=== PATIENT | female | born 1955 | race Caucasian/White ===

== ENCOUNTER → 2016-04-21 | Outpatient (CLI) | payer OTHER ==
[~2016-04-21] MED LIST: ATOR-26 PO; BUPR100T8 PO; CHOL1CAP57 PO; CHOL1TAB63 PO; EFF75 PO; FERR1TAB23 PO; LEVO175T PO; NRN300 PO; TOPI200T14 PO; VRPSR240 PO
[2016-04-21 16:17] LABS: THYROID STIMULATING HORMONE 0.564 uIu/ml (0.300-4.500)
[2016-04-26 17:32] LABS: THYROGLOBULIN <0.1 NG/ML (2.8-40.9)
== END | disposition home or self-care (01) ==
LOC: C.LAB1850 14:06
PROVIDERS: ATTEND Internal Medicine Endocrinology, Diabetes & Metabolism
DX: C73 Malignant neoplasm of thyroid gland (principal); E89.0 Postprocedural hypothyroidism

== ENCOUNTER → 2016-11-10 | Outpatient (CLI) | payer OTHER ==
--- NOTE | 2016-11-10 17:40 | DIAGNOSTIC IMAGING REPORT ---
TWO VIEW CHEST CLINICAL HISTORY: Atypical chest pain. Dyspnea on exertion. FINDINGS: PA and lateral chest radiographs are obtained. No prior studies are available for comparison at the time of dictation. The PA view is degraded by patient rotation . The heart is top normal for projection. The mediastinal contour is within normal limits. Nonspecific interstitial thickening is noted. No airspace consolidation or pleural effusion is identified. There is no pneumothorax. The skeletal structures are osteopenic. Degenerative change and mild scoliosis are noted in the thoracic spine. Cholecystectomy clips are seen in the right upper quadrant. Surgical clips project over the thoracic inlet. IMPRESSION: No active disease in the chest. Electronically signed by: Sherif Shelby M.D. 11/10/2016 5:39 PM Dictated Date/Time: 11/10/2016 5:38 PM
== END | disposition home or self-care (01) ==
LOC: C.RAD 17:22
PROVIDERS: ATTEND Family Medicine
DX: R07.9 Chest pain, unspecified (principal); R06.09 Other forms of dyspnea

== ENCOUNTER 2016-11-12 11:50 | Emergency (ER) | payer OTHER ==
[~2016-11-12] VITALS: Ht 152.4 cm; Wt 105.1 kg
[2016-11-12 11:53] VITALS: TEMP 36.7; Ht 152.4 cm; Wt 105.1 kg
[2016-11-12 12:23] VITALS: O2SAT 96
[2016-11-12 12:38] LABS: BASO % 0.6 %; BASO ABS # 0.04 K/uL (0-0.2); COMPLETE YES; EOS % 5.4 %; HEMATOCRIT 40.1 % (37-47); IG% 0.8 %; LYMPH % 16.2 %; MEAN CELL VOLUME 90.9 fL (80-100); MEAN CORPUSCULAR HEMOGLOBIN 30.6 pg (25-34); MEAN CORPUSCULAR HGB CONC 33.7 g/dl (32-36); MEAN PLATELET VOLUME 9.7 fL (7.4-10.4); MONO % 10.2 %; NEUT % 66.8 %; PLATELET COUNT 274 K/uL (130-400); RED BLOOD COUNT 4.41 M/uL (4.2-5.4); WHITE BLOOD COUNT 6.16 K/uL (4.8-10.8)
[2016-11-12] MEDS ORDERED: NRN300 PO (12:55)
[2016-11-12] MEDS ORDERED: VRPSR240 PO (12:55)
[2016-11-12] MEDS ORDERED: TOPI200T14 PO (12:55)
[2016-11-12] MEDS ORDERED: LEVO175T PO (12:55)
[2016-11-12] MEDS ORDERED: ATOR-26 PO (12:55)
[2016-11-12] MEDS ORDERED: EFF75 PO (12:55)
[2016-11-12] MEDS ORDERED: BUPR100T8 PO (12:55)
[2016-11-12] MEDS ORDERED: CHOL1TAB63 PO (12:55)
[2016-11-12] MEDS ORDERED: CHOL1CAP57 PO (12:55)
[2016-11-12] MEDS ORDERED: FERR1TAB23 PO (12:55)
[2016-11-12 12:57] LABS: ALT/SGPT 26 U/L (12-78); AST/SGOT 12 U/L (15-37); BLOOD UREA NITROGEN 11 mg/dl (7-18); BUN/CREATININE RATIO 11.4 (10-20); CALCIUM 8.6 mg/dl (8.5-10.1); CARBON DIOXIDE 24 mmol/L (21-32); CHLORIDE 111 mmol/L (98-107); GLUCOSE 96 mg/dl (70-99); POTASSIUM 3.6 mmol/L (3.5-5.1); SODIUM 141 mmol/L (136-145)
[2016-11-12 13:02] LABS: ALB/GLOB RATIO 0.9 (0.9-2); ALKALINE PHOSPHATASE 194 U/L (45-117); CKMB/CK RATIO 1.6 (0-3.0)
--- NOTE | 2016-11-12 13:12 | DIAGNOSTIC IMAGING REPORT ---
CHEST ONE VIEW PORTABLE CLINICAL HISTORY: Respiratory distress. Dyspnea. COMPARISON STUDY: Chest radiograph November 10, 2016. FINDINGS: Lung volumes are diminished. There is no pneumothorax or pleural effusion. There is no evidence of pulmonary edema. Lower cervical surgical clips are noted. There is no consolidation to suggest pneumonia. There is apparent mild enlargement of the cardiac silhouette which is accentuated on this exam. IMPRESSION: No acute cardiopulmonary findings. Electronically signed by: Miles Bunch M.D. 11/12/2016 1:11 PM Dictated Date/Time: 11/12/2016 1:10 PM
[2016-11-12] MEDS ORDERED: OPTIRAY 320 IV PRN (13:15)
--- NOTE | 2016-11-12 14:44 | DIAGNOSTIC IMAGING REPORT ---
ADDENDUM Addendum: The enlarged right axillary lymph node is indeterminate. A follow-up right mammogram and ultrasound are recommended. Electronically signed by: Miles Bunch M.D. 11/12/2016 2:49 PM Dictated Date/Time: 11/12/2016 2:[address] ANGIOGRAPHY OF THE CHEST, PULMONARY EMBOLUS PROTOCOL CLINICAL HISTORY: Shortness of breath. Elevated d-dimer. COMPARISON STUDY: Chest radiograph November 10, 2016 and November 12, 2016. TECHNIQUE: Following IV administration of 94 mL of Optiray-320, helical axial images of the chest were obtained utilizing the pulmonary embolus protocol. Maximal intensity projections and sagittal and coronal reformats were viewed on an independent 3D workstation. IV contrast was administered without complication. A dose lowering technique was utilized adhering to the principles of ALARA. CT DOSE: 583.30 mGy.cm FINDINGS: No pulmonary emboli are identified. The heart is mildly enlarged. There is no evidence of thoracic aortic dissection. The thyroid gland is surgically absent. There is no pericardial effusion. There are a few mildly enlarged right axillary lymph nodes. Index lymph node measures 1.2 cm in short axis diameter. There are no enlarged mediastinal or hilar lymph nodes. Linear right apical opacity likely reflects scarring. There are several calcified pulmonary nodules. There are innumerable tiny noncalcified nodules measuring up to 4 mm. Index right lower lobe 4 mm nodule shown image 66 of 241. There are mild ground glass opacities with mosaic attenuation within the lungs. This is most prominent within the left lower lobe. Heterogeneity of portions of the medial clavicles, sternum and cervical thoracic spine may be related to prior radiation therapy. IMPRESSION: 1. No pulmonary emboli identified. 2. No acute intrathoracic findings. 3. Mildly enlarged right axillary lymph node. This is nonspecific. A follow-up chest CT in 6 months is recommended. 4. Numerous tiny noncalcified nodules within the lungs. These are also nonspecific and should be assessed on follow-up chest CT in 6 months. 5. Groundglass opacities with mosaic attenuation within lungs which could reflect air trapping or atelectasis. No consolidation to suggest pneumonia. Electronically signed by: Miles Bunch M.D. 11/12/2016 2:42 PM Dictated Date/Time: 11/12/2016 2:25 PM
--- NOTE | 2016-11-12 14:49 | DIAGNOSTIC IMAGING REPORT ---
BILATERAL LOWER EXTREMITY VENOUS DOPPLER CLINICAL HISTORY: +dimer, eval for DVT COMPARISON STUDY: No previous studies for comparison. TECHNIQUE: Sonography of the deep venous system of the bilateral lower extremity was performed. Compression and augmentation were evaluated. FINDINGS: The bilateral common femoral, superficial femoral and popliteal veins were compressible. Augmentation was normal. Flow was shown within the deep calf vessels. IMPRESSION: No evidence of deep venous thrombus within the bilateral lower extremities. Electronically signed by: Miles Bunch M.D. 11/12/2016 2:48 PM Dictated Date/Time: 11/12/2016 2:46 PM
[2016-11-12] MEDS ORDERED: ALBUTEROL HFA 8 GM INHALER INH ONE (15:30)
[2016-11-12 15:35] VITALS: BP 164/102; PULSE 77; O2SAT 98
--- NOTE | 2016-11-12 19:56 | EMERGENCY ROOM VISIT NOTE ---
History Report prepared by Deepika: Tim Krishna Under the Supervision of: Dr. Joshua Sanon M.D. First contact with patient: 12:13 Chief Complaint: SHORTNESS OF BREATH Stated Complaint: SHORTNESS OF BREATH,REFERRED History of Present Illness The patient is a 60 year old female who presents to the Emergency Room with complaints of constant shortness of breath that started several years ago. She rates her pain as a 4/10 in severity. The patient reports that she has also been experiencing left sided chest pain that occurs whenever she breathes. She also reports a contusion to her posterior right lower extremity, which she admits is still sore. The patient states that she went to visit Dr. Gallo two days ago when she had an EKG and X ray done. She states that she was discharged home due to only a left bundle branch block being found. The patient states the nurse called this morning and reported that the patient's blood work was abnormal and referred her to the ED for a CT scan and US to check for a blood clot. The patient states that she has a history of paralyzed vocal cords, who she follows with the [facility] for, and sleep apnea. She admits to an allergy to radioactive iodine, which she discovered when she had radiation done for her history of thyroid cancer with metastasization outside her thyroid. The patient states that in March, the doctor told her that she was in remission. She reports that she has a possible history of a heart attack in 2005 due to a disagreement of diagnoses between two doctors. The patient states that she has a history of constipation and intermittently takes iron pills. The patient denies traveling, smoking, LOC, headache, fevers, chills, diaphoresis, visual changes, neck pain, nausea, vomiting, abdominal pain, back pain, melena, hematochezia, urinary symptoms, numbness, weakness, lymphadenopathy, rash, or other complaints. Source of History: patient Onset: several years ago Position: other (global) Symptom Intensity: 4/10 Timing: constant Modifying Factors (Worsening): breathing Associated Symptoms: + chest pain Review of Systems See HPI for pertinent positives and negatives. A total of ten systems were reviewed and were otherwise negative. Past Medical & Surgical Medical Problems: (1) Thyroid cancer Family History Patient reports no known family medical history. Social History Smoking Status: Never Smoker Marital Status: Occupation Status: retired Current/Historical Medications Scheduled Atorvastatin (Lipitor), 40 MG PO DAILY Bupropion (Wellbutrin Sr), 200 MG PO BID Cholecalciferol (Vitamin D3), 2,000 UNITS PO DAILY Cholecalciferol (Vitamin D3), 50,000 UNITS PO WK Gabapentin (Gabapentin), 300 MG PO TID Levothyroxine Sodium (Synthroid), 175 MCG PO DAILY Topiramate (Topamax), 200 MG PO BID Venlafaxine Hcl (Effexor), 75 MG PO DAILY Verapamil HCl (Verapamil HCl ER), 240 MG PO BID Scheduled PRN Ferrous Sulfate (Iron), 325 MG PO DAILY PRN for Constipation Allergies Coded Allergies: Iodinated Diagnostic Agents (Unverified Allergy, Unknown, ., 11/12/16) Penicillins (Unverified Allergy, Unknown, ., 11/12/16) Sulfa Antibiotics (Unverified Allergy, Unknown, ., 11/12/16) Physical Exam Vital Signs Date Time Temp Pulse Resp B/P (MAP) Pulse Ox O2 Delivery O2 Flow Rate FiO2 11/12/16 15:35 77 20 164/102 98 11/12/16 14:49 82 16 159/88 96 Room Air 11/12/16 13:12 88 20 152/92 94 Room Air 11/12/16 13:02 68 11/12/16 12:23 94 Room Air 11/12/16 12:23 96 Room Air 11/12/16 11:53 36.7 92 24 171/99 96 Room Air Physical Exam GENERAL: Awake, alert, well-appearing, in no distress HENT: Normocephalic, atraumatic. Oropharynx unremarkable. EYES: Normal conjunctiva. Sclera non-icteric. NECK: Supple. No nuchal rigidity. FROM. No JVD. Post surgical changes and scarring to right neck and shoulder area. RESPIRATORY: Clear to auscultation. CARDIAC: Regular rate, normal rhythm. Extremities warm and well perfused. Pulses equal. ABDOMEN: Soft, non-distended. No tenderness to palpation. No rebound or guarding. No masses. RECTAL: Deferred. MUSCULOSKELETAL: Chest examination reveals no tenderness. The back is symmetrical on inspection without obvious abnormality. There is no CVA tenderness to palpation. No joint edema. LOWER EXTREMITIES: Calves are equal size bilaterally and non-tender. No edema. No discoloration. NEURO: Normal sensorium. No sensory or motor deficits noted. SKIN: No rash or jaundice noted. Medical Decision & Procedures ER Provider Diagnostic Interpretation: Radiology results as stated below per my review and radiologist interpretation: CHEST ONE VIEW PORTABLE CLINICAL HISTORY: Respiratory distress. Dyspnea. COMPARISON STUDY: Chest radiograph November 10, 2016. FINDINGS: Lung volumes are diminished. There is no pneumothorax or pleural effusion. There is no evidence of pulmonary edema. Lower cervical surgical clips are noted. There is no consolidation to suggest pneumonia. There is apparent mild enlargement of the cardiac silhouette which is accentuated on this exam. IMPRESSION: No acute cardiopulmonary findings. Electronically signed by: Miles Bunch M.D. 11/12/2016 1:11 PM Dictated Date/Time: 11/12/2016 1:10 PM BILATERAL LOWER EXTREMITY VENOUS DOPPLER CLINICAL HISTORY: +dimer, eval for DVT COMPARISON STUDY: No previous studies for comparison. TECHNIQUE: Sonography of the deep venous system of the bilateral lower extremity was performed. Compression and augmentation were evaluated. FINDINGS: The bilateral common femoral, superficial femoral and popliteal veins were compressible. Augmentation was normal. Flow was shown within the deep calf vessels. IMPRESSION: No evidence of deep venous thrombus within the bilateral lower extremities. Electronically signed by: Miles Bunch M.D. 11/12/2016 2:48 PM Dictated Date/Time: 11/12/2016 2:[address] ANGIOGRAPHY OF THE CHEST, PULMONARY EMBOLUS PROTOCOL CLINICAL HISTORY: Shortness of breath. Elevated d-dimer. COMPARISON STUDY: Chest radiograph November 10, 2016 and November 12, 2016. TECHNIQUE: Following IV administration of 94 mL of Optiray-320, helical axial images of the chest were obtained utilizing the pulmonary embolus protocol. Maximal intensity projections and sagittal and coronal reformats were viewed on an independent 3D workstation. IV contrast was administered without complication. A dose lowering technique was utilized adhering to the principles of ALARA. CT DOSE: 583.30 mGy.cm FINDINGS: No pulmonary emboli are identified. The heart is mildly enlarged. There is no evidence of thoracic aortic dissection. The thyroid gland is surgically absent. There is no pericardial effusion. There are a few mildly enlarged right axillary lymph nodes. Index lymph node measures 1.2 cm in short axis diameter. There are no enlarged mediastinal or hilar lymph nodes. Linear right apical opacity likely reflects scarring. There are several calcified pulmonary nodules. There are innumerable tiny noncalcified nodules measuring up to 4 mm. Index right lower lobe 4 mm nodule shown image 66 of 241. There are mild ground glass opacities with mosaic attenuation within the lungs. This is most prominent within the left lower lobe. Heterogeneity of portions of the medial clavicles, sternum and cervical thoracic spine may be related to prior radiation therapy. IMPRESSION: 1. No pulmonary emboli identified. 2. No acute intrathoracic findings. 3. Mildly enlarged right axillary lymph node. This is nonspecific. A follow-up chest CT in 6 months is recommended. 4. Numerous tiny noncalcified nodules within the lungs. These are also nonspecific and should be assessed on follow-up chest CT in 6 months. 5. Groundglass opacities with mosaic attenuation within lungs which could reflect air trapping or atelectasis. No consolidation to suggest pneumonia. Electronically signed by: Miles Bunch M.D. 11/12/2016 2:42 PM Dictated Date/Time: 11/12/2016 2:25 PM Laboratory Results 11/12/16 12:14 Red Blood Count 4.41, Mean Corpuscular Volume 90.9, Mean Corpuscular Hemoglobin 30.6, Mean Corpuscular Hemoglobin Concent 33.7, Mean Platelet Volume 9.7, Neutrophils (%) (Auto) 66.8, Lymphocytes (%) (Auto) 16.2, Monocytes (%) (Auto) 10.2, Eosinophils (%) (Auto) 5.4, Basophils (%) (Auto) 0.6, Neutrophils # (Auto ) 4.11, Lymphocytes # (Auto) 1.00, Monocytes # (Auto) 0.63, Eosinophils # (Auto ) 0.33, Basophils # (Auto) 0.04 11/12/16 12:14 Test 11/12/16 12:14 White Blood Count 6.16 K/uL (4.8-10.8) Red Blood Count 4.41 M/uL (4.2-5.4) Hemoglobin 13.5 g/dL (12.0-16.0) Hematocrit 40.1 % (37-47) Mean Corpuscular Volume 90.9 fL (80-100) Mean Corpuscular Hemoglobin 30.6 pg (25-34) Mean Corpuscular Hemoglobin Concent 33.7 g/dl (32-36) Platelet Count 274 K/uL (130-400) Mean Platelet Volume 9.7 fL (7.4-10.4) Neutrophils (%) (Auto) 66.8 % Lymphocytes (%) (Auto) 16.2 % Monocytes (%) (Auto) 10.2 % Eosinophils (%) (Auto) 5.4 % Basophils (%) (Auto) 0.6 % Neutrophils # (Auto) 4.11 K/uL (1.4-6.5) Lymphocytes # (Auto) 1.00 K/uL (1.2-3.4) Monocytes # (Auto) 0.63 K/uL (0.11-0.59) Eosinophils # (Auto) 0.33 K/uL (0-0.5) Basophils # (Auto) 0.04 K/uL (0-0.2) RDW Standard Deviation 48.4 fL (36.4-46.3) RDW Coefficient of Variation 14.5 % (11.5-14.5) Immature Granulocyte % (Auto) 0.8 % Immature Granulocyte # (Auto) 0.05 K/uL (0.00-0.02) Anion Gap 6.0 mmol/L (3-11) Est Creatinine Clear Calc Drug Dose 63.9 ml/min Estimated GFR () 69.9 Estimated GFR (Non- 60.3 BUN/Creatinine Ratio 11.4 (10-20) Calcium Level 8.6 mg/dl (8.5-10.1) Total Bilirubin 0.5 mg/dl (0.2-1) Aspartate Amino Transf (AST/SGOT) 12 U/L (15-37) Alanine Aminotransferase (ALT/SGPT) 26 U/L (12-78) Alkaline Phosphatase 194 U/L (45-117) Total Creatine Kinase 79 U/L (26-192) Creatine Kinase MB 1.3 ng/ml (0.5-3.6) Creatine Kinase MB Ratio 1.6 (0-3.0) Troponin I < 0.015 ng/ml (0-0.045) Pro-B-Type Natriuretic Peptide 182 pg/ml (0-900) Total Protein 8.2 gm/dl (6.4-8.2) Albumin 3.9 gm/dl (3.4-5.0) Globulin 4.3 gm/dl (2.5-4.0) Albumin/Globulin Ratio 0.9 (0.9-2) Laboratory results reviewed by me Medications Administered Medications (Trade) Dose Ordered Sig/Cherelle Route Start Time Stop Time Status Last Admin Dose Admin Albuterol (Ventolin Hfa Inhaler) 2 puffs NOW ONCE INH 11/12/16 15:30 11/12/16 15:31 DC 11/12/16 15:30 2 PUFFS ECG Indication: SOB/dyspnea Rate (beats per minute): 80 Rhythm: sinus rhythm Findings: LBBB, PVC, no acute ischemic change ED Course 1254: The patient was evaluated in room A09B. A complete history and physical exam was performed. 1516: I reevaluated the patient. Discussed results and discharge instructions: She verbalized understanding and agreement. The patient is ready for discharge. 1530: Ordered Albuterol 2 puffs INH. Medical Decision Triage Nursing notes reviewed. The patient's presentation and history were concerning for shortness of breath, cancer, and a positive d-dimer. Etiologies such as pneumonia, COPD, reactive airway disease, CHF, cardiac ischemia, pulmonary embolism, pneumothorax, musculoskeletal, infections, gastrointestinal, as well as others were entertained. The patient was evaluated. Clinical she is doing well. She had stable vital signs. She had blood work obtained. Chest imaging was done. Results as above. Her CBC, chemistry panel, BNP, and cardiac markers were negative. The patient underwent CT imaging of her chest and bilateral lower extremity ultrasounds. Ultrasounds were negative for DVT. The patient's chest CT revealed no evidence of PE. She does have a groundglass appearance which may be some interstitial lung disease, or air trapping. The patient does note a long history of exposure to secondhand smoke. She does not have a liner man. She has not been using any bronchodilators or inhalers. The patient was given an albuterol inhaler. I did refer her to pulmonology as well as back to her primary physician. The patient feels very comfortable with conservative management as an outpatient was very pleased with the testing and results here today. I gave my usual and customary discussion regarding this issue. B y the evaluation outlined above other emergent etiologies such as those listed in the differential, as well as others, were deemed relatively unlikely. The patient was educated about the findings as listed above. All questions were answered and the patient was pleased with the treatment. Return instructions were outlined and the patient was discharged in stable condition. The patient was referred to Pulmonology and her PCP for follow-up for a recheck of the current condition. Medication Reconcilliation Current Medication List: was personally reviewed by me Blood Pressure Screening Patient's blood pressure: Elevated blood pressure Blood pressure disposition: Referred to PCP Impression Primary Impression: SOB (shortness of breath) Additional Impression: Interstitial lung disease Scribe Attestation The scribe's documentation has been prepared under my direction and personally reviewed by me in its entirety. I confirm that the note above accurately reflects all work, treatment, procedures, and medical decision making performed by me. Departure Information Dispostion Home / Self-Care Referrals Juan Gallo M.D. (PCP) Daryl Burden MD Forms HOME CARE DOCUMENTATION FORM, IMPORTANT VISIT INFORMATION Patient Instructions My [facility] Additional Instructions Albuterol Inhaler: Take 2 puffs four times daily for five days, then as needed. Acetaminophen(Tylenol) may be used for fever or pain. Use 1000mg every six hours as needed. Avoid using more than 4000mg in a 24 hour period. (AND/OR) Ibuprofen(Motrin, Advil) may be used for fever or pain. Use 600mg every six hours as needed. Take with food. Avoid using more than 2400mg in a 24 hour period. Do not use 2400mg per day for more than three consecutive days without physician direction. Prolonged inappropriate use can lead to stomach upset or ulcers. Rest and drink plenty of fluids. Avoid smoke/smoking, fumes, dust, or any triggers in the past that may have affected your breathing. Continue current medications. Return to the ER for chest pain, difficulty breathing, fevers, vomiting, worsening of your condition, or as needed. Follow up with your primary physician this week for a recheck of your current condition. Call Dr. Burden's office for a pulmonology follow-up. The numbers listed below. Call the office on Monday. Problem Qualifiers
== END 2016-11-12 15:37 | disposition home or self-care (01) ==
LOC: C.EDB 11:51 → C.EDA 15:37
DX: R06.02 Shortness of breath (principal); J84.9 Interstitial pulmonary disease, unspecified; Z85.850 Personal history of malignant neoplasm of thyroid; Z79.899 Other long term (current) drug therapy

== ENCOUNTER 2020-03-02 11:12 | Observation (INO) ==
--- NOTE | 2020-03-02 12:37 | Emergency Department Note ---
Impression & Plan Acute GI bleeding, Anticoagulated, Rectal cancer, Anemia, Leukopenia ED Provider Note NAME: NEDA DONIS AGE: 64 SEX: F : 1955 ARRIVES VIA: Walk-In INFORMANT: Patient ED PROVIDER(S): Hugo Echevarria DO CHIEF COMPLAINT: GI bleed HPI: Patient is a 64-year-old female who presents the ER for GI bleed. She was seen in the Coumadin clinic and referred to hematology oncology. She was referred up here from Dr. Bishop's office. She notes bright red blood per rectum about a quarter of a cup 4 times a day. She is also passing clots or tissue. She notes she has stage IV rectal cancer and is undergoing chemo and radiation. She denies any headache, change in vision, chest pain shortness of breath nausea or vomiting. No new belly pain. She notes that she does have a rectal stent in place. Only on Lovenox for DVTs. ROS: See above HPI for pertinent positives & negatives. A total of 10 systems reviewed and were otherwise negative. PAST MEDICAL HISTORY:See Below PAST SURGICAL HISTORY:See Below FAMILY HISTORY:See Below SOCIAL HISTORY:See Below HOME MEDICATIONS:See Below ALLERGIES:See Below VITALS:See Below PHYSICAL EXAMINATION: GENERAL: Sitting up in bed, alert, ill-appearing, disheveled, nontoxic EYE EXAM: normal conjunctiva. OROPHARYNX: no exudate, no erythema, lips, buccal mucosa, and tongue normal and mucous membranes are moist NECK: supple, no nuchal rigidity, no adenopathy, non-tender LUNGS: Clear to auscultation. Normal chest wall mechanics HEART: no murmurs, S1 normal and S2 normal ABDOMEN: abdomen soft, non-tender, normo-active bowel sounds, no masses, no rebound or guarding. BACK: Back is symmetrical on inspection and there is no deformity, no midline tenderness, no CVA tenderness. SKIN: no rashes and no bruising UPPER EXTREMITIES: upper extremities are grossly normal. LOWER EXTREMITIES: No pitting edema. NEURO EXAM: Normal sensorium, cranial nerves II-XII grossly intact, normal speech, no gross weakness of arms, no gross weakness of legs. Medical decision making: Patient is a 4-year-old female with past medical history of rectal cancer with a stent in place bright red blood per rectum on blood thinners. IV was established blood work was obtained. Labs showed mild leukopenia 2.5. Mild anemia 10.6 consistent with previous. INR was unremarkable. BMP with mild hypokalemia. Chloride slightly elevated at 111. LFTs bilirubin and troponin was negative. Patient was typed and screened. CT abdomen pelvis shows stent in place with a fair amount of inflammation. Discussed with Dr. Abad who is her typewriter mechanic although did not place the stent. He agrees with admission and further observation. Currently on Lovenox for the DVTs which she has as well. Triage Nursing notes reviewed. Prior medical records reviewed Vital Signs: reviewed and remarkable for HTN Differential diagnosis: Differential diagnosis includes etiologies such as diverticulitis, diverticulosis, AVM, coagulopathy, colitis, inflammatory bowel disease, malignancy, Ana-Amado tear, esophagitis, peptic ulcer disease, variceal bleed, gastritis, epistaxis, fissure, hemorrhoids, as well as others were entertained. ER treatment provided: See below Diagnostics interpreted by me: ECG: Sinus rhythm rate of 68 Normal axis No PVCs Nonspecific ST wave changes in the septal leads Cardiac Monitoring: An order was placed for continuous cardiac monitoring. The monitor shows a rate of 70 with sinus rhythm. Laboratory studies: As stated above and show below. Imaging studies: CT abdomen pelvis shows inflammation around the rectal stent Consultation(s): Cussed with Dr. Abad Discussed the hospitalist for further evaluation ED COURSE: Procedures: none Critical Care: None Past Med/Surg History Medical History (Updated 03/02/20 @ 17:19 by Hugo Echevarria DO) Anxiety Blood in stool D/T rectal mass per patient stent placed Complete left bundle branch block (LBBB) Chronic per cardio note Depression GERD (gastroesophageal reflux disease) History of medullary carcinoma of thyroid Hx of papillary thyroid carcinoma Hyperlipidemia no meds Hypertension Hypothyroidism Post ablative Irritable bowel syndrome with constipation Menopause Migraine Myocardial Infarction 2003 Paralyzed vocal cords Post-surgical hypothyroidism Rectal cancer Recently dx'ed- reason for port placement. Pt for upper/lowerEUS with liver bx and flex sigmoidoscopy with Dr. Coon on 01/23/20 Scars right side of neck d/t radiation Sleep apnea bipap Thyroid cancer Follicular thyroid cancer 1982--s/p partial thyroidectomy, chemo, radiation Medullary thyroid cancer 1996-- s/p complete thyroidectomy, radical neck dissection, radiation/radioactive iodine Vitamin D deficiency Surgical History Difficult airway for intubation small airway -- has laryngeal implant - states use size 6.0 ETT with caution History of appendectomy History of bilateral tubal ligation History of cholecystectomy History of colonoscopy had last 12/24/[address] Abad--found a mass---reason for scheduled flexible sigmoidoscopy with stent History of endoscopic sinus surgery History of esophagogastroduodenoscopy (EGD) History of hysterectomy with unilateral oophorectomy removed right d/t endometriosis History of radical dissection of right side of neck History of right inguinal hernia repair History of surgery part of vocal cord removed -- has laryngeal implant History of thyroidectomy, total History of tonsillectomy and adenoidectomy per patient surgery was done twice History of tooth extraction with permnant bridge Family History Mother Family history of diabetes mellitus Uncle Family history of diabetes mellitus Grandmother Breast cancer Hypertension Diabetes Grandfather Heart disease Other No family history of adverse response to anesthesia Social History Smoking Status: Never smoker Second Hand Exposure: Yes (father smoked); Hx Alcohol Use: No Hx Substance Use: No Preferred Language: Spanish Communication Ability: Effective Anchorer Required: No Beliefs That Will Affect Care: None marital status: Current Living Situation: Alone current occupational status: retired How many Children do You have: 0 Feels Safe at Home: Yes Assistive Devices: BiPap, Cane and Glasses Allergies Allergies Allergy/AdvReac Type Severity Reaction Status Date / Time Iodinated Contrast Media Allergy Intermediate Hives Verified 03/02/20 11:49 Penicillins Allergy Intermediate Hives Verified 03/02/20 11:49 Sulfa (Sulfonamide Allergy Intermediate Hives Verified 03/02/20 11:49 Antibiotics) Home Meds Home Medications Medication Instructions Recorded Confirmed folic acid 1 mg PO QAM 05/24/18 03/02/20 lisinopril 10 mg PO BID 05/24/18 03/02/20 verapamil 240 mg PO BID 05/24/18 03/02/20 levothyroxine 112 mcg capsule 224 mcg PO QAM 01/17/19 03/02/20 topiramate 200 mg tablet 200 mg PO HS 01/17/19 03/02/20 albuterol sulfate 1 inh INHALATION QID PRN 12/16/19 03/02/20 cholecalciferol (vitamin D3) 50 50 mcg PO QAM 01/21/20 03/02/20 mcg (2,000 unit) capsule magnesium hydroxide [Milk of 15 ml PO DAILY PRN 01/23/20 03/02/20 Magnesia] cholecalciferol (vitamin D3) 50,000 unit PO WK 03/02/20 03/02/20 [D3-50 Cholecalciferol] Previous Rx's Medication Instructions Recorded enoxaparin 80 mg/0.8 mL 80 mg SUBCUT Q12H #10 syr 03/02/20 subcutaneous syringe warfarin 4 mg tablet 4 mg PO DAILY #30 tab 03/02/20 Results & Data (ED) Vital Signs Vital Signs - 24 hr 03/02/20 11:19 03/02/20 11:58 03/02/20 12:36 Temperature 36.7 C Temperature Source Oral Pulse Rate 95 H 64 Pulse Rate from SpO2 Sensor 64 Respiratory Rate 20 15 Respiratory Effort / Characteristics Non-Labored Spontaneous Respiratory Depth Normal Respiratory Pattern Regular Blood Pressure 159/89 H 165/63 H Blood Pressure Mean 112 113 Blood Pressure Position Sitting Pulse Oximetry 98 99 Oxygen Delivery Method Room Air Room Air Room Air Sepsis Recent Fever Within 48 Hours No Sepsis New/Unexplained Change in Mental Status N/A Sepsis Action Taken by Nursing No Action Required 03/02/20 13:00 03/02/20 13:44 03/02/20 14:00 Temperature Temperature Source Pulse Rate 65 70 66 Pulse Rate from SpO2 Sensor 69 66 Respiratory Rate 15 17 15 Respiratory Effort / Characteristics Respiratory Depth Respiratory Pattern Blood Pressure 151/74 H 181/90 H 162/84 H Blood Pressure Mean 105 126 117 Blood Pressure Position Pulse Oximetry 99 100 99 Oxygen Delivery Method Room Air Room Air Room Air Sepsis Recent Fever Within 48 Hours Sepsis New/Unexplained Change in Mental Status Sepsis Action Taken by Nursing 03/02/20 15:01 Temperature Temperature Source Pulse Rate 69 Pulse Rate from SpO2 Sensor 71 Respiratory Rate 17 Respiratory Effort / Characteristics Respiratory Depth Respiratory Pattern Blood Pressure 180/103 H Blood Pressure Mean 145 Blood Pressure Position Pulse Oximetry 97 Oxygen Delivery Method Room Air Sepsis Recent Fever Within 48 Hours Sepsis New/Unexplained Change in Mental Status Sepsis Action Taken by Nursing Laboratory Data Result diagrams: 03/02/20 12:55 03/02/20 12:55 Lab Results 03/02/20 03/02/20 03/02/20 Range/Units 12:55 12:55 12:55 WBC 2.57 L (4.8-10.8) K/uL RBC 3.51 L (4.2-5.4) M/uL Hgb 10.6 L (12.0-16.0) g/dL Hct 31.7 L (37-47) % MCV 90.3 (80-100) fL MCH 30.2 (25-34) pg MCHC 33.4 (32-36) g/dL RDW Std Deviation 46.4 H (36.4-46.3) fL RDW Coeff of Michelle 14.0 (11.5-14.5) % Plt Count 168 (130-400) K/uL MPV 9.1 (7.4-10.4) fL Immature Gran % (Auto) 0.0 % Neut % (Auto) 54.1 % Lymph % (Auto) 32.7 % Gilliam % (Auto) 5.4 % Eos % (Auto) 7.4 % Baso % (Auto) 0.4 % Neut # (Auto) 1.39 L (1.4-6.5) K/uL Lymph # (Auto) 0.84 L (1.2-3.4) K/uL Gilliam # (Auto) 0.14 (0.11-0.59) K/uL Eos # (Auto) 0.19 (0-0.5) K/uL Baso # (Auto) 0.01 (0-0.2) K/uL Immature Gran # (Auto) 0.00 (0.00-0.02) K/uL PT 11.2 (9.0-12.0) Seconds INR 1.1 (0.9-1.1) APTT 28.4 (21.0-31.0) Seconds PTT Ratio 1.0 Sodium (136-145) mmol/L Potassium (3.5-5.1) mmol/L Chloride (98-107) mmol/L Carbon Dioxide (21-32) mmol/L Anion Gap (3-11) BUN (7-18) mg/dl Creatinine (0.6-1.2) mg/dl Est Cr Clr Drug Dosing ml/min Est GFR ( Amer) Est GFR (Non-Af Amer) BUN/Creatinine Ratio (10-20) Glucose (70-99) mg/dl Calcium (8.5-10.1) mg/dl Total Bilirubin (0.2-1) mg/dl AST (15-37) U/L ALT (12-78) U/L Alkaline Phosphatase (45-117) U/L Troponin I (0-0.045) ng/ml Total Protein (6.4-8.2) gm/dl Albumin (3.4-5.0) gm/dl Globulin (2.5-4.0) gm/dl Albumin/Globulin Ratio (0.9-2) COVID-19 Eval Order Blood Type A Positive Antibody Screen NEGATIVE 03/02/20 03/02/20 Range/Units 12:55 17:10 WBC (4.8-10.8) K/uL RBC (4.2-5.4) M/uL Hgb (12.0-16.0) g/dL Hct (37-47) % MCV (80-100) fL MCH (25-34) pg MCHC (32-36) g/dL RDW Std Deviation (36.4-46.3) fL RDW Coeff of Michelle (11.5-14.5) % Plt Count (130-400) K/uL MPV (7.4-10.4) fL Immature Gran % (Auto) % Neut % (Auto) % Lymph % (Auto) % Gilliam % (Auto) % Eos % (Auto) % Baso % (Auto) % Neut # (Auto) (1.4-6.5) K/uL Lymph # (Auto) (1.2-3.4) K/uL Gilliam # (Auto) (0.11-0.59) K/uL Eos # (Auto) (0-0.5) K/uL Baso # (Auto) (0-0.2) K/uL Immature Gran # (Auto) (0.00-0.02) K/uL PT (9.0-12.0) Seconds INR (0.9-1.1) APTT (21.0-31.0) Seconds PTT Ratio Sodium 140 (136-145) mmol/L Potassium 3.4 L (3.5-5.1) mmol/L Chloride 111 H (98-107) mmol/L Carbon Dioxide 27 (21-32) mmol/L Anion Gap 2.0 L (3-11) BUN 19 H (7-18) mg/dl Creatinine 0.65 (0.6-1.2) mg/dl Est Cr Clr Drug Dosing 83.0 ml/min Est GFR ( Amer) 107.2 Est GFR (Non-Af Amer) 92.5 BUN/Creatinine Ratio 29.6 H (10-20) Glucose 87 (70-99) mg/dl Calcium 7.4 L (8.5-10.1) mg/dl Total Bilirubin 0.4 (0.2-1) mg/dl AST 16 (15-37) U/L ALT 41 (12-78) U/L Alkaline Phosphatase 110 (45-117) U/L Troponin I < 0.015 (0-0.045) ng/ml Total Protein 6.0 L (6.4-8.2) gm/dl Albumin 3.1 L (3.4-5.0) gm/dl Globulin 2.9 (2.5-4.0) gm/dl Albumin/Globulin Ratio 1.1 (0.9-2) COVID-19 Eval Order Covid19 [facility] Blood Type Antibody Screen Administered Medications Discontinued Medications Ioversol (Ioversol 100ml) 94 ml IV ONCE ONE Stop: 03/02/20 14:34 Last Admin: 03/02/20 14:33 Dose: 94 ml Documented by: [id number] Methylprednisolone (Methylprednisolone 125 Mg/2 Ml Vial) 125 mg IV NOW STA Stop: 03/02/20 12:46 Last Admin: 03/02/20 13:40 Dose: 125 mg Documented by: [id number] Discharge Plan Visit Data Chief Complaint: Rectal Bleed Stated Complaint: dr amanda sent, rectal bleeding ED Provider: Hugo Echevarria Discharge Problem: Acute GI bleeding, Anticoagulated, Rectal cancer, Anemia, Leukopenia Forms Stand Alone Forms: My [facility] Prescriptions Prescriptions: No Action enoxaparin 80 mg/0.8 mL syringe 80 mg subcut Q12H Qty: 10 RF: 2 warfarin 4 mg tablet 4 mg PO DAILY Qty: 30 RF: 2 levothyroxine 112 mcg capsule 224 mcg PO QAM RF: 0 topiramate [Topamax] 200 mg tablet 200 mg PO HS RF: 0 cholecalciferol (vitamin D3) 50 mcg (2,000 unit) capsule 50 mcg PO QAM RF: 0 lisinopril 10 mg Tablet 10 mg PO BID RF: 0 verapamil 240 mg Tablet Extended Release 240 mg PO BID RF: 0 folic acid 1 mg Tablet 1 mg PO QAM RF: 0 magnesium hydroxide [Milk of Magnesia] 400 mg/5 mL Suspension 15 ml PO DAILY PRN (Reason: Constipation) RF: 0 albuterol sulfate 90 mcg/actuation Hfa Aerosol Inhaler 1 inh INHALATION QID PRN (Reason: sob) RF: 0 cholecalciferol (vitamin D3) [D3-50 Cholecalciferol] 1,250 mcg (50,000 unit) capsule 50,000 unit PO WK RF: 0 Discharge Problem: Anemia Qualifiers: Anemia type: unspecified type Qualified Code(s): D64.9 - Anemia, unspecified Leukopenia Qualifiers: Leukopenia type: unspecified Qualified Code(s): D72.819 - Decreased white blood cell count, unspecified
[2020-03-02] MEDS ORDERED: methylPREDNISolone 125 MG/2 ML VIAL IV STA (12:45)
[2020-03-02 13:22] LABS: Basophils # (auto) 0.01 K/uL (0-0.2); Basophils % (auto) 0.4 %; Eosinophils # (auto) 0.19 K/uL (0-0.5); Eosinophils % (auto) 7.4 %; Hematocrit (blood only) 31.7 % (37-47); Hemoglobin 10.6 g/dL (12.0-16.0); Lymphocytes # (auto) 0.84 K/uL (1.2-3.4); Lymphocytes % (auto) 32.7 %; Mean Corpuscular Hemoglobin 30.2 pg (25-34); Mean Corpuscular Hgb Conc 33.4 g/dL (32-36); Mean Corpuscular Volume 90.3 fL (80-100); Mean Platelet Volume 9.1 fL (7.4-10.4); Monocytes # (auto) 0.14 K/uL (0.11-0.59); Monocytes % (auto) 5.4 %; Neutrophils # (auto) 1.39 K/uL (1.4-6.5); Neutrophils % (auto) 54.1 %; Platelet Count 168 K/uL (130-400); RDW Standard Deviation 46.4 fL (36.4-46.3); Red Blood Count 3.51 M/uL (4.2-5.4); White Blood Count 2.57 K/uL (4.8-10.8)
--- NOTE | 2020-03-02 13:34 | Electrocardiogram Report ---
Test Reason : Blood Pressure : / mmHG Vent. Rate : 068 BPM Atrial Rate : 068 BPM P-R Int : 160 ms QRS Dur : 102 ms QT Int : 436 ms P-R-T Axes : 029 014 029 degrees QTc Int : 463 ms Normal sinus rhythm Poor R wave progression, consider anterior RI vs. lead placement vs. LVH Abnormal ECG When compared with ECG of 26-DEC-2019 10:52, Vent. rate has decreased BY 36 BPM Left bundle branch block is no longer Present Confirmed by Kris Jesus ([id number]) on 03/02/2020 1:34:18 PM Referred By: Mario Flores Confirmed By:Kris Jesus
[2020-03-02 13:38] LABS: INR 1.1 (0.9-1.1); Partial Thromboplastin Time 28.4 Seconds (21.0-31.0); Prothrombin Time 11.2 Seconds (9.0-12.0)
[2020-03-02 13:42] LABS: Alanine Aminotransferase 41 U/L (12-78); Albumin Globulin Ratio 1.1 (0.9-2); Albumin Level 3.1 gm/dl (3.4-5.0); Alkaline Phosphatase 110 U/L (45-117); Aspartate Aminotransferase 16 U/L (15-37); BUN Creatinine Ratio 29.6 (10-20); Bilirubin,Total 0.4 mg/dl (0.2-1); Blood Urea Nitrogen 19 mg/dl (7-18); Calcium 7.4 mg/dl (8.5-10.1); Carbon Dioxide 27 mmol/L (21-32); Chloride 111 mmol/L (98-107); Est GFR (African American) 107.2; Est GFR (Non-African American) 92.5; Globulin 2.9 gm/dl (2.5-4.0); Glucose 87 mg/dl (70-99); Potassium 3.4 mmol/L (3.5-5.1); Sodium 140 mmol/L (136-145); Troponin I < 0.015 ng/ml (0-0.045)
[2020-03-02] MEDS ORDERED: IOVERSOL 100ml IV ONE (14:33)
--- NOTE | 2020-03-02 14:55 | CT Scan Report ---
CT SCAN OF THE ABDOMEN AND PELVIS WITH IV CONTRAST CLINICAL HISTORY: GI bleeding. Colon cancer. COMPARISON STUDY: Abdominal CT dated 12/26/2019. TECHNIQUE: Following the IV administration of 94 cc of Optiray 320, CT scan of the abdomen and pelvi s is performed from the lung bases to the proximal femora. Images are reviewed in the axial, sagittal , and coronal planes. IV contrast was administered without complication. A dose lowering technique wa s utilized adhering to the principles of ALARA. CT DOSE: 898.33 mGy.cm FINDINGS: Lung bases: The heart is normal in size and without pericardial effusion. There are scattered calcifi ed granulomas. No airspace consolidation or pleural effusion is identified. Liver: The contrast-enhanced liver is normal in size, contour, and attenuation. There is no intrahepa tic biliary ductal dilatation. The hepatic veins and portal veins are patent. There are 2 hypervascul ar lesions seen in the dome of the liver on images #23 and #30 which measure up to 1 cm. Additional s ubcentimeter hepatic hypodensities may resent cysts but are too small for definitive characterization . Gallbladder: Surgically absent noting clips in the gallbladder fossa. Spleen: The spleen is normal in size attenuation. There are numerous hypervascular splenic lesions wh ich measure up to 3.7 cm. Pancreas: Unremarkable. Adrenal glands: Unremarkable. Kidneys: The contrast enhanced kidneys demonstrate mild cortical atrophy and are without hydronephros is. The kidneys enhance symmetrically. There is a small nonobstructing left renal calculus. Abdominal vasculature: The abdominal aorta is normal in course and caliber noting mild atheroscleroti c calcification. Bowel: A rectal stent is in place. There is marked rectal wall thickening with perirectal inflammatio n. Focal narrowing is identified in the sigmoid colon just above the stent on axial image #277. No omar wel obstruction is identified. The appendix is not identified and reported surgically absent. There are numerous enlarged perirectal nodules/lymph nodes a applications sales representative lesion on image #308 measures u p to 3 cm. This is similar appearance to previous. There is moderate to severe constipation. Peritoneum: There is no intraperitoneal free air or abdominal ascites. Lymphadenopathy: There is no upper abdominal, retroperitoneal, pelvic sidewall, or inguinal adenopath y. Pelvic viscera: The bladder is normal as visualized. The uterus is surgically absent. No adnexal lesi on is seen. Skeletal structures: The skeletal structures are osteopenic. A sclerotic focus is again seen at the l eft ischial tuberosity. No additional bone lesions are suggested. IMPRESSION: 1. A rectal stent is unchanged in position. There is marked rectal wall thickening with perirectal in flammation. This is likely related to the patient's known carcinoma, possibly conjunction with treatm ent related change. Clinical correlation will be required. 2. Enlarged perirectal nodules/lymph nodes are similar to previous. 3. Focal narrowing is identified in the sigmoid colon just above the stent. This is of indeterminant significance and may be physiologic. This could also related to stricture or neoplasm. 4. The colon is normal in caliber noting moderate to severe constipation. There is no small bowel obs truction. 5. There are numerous pathologically indeterminant hypervascular splenic lesions. These are unchanged . 6. There are 2 hypervascular liver lesions at the hepatic dome which measure up to 1 cm. These are pa thologically indeterminant and may represent small flash filling hemangiomas. 7. Left-sided nephrolithiasis. 8. A sclerotic focus at the left ischial tuberosity is unchanged and pathologically indeterminant. 9. Additional findings as above. ACT 112: Negative or not required by law. Electronically signed by: Sherif Shelby M.D. 03/02/2020 2:53 PM
--- NOTE | 2020-03-02 15:56 | History & Physical Report ---
Date of Service March 02, 2020 Assessment & Plan (1) Hematochezia: Chrissy Vance is a 64-year-old female with a past medical history of stage IV rectal cancer with rectal stent undergoing chemotherapy, past thyroid cancer status post thyroidectomy with subsequent partial vocal cord paralysis, interstitial lung disease, hypertension, hyperlipidemia, SUZANNE, and dyslipidemia who presents with 4 episodes of hematochezia of partially formed blood in tissue the night prior to admission. Hematochezia Patient describes 4 episodes of passing blood and some tissue, first episode evening prior to presentation and last episode approximately 5:30 AM day of presentation. Patient describes about 1/4 cup of formed blood with tissue - Pt w/ rectal stent, may have bleeding at cancer site vs local stent erosion Patient recently started on Lovenox 1mpk twice daily for left IJ, subclavian, and axillary thrombus in the setting of cancer with intention to transition to warfarin Hemoglobin 10.6, stable. H&H every 4 hours. Type and screen on file. Consent on file. Lovenox held GI consulted. Patient has not eaten today and will keep her n.p.o. Oncology consulted for risk/benefits and options for management of high clot burden in the setting of cancer with bleeding Stage IV rectal cancer, liver mets Patient with rectal stent placement on 01/22, known to Dr. Francis Gregorio and Dr. Bishop Patient anticipating chemo/radiation treatment Left internal jugular Mediport placed 01/28, currently with difficulty drawing likely related to clot burden, see below GI consulted, oncology consulted Left upper extremity DVT Left IJ, subclavian, axillary Vascular consulted given clot burden, territorial port, and bleeding limiting anticoagulation Lovenox held as above No BP checks, lab draws in left extremity. Hypertension Hold lisinopril 10 mg in case of procedure Continue verapamil to 40 mg p.o. twice daily - Hypothyroidism following thyroidectomy due to medullary thyroid cancer and follicular thyroid cancer Continue Synthroid 224 mcg SUZANNE CPAP/BiPAP nightly Patient problem list lists interstitial lung disease, per patient she has no known history of interstitial lung disease or COPD. She reports she does have a paralyzed vocal cord following thyroidectomy Hypokalemia Magnesium pending, optimized to greater than 2 Potassium 3.4, riders pending while n.p.o. Optimize greater than 4 in setting of bleed BMP daily DVT prophylaxis: SCDs, pharmacal prophylaxis contraindicated in the setting of acute bleed Diet: N.p.o., NSS plus KCl 120 cc/h Disposition: Medical/surgical with telemetry CODE STATUS: Full code, discussed with patient (2) Post-surgical hypothyroidism: (3) History of medullary carcinoma of thyroid: (4) Hx of papillary thyroid carcinoma: (5) Vitamin D deficiency: (6) History of vascular access device: (7) Thyroid cancer: (8) Heme positive stool: (9) LBBB (left bundle branch block): (10) HTN (hypertension): (11) Hyperlipidemia: (12) Obstructive sleep apnea: (13) Hypothyroidism, postablative: (14) Rectal cancer: (15) Atypical chest pain: (16) Dyslipidemia: History of Present Illness Chief Complaint: Rectal Bleeding Primary Care Provider: Karen Enciso Chrissy Vance is a 64yo F who presents with 4x episodes of hematochezia. Chrissy reports she has stage 4 rectal cancer. She was previously on Warfarin, but was started on lovenox this past week due to 3x clots in her L shoulder/arm. (Chart review notes LUE and neck swelling with US revealing thrombus in L IJ, L subclavian, and L axillary veins. She was started on Lovenox 1mpk BID). She is not on has not been on warfarin previously. She is scheduled to start warfarin once her current episode of rectal bleeding improves. Last night she noticed increase bleeding in the toilet, and had 4 subsequent episodes of bright red blood with some tissue in it this morning 5:30-6am. Was formed blood and tissue with minimal loose blood. She was nervous, and went to the cancer center for her regular appointment with Dr. Flores who sent her to the ER for evaluation. She had some lightheadedness in the last day. She gets some chest pain since her port placement at the end of Jan, otherwise denies chest pain. Denies palpitations/fluttering. She has a paralyzed vocal cord after thyroid surgery with some chronic shortness of breath, denies recent change in the last few days but endorses anxiety. She reports that while her chart shows ILD, denies any current or past history of lung disease except for SUZANNE. Denies fevers, chills, or sweats. She has had some bleeding similar to this in the past when she had a rectal stent placed by Dr. Parra, but notes she had a little bleeding and much less than with her current episode. She does not get black or tarry stools. She has IBS-C. Last BM was a few days ago. Dr. Goodman has her take milk of magnesia which she last 2 days ago. Has not eaten today. Medications; Updated (of note warfarin has not been started yet, and has stopped ASA) MedHx: Reviewed SHx: Reviewed Fhx: reviewed Allergies: Sulfa and PCN --> hives. Hives to contrast dye. Social: Denies tobacco, EtoH, recreational drug use. She lives alone with a black lab and border collie, no sick contacts. COde Status: Full Code. Niece Ludivina Washington would be surrogate if needed, Allergies Allergy/AdvReac Type Severity Reaction Status Date / Time Iodinated Contrast Media Allergy Intermediate Hives Verified 03/02/20 11:49 Penicillins Allergy Intermediate Hives Verified 03/02/20 11:49 Sulfa (Sulfonamide Allergy Intermediate Hives Verified 03/02/20 11:49 Antibiotics) Home Medications Medication Instructions Recorded Confirmed Type folic acid 1 mg PO QAM 05/24/18 03/02/20 History lisinopril 10 mg PO BID 05/24/18 03/02/20 History verapamil 240 mg PO BID 05/24/18 03/02/20 History levothyroxine 112 mcg capsule 224 mcg PO QAM 01/17/19 03/02/20 History topiramate 200 mg tablet 200 mg PO HS 01/17/19 03/02/20 History albuterol sulfate 1 inh INHALATION QID PRN 12/16/19 03/02/20 History cholecalciferol (vitamin D3) 50 50 mcg PO QAM 01/21/20 03/02/20 History mcg (2,000 unit) capsule magnesium hydroxide [Milk of 15 ml PO DAILY PRN 01/23/20 03/02/20 History Magnesia] cholecalciferol (vitamin D3) 50,000 unit PO WK 03/02/20 03/02/20 History [D3-50 Cholecalciferol] enoxaparin 80 mg/0.8 mL 80 mg SUBCUT Q12H #10 syr 03/02/20 03/02/20 Rx subcutaneous syringe warfarin 4 mg tablet 4 mg PO DAILY #30 tab 03/02/20 03/02/20 Rx Past Med/Surg History Medical History (Updated 03/03/20 @ 00:16 by Sera Pittman MD) Anxiety Blood in stool D/T rectal mass per patient stent placed Complete left bundle branch block (LBBB) Chronic per cardio note Depression GERD (gastroesophageal reflux disease) History of medullary carcinoma of thyroid Hx of papillary thyroid carcinoma Hyperlipidemia no meds Hypertension Hypothyroidism Post ablative Irritable bowel syndrome with constipation Menopause Migraine Myocardial Infarction 2003 Paralyzed vocal cords Post-surgical hypothyroidism Rectal cancer Recently dx'ed- reason for port placement. Pt for upper/lowerEUS with liver bx and flex sigmoidoscopy with Dr. Coon on 01/23/20 Scars right side of neck d/t radiation Sleep apnea bipap Thyroid cancer Follicular thyroid cancer 1982--s/p partial thyroidectomy, chemo, radiation Medullary thyroid cancer 1996-- s/p complete thyroidectomy, radical neck dissection, radiation/radioactive iodine Vitamin D deficiency Surgical History Difficult airway for intubation small airway -- has laryngeal implant - states use size 6.0 ETT with caution History of appendectomy History of bilateral tubal ligation History of cholecystectomy History of colonoscopy had last 12/24/[address] Abad--found a mass---reason for scheduled flexible sigmoidoscopy with stent History of endoscopic sinus surgery History of esophagogastroduodenoscopy (EGD) History of hysterectomy with unilateral oophorectomy removed right d/t endometriosis History of radical dissection of right side of neck History of right inguinal hernia repair History of surgery part of vocal cord removed -- has laryngeal implant History of thyroidectomy, total History of tonsillectomy and adenoidectomy per patient surgery was done twice History of tooth extraction with permnant bridge Family History Mother Family history of diabetes mellitus Uncle Family history of diabetes mellitus Grandmother Breast cancer Hypertension Diabetes Grandfather Heart disease Other No family history of adverse response to anesthesia Social History Smoking Status: Never smoker Second Hand Exposure: Yes (as a child); Do You Dip or Chew Tobacco: No; Tobacco Cessation Education Requested by Patient: No Hx Alcohol Use: No Hx Substance Use: No Preferred Language: Greek Communication Ability: Effective Manager Payroll Required: No Beliefs That Will Affect Care: None marital status: Current Living Situation: Alone current occupational status: retired How many Children do You have: 0 Other Information That Helps Us Care for You: No Feels Safe at Home: Yes Safety Concerns: Feels Safe At This Time Assistive Devices: BiPap, Glasses, Oxygen - at Night and Walker Assistive Devices Comment: permanent bridge Review of Systems Review of Systems: Constitutional: Denies fever, chills, weight change Skin: Endorses post radiation skin changes/scarring on the R neck/upper torso. Eyes: Denies acute change ENT: Denies ear pain, sore throat, sinus pain Cardiovascular: Denies chest pressure, palpitations, extremity swelling Respiratory: Denies shortness of breath, cough, sputum production, difficulty breathing Gastrointestinal: Denies abdominal pain, nausea, vomiting Genitourinary: Denies pain with urination, urinary urgency, urinary frequency Musculoskeletal: Denies acute weakness, muscle aches/pain, joint aches/pain Integumentary:Denies acute rash, lesions, bruising Neurological: Denies numbness, tingling, focal weakness Physical Exam Physical Exam: General: A&Ox3. NAD. Cooperative. Post-radiation scarring of post surgical healed incisions at the R neck. L port palpable, overlying surgical incision well healing without erythema/pain/purulence. HEENT: Atraumatic, normocephalic.Pupils equal and reactive to light and accommodation.. Visual acuity grossly intact hearing grossly intact. Pulm: CTAB A&P. -rales, -rhonchi. Trace upper stridor, baseline per patient with vocal cord paralysis. Symmetrical chest rise. No increase work of breathing. No respiratory distress. Cardiac: RRR, -mrg. Radial pulses intact and symmetrical. Abdominal: Nontender, nondistended, soft. BS present. 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 Sensation to soft touch intact in fingers and toes bilaterally. Results & Data Results & Data ([facility]) Vital Signs (Past 12 Hours) Vital Signs Temp Pulse Resp BP Pulse Ox 03/02/20 15:01 69 17 180/103 H 97 03/02/20 14:00 66 15 162/84 H 99 03/02/20 13:44 70 17 181/90 H 100 03/02/20 13:00 65 15 151/74 H 99 03/02/20 12:36 64 15 165/63 H 99 03/02/20 11:19 36.7 C 95 H 20 159/89 H 98 Laboratory Results 03/02/20 03/02/20 03/02/20 Range/Units 18:00 17:10 17:10 WBC (4.8-10.8) K/uL RBC (4.2-5.4) M/uL Hgb (12.0-16.0) g/dL Hct (37-47) % MCV (80-100) fL MCH (25-34) pg MCHC (32-36) g/dL RDW Std Deviation (36.4-46.3) fL RDW Coeff of Michelle (11.5-14.5) % Plt Count (130-400) K/uL MPV (7.4-10.4) fL Immature Gran % (Auto) % Neut % (Auto) % Lymph % (Auto) % Ballard % (Auto) % Eos % (Auto) % Baso % (Auto) % Neut # (Auto) (1.4-6.5) K/uL Lymph # (Auto) (1.2-3.4) K/uL Ballard # (Auto) (0.11-0.59) K/uL Eos # (Auto) (0-0.5) K/uL Baso # (Auto) (0-0.2) K/uL Immature Gran # (Auto) (0.00-0.02) K/uL PT (9.0-12.0) Seconds INR (0.9-1.1) APTT (21.0-31.0) Seconds PTT Ratio Sodium (136-145) mmol/L Potassium (3.5-5.1) mmol/L Chloride (98-107) mmol/L Carbon Dioxide (21-32) mmol/L Anion Gap (3-11) BUN (7-18) mg/dl Creatinine (0.6-1.2) mg/dl Est Cr Clr Drug Dosing ml/min Est GFR ( Amer) Est GFR (Non-Af Amer) BUN/Creatinine Ratio (10-20) Glucose (70-99) mg/dl Calcium (8.5-10.1) mg/dl Magnesium (1.8-2.4) mg/dl Total Bilirubin (0.2-1) mg/dl AST (15-37) U/L ALT (12-78) U/L Alkaline Phosphatase (45-117) U/L Troponin I (0-0.045) ng/ml Total Protein (6.4-8.2) gm/dl Albumin (3.4-5.0) gm/dl Globulin (2.5-4.0) gm/dl Albumin/Globulin Ratio (0.9-2) POC Stool Occult Blood Positive A (Negative) COVID[facility]19 [facility] SARS-CoV-2, RNA, NAAT NEGATIVE (NEGATIVE) Blood Type Antibody Screen 03/02/20 03/02/20 03/02/20 Range/Units 12:55 12:55 12:55 WBC (4.8-10.8) K/uL RBC (4.2-5.4) M/uL Hgb (12.0-16.0) g/dL Hct (37-47) % MCV (80-100) fL MCH (25-34) pg MCHC (32-36) g/dL RDW Std Deviation (36.4-46.3) fL RDW Coeff of Michelle (11.5-14.5) % Plt Count (130-400) K/uL MPV (7.4-10.4) fL Immature Gran % (Auto) % Neut % (Auto) % Lymph % (Auto) % Ballard % (Auto) % Eos % (Auto) % Baso % (Auto) % Neut # (Auto) (1.4-6.5) K/uL Lymph # (Auto) (1.2-3.4) K/uL Ballard # (Auto) (0.11-0.59) K/uL Eos # (Auto) (0-0.5) K/uL Baso # (Auto) (0-0.2) K/uL Immature Gran # (Auto) (0.00-0.02) K/uL PT 11.2 (9.0-12.0) Seconds INR 1.1 (0.9-1.1) APTT 28.4 (21.0-31.0) Seconds PTT Ratio 1.0 Sodium 140 (136-145) mmol/L Potassium 3.4 L (3.5-5.1) mmol/L Chloride 111 H (98-107) mmol/L Carbon Dioxide 27 (21-32) mmol/L Anion Gap 2.0 L (3-11) BUN 19 H (7-18) mg/dl Creatinine 0.65 (0.6-1.2) mg/dl Est Cr Clr Drug Dosing 83.0 ml/min Est GFR ( Amer) 107.2 Est GFR (Non-Af Amer) 92.5 BUN/Creatinine Ratio 29.6 H (10-20) Glucose 87 (70-99) mg/dl Calcium 7.4 L (8.5-10.1) mg/dl Magnesium 2.5 H (1.8-2.4) mg/dl Total Bilirubin 0.4 (0.2-1) mg/dl AST 16 (15-37) U/L ALT 41 (12-78) U/L Alkaline Phosphatase 110 (45-117) U/L Troponin I < 0.015 (0-0.045) ng/ml Total Protein 6.0 L (6.4-8.2) gm/dl Albumin 3.1 L (3.4-5.0) gm/dl Globulin 2.9 (2.5-4.0) gm/dl Albumin/Globulin Ratio 1.1 (0.9-2) POC Stool Occult Blood (Negative) COVID-19 Eval Order SARS-CoV-2, RNA, NAAT (NEGATIVE) Blood Type Antibody Screen 03/02/20 03/02/20 Range/Units 12:55 12:55 WBC 2.57 L (4.8-10.8) K/uL RBC 3.51 L (4.2-5.4) M/uL Hgb 10.6 L (12.0-16.0) g/dL Hct 31.7 L (37-47) % MCV 90.3 (80-100) fL MCH 30.2 (25-34) pg MCHC 33.4 (32-36) g/dL RDW Std Deviation 46.4 H (36.4-46.3) fL RDW Coeff of Michelle 14.0 (11.5-14.5) % Plt Count 168 (130-400) K/uL MPV 9.1 (7.4-10.4) fL Immature Gran % (Auto) 0.0 % Neut % (Auto) 54.1 % Lymph % (Auto) 32.7 % Ballard % (Auto) 5.4 % Eos % (Auto) 7.4 % Baso % (Auto) 0.4 % Neut # (Auto) 1.39 L (1.4-6.5) K/uL Lymph # (Auto) 0.84 L (1.2-3.4) K/uL Ballard # (Auto) 0.14 (0.11-0.59) K/uL Eos # (Auto) 0.19 (0-0.5) K/uL Baso # (Auto) 0.01 (0-0.2) K/uL Immature Gran # (Auto) 0.00 (0.00-0.02) K/uL PT (9.0-12.0) Seconds INR (0.9-1.1) APTT (21.0-31.0) Seconds PTT Ratio Sodium (136-145) mmol/L Potassium (3.5-5.1) mmol/L Chloride (98-107) mmol/L Carbon Dioxide (21-32) mmol/L Anion Gap (3-11) BUN (7-18) mg/dl Creatinine (0.6-1.2) mg/dl Est Cr Clr Drug Dosing ml/min Est GFR ( Amer) Est GFR (Non-Af Amer) BUN/Creatinine Ratio (10-20) Glucose (70-99) mg/dl Calcium (8.5-10.1) mg/dl Magnesium (1.8-2.4) mg/dl Total Bilirubin (0.2-1) mg/dl AST (15-37) U/L ALT (12-78) U/L Alkaline Phosphatase (45-117) U/L Troponin I (0-0.045) ng/ml Total Protein (6.4-8.2) gm/dl Albumin (3.4-5.0) gm/dl Globulin (2.5-4.0) gm/dl Albumin/Globulin Ratio (0.9-2) POC Stool Occult Blood (Negative) COVID-19 Eval Order SARS-CoV-2, RNA, NAAT (NEGATIVE) Blood Type A Positive Antibody Screen NEGATIVE Diagnostic Findings CT SCAN OF THE ABDOMEN AND PELVIS WITH IV CONTRAST CLINICAL HISTORY: GI bleeding. Colon cancer. COMPARISON STUDY: Abdominal CT dated 12/26/2019. TECHNIQUE: Following the IV administration of 94 cc of Optiray 320, CT scan of the abdomen and pelvis is performed from the lung bases to the proximal femora. Images are reviewed in the axial, sagittal, and coronal planes. IV contrast was administered without complication. A dose lowering technique was utilized adhering to the principles of ALARA. CT DOSE: 898.33 mGy.cm FINDINGS: Lung bases: The heart is normal in size and without pericardial effusion. There are scattered calcified granulomas. No airspace consolidation or pleural effusion is identified. Liver: The contrast-enhanced liver is normal in size, contour, and attenuation. There is no intrahepatic biliary ductal dilatation. The hepatic veins and portal veins are patent. There are 2 hypervascular lesions seen in the dome of the liver on images #23 and #30 which measure up to 1 cm. Additional subcentimeter hepatic hypodensities may resent cysts but are too small for definitive characterization. Gallbladder: Surgically absent noting clips in the gallbladder fossa. Spleen: The spleen is normal in size attenuation. There are numerous hypervascular splenic lesions which measure up to 3.7 cm. Pancreas: Unremarkable. Adrenal glands: Unremarkable. Kidneys: The contrast enhanced kidneys demonstrate mild cortical atrophy and are without hydronephrosis. The kidneys enhance symmetrically. There is a small nonobstructing left renal calculus. Abdominal vasculature: The abdominal aorta is normal in course and caliber noting mild atherosclerotic calcification. Bowel: A rectal stent is in place. There is marked rectal wall thickening with perirectal inflammation. Focal narrowing is identified in the sigmoid colon just above the stent on axial image #277. No bowel obstruction is identified. The appendix is not identified and reported surgically absent. There are numerous enlarged perirectal nodules/lymph nodes a contact center representative lesion on image #308 measures up to 3 cm. This is similar appearance to previous. There is moderate to severe constipation. Peritoneum: There is no intraperitoneal free air or abdominal ascites. Lymphadenopathy: There is no upper abdominal, retroperitoneal, pelvic sidewall, or inguinal adenopathy. Pelvic viscera: The bladder is normal as visualized. The uterus is surgically absent. No adnexal lesion is seen. Skeletal structures: The skeletal structures are osteopenic. A sclerotic focus is again seen at the left ischial tuberosity. No additional bone lesions are suggested. IMPRESSION: 1. A rectal stent is unchanged in position. There is marked rectal wall thickening with perirectal inflammation. This is likely related to the patient's known carcinoma, possibly conjunction with treatment related change. Clinical correlation will be required. 2. Enlarged perirectal nodules/lymph nodes are similar to previous. 3. Focal narrowing is identified in the sigmoid colon just above the stent. This is of indeterminant significance and may be physiologic. This could also related to stricture or neoplasm. 4. The colon is normal in caliber noting moderate to severe constipation. There is no small bowel obstruction. 5. There are numerous pathologically indeterminant hypervascular splenic lesions. These are unchanged. 6. There are 2 hypervascular liver lesions at the hepatic dome which measure up to 1 cm. These are pathologically indeterminant and may represent small flash filling hemangiomas. 7. Left-sided nephrolithiasis. 8. A sclerotic focus at the left ischial tuberosity is unchanged and pathologically indeterminant. 9. Additional findings as above. ECG Additional Comments: ECG performed on 03/02/2020 at 1230 with normal sinus rhythm, rate 68, poor R wave progression, left bundle branch block is no longer present Code Status & VTE Plan Code Status Full code VTE Prophylaxis Plan VTE Prophylaxis will be ordered: Yes Supervising Physician Co-Signing Physician Notes PA Supervision Note: I personally saw and examined the patient. I verified all krishnan points and agree with Dr. Major with the following exceptions and/or additions: This patient is a very rika 64-year-old female with metastatic colorectal cancer to the liver and lymph nodes. She also recently developed a left IJ and subclavian DVT after having a Port-A-Cath placed on 01/29/2020. She was started on therapeutic dosing with Lovenox approximately 1 week ago and developed rectal bleeding that worsened overnight. She is not having any lightheadedness, denies chest pains or shortness of breath. She has no abdominal pain but does feel full and feels a sensation to have a bowel movement but is unable to get any stool out. History and ROS reviewed as above Vitals reviewed Gen: AAOx3, NAD, overweight HEENT: Anicteric sclerae, EOMI CV: RRR no mgr nl S1S2 Pulm: CTAB no wcr Abd: +BS soft NT ND no masses or hernias, rectal exam deferred Ext: No edema, 2+ DP pulses Skin: No rashes, warm/dry Neuro: Full strength throughout Laboratory values reviewed ECG reviewed CT abdomen/pelvis reviewed 64-year-old female with metastatic colorectal cancer and DVT on Lovenox, here with rectal bleeding. Fortunately her hemoglobin is stable so far from 1 week ago. We will hold Lovenox for now and consult her pool coordinator/oncologist as well as vascular surgery for further input on treatment considering her DVT and rectal bleeding. Follow serial CBC and transfuse if hemoglobin drops less than 7 or if between 7 and 8 in the setting of acute recurrent rectal bleeding Consult GI to see if needs sigmoidoscopy Has severe constipation on CT abdomen/pelvis-we will keep n.p.o. for now, milk of magnesia as needed, appreciate any further recommendations as per GI As far as her DVT goes, perhaps an SVC filter could be placed? Versus removal of her Port-A-Cath due to DVT? Resident Activity Tracking Resident Involvement: Resident Care Provided Care Provided: Adult Hospital Medicine
[2020-03-02] MEDS ORDERED: MAGNESIUM HYDROXIDE SUSP 30 ML UDC PO PRN (19:22)
[2020-03-02] MEDS: NSS + 20MEQ KCL 20 MEQ/1,000 ML BAG IV SCH (19:56)
[2020-03-02] MEDS: POTASSIUM CHLORIDE / WTR 10 MEQ/100 ML PLCT IV SCH ×3 (19:58→22:04)
[2020-03-02] MEDS: VERAPAMIL HCL 240 MG TABCR PO SCH (21:09)
[2020-03-02] MEDS: TOPIRAMATE 100 MG TAB PO SCH (21:10)
--- NOTE | 2020-03-03 00:34 | Billing Data ---
Date of Service March 02, 2020 Coding Level of Care Code 73713 OBS Care - Level 3
[2020-03-03 00:42] LABS: Hematocrit (blood only) 32.2 % (37-47); Hemoglobin 10.8 g/dL (12.0-16.0); Mean Corpuscular Hemoglobin 30.2 pg (25-34); Mean Corpuscular Volume 89.9 fL (80-100); Mean Platelet Volume 9.5 fL (7.4-10.4); Platelet Count 187 K/uL (130-400); RDW Coefficient of Variation 13.7 % (11.5-14.5); Red Blood Count 3.58 M/uL (4.2-5.4); White Blood Count 1.99 K/uL (4.8-10.8)
[2020-03-03 00:56] LABS: Mean Corpuscular Hgb Conc 33.5 g/dL (32-36)
[2020-03-03] MEDS: NSS + 20MEQ KCL 20 MEQ/1,000 ML BAG IV SCH ×3 (04:13→20:55)
[2020-03-03] MEDS: LEVOTHYROXINE SODIUM 112 MCG TABLET PO SCH (06:12)
[2020-03-03 08:09] LABS: Eosinophils # (auto) 0.04 K/uL (0-0.5); Eosinophils % (auto) 1.5 %; Hematocrit (blood only) 31.1 % (37-47); Hemoglobin 10.3 g/dL (12.0-16.0); Lymphocytes # (auto) 0.81 K/uL (1.2-3.4); Lymphocytes % (auto) 30.7 %; Mean Corpuscular Hemoglobin 29.9 pg (25-34); Mean Corpuscular Hgb Conc 33.1 g/dL (32-36); Mean Corpuscular Volume 90.1 fL (80-100); Mean Platelet Volume 9.6 fL (7.4-10.4); Monocytes # (auto) 0.19 K/uL (0.11-0.59); Monocytes % (auto) 7.2 %; Neutrophils % (auto) 60.6 %; Platelet Count 186 K/uL (130-400); RDW Coefficient of Variation 13.7 % (11.5-14.5); RDW Standard Deviation 45.3 fL (36.4-46.3); Red Blood Count 3.45 M/uL (4.2-5.4); White Blood Count 2.64 K/uL (4.8-10.8)
[2020-03-03 08:37] LABS: Calcium 7.9 mg/dl (8.5-10.1); Creatinine Clr Calc Pharmacy 83.4 ml/min; Est GFR (African American) 107.8
[2020-03-03] MEDS: VERAPAMIL HCL 240 MG TABCR PO SCH ×2 (08:54→20:30)
[2020-03-03] MEDS: FOLIC ACID 1 MG TAB PO SCH (08:54)
--- NOTE | 2020-03-03 09:08 | Consultation Report ---
DATE OF CONSULTATION: 03/03/2020 REASON FOR CONSULTATION: Hematochezia in a pleasant 64-year-old female patient with stage IV colorectal cancer, currently undergoing FOLFOX/Avastin combination chemotherapy. HISTORY OF PRESENT ILLNESS: The patient is a pleasant unfortunate 64-year-old female patient, currently under my care, recently diagnosed with metastatic colorectal cancer including liver metastatic disease, presently on FOLFOX plus Avastin. She recently received her second course of 12 to be administered. The patient was recently started on anticoagulation for left upper extremity deep venous thrombosis, specifically placed on Lovenox. She was scheduled to convert to warfarin once her current episode of rectal bleeding improved. Last night, apparently, there was a former episodes of bright red rectal bleeding which led to her calling our office and warranting an ER visit. She reported some lightheadedness the day prior along with associated chest pain. The patient does weinstein with anxiety. Upon diagnosis, a rectal stent was placed, which may or may not have shifted causing erosion and subsequent bleeding. Hemoglobin on admission was 10.6 and has been monitored throughout the evening since admission. GI is on consult and I anticipate a flexible sigmoidoscopy or colonoscopy today. PAST MEDICAL HISTORY: Again, upper extremity deep venous thrombosis, currently on anticoagulation, metastatic colorectal cancer, gastroesophageal reflux disease, history of medullary carcinoma of thyroid, history of papillary thyroid carcinoma, hypertension, hypothyroidism, migraine headaches, myocardial infarction in 2003, paralyzed vocal cords, obstructive sleep apnea. PAST SURGICAL HISTORY: Includes tooth extraction, tonsillectomy and adenoidectomy, history of thyroidectomy, history of partial vocal cord resection, right inguinal hernia repair, radical dissection right side of her neck, history of unilateral oophorectomy, history of EGD, endoscopic sinus surgery, colonoscopy, cholecystectomy, bilateral tubal ligation, appendectomy. CURRENT MEDICATIONS: Include folic acid 1 mg p.o. daily, lisinopril 10 mg p.o. b.i.d., verapamil 240 mg p.o. b.i.d., levothyroxine 224 mcg p.o. every day, 200 mg p.o. daily, albuterol sulfate 1 inhaled q.i.d. p.r.n., cholecalciferol 50 mcg p.o. daily, magnesium hydroxide 15 mL p.o. daily p.r.n., cholecalciferol 50,000 units p.o. weekly, enoxaparin 80 mg subQ q. 12 hours, warfarin has not started her initial dose was scheduled 4 mg daily. ALLERGIES: IV CONTRAST, PENICILLIN AND SULFA DRUGS. FAMILY HISTORY: Mother suffered from diabetes mellitus. She also has an uncle with history of diabetes. Grandmother had breast cancer, hypertension, diabetes. Grandfather suffered from heart disease. SOCIAL HISTORY: The patient is retired. She lives independently. Currently . She is a nonsmoker, nondrinker, non-illicit drug user. REVIEW OF SYSTEMS: GENERAL: Negative for fevers, chills or sweats. She is not anorexic or losing weight. SKIN: No rashes or lesions. No history of dermatoses. HEENT: Negative for headaches, lightheadedness or dizziness. No acute visual or hearing deficits. No sinus symptoms, sore throat or dysphagia. LYMPH: No history of lymphoproliferative disease. CARDIAC: No current angina or palpitations. PULMONARY: She is not acutely short of breath, dyspneic or orthopneic. No cough or hemoptysis. GASTROINTESTINAL: Positive for bright red rectal bleeding. She denies any abdominal pain at this time. No nausea or vomiting. GENITOURINARY: No hematuria, dysuria, urinary incontinence. PSYCHIATRIC: Negative for anxiety, depression or psychoses. ENDOCRINE: Positive for hypothyroidism from previous thyroidectomy. NEUROLOGIC: Negative for seizure, stroke, or migraine headache. MUSCULOSKELETAL: No focal muscle weakness or arthralgias. HEMATOLOGIC: Positive for leukopenia and anemia attributable to chemotherapeutic effect. PHYSICAL EXAMINATION: GENERAL: A very pleasant 64-year-old female, awake, alert and appropriate, in no acute distress. VITAL SIGNS: Temperature 36.7, pulse 61, respiratory rate 18, blood pressure 122/74. SKIN: Warm, dry, noncyanotic without petechia, rash or ecchymosis. HEENT: Head is atraumatic, normocephalic. Eyes: PERRLA, EOMI. Nares patent without rhinorrhea or discharge. Throat is clear. Tongue is midline. Mucous membranes are moist. NECK: Supple without JVD or thyromegaly. LYMPHATICS: No cervical or supraclavicular palpable nodes. HEART: Regular rate and rhythm. No clicks, rubs, murmurs or gallops. LUNGS: Clear to auscultation bilaterally. ABDOMEN: Soft, nontender, nondistended, without palpable hepatosplenomegaly. EXTREMITIES: No clubbing, cyanosis or edema. NEUROLOGICALLY: She is awake, alert and oriented x3. Cranial nerves are grossly intact. LABORATORY DATA: WBC count 1990, hemoglobin 10.8, platelet count 187,000. Sodium 140, potassium 3.4, chloride 111, carbon dioxide 27, BUN 19, creatinine 0.65, magnesium 2.5, albumin 3.1. RADIOGRAPHIC DATA: CT scan of the abdomen and pelvis, rectal stent unchanged in position marked rectal wall thickening with perirectal inflammation, enlarged perirectal nodules, lymph nodes similar to previous. Focal narrowing identified the sigmoid colon just above the stent thought to be possibly physiologic. There are numerous pathologically indeterminate hypervascular splenic lesions noted. Two hypervascular liver lesions of hepatic dome. IMPRESSION: 1. Hematochezia. 2. Metastatic colorectal cancer. 3. Left upper extremity deep venous thrombosis. 4. Hypertension. 5. Obstructive sleep apnea. 6. Hypoalbuminemia. PLAN: The patient is a very pleasant unfortunate 64-year-old female patient recently diagnosed with metastatic colorectal cancer, had received her second course of FOLFOX and Avastin within the past week. She also developed a left upper extremity DVT and was placed on anticoagulation, low molecular weight heparin to be precise. Unfortunately, this resulted in 4 separate bleeding episodes which brought her to the Emergency Room. Her hemoglobin is stable and does not require transfusional support, certainly a bleeding source needs to be investigated. Perhaps diverticular or hemorrhoidal bleeding and despite the rectal stent not moving into position certainly erosion could result in bleeding. The patient is currently n.p.o. and will have GI visit perhaps for again flexible sigmoidoscopy or perhaps a colonoscopy moving forward. Obviously, we have to put a hold on her anticoagulation with her history of rectal bleeding. Would certainly consider converting her to Coumadin thus a readily reversible anticoagulant if she has difficulties in the future. Once she is medically/surgically stable, we will plan to resume chemotherapy. I have nothing further to add and agree with current management. We will continue to follow her periodically during hospitalization. Thank you very much for allowing me to participate in her care.
--- NOTE | 2020-03-03 11:06 | Consultation ---
Date of Consultation March 03, 2020 Assessment & Plan (1) DVT of axillary vein, acute left: Pt with LUE DVT and recent infusaport insertion. Recommend anticoagulation if deemed safe per medicine/GI. No indications for thrombolysis at this time, as pt is not candidate for tPA. If infusaport not functional, would recommend pt have port removed by Dr Christianson. If functional, would leave port as is for access. Please call if needed. Agree with exam and treatment plan of the Vascular PA. Thank you very much for letting us participate in the care of this patient. History of Present Illness Reason for Consultation: L arm/neck DVT Attending Physician: Atul Chino MD History of Present Illness 64 yo f with multiple medical problems, including thyroid ca, HTN, SUZANNE, rectal ca with liver mets, dyslipidemia, hypothyroidism, LBBB, admitted with GI bleeding while on Lovenox for L IJ/axillary/subclavian vein thrombus, seen in consultation today for the DVT. Pt had a L chest infusaport inserted by Dr Christianson on 01/28. Pt admits mild edema and discomfort to L neck/chest wall for 1 week. Admits mild edema of L arm as well. States the outpt chemotherapy has used her port at least 2-3 times since she developed the DVT, but that the staff were unable to access it in the ED on admission last night. Denies RODRIGUEZ, fever, chest pain, SOB, abd pain, N/V, rest pain, claudication, other complaints. Allergies Allergy/AdvReac Type Severity Reaction Status Date / Time Iodinated Contrast Media Allergy Intermediate Hives Verified 03/02/20 11:49 Penicillins Allergy Intermediate Hives Verified 03/02/20 11:49 Sulfa (Sulfonamide Allergy Intermediate Hives Verified 03/02/20 11:49 Antibiotics) Home Medications Medication Instructions Recorded Confirmed Type folic acid 1 mg PO QAM 05/24/18 03/02/20 History lisinopril 10 mg PO BID 05/24/18 03/02/20 History verapamil 240 mg PO BID 05/24/18 03/02/20 History levothyroxine 112 mcg capsule 224 mcg PO QAM 01/17/19 03/02/20 History topiramate 200 mg tablet 200 mg PO HS 01/17/19 03/02/20 History albuterol sulfate 1 inh INHALATION QID PRN 12/16/19 03/02/20 History cholecalciferol (vitamin D3) 50 50 mcg PO QAM 01/21/20 03/02/20 History mcg (2,000 unit) capsule magnesium hydroxide [Milk of 15 ml PO DAILY PRN 01/23/20 03/02/20 History Magnesia] cholecalciferol (vitamin D3) 50,000 unit PO WK 03/02/20 03/02/20 History [D3-50 Cholecalciferol] enoxaparin 80 mg/0.8 mL 80 mg SUBCUT Q12H #10 syr 03/02/20 03/02/20 Rx subcutaneous syringe warfarin 4 mg tablet 4 mg PO DAILY #30 tab 03/02/20 03/02/20 Rx Patient History Medical History (Updated 03/03/20 @ 11:16 by Aliyah Ayon PA-C) Anxiety Blood in stool D/T rectal mass per patient stent placed Complete left bundle branch block (LBBB) Chronic per cardio note Depression DVT of axillary vein, acute left GERD (gastroesophageal reflux disease) History of medullary carcinoma of thyroid Hx of papillary thyroid carcinoma Hyperlipidemia no meds Hypertension Hypothyroidism Post ablative Irritable bowel syndrome with constipation Menopause Migraine Myocardial Infarction 2003 Paralyzed vocal cords Post-surgical hypothyroidism Rectal cancer Recently dx'ed- reason for port placement. Pt for upper/lowerEUS with liver bx and flex sigmoidoscopy with Dr. Coon on 01/23/20 Scars right side of neck d/t radiation Sleep apnea bipap Thyroid cancer Follicular thyroid cancer 1982--s/p partial thyroidectomy, chemo, radiation Medullary thyroid cancer 1996-- s/p complete thyroidectomy, radical neck dissection, radiation/radioactive iodine Vitamin D deficiency Surgical History Difficult airway for intubation small airway -- has laryngeal implant - states use size 6.0 ETT with caution History of appendectomy History of bilateral tubal ligation History of cholecystectomy History of colonoscopy had last 12/24/[address] Abad--found a mass---reason for scheduled flexible sigmoidoscopy with stent History of endoscopic sinus surgery History of esophagogastroduodenoscopy (EGD) History of hysterectomy with unilateral oophorectomy removed right d/t endometriosis History of radical dissection of right side of neck History of right inguinal hernia repair History of surgery part of vocal cord removed -- has laryngeal implant History of thyroidectomy, total History of tonsillectomy and adenoidectomy per patient surgery was done twice History of tooth extraction with permnant bridge Family History Mother Family history of diabetes mellitus Uncle Family history of diabetes mellitus Grandmother Breast cancer Hypertension Diabetes Grandfather Heart disease Other No family history of adverse response to anesthesia Social History Smoking Status: Never smoker Second Hand Exposure: Yes (as a child); Do You Dip or Chew Tobacco: No; Tobacco Cessation Education Requested by Patient: No Hx Alcohol Use: No Hx Substance Use: No Preferred Language: Bulgarian Communication Ability: Effective Certified Energy Manager Required: No Beliefs That Will Affect Care: None marital status: Current Living Situation: Alone current occupational status: retired How many Children do You have: 0 Other Information That Helps Us Care for You: No Feels Safe at Home: Yes Safety Concerns: Feels Safe At This Time Assistive Devices: CPAP and Walker Assistive Devices Comment: permanent bridge Review of Systems Review of Systems: All systems reviewed & are unremarkable except as noted in HPI & below Physical Exam Constitutional: WD/WN, vitals as above + obese, cooperative and comfortable; not in distress Eyes: PERRL, conjunctivae normal, anicteric sclerae ENMT: Ears: no hearing impairment Neck: R neck/chest with significant scar tissue noted. L neck/chest with port palpable, mildly tender over prox neck/supraclavicular space Respiratory: normal respiratory effort, lungs clear to auscultation Cardiovascular: RRR, no murmur, no edema Vessels: posterior tibial pulses present, dorsalis pedis pulses present and radial pulses present; + abnormal peripheral pulses Extremities: normal capillary refill and + edema (+1 edema LUE) Gastrointestinal (Abdomen): normal bowel sounds, soft, nontender, no hepatosplenomegaly Musculoskeletal: no cyanosis or clubbing, extremities motor strength 5/5 Head/Neck/Chest: + limited ROM of neck (d/t scarring) Skin: no rashes, warm and dry Neurologic: moves all extremities; no focal motor deficits and not confused Psychiatric: A+Ox3, euthymic affect Results & Data ([facility]) Vital Signs (Past 12 Hours) Vital Signs Temp Pulse Pulse Resp BP Pulse Ox 03/03/20 07:46 36.6 C 63 18 162/75 H 98 03/03/20 07:00 61 03/03/20 03:31 36.7 C 69 18 122/74 96 03/03/20 02:24 64 16 96 03/02/20 23:31 70 18 96
[2020-03-03] MEDS ORDERED: ALTEPLASE, RECOMBINANT 1 MG/ML 2ML VIAL INSTIL ONE (11:30)
--- NOTE | 2020-03-03 11:34 | Hospitalist Progress Note ---
Date of Service March 03, 2020 Assessment & Plan (1) Hematochezia: Chrissy Vance is a 64-year-old female with a past medical history of stage IV rectal cancer with rectal stent undergoing chemotherapy, past thyroid cancer status post thyroidectomy with subsequent partial vocal cord paralysis, interstitial lung disease, hypertension, hyperlipidemia, SUZANNE, and dyslipidemia who presents with 4 episodes of hematochezia of partially formed blood in tissue the night prior to admission. Hematochezia Patient describes 4 episodes of passing blood and some tissue, first episode evening prior to presentation and last episode approximately 5:30 AM day of presentation. Patient describes about 1/4 cup of formed blood with tissue - Pt w/ rectal stent, may have bleeding at cancer site vs local stent erosion Patient recently started on Lovenox 1mpk twice daily for left IJ, subclavian, and axillary thrombus in the setting of cancer with intention to transition to warfarin Hemoglobin 10.6, stable. H&H every 4 hours. Type and screen on file. Consent on file. Lovenox held GI consulted. Oncology consulted for risk/benefits and options for management of high clot burden in the setting of cancer with bleeding - 03/03 - No intervention from GI at present; plan for conservative care and monitor hgb. Diet advanced to clears. Stage IV rectal cancer, liver mets Patient with rectal stent placement on 01/22, known to Dr. Coon and Dr. Bishop Patient anticipating chemo/radiation treatment Left internal jugular Mediport placed 01/28, currently with difficulty drawing likely related to clot burden Discussed with vascular surgery PA. Will attempt tPA of port to clear it. If it cannot be cleared, vascular surgery recommends removal by Dr. Christianson (surgeon who put it in) to aid in clot dissolving. Left upper extremity DVT Left IJ, subclavian, axillary Lovenox held as above No BP checks, lab draws in left extremity. Vascular consulted - No role for procedure other than port removal if it is non-functional. Hold AC for now; restart when cleared by GI. Hypertension BP is 160/75. Hold lisinopril 10 mg in case of procedure Continue verapamil to 40 mg p.o. twice daily - Hypothyroidism following thyroidectomy due to medullary thyroid cancer and follicular thyroid cancer Continue Synthroid 224 mcg SUZANNE CPAP/BiPAP nightly Patient problem list lists interstitial lung disease, per patient she has no known history of interstitial lung disease or COPD. She reports she does have a paralyzed vocal cord following thyroidectomy Hypokalemia Magnesium pending, optimized to greater than 2 Potassium 3.4, riders pending while n.p.o. Optimize greater than 4 in setting of bleed BMP daily DVT prophylaxis: SCDs, pharmacal prophylaxis contraindicated in the setting of acute bleed Diet: N.p.o., NSS plus KCl 120 cc/h Disposition: Medical/surgical with telemetry CODE STATUS: Full code, discussed with patient (2) Post-surgical hypothyroidism: (3) History of medullary carcinoma of thyroid: (4) Hx of papillary thyroid carcinoma: (5) Vitamin D deficiency: (6) History of vascular access device: (7) Thyroid cancer: (8) Heme positive stool: (9) LBBB (left bundle branch block): (10) HTN (hypertension): (11) Hyperlipidemia: (12) Obstructive sleep apnea: (13) Hypothyroidism, postablative: (14) Rectal cancer: (15) Atypical chest pain: (16) Dyslipidemia: Admission and Anticipated Discharge Date Admission Date: March 02, 2020 Subjective No major issues today. She had a BM with some brown stool and some "tissue" per the RN; however, minimal blood. Reports no fevers/chills, chest pain, shortness of breath, abdominal pain, nausea, or vomiting. Physical Exam Constitutional: WD/WN, vitals as above Eyes: EOM intact bilaterally; no conjunctival abnormality ENMT: external ear and nose normal, oropharynx normal Neck: trachea midline, no thyromegaly normal visual inspection Respiratory: normal respiratory effort, lungs clear to auscultation no respiratory distress Cardiovascular: RRR, no murmur, no edema Chest (Breasts): Chest: + vascular access device or port (Left chest. No erythema or warmth, but it is tender.) Gastrointestinal (Abdomen): Inspection/Auscultation: abdomen normal to inspection; abdomen not distended Musculoskeletal: no cyanosis or clubbing, extremities motor strength 5/5 Skin: no rashes, warm and dry Neurologic: moves all extremities and awake Psychiatric: Orientation: alert, oriented to person and cooperative Results & Data Results & Data ([facility]) Vital Signs (Past 12 Hours) Vital Signs Temp Pulse Pulse Resp BP Pulse Ox 03/03/20 07:46 36.6 C 63 18 162/75 H 98 03/03/20 07:00 61 03/03/20 03:31 36.7 C 69 18 122/74 96 03/03/20 02:24 64 16 96 03/02/20 23:31 70 18 96 PG Care Time/CCT Total # of Minutes Spent Total Time Spent with Patient: Total time spent is greater than 50% in coordination of care (as documented) at patient's floor/unit and/or counseling patient: Coding Level of Care Code 48535 Subseq Hosp Care Lvl 3 Diagnoses Hematochezia K92.1 Post-surgical hypothyroidism E89.0 History of medullary carcinoma of thyroid Z85.850 Hx of papillary thyroid carcinoma Z85.850 Vitamin D deficiency E55.9 History of vascular access device Z98.890 Thyroid cancer C73 Heme positive stool R19.5 LBBB (left bundle branch block) I44.7 HTN (hypertension) I10 Hyperlipidemia E78.5 Obstructive sleep apnea G47.33 Hypothyroidism, postablative E89.0 Rectal cancer C20 Atypical chest pain R07.89 Dyslipidemia E78.5
--- NOTE | 2020-03-03 16:15 | Gastrointestinal Consultation ---
Date of Consultation March 03, 2020 Assessment & Plan (1) Acute GI bleeding: (2) Anticoagulated: (3) Rectal cancer: (4) Hematochezia: Currently she is not having any overt GI bleeding Her H/H is stable If she has any further overt GI bleeding I can perform a flexible sigmoidoscopy, however, it is most likely related to her known rectal cancer and stent placement. Bleeding from malignant tissue does not respond well to normal endoscopic management for bleeding. Continue supportive care History of Present Illness Reason for Consultation: Hematochezia Attending Physician: Atul Chino MD History of Present Illness Chrissy Vance is a pleasant 64 yo CF who underwent a colonoscopy on 12/24/19 secondary to heme positive stools, and was noted to have a rectal adenocarcinoma that was obstructing. She subsequently had a colonic stent placed by Dr. Coon later that week. Due to stent migration, she required a flexible sigmoidoscopy on 01/23/20 and had a new 8 cm colonic stent placed. She was noted to have metastatic disease to the liver. She has been under the care of Dr. Flores since that time and has been receiving FOLFOX with avastin therapy. She presented to the ER last night after experiencing approximately 4 bloody BM's, with associated lightheadedness. She has been on Lovenox therapy secondary to a LUE DVT. She was subsequently admitted. Since her arrival she did have a small amount of BRBPR overnight with a BM, however, this AM, she had a normal brown BM. At the time I saw her, she denied any lightheadedness or dizziness. She states that she is not experiencing any abdominal pain, fevers, chills, nausea, vomiting or diarrhea. She denies any further complaints. Allergies Allergy/AdvReac Type Severity Reaction Status Date / Time Iodinated Contrast Media Allergy Intermediate Hives Verified 03/02/20 11:49 Penicillins Allergy Intermediate Hives Verified 03/02/20 11:49 Sulfa (Sulfonamide Allergy Intermediate Hives Verified 03/02/20 11:49 Antibiotics) Home Medications Medication Instructions Recorded Confirmed Type folic acid 1 mg PO QAM 05/24/18 03/02/20 History lisinopril 10 mg PO BID 05/24/18 03/02/20 History verapamil 240 mg PO BID 05/24/18 03/02/20 History levothyroxine 112 mcg capsule 224 mcg PO QAM 01/17/19 03/02/20 History topiramate 200 mg tablet 200 mg PO HS 01/17/19 03/02/20 History albuterol sulfate 1 inh INHALATION QID PRN 12/16/19 03/02/20 History cholecalciferol (vitamin D3) 50 50 mcg PO QAM 01/21/20 03/02/20 History mcg (2,000 unit) capsule magnesium hydroxide [Milk of 15 ml PO DAILY PRN 01/23/20 03/02/20 History Magnesia] cholecalciferol (vitamin D3) 50,000 unit PO WK 03/02/20 03/02/20 History [D3-50 Cholecalciferol] enoxaparin 80 mg/0.8 mL 80 mg SUBCUT Q12H #10 syr 03/02/20 03/02/20 Rx subcutaneous syringe warfarin 4 mg tablet 4 mg PO DAILY #30 tab 03/02/20 03/02/20 Rx Patient History Medical History (Updated 03/03/20 @ 11:16 by Aliyah Ayon PA-C) Anxiety Blood in stool D/T rectal mass per patient stent placed Complete left bundle branch block (LBBB) Chronic per cardio note Depression DVT of axillary vein, acute left GERD (gastroesophageal reflux disease) History of medullary carcinoma of thyroid Hx of papillary thyroid carcinoma Hyperlipidemia no meds Hypertension Hypothyroidism Post ablative Irritable bowel syndrome with constipation Menopause Migraine Myocardial Infarction 2003 Paralyzed vocal cords Post-surgical hypothyroidism Rectal cancer Recently dx'ed- reason for port placement. Pt for upper/lowerEUS with liver bx and flex sigmoidoscopy with Dr. Coon on 01/23/20 Scars right side of neck d/t radiation Sleep apnea bipap Thyroid cancer Follicular thyroid cancer 1982--s/p partial thyroidectomy, chemo, radiation Medullary thyroid cancer 1996-- s/p complete thyroidectomy, radical neck dissection, radiation/radioactive iodine Vitamin D deficiency Surgical History Difficult airway for intubation small airway -- has laryngeal implant - states use size 6.0 ETT with caution History of appendectomy History of bilateral tubal ligation History of cholecystectomy History of colonoscopy had last 12/24/[address] Abad--found a mass---reason for scheduled flexible sigmoidoscopy with stent History of endoscopic sinus surgery History of esophagogastroduodenoscopy (EGD) History of hysterectomy with unilateral oophorectomy removed right d/t endometriosis History of radical dissection of right side of neck History of right inguinal hernia repair History of surgery part of vocal cord removed -- has laryngeal implant History of thyroidectomy, total History of tonsillectomy and adenoidectomy per patient surgery was done twice History of tooth extraction with permnant bridge Family History Mother Family history of diabetes mellitus Uncle Family history of diabetes mellitus Grandmother Breast cancer Hypertension Diabetes Grandfather Heart disease Other No family history of adverse response to anesthesia Social History Smoking Status: Never smoker Second Hand Exposure: Yes (as a child); Do You Dip or Chew Tobacco: No; Tobacco Cessation Education Requested by Patient: No Hx Alcohol Use: No Hx Substance Use: No Preferred Language: Malagasy Communication Ability: Effective 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 Beliefs That Will Affect Care: None marital status: Current Living Situation: Alone current occupational status: retired How many Children do You have: 0 Other Information That Helps Us Care for You: No Feels Safe at Home: Yes Safety Concerns: Feels Safe At This Time Assistive Devices: CPAP and Walker Assistive Devices Comment: permanent bridge Review of Systems Review of Systems: All systems reviewed & are unremarkable except as noted in Subjective Physical Exam Constitutional: WD/WN, vitals as above Eyes: sclerae not anicteric ENMT: external ear and nose normal, oropharynx normal Neck: trachea midline, no thyromegaly Respiratory: normal respiratory effort, lungs clear to auscultation Cardiovascular: RRR, no murmur, no edema Gastrointestinal (Abdomen): normal bowel sounds, soft, nontender, no hepatosplenomegaly Skin: no rashes, warm and dry Psychiatric: A+Ox3, euthymic affect Results & Data ([facility]) Vital Signs (Past 12 Hours) Vital Signs Temp Pulse Pulse Resp BP Pulse Ox 03/03/20 15:29 36.8 C 68 19 154/75 H 97 03/03/20 15:08 73 03/03/20 07:46 36.6 C 63 18 162/75 H 98 03/03/20 07:00 61 PG Care Time/CCT Total # of Minutes Spent Total Time Spent with Patient: Total time spent is greater than 50% in coordination of care (as documented) at patient's floor/unit and/or counseling patient: Coding Level of Care Code 61399 Initial Inpt Care Lvl 3 Diagnoses Acute GI bleeding K92.2 Anticoagulated Z79.01 Rectal cancer C20 Hematochezia K92.1
[2020-03-03 19:00] LABS: Hematocrit (blood only) 31.8 % (37-47); Hemoglobin 10.6 g/dL (12.0-16.0)
[2020-03-03] MEDS: TOPIRAMATE 100 MG TAB PO SCH (20:30)
[2020-03-04] MEDS ORDERED: HEPARIN 100 UNIT/ML 5ML FLUSH FLUSH PRN (01:32)
[2020-03-04] MEDS: LEVOTHYROXINE SODIUM 112 MCG TABLET PO SCH (05:15)
[2020-03-04] MEDS: NSS + 20MEQ KCL 20 MEQ/1,000 ML BAG IV SCH ×2 (05:15→16:49)
[2020-03-04 09:06] LABS: Hematocrit (blood only) 34.7 % (37-47); Hemoglobin 11.6 g/dL (12.0-16.0); Mean Corpuscular Hemoglobin 30.3 pg (25-34); Mean Corpuscular Hgb Conc 33.4 g/dL (32-36); Mean Corpuscular Volume 90.6 fL (80-100); Mean Platelet Volume 9.6 fL (7.4-10.4); Platelet Count 201 K/uL (130-400); RDW Coefficient of Variation 13.9 % (11.5-14.5); RDW Standard Deviation 45.7 fL (36.4-46.3); Red Blood Count 3.83 M/uL (4.2-5.4); White Blood Count 6.87 K/uL (4.8-10.8)
[2020-03-04] MEDS: VERAPAMIL HCL 240 MG TABCR PO SCH (09:18)
[2020-03-04] MEDS: FOLIC ACID 1 MG TAB PO SCH (09:18)
--- NOTE | 2020-03-04 09:32 | Gastroenterology Progress Note ---
Date of Service March 04, 2020 Assessment & Plan (1) Acute GI bleeding: Has not continued. H/H 11.6/34.7. -Continue with conservative care and monitor H/H -If significant re-bleeding, consider flex-sig (2) Rectal cancer: Admission and Anticipated Discharge Date Admission Date: March 02, 2020 Supervising Physician Co-Signing Physician Notes Agree with KARIN Lock Abd: Soft, NT, ND, +BS Doing well today. No overt GI bleeding H/H improved She will be discharged to home and is to followup with her PCP and Oncologist as scheduled. No need to followup with GI at this time Subjective Patient is a 64 yo female with a rectal adenocarcinoma s/p stent due to obstruction. Due to hematochezia, she presented back to the ED. She has not had recurrent hematochezia since presenting here. H/H today is up to 11.6/34.7. No further new issues. Review of Systems Constitutional: no fever and no chills Respiratory: no cough and no dyspnea Cardiovascular: no chest pain Gastrointestinal: no constipation, no diarrhea/loose stools and no blood in stools Physical Exam Constitutional: WD/WN, vitals as above Respiratory: normal respiratory effort Cardiovascular: Extremities: no edema Gastrointestinal (Abdomen): Inspection/Auscultation: abdomen normal to inspection Musculoskeletal: Head/Neck/Chest: normocephalic Psychiatric: A+Ox3, euthymic affect Results & Data Results & Data ([facility]) Vital Signs (Past 12 Hours) Vital Signs Temp Pulse Pulse Resp BP Pulse Ox 03/04/20 07:00 36.7 C 66 18 162/78 H 97 03/04/20 04:00 36.8 C 68 18 157/76 H 96 03/04/20 03:30 68 20 98 03/04/20 02:20 68 03/03/20 23:18 36.8 C 70 18 151/80 H 96 03/03/20 23:15 74 17 98 PG Care Time/CCT Total # of Minutes Spent Total Time Spent with Patient: Total time spent is greater than 50% in coord ination of care (as documented) at patient's floor/unit and/or counseling patient: Coding Level of Care Code 29753 Subseq Hosp Care Lvl 2 Diagnoses Acute GI bleeding K92.2 Rectal cancer C20
[2020-03-04 09:36] LABS: BUN Creatinine Ratio 15.8 (10-20); Creatinine Clr Calc Pharmacy 65.5 ml/min; Est GFR (African American) 86.4; Est GFR (Non-African American) 74.6; Magnesium 2.1 mg/dl (1.8-2.4); Potassium 3.4 mmol/L (3.5-5.1)
[2020-03-04 09:42] LABS: Phosphorus 2.2 mg/dl (2.5-4.9)
== END 2020-03-04 17:40 | disposition home or self-care (01) ==
LOC: ED 11:12 → 2W 11:12 → SUATTDRO 16:48 → 2W 18:42

== ENCOUNTER 2021-07-30 09:06 | Inpatient (IN) ==
--- NOTE | 2021-07-22 16:15 | PAT Medication Instructions ---
Medication Instructions Date of Service July 22, 2021 Home Medications Medication Instructions Recorded enoxaparin 40 mg/0.4 mL 40 mg SUBCUT Q24H #30 syr 07/07/21 subcutaneous syringe verapamil 240 mg tablet,extended release 240 mg PO BID topiramate 200 mg tablet (Topamax) 200 mg PO HS albuterol sulfate 90 mcg/actuation aerosol inhaler 1 inh INHALATION QID PRN VITAMIN B6 OTC 1 tab PO QAM gabapentin 300 mg capsule 600 mg PO TID lisinopril 10 mg tablet 20 mg PO BID cholecalciferol (vitamin D3) 50 mcg (2,000 unit) capsule 2,000 unit PO QAM acetaminophen 500 mg tablet (Tylenol Extra Strength) 1,000 mg PO BID PRN enoxaparin 40 mg/0.4 mL subcutaneous syringe 40 mg SUBCUT Q24H levothyroxine 112 mcg tablet 224 mcg PO QAM potassium chloride 20 mEq tablet,extended release 20 meq PO QAM ASK your prescriber and surgeon enoxaparin 40 mg/0.4 mL subcutaneous syringe 40 mg SUBCUT Q24H DO NOT take the morning of surgery VITAMIN B6 OTC 1 tab PO QAM lisinopril 10 mg tablet 20 mg PO BID cholecalciferol (vitamin D3) 50 mcg (2,000 unit) capsule 2,000 unit PO QAM potassium chloride 20 mEq tablet,extended release 20 meq PO QAM Take morning of surgery With a small sip of water, OTHERWISE NOTHING TO EAT OR DRINK AFTER MIDNIGHT: verapamil 240 mg tablet,extended release 240 mg PO BID albuterol sulfate 90 mcg/actuation aerosol inhaler 1 inh INHALATION QID PRN(use if needed; please bring with you to hospital day of surgery if possible) gabapentin 300 mg capsule 600 mg PO TID acetaminophen 500 mg tablet (Tylenol Extra Strength) 1,000 mg PO BID PRN(okay to take up to 4 hours prior to surgery if needed) levothyroxine 112 mcg tablet 224 mcg PO QAM Take evening before surgery verapamil 240 mg tablet,extended release 240 mg PO BID topiramate 200 mg tablet (Topamax) 200 mg PO HS albuterol sulfate 90 mcg/actuation aerosol inhaler 1 inh INHALATION QID PRN(if needed) gabapentin 300 mg capsule 600 mg PO TID lisinopril 10 mg tablet 20 mg PO BID acetaminophen 500 mg tablet (Tylenol Extra Strength) 1,000 mg PO BID PRN(if needed) Other Notes If you have any questions please call us at [phone] or [phone] or [phone] or [phone]
--- NOTE | 2021-07-26 11:57 | Anesthesiology Consultation ---
Date of Service July 26, 2021 Assessment & Plan (1) Encounter for pre-operative examination: - neutropenia WBC 1.8 from 17, neutrophil count 1.0. Case discussed with Dr. Wilcox who advised nothing additional prior to surgery needed, agreed with CBC with diff am DOS. - check CBC with diff am DOS. - ENT office visit 07/21/2021 [place]: "...metastatic colorectal carcinoma developed hoarseness 6 weeks ago which became progressively worse. Also developed difficulty breathing and was given BiPAP. Continues to have episodes where she would have difficulty breathing...previous thyroidectomy in the late . This resulted in right vocal cord paralysis which required medialization of the right true vocal cord...offered to admit her to the hospital and perform tracheostomy tomorrow. She consulted with her oncology physicians bindery assistant...patient would prefer to go home and take care of...task and schedule for tracheostomy next week...to go immediately to the emergency room if there is any trouble breathing..." - oncology/hematology office visit 06/15/2021 [facility]: "...metastatic colorectal cancer (liver metastases)...small mass in right submandibular region...history of head neck cancer- s/p surgical intervention in both 1982 and 1996...using daily ppx Lovenox...SOB is present both at rest and with exertion...history of radiation for thymic enlargement...left upper extremity DVT of the internal jugular, subclavian and axillary vein...receives Lovenox 80 mg Sub Q daily...neutropenia...hypokalemia...CT AP...CT soft tissue neck..." - cardiology office visit 01/04/2021 [place]: "...Hypertension, Dyslipidemia, Follicular Thyroid Cancer s/p Partial Thyroidectomy 1982, Medullary Thyroid Cancer s/p Complete Thyroidectomy, Radical Neck Dissection, and XRT in 1996, Post-Ablative Hypothyroidism, Vocal Cord Paralysis, PTSD, Depression, SUZANNE on BiPAP, Chronic LBBB, Chronic SOB, LUE DVT, and Colon Cancer -- who presents today for routine Cardiologic Follow-up...stable from a cardiopulmonary standpoint. Her breathing is at baseline. Patient is able to do her usual day-to-day activities with chronic stable dyspnea on exertion which has not changed...has not had any worsening of her exertional dyspnea nor has it changed in pattern, character, or severity...has not experienced any angina pectoris or anginal equivalent symptoms, overt evidence of heart failure, nor has she had any symptoms suggestive of dysrhythmia...wears her BiPAP in a compliant fashion..." PRN or 1 year follow-up advised. - COVID screening: Per assessment on 07/26/2021: Travel screen negative, no known COVID-19 positive contacts or current COVID-19 related symptoms in past 2 weeks. Patient vaccinated. Surgeon arranging preop COVID testing, scheduled 07/28/2021. Awaiting results. Chart Review Chart Review: Acceptable Risk for Surgery and Patient seen in Pre Admission Testing Teaching & Discussion Pre-Anesthesia Teaching/Discussion Notes: Instructed NPO after midnight before surgery, except medications with 15 cc of water. Medication instructions provide d according to the PAT guidelines. History Surgery Operation Date: 07/30/21 11:25 Proposed Procedures p Tracheostomy - Jessica Dobbs MD No wt obtained at visit as patient declined. Height/Weight Height: 5 ft 1.5 in Weight: 72.121 kg Allergies Allergy/AdvReac Type Severity Reaction Status Date / Time Iodinated Contrast Media Allergy Intermediate Hives Verified 07/22/21 10:35 Penicillins Allergy Intermediate Hives Verified 07/22/21 10:35 Sulfa (Sulfonamide Allergy Intermediate Hives Verified 07/22/21 10:35 Antibiotics) Medications Home Medications Medication Instructions Recorded Confirmed Last Taken verapamil 240 mg tablet,extended 240 mg PO BID 05/24/18 07/22/21 05/12/20 04:30 release topiramate 200 mg tablet (Topamax) 200 mg PO HS 01/17/19 07/22/21 05/11/20 21:30 albuterol sulfate 90 mcg/actuation 1 inh INHALATION QID PRN 12/16/19 07/22/21 03/22/20 aerosol inhaler VITAMIN B6 OTC 1 tab PO QAM 11/17/20 07/22/21 Unknown gabapentin 300 mg capsule 600 mg PO TID cap 01/04/21 07/22/21 Unknown lisinopril 10 mg tablet 20 mg PO BID tab 01/04/21 07/22/21 Unknown cholecalciferol (vitamin D3) 50 2,000 unit PO QAM cap 02/04/21 07/22/21 Unknown mcg (2,000 unit) capsule acetaminophen 500 mg tablet 1,000 mg PO BID PRN tab 02/26/21 07/22/21 Unknown (Tylenol Extra Strength) enoxaparin 40 mg/0.4 mL 40 mg SUBCUT Q24H #30 syr 07/07/21 07/22/21 Unknown subcutaneous syringe levothyroxine 112 mcg tablet 224 mcg PO QAM 07/22/21 07/22/21 Unknown potassium chloride 20 mEq 20 meq PO QAM 07/22/21 07/22/21 Unknown tablet,extended release Past Medical History Medical History (Updated 07/26/21 @ 14:41 by Katina Gutierrez PA-C) Anxiety Complete left bundle branch block (LBBB) Chronic per cardio note Deep vein thrombosis (DVT) left upper extremity of the internal jugular, subclavian and axillary vein diagnosed 02/2020-Lovenox 80 mg SubQ daily Depression Facial paresthesia chronic without change GERD (gastroesophageal reflux disease) controlled, stable per pt History of medullary carcinoma of thyroid Hx of papillary thyroid carcinoma Hyperlipidemia no meds Hypertension Hypothyroidism Post ablative Irritable bowel syndrome with constipation Myocardial Infarction 2003 Rectal cancer with liver metastasis, follows with CCP, receiving chemo Scars right side of neck d/t radiation Sleep apnea bipap-compliant Stroke "few old punctate lacunar infarcts seen within the left cerebellar hemisphere" MRI brain 2020 Thyroid cancer Follicular thyroid cancer 1982--s/p partial thyroidectomy, chemo, radiation Medullary thyroid cancer 1996-- s/p complete thyroidectomy, radical neck dissection, radiation/radioactive iodine Transient hypotension Vocal cord paralysis, bilateral complete severe---very difficulty for pt to talk Patient denies h/o seizures, heart failure, DM, or blood transfusions. Exercise / Class Metabolic Activity III < 4 Walking/Shop/Light housework (SOB with activity, chronic per pt, denies change or worsening, ambulates with cane or in wheelchair for longer distances) Past Family History Family History Mother Family history of diabetes mellitus Uncle Family history of diabetes mellitus Grandmother Breast cancer Hypertension Diabetes Grandfather Heart disease Other No family history of adverse response to anesthesia Past Surgical History Surgical History Difficult airway for intubation small airway -- has laryngeal implant - states use size 6.0 ETT with caution History of appendectomy History of bilateral tubal ligation History of cholecystectomy History of colonoscopy had last 12/24/[address] Abad--found rectal c.a. History of endoscopic sinus surgery History of esophagogastroduodenoscopy (EGD) History of hysterectomy with unilateral oophorectomy removed right d/t endometriosis History of radical dissection of right side of neck History of right inguinal hernia repair History of surgery part of vocal cord removed -- has laryngeal implant History of thyroidectomy, total History of tonsillectomy and adenoidectomy per patient surgery was done twice History of tooth extraction with permnant bridge History of vascular access device mediport in place--pt states is currently using for chemo Past Anesthesia History Difficult Airway and No Family Hx of Anesthesia Complications History of PONV No Hx of PONV and No Hx of Motion Sickness Social History Smoking Status: Never smoker Do You Dip or Chew Tobacco: No Hx Alcohol Use: No Hx Substance Use: No substance use type: does not use Review of Systems Occasional cough, chronic without change or worsening. History of palpitations if K is too low. Denies recent. Patient denies chest pain, fever, or chills. Physical Exam Vital Signs Vitals BP 148/84 P 104 (regular rate, patient states is anxious regarding upcoming trach) TEMP 98.9 SP02 98% on RA RESP 17 Physical Pt elected to minimize speaking, states symptoms are the same without any change or worsening since seeing Dr. Dobbs in clinic; responded by shaking head yes or no, occasionally verbalized this as well without issue, voice hoarse Healed scarring of neck Full cervical extension range of motion without pain TMD 3.5 finger breaths Mallampati Score 3 Lungs: normal respiratory effort. Good air movement. Clear throughout to auscultation, no adventitious breath sounds Cardiac: regular rate and rhythm, no murmurs noted Carotid arteries: negative bruit bilat Lab Results Anesthesia Preop Results Results Anesthesia Widget: WBC 1.84 K/uL (4.8-10.8) L 07/26/21 Hgb 9.7 g/dL (12.0-16.0) L 07/26/21 Hct 29.5 % (37-47) L 07/26/21 Plt 193 K/uL (130-400) 07/26/21 Na 136 mmol/L (136-145) 07/26/21 K 4.0 mmol/L (3.5-5.1) 07/26/21 Cl 102 mmol/L (98-107) 07/26/21 CO2 29 mmol/L (21-32) 07/26/21 BUN 9 mg/dl (6-23) 07/26/21 Creat 0.53 mg/dl (0.6-1.2) L 07/26/21 Glucose Level 96 mg/dl (70-99(Fasting)) 07/26/21 Testing Electrocardiogram Date: 08/04/20 Sinus rhythm with 1st degree AV block, rate 84 bpm LBBB Other Testing Soft tissue neck CT 06/22/2021 FINDINGS: Streak artifact from dental amalgam hardware. Mild layering secretions within the nasopharyngeal airway. The nasopharynx, oral pharynx and hypopharynx are patent. There is mild medial deviation with soft tissue fullness of the right glottis. No discrete soft tissue mass identified. Asymmetric sclerosis involving the right aspect of the thyroid cartilage is also stable. The vallecula and piriform sinuses appear unremarkable. Left IJ [id number] catheter and distal tip terminates within the brachiocephalic vein distribution. Calcified nodules with stranding of the mediastinum redemonstrated. Atherosclerosis of the aorta and great vessels. Mild less than 50% stenosis of the proximal cervical segment right ICA. Level 1 lymph nodes measure up to 9 mm on the right. No prevertebral edema. Patchy areas of sclerosis are again noted within the medial clavicles and manubrium suggestive of bone infarcts. Multilevel degenerative changes of the cervical spine. Surgical clips of the neck are noted with findings suggestive of prior thyroidectomy. IMPRESSION: 1. Mild medial deviation of the right vocal fold is unchanged from 10/28/2020. No discrete soft tissue lesion identified. 2. Indeterminate 9 mm level 1 lymph node. 3. Additional findings as above. Chest CTA 06/22/2021 FINDINGS: Please refer to same day abdomen and pelvis CT for further evaluation abdominal structures. There again noted multiple splenic hypervascular lesions. There is a punctate stone within the left kidney. The adrenal glands appear unremarkable. Mild elevation of the left hemidiaphragm, unchanged. The spleen remains enlarged. The thyroid gland appears surgically absent. Left breast skin thickening and trabecular thickening remains unchanged. A left jugular Port-A-Cath terminates in the expected location of the left brachiocephalic vein. The left brachiocephalic vein remains decompressed. Normal caliber esophagus. No pleural or pericardial effusions. The heart is borderline enlarged. Mild calcified plaque within the normal caliber thoracic aorta with no evidence for dissection. No filling defects within the pulmonary arteries to suggest a pulmonary embolus. Calcified anterior mediastinal lymph nodes remain unchanged. Otherwise, no mediastinal or hilar lymphadenopathy. Stable right paravertebral soft tissue nodules at T11 and T12. The largest at T11 measures 2.2 x 0.9 cm. These are likely benign. Moderate to severe calcified plaque within the coronary arteries. No suspicious lytic or blastic osseous lesions. Patchy areas of sclerosis within the medial clavicles and manubrium remain unchanged. This may represent bone infarcts. No pneumothorax. Mild biapical pleural-parenchymal scarring and mild paramediastinal fibrotic changes again noted. The central airways are patent. Linear density left lung base favor treviño bsegmental atelectasis. No new or suspicious pulmonary nodules. Stable 3 mm nodule within the right lower lobe on image 76. Small subpleural groundglass nodular densities on image 215 remain stable. IMPRESSION: 1. No evidence for pulmonary embolus. 2. Stable subcentimeter pulmonary nodules as described above. No new pulmonary nodules identified. 3. No change in the asymmetric left breast skin thickening and trabecular thickening. Follow-up nonemergent mammogram/ultrasound is recommended for further evaluation. 4. No change in the hypervascular indeterminate splenic lesions. These are better appreciated on the same day abdomen and pelvis CT. 5. Stable indeterminate right paravertebral soft tissue nodules at T11 and T10 as described above. These bear watching on future examinations. 6. Additional findings as described above. Abdomen/pelvis CT 06/22/2021 IMPRESSION: 1. Interval worsening of disease. There is perirectal stranding and lymphadenopathy which is similar in extent to prior exam. However, retroperitoneal and pelvic nodes have slightly enlarged from prior exam. 2. Multiple splenic lesions with nodular peripheral enhancement compatible with meningiomas. These are slightly increased from the exam of 2009. Chest CT 04/05/2021 FINDINGS: Left IJ [id number] catheter distal tip projects within the brachiocephalic vein. Numerous opacified collateral veins of the left upper chest are noted with narrowing of the left brachiocephalic vein. Moderate cardiomegaly. Moderate coronary artery calcifications. Atherosclerosis of the aorta without aneurysm. Unremarkable pulmonary artery. Unchanged calcified granuloma of the anteromedial right upper lobe. Pleural parenchymal scarring of the right lung apex is unchanged. 3 mm solid nodule in the right middle lobe on image 146 series 6. 3 mm nodule in the right middle lobe on image 149. These are unchanged from prior. There are no suspicious pulmonary nodules identified. A few ill-defined small subpleural groundglass nodular densities of the left upper lobe on image 62 series 6 measuring up to 3 to 4 mm are also stable. The central airways are patent. Numerous hypervascular splenic lesions are redemonstrated along with splenomegaly. A few scattered hypervascular foci within the liver also appear stable. Cholecystectomy. Tiny hiatal hernia. There is asymmetric skin thickening of the left breast with masslike thickening within the left retroareolar tissues. Sclerotic foci of the medial clavicular heads and sternum appear unchanged. IMPRESSION: 1. Cardiomegaly without acute intrathoracic abnormality. 2. No adenopathy or evidence of pulmonary metastatic disease. 3. Asymmetric left breast skin thickening with masslike soft tissue prominence within the retroareolar tissues. Correlation with mammogram recommended. 4. Numerous hypervascular indeterminate splenic lesions redemonstrated along with splenomegaly, stable from prior. 5. Additional findings as above. Brain MRI 09/02/2020 IMPRESSION: 1. No evidence for intracranial metastatic disease. 2. A few scattered foci of T2 hyperintensity seen within the white matter of the supratentorial brain. These are nonspecific but suggestive of mild microvascular ischemic change. 3. A few old punctate lacunar infarcts seen within the left cerebellar hemisphere.
--- NOTE | 2021-07-29 13:29 | History & Physical Report ---
Date of Service July 29, 2021 Assessment & Plan (1) Vocal cord paralysis, bilateral complete: Plan: Tracheostomy under local anesthesia with sedation (2) Post-surgical hypothyroidism: (3) Obstructive sleep apnea: History of Present Illness Chief Complaint: Dyspnea with exertion Primary Care Provider: Karen Cao PA-C This 65-year-old lady previously had thyroidectomy. This was complicated by right vocal cord paralysis. This required medialization of the right vocal cord. For the past 6 months the patient had noted increasing difficulty breathing with any exertion. Was found to have bilateral vocal cord paralysis in the paramedian position. She was to have semiemergent tracheostomy. However the patient had to go home and take care of her dog and other matters. Was told to go straight to the emergency room if any shortness of breath. She is here for tracheostomy. Allergies Allergy/AdvReac Type Severity Reaction Status Date / Time Iodinated Contrast Media Allergy Intermediate Hives Verified 07/22/21 10:35 Penicillins Allergy Intermediate Hives Verified 07/22/21 10:35 Sulfa (Sulfonamide Allergy Intermediate Hives Verified 07/22/21 10:35 Antibiotics) Home Medications Medication Instructions Recorded Confirmed Type verapamil 240 mg tablet,extended 240 mg PO BID 05/24/18 07/27/21 History release topiramate 200 mg tablet (Topamax) 200 mg PO HS 01/17/19 07/27/21 History albuterol sulfate 90 mcg/actuation 1 inh INHALATION QID PRN 12/16/19 07/27/21 History aerosol inhaler VITAMIN B6 OTC 1 tab PO QAM 11/17/20 07/27/21 History gabapentin 300 mg capsule 600 mg PO TID cap 01/04/21 07/27/21 History lisinopril 10 mg tablet 20 mg PO BID tab 01/04/21 07/27/21 History cholecalciferol (vitamin D3) 50 2,000 unit PO QAM cap 02/04/21 07/27/21 History mcg (2,000 unit) capsule acetaminophen 500 mg tablet 1,000 mg PO BID PRN tab 02/26/21 07/27/21 History (Tylenol Extra Strength) enoxaparin 40 mg/0.4 mL 40 mg SUBCUT Q24H #30 syr 07/07/21 07/27/21 Rx subcutaneous syringe levothyroxine 112 mcg tablet 224 mcg PO QAM 07/22/21 07/27/21 History potassium chloride 20 mEq 20 meq PO QAM 07/22/21 07/27/21 History tablet,extended release Past Med/Surg History Medical History Anxiety Complete left bundle branch block (LBBB) Chronic per cardio note Deep vein thrombosis (DVT) left upper extremity of the internal jugular, subclavian and axillary vein diagnosed 02/2020-Lovenox 80 mg SubQ daily Depression Facial paresthesia chronic without change GERD (gastroesophageal reflux disease) controlled, stable per pt History of medullary carcinoma of thyroid Hx of papillary thyroid carcinoma Hyperlipidemia no meds Hypertension Hypothyroidism Post ablative Irritable bowel syndrome with constipation Myocardial Infarction 2003 Rectal cancer with liver metastasis, follows with CCP, receiving chemo Scars right side of neck d/t radiation Sleep apnea bipap-compliant Stroke "few old punctate lacunar infarcts seen within the left cerebellar hemisphere" MRI brain 2020 Thyroid cancer Follicular thyroid cancer 1982--s/p partial thyroidectomy, chemo, radiation Medullary thyroid cancer 1996-- s/p complete thyroidectomy, radical neck dissection, radiation/radioactive iodine Transient hypotension Vocal cord paralysis, bilateral complete severe---very difficulty for pt to talk Surgical History Difficult airway for intubation small airway -- has laryngeal implant - states use size 6.0 ETT with caution History of appendectomy History of bilateral tubal ligation History of cholecystectomy History of colonoscopy had last 12/24/[address] Abad--found rectal c.a. History of endoscopic sinus surgery History of esophagogastroduodenoscopy (EGD) History of hysterectomy with unilateral oophorectomy removed right d/t endometriosis History of radical dissection of right side of neck History of right inguinal hernia repair History of surgery part of vocal cord removed -- has laryngeal implant History of thyroidectomy, total History of tonsillectomy and adenoidectomy per patient surgery was done twice History of tooth extraction with permnant bridge History of vascular access device mediport in place--pt states is currently using for chemo Family History Mother Family history of diabetes mellitus Uncle Family history of diabetes mellitus Grandmother Breast cancer Hypertension Diabetes Grandfather Heart disease Other No family history of adverse response to anesthesia Social History Smoking Status: Never smoker Second Hand Exposure: Yes ("lots of second hand smoke"); Hx Alcohol Use: No Hx Substance Use: No Preferred Language: Sami Communication Ability: Impaired Pipe Tester Required: No Beliefs That Will Affect Care: None marital status: Current Living Situation: Alone current occupational status: retired How many Children do You have: 0 Feels Safe at Home: Yes Assistive Devices: BiPap, Glasses and Walker Physical Exam Constitutional: WD/WN, vitals as above Eyes: PERRL, conjunctivae normal, anicteric sclerae ENMT: external ear and nose normal, oropharynx normal Throat: + posterior oropharynx abnormality (Bilateral vocal cord paralysis with 2 mm glottis) Neck: trachea midline, no thyromegaly Respiratory: + labored breathing Cardiovascular: RRR, no murmur, no edema PG Care Time/CCT Total # of Minutes Spent Total Time Spent with Patient: Total time spent is greater than 50% in coordination of care (as documented) at patient's floor/unit and/or counseling patient: Coding Level of Care Code None Diagnoses Vocal cord paralysis, bilateral complete J38.02 Post-surgical hypothyroidism E89.0 Obstructive sleep apnea G47.33
[~2021-07-30 09:06] MED LIST changes: -ATOR-26 PO; -BUPR100T8 PO; -CHOL1CAP57 PO; -CHOL1TAB63 PO; +CLINDAMYCIN 600 MG/54 ML BAG IV SCH; -EFF75 PO; -FERR1TAB23 PO; -LEVO175T PO; +LR 15ML/HR IV SCH; -NRN300 PO; -TOPI200T14 PO; -VRPSR240 PO
[2021-07-30 10:07] LABS: Hematocrit (blood only) 31.7 % (37-47); Hemoglobin 10.2 g/dL (12.0-16.0); Mean Corpuscular Hemoglobin 32.6 pg (25-34); Mean Corpuscular Volume 101.3 fL (80-100); Mean Platelet Volume 9.4 fL (7.4-10.4); Platelet Count 219 K/uL (130-400); RDW Coefficient of Variation 20.5 % (11.5-14.5); RDW Standard Deviation 75.8 fL (36.4-46.3); Red Blood Count 3.13 M/uL (4.2-5.4); White Blood Count 1.78 K/uL (4.8-10.8)
[2021-07-30 10:11] LABS: Mean Corpuscular Hgb Conc 32.2 g/dL (32-36)
[2021-07-30 10:31] LABS: Anisocytosis Present; Basophils # (auto) 0.03 K/uL (0-0.2); Basophils % (auto) 1.7 %; Eosinophils # (auto) 0.13 K/uL (0-0.5); Eosinophils % (auto) 7.3 %; Lymphocytes # (auto) 0.66 K/uL (1.2-3.4); Lymphocytes % (auto) 37.1 %; Monocytes # (auto) 0.64 K/uL (0.11-0.59); Neutrophils # (auto) 0.32 K/uL (1.4-6.5); Neutrophils % (auto) 17.9 %
[2021-07-30] MEDS ORDERED: NALOXONE HCL 0.4 MG/1 ML VIAL/CARP IV PRN (10:37)
[2021-07-30] MEDS ORDERED: fentaNYL citrate 100 MCG/2 ML VIAL IV PRN (10:37)
[2021-07-30] MEDS ORDERED: FLUMAZENIL 0.1 MG/1 ML 10 ML VIAL IV PRN (10:37)
[2021-07-30] MEDS ORDERED: PROMETHAZINE HCL 12.5 MG in SODIUM CHLORIDE 0.9% 50 ML IV PRN (10:37)
[2021-07-30] MEDS ORDERED: ONDANSETRON INJ 2 MG/ML 2 ML VIAL IV PRN ×2 (10:37→13:45)
[2021-07-30] MEDS ORDERED: LABETALOL HCL IV 5 MG/ML 20ML IV PRN (10:37)
[2021-07-30] MEDS ORDERED: ATROPINE SULFATE 0.1 MG/ML 10ML SYR IV PRN (10:37)
--- NOTE | 2021-07-30 10:45 | History & Physical Bridge Note ---
Date of Service July 30, 2021 History & Physical Bridge Note I have examined the patient, reviewed the History & Physical and in the interval since the performance of the History & Physical I have noted the following changes of clinical significance: no changes noted
[2021-07-30] MEDS ORDERED: DexMEDEtomidine HCL IV 100 MCG/ML VIAL IV ONE (10:47)
[2021-07-30] MEDS ORDERED: LIDOCAINE 2% LOCAL 50 ML VIAL ONE (11:04)
[2021-07-30] MEDS ORDERED: LIDOCAINE 2%/EPINEPHRINE 1:100,000 20ML ONE (11:04)
[2021-07-30] MEDS ORDERED: LIDOCAINE 2% 2 ML VIAL/AMP(20MG/ML) INFIL ONE (11:06)
[2021-07-30] MEDS ORDERED: GLYCOPYRROLATE 0.2 MG/ML VIAL ONE (11:06)
[2021-07-30] MEDS ORDERED: PROPOFOL IV EMULSION 10 MG/ML 20 ML VIAL IV ONE (11:06)
[2021-07-30] MEDS ORDERED: SUCCINYLCHOLINE CHLORIDE 20 MG/ML 10 ML VIAL IV ONE (11:06)
[2021-07-30] MEDS ORDERED: KETAMINE 50 MG/5 ML SYRINGE ONE (11:07)
[2021-07-30] MEDS ORDERED: MIDAZOLAM HCL 1 MG/ML 2ML VIAL ONE (11:07)
[2021-07-30] MEDS ORDERED: fentaNYL citrate 100 MCG/2 ML VIAL ONE (11:07)
--- NOTE | 2021-07-30 12:50 | Operative Report ---
PG Post Operative Report Pre & Post Diagnosis Operation Date: 07/30/21 11:05 Pre-Op Diagnosis: Bilateral complete Vocal Cord Paralysis Post-Op Diagnosis: Bilateral complete Vocal Cord Paralysis I identified the patient and participated in the time-out.: Yes Procedure Operation Date: 07/30/21 11:05 Actual Procedures p Tracheostomy(Not Applicable) - Jessica Dobbs MD Surgeon Jessica Dobbs MD Operations Representative None Estimated Blood Loss 5 Findings Consistent with Post-Op Diagnosis Bilateral vocal cord paralysis Specimens None Anesthesia Type MAC Complications None Description of Procedure She was brought to the operating room, properly identified, prepped with Betadine paint and draped in usual sterile manner after sedation. Local anesthetic was obtained by injecting with 1% Xylocaine with 1-100,000 strength epinephrine. Incision was made over the trachea 1 cm above the sternum in the midline. This was carried down through the skin and subcutaneous layer using a 15 blade. Hemostasis was controlled using the Bovie. Significant amount of scar tissue had to be removed using the cutting current on the Bovie. The trachea was identified. The first tracheal ring was retracted superiorly. Incision was made through the second tracheal ring and extended laterally. This second and third tracheal rings were divided laterally using the Karimi scissors to create a upside down U-shaped tracheal flap. This was sewn up to the skin using 2-0 Prolene suture. The trach river rat was used and the tracheostomy tube was inserted. A #6 cuffless fenestrated Shiley. The trach was sewn in place with 4 corner stay sutures of 2-0 Prolene. Trach tape was applied. She tolerated procedure well and was taken recovery area in satisfactory condition. I attest to the content of the Intraoperative Record and any orders documented therein. Any exceptions are noted below.
[2021-07-30] MEDS ORDERED: ALBUMIN HUMAN 5% 12.5 GM/250 ML VIAL IV ONE (12:59)
[2021-07-30] MEDS ORDERED: ALBUMIN 5% 250 ML IV ONE (13:15)
[2021-07-30] MEDS: ePHEDrine sulfate 50 MG/ML AMP IV PRN ×3 (13:15→13:46)
[2021-07-30] MEDS ORDERED: LACTATED RINGER'S 1,000 ML IV SCH (13:45)
[2021-07-30] MEDS ORDERED: oxyCODONE/ACETAMINOPHEN 5mg/325mg TAB PO PRN (13:45)
[2021-07-30] MEDS ORDERED: HYDROCORTISONE SOD SUCCINATE 100 MG/2 ML VIAL IV STA (14:09)
[2021-07-30] MEDS ORDERED: LACTATED RINGER'S 1,000 ML IV ONE (14:09)
--- NOTE | 2021-07-30 14:16 | Anesthesiology Progress Note ---
Date of Service July 30, 2021 Anesthesia Post Procedure Vital Signs Vital Signs: Temp Pulse Pulse Resp BP Pulse Ox 07/30/21 14:05 36.4 C L 85 21 88/53 L 95 07/30/21 13:55 82 20 89/52 L 96 07/30/21 13:45 80 16 81/53 L 97 07/30/21 13:35 82 18 80/43 L 94 07/30/21 13:25 77 16 80/44 L 99 07/30/21 13:15 75 14 68/39 L 98 07/30/21 13:05 71 12 72/44 L 93 07/30/21 12:55 73 22 81/48 L 98 07/30/21 12:45 75 16 100/48 L 99 07/30/21 12:35 74 12 106/65 97 07/30/21 12:27 36.5 C 71 16 61/38 L 96 07/30/21 09:54 36.7 C 86 143/78 H 98 Pain Intensity Bilateral Leg: Pain Intensity: 2 Transfer of Care Handoff Completed per policy Notes Mental Status: alert / awake / arousable Patient Amnestic to Procedure: Yes Nausea / Vomiting: adequately controlled Pain: adequately controlled Airway Patency, RR, SpO2: stable & adequate BP & HR: stable & adequate Hydration State: stable & adequate Anesthetic Complications: no major complications apparent
[2021-07-30 14:33] LABS: D Dimer 1950 ug/L FEU (0-500)
[2021-07-30 14:36] LABS: Albumin Globulin Ratio 1.7 (0.9-2); Albumin Level 3.3 gm/dl (3.4-5.0); Bilirubin,Total 0.6 mg/dl (0.2-1.0); Creatinine Clr Calc Pharmacy 83.7 ml/min; Est GFR (African American) 109.3 ml/min; Est GFR (Non-African American) 94.3 ml/min; Potassium 3.7 mmol/L (3.5-5.1); Total Protein 5.3 gm/dl (6.0-8.3)
--- NOTE | 2021-07-30 14:36 | History & Physical Report ---
Date of Service July 30, 2021 Assessment & Plan (1) Shock: Plan: Post-operative. BPs were normal prior to her tracheostomy surgery. Differential - adrenal/addisonian vs septic vs obstructive (ie PEs) vs other. PE unlikely even despite the elevated d-dimer as her O2 sats have been normal, no tachycardia, etc. No evidence of hemorrhagic shock - H/H stable post-op. No evidence of cardiogenic shock. Cortisol checked - quite low at 7 despite the stress of surgery. Hydrocortisone 100mg IV x 1 now, with additional doses per ICU attending. Repeat LR bolus 1 L now, then fluids at 125cc/hr. If refractory hypotension then start levophed to maintain MAP >65. Given the severe neutropenia consider early sepsis. Blood cx's, cxr, ua/urine cx, flu/RSV/COVID testing. HOLD all home BP meds. (2) Status post tracheostomy: Plan: by Dr Dobbs today. indication - b/l vocal cord paralysis, obstructed glottis with 2mm opening only. (3) History of DVT (deep vein thrombosis): Plan: 2019. Took lovenox daily up until late 2020 when patient self-discontinued the lovenox. In light of elevated d-dimer, shock, etc will obtain LE dopplers - r/o DVT. Patient has contrast allergy thus defer on CTA chest at this time. Pt recently saw Dr Perdomo in the anticoagulation clinic. She had advised lovenox 40mg once daily starting 24 hours post-op for prophylaxis. (4) Vocal cord paralysis, bilateral complete: Plan: s/p tracheostomy today by Dr Dobbs. left-sided paralysis - etiology? infiltration of recurrent laryngeal nerve by cancer in the chest? other? (5) Post-surgical hypothyroidism: Plan: review of TSH levels over the last year shows wild swings either very high or suppressed. check TSH in am. cont levothyroxine 224mcg in meantime. (6) Hx of papillary thyroid carcinoma: Plan: 1982 s/p partial thyroidectomy (7) History of medullary carcinoma of thyroid: Plan: 1996 s/p complete thyroidectomy followed by radiation/radioactive iodine & radical neck dissection now with post-surgical hypothyroidism (8) Metastatic colorectal cancer: Plan: dx 12/[address] Abad. follows with CARINE Townsend - [facility]. last FOLFIRI chemo was 07/13/21. resulting chemo-induced pancytopenia with neutropenia. (9) CAD (coronary artery disease): Plan: no ischemic symptoms post-op. she is not on chronic aspirin therapy, beta torrey or statin. (10) Antineoplastic chemotherapy induced pancytopenia: Plan: 2nd to FOLFIRI. Daily CBC. Infectious w/u in process. Defer empiric abx to ICU attending. (11) Neutropenia: Plan: 2nd chemotherapy on 07/13. Neutropenic precautions. If patient is found to have an infectious source strongly consider neupogen. Daily CBC with diff. (12) DVT prophylaxis: Plan: lovenox 40mg daily starting tomorrow UNLESS dopplers show acute DVT warranting systemic anticoagulation Plan: patient had asked me to contact her friend to let her know about the plan of care contacted Ms Katia Wong at [phone] -- no answer, left message total critical care time 75 minutes including care coordination with ICU attending, initial shock management, etc History of Present Illness Chief Complaint: post-operative hypotension Primary Care Provider: Karen Cao PA-C 65yo female with stage 4 colorectal cancer currently on FOLFIRI chemo regimen managed at [facility] (last chemo 07/13/21) and remote h/o thyroid cancer s/p thyroidectomy with resulting right-sided vocal cord paralysis who recently had developed hoarseness of voice. This led to a CT neck and then ultimately referral to Dr Dobbs in the ENT office. He performed laryngoscopy during a recent office visit which showed her chronic R-sided vocal cord paralysis but he also saw that the left vocal cord was paralyzed. Additionally she had a 2mm glotis. Preparations were made for tracheostomy which was performed today by Dr Dobbs without apparent complication. Per anesthesia she received 1mg of versed and a small amount of precedex. Upon arrival in the PACU her SBP was 70. She was given a bolus of 5% albumin followed by 500cc of LR. Upon my arrival for evaluation her SBP was 75-80. I asked nursing to finish the current bag of LR to complete a full 1000cc bolus. SBP was high 80s by the end of my admission assessment. Notably the patient denies feeling ill prior to her procedure today except for some runny nose. Post-op she denied chest pain, dyspnea, abdominal pain, headache, fevers, chills. She thinks that she took her verapamil this am but not her lisinopril. She ate/drank normally yesterday and had no emesis or diarrhea. Of note - I spoke with CARINE Zavala, who follows [facility] Rajiv [facility]. She confirmed that the patient had received dexamethasone 10mg IV x 1 on 07/13/21 but is NOT on chronic steroids. She also confirmed that her port does not allow blood draws but flushes fine and can be used for IV fluids, etc. Allergies Allergy/AdvReac Type Severity Reaction Status Date / Time Iodinated Contrast Media Allergy Intermediate Hives Verified 07/30/21 09:49 Penicillins Allergy Intermediate Hives Verified 07/30/21 09:49 Sulfa (Sulfonamide Allergy Intermediate Hives Verified 07/30/21 09:49 Antibiotics) Home Medications Medication Instructions Recorded Confirmed Type verapamil 240 mg tablet,extended 240 mg PO BID 05/24/18 07/30/21 History release topiramate 200 mg tablet (Topamax) 200 mg PO HS 01/17/19 07/30/21 History albuterol sulfate 90 mcg/actuation 1 inh INHALATION QID PRN 12/16/19 07/30/21 History aerosol inhaler VITAMIN B6 OTC 1 tab PO QAM 11/17/20 07/30/21 History gabapentin 300 mg capsule 600 mg PO TID cap 01/04/21 07/30/21 History lisinopril 10 mg tablet 20 mg PO BID tab 01/04/21 07/30/21 History cholecalciferol (vitamin D3) 50 2,000 unit PO QAM cap 02/04/21 07/30/21 History mcg (2,000 unit) capsule acetaminophen 500 mg tablet 1,000 mg PO BID PRN tab 02/26/21 07/27/21 History (Tylenol Extra Strength) enoxaparin 40 mg/0.4 mL 40 mg SUBCUT Q24H #30 syr 07/07/21 07/30/21 Rx subcutaneous syringe levothyroxine 112 mcg tablet 224 mcg PO QAM 07/22/21 07/30/21 History potassium chloride 20 mEq 20 meq PO QAM 07/22/21 07/30/21 History tablet,extended release oxycodone-acetaminophen 5 mg-325 1 tab PO Q4H PRN #20 tab 07/30/21 Rx mg tablet (Percocet) Past Med/Surg History Medical History (Updated 07/30/21 @ 20:54 by Obinna Enriquez) Anxiety Complete left bundle branch block (LBBB) Chronic per cardio note Deep vein thrombosis (DVT) left upper extremity of the internal jugular, subclavian and axillary vein diagnosed 02/2020-Lovenox 80 mg SubQ daily up until fall 2020 at which time patient stopped the lovenox. Depression Facial paresthesia chronic without change GERD (gastroesophageal reflux disease) controlled, stable per pt History of medullary carcinoma of thyroid Hx of papillary thyroid carcinoma Hyperlipidemia no meds Hypertension Hypothyroidism Post ablative Irritable bowel syndrome with constipation Myocardial Infarction 2003 Rectal cancer with liver metastasis, follows with CCP, receiving chemo Scars right side of neck d/t radiation Sleep apnea bipap-compliant Stroke "few old punctate lacunar infarcts seen within the left cerebellar hemisphere" MRI brain 2020 Thyroid cancer Follicular thyroid cancer 1982--s/p partial thyroidectomy, chemo, radiation Medullary thyroid cancer 1996-- s/p complete thyroidectomy, radical neck dissection, radiation/radioactive iodine Transient hypotension Vocal cord paralysis, bilateral complete severe---very difficulty for pt to talk Surgical History (Updated 07/30/21 @ 14:35 by Obinna Enriquez) Difficult airway for intubation small airway -- has laryngeal implant - states use size 6.0 ETT with caution History of appendectomy History of bilateral tubal ligation History of cholecystectomy History of colonoscopy had last 12/24/[address] Abad--found rectal c.a. History of endoscopic sinus surgery History of esophagogastroduodenoscopy (EGD) History of hysterectomy with unilateral oophorectomy removed right d/t endometriosis History of radical dissection of right side of neck History of right inguinal hernia repair History of surgery part of vocal cord removed -- has laryngeal implant History of thyroidectomy, total History of tonsillectomy and adenoidectomy per patient surgery was done twice History of tooth extraction with permnant bridge History of vascular access device mediport in place--pt states is currently using for chemo Family History Mother Family history of diabetes mellitus Uncle Family history of diabetes mellitus Grandmother Breast cancer Hypertension Diabetes Grandfather Heart disease Other No family history of adverse response to anesthesia Social History Smoking Status: Never smoker Second Hand Exposure: Yes; Do You Dip or Chew Tobacco: No; Tobacco Cessation Education Requested by Patient: No Hx Alcohol Use: No Hx Substance Use: No Preferred Language: [place] Communication Ability: Impaired Communication Ability Comment: very difficult for pt to talk Certified Nurses' Aide Required: No Beliefs That Will Affect Care: None marital status: Current Living Situation: Alone current occupational status: retired How many Children do You have: 0 Other Information That Helps Us Care for You: No Feels Safe at Home: Yes Safety Concerns: Feels Safe At This Time Assistive Devices: BiPap, Cane and Glasses Review of Systems Review of Systems: gen - no fevers or chills; had been eating ok prior to this admission eyes - no change in vision HENT - runny nose but no sore throat CV - no chest pain pulm - no cough or dyspnea GI - no abd pain, nausea, emesis, diarrhea - no dysuria skin - no recent rash neuro - denies focal motor weakness; denies headache endo - no diabetes Physical Exam Physical Exam: gen - awake, alert, follows commands; able to converse by occluding her trach eyes - PERRL HENT - MM dry neck - tracheostomy with minimal blood; ?scar tissue vs large lymph node vs other right upper anterior neck; scarring right side of neck heart - RRR, s1 s2, no murmur lungs - CTA b/l, no wheezes or rales; no increased work of breathing abd - soft NT ND BS+ ext - pulses 2+ b/l, left leg mildly increased in size relative to right leg skin - no generalized rash neuro - strength 5/5 x 4 exts; no facial droop vasc - port present left upper chest musculo - no synovitis of any joint Results & Data Results & Data ([facility]) Vital Signs (Past 12 Hours) Vital Signs Temp Pulse Pulse Resp BP Pulse Ox 07/30/21 14:15 92 H 24 106/60 95 07/30/21 14:05 36.4 C L 85 21 88/53 L 95 07/30/21 13:55 82 20 89/52 L 96 07/30/21 13:45 80 16 81/53 L 97 07/30/21 13:35 82 18 80/43 L 94 07/30/21 13:25 77 16 80/44 L 99 04/15/22 13:15 75 14 68/39 L 98 07/30/21 13:05 71 12 72/44 L 93 07/30/21 12:55 73 22 81/48 L 98 07/30/21 12:45 75 16 100/48 L 99 07/30/21 12:35 74 12 106/65 97 07/30/21 12:27 36.5 C 71 16 61/38 L 96 07/30/21 09:54 36.7 C 86 143/78 H 98 Laboratory Results Laboratory Results - last 24 hr 07/30/21 07/30/21 07/30/21 09:49 14:02 14:02 WBC 1.78 L RBC 3.13 L Hgb 10.2 L Hct 31.7 L MCV 101.3 H MCH 32.6 MCHC 32.2 RDW Std Deviation 75.8 H RDW Coeff of Michelle 20.5 H Plt Count 219 MPV 9.4 Immature Gran % (Auto) 0.0 Neut % (Auto) 17.9 Lymph % (Auto) 37.1 Loving % (Auto) 36.0 Eos % (Auto) 7.3 Baso % (Auto) 1.7 Neut # (Auto) 0.32 L* Lymph # (Auto) 0.66 L Loving # (Auto) 0.64 H Eos # (Auto) 0.13 Baso # (Auto) 0.03 Immature Gran # (Auto) 0.00 Anisocytosis Present PT INR APTT PTT Ratio D-Dimer 1950 H* Sodium 136 Potassium 3.7 Chloride 106 Carbon Dioxide 24 Anion Gap 6 BUN 12 Creatinine 0.60 Est Cr Clr Drug Dosing 83.7 Est GFR ( Amer) 109.3 Est GFR (Non-Af Amer) 94.3 BUN/Creatinine Ratio 20.0 Glucose 90 POC Glucose Lactate Calcium 8.0 L Magnesium 2.0 Total Bilirubin 0.6 AST 28 ALT 27 Alkaline Phosphatase 198 H Troponin I High Sens 9.0 Total Protein 5.3 L Albumin 3.3 L Globulin 2.0 L Albumin/Globulin Ratio 1.7 Procalcitonin Random Cortisol Nasal Screen MRSA (PCR) SARS-CoV-2 (PCR) Influenza Type A (PCR) Influenza Type B (PCR) RSV (RT-PCR) 07/30/21 07/30/21 07/30/21 14:02 14:02 14:02 WBC RBC Hgb Hct MCV MCH MCHC RDW Std Deviation RDW Coeff of Michelle Plt Count MPV Immature Gran % (Auto) Neut % (Auto) Lymph % (Auto) Loving % (Auto) Eos % (Auto) Baso % (Auto) Neut # (Auto) Lymph # (Auto) Loving # (Auto) Eos # (Auto) Baso # (Auto) Immature Gran # (Auto) Anisocytosis PT INR APTT PTT Ratio D-Dimer Sodium Potassium Chloride Carbon Dioxide Anion Gap BUN Creatinine Est Cr Clr Drug Dosing Est GFR ( Amer) Est GFR (Non-Af Amer) BUN/Creatinine Ratio Glucose POC Glucose Lactate 1.3 Calcium Magnesium Total Bilirubin AST ALT Alkaline Phosphatase Troponin I High Sens Total Protein Albumin Globulin Albumin/Globulin Ratio Procalcitonin < 0.05 Random Cortisol 7.16 Nasal Screen MRSA (PCR) SARS-CoV-2 (PCR) Influenza Type A (PCR) Influenza Type B (PCR) RSV (RT-PCR) 07/30/21 07/30/21 07/30/21 14:15 16:18 16:48 WBC RBC Hgb Hct MCV MCH MCHC RDW Std Deviation RDW Coeff of Michelel Plt Count MPV Immature Gran % (Auto) Neut % (Auto) Lymph % (Auto) Loving % (Auto) Eos % (Auto) Baso % (Auto) Neut # (Auto) Lymph # (Auto) Loving # (Auto) Eos # (Auto) Baso # (Auto) Immature Gran # (Auto) Anisocytosis PT 11.1 Cancelled INR 1.0 Cancelled APTT 23.4 Cancelled PTT Ratio 0.9 Cancelled D-Dimer Sodium Potassium Chloride Carbon Dioxide Anion Gap BUN Creatinine Est Cr Clr Drug Dosing Est GFR ( Amer) Est GFR (Non-Af Amer) BUN/Creatinine Ratio Glucose POC Glucose Lactate Calcium Magnesium Total Bilirubin AST ALT Alkaline Phosphatase Troponin I High Sens Total Protein Albumin Globulin Albumin/Globulin Ratio Procalcitonin Random Cortisol Nasal Screen MRSA (PCR) Negative SARS-CoV-2 (PCR) Influenza Type A (PCR) Influenza Type B (PCR) RSV (RT-PCR) 07/30/21 07/30/21 07/30/21 16:48 16:56 18:11 WBC RBC Hgb 8.8 L Hct 27.8 L MCV MCH MCHC RDW Std Deviation RDW Coeff of Michelle Plt Count MPV Immature Gran % (Auto) Neut % (Auto) Lymph % (Auto) Loving % (Auto) Eos % (Auto) Baso % (Auto) Neut # (Auto) Lymph # (Auto) Loving # (Auto) Eos # (Auto) Baso # (Auto) Immature Gran # (Auto) Anisocytosis PT INR APTT PTT Ratio D-Dimer Sodium Potassium Chloride Carbon Dioxide Anion Gap BUN Creatinine Est Cr Clr Drug Dosing Est GFR ( Amer) Est GFR (Non-Af Amer) BUN/Creatinine Ratio Glucose POC Glucose 103 H Lactate Calcium Magnesium Total Bilirubin AST ALT Alkaline Phosphatase Troponin I High Sens Total Protein Albumin Globulin Albumin/Globulin Ratio Procalcitonin Random Cortisol Nasal Screen MRSA (PCR) SARS-CoV-2 (PCR) NEGATIVE Influenza Type A (PCR) Negative Influenza Type B (PCR) Negative RSV (RT-PCR) Negative Diagnostic Findings Chest X-Ray 07/30/21 14:20 XR chest 1V portable HISTORY: 65 years-old Female shock, trach placement status post placement of a tracheostomy cannula COMPARISON: CTA chest 06/22/2021, chest radiograph 03/23/2020 TECHNIQUE: Portable AP view of the chest FINDINGS: The cardiac silhouette is enlarged. Tracheostomy cannula overlies the midline. Surgical clips project over the left neck. Left IJ central venous catheter distal tip terminates in the expected location of the brachiocephalic SVC confluence. No pneumothorax. Mild blunting of the left costophrenic angle with mild left basilar opacities. There is mild left hemidiaphragmatic elevation. No overt pulmonary edema. Surgical clips of the right upper quadrant abdomen. The bones appear grossly intact. IMPRESSION: 1. Status post placement of a tracheostomy cannula. 2. Cardiomegaly without pulmonary edema. 3. Small left pleural effusion with left lung base opacities suggestive of atelectasis versus pneumonitis. ACT 112: Negative or not required by law. The above report was generated using voice recognition software. It may contain grammatical, syntax or spelling errors. Electronically signed by: Igor Gamino M.D. 07/30/2021 2:44 PM EKG - my reading - NSR, LBBB, 1st degree AV block, I/AVL ST depression Code Status & VTE Plan Code Status full VTE Prophylaxis Plan VTE Prophylaxis will be ordered: Yes Critical Care Time Critical Care Time: Yes 75 PG Care Time/CCT Total # of Minutes Spent Total Time Spent with Patient: Total time spent is greater than 50% in coordination of care (as documented) at patient's floor/unit and/or counseling patient: Critical Care Time: Yes Coding Level of Care Code None Diagnoses Shock R57.9 Status post tracheostomy Z93.0 History of DVT (deep vein thrombosis) Z86.718 Vocal cord paralysis, bilateral complete J38.02 Post-surgical hypothyroidism E89.0 Hx of papillary thyroid carcinoma Z85.850 History of medullary carcinoma of thyroid Z85.850 Metastatic colorectal cancer C19 CAD (coronary artery disease) I25.10 Antineoplastic chemotherapy induced pancytopenia D61.810; T45.1X5A Neutropenia D70.9 DVT prophylaxis Z29.9 Additional Codes Critical Care Time - Critical Care Time: Yes ([id number]) Comment critical care time 75 min
--- NOTE | 2021-07-30 14:46 | XRay Report ---
XR chest 1V portable HISTORY: 65 years-old Female shock, trach placement status post placement of a tracheostomy cannula COMPARISON: CTA chest 06/22/2021, chest radiograph 03/23/2020 TECHNIQUE: Portable AP view of the chest FINDINGS: The cardiac silhouette is enlarged. Tracheostomy cannula overlies the midline. Surgical clips project over the left neck. Left IJ central venous catheter distal tip terminates in the expected location o f the brachiocephalic SVC confluence. No pneumothorax. Mild blunting of the left costophrenic angle w ith mild left basilar opacities. There is mild left hemidiaphragmatic elevation. No overt pulmonary e gloria. Surgical clips of the right upper quadrant abdomen. The bones appear grossly intact. IMPRESSION: 1. Status post placement of a tracheostomy cannula. 2. Cardiomegaly without pulmonary edema. 3. Small left pleural effusion with left lung base opacities suggestive of atelectasis versus pneumon itis. ACT 112: Negative or not required by law. The above report was generated using voice recognition software. It may contain grammatical, syntax o r spelling errors. Electronically signed by: Igor Gamino M.D. 07/30/2021 2:44 PM
--- NOTE | 2021-07-30 15:04 | Critical Care Consultation ---
Date of Consultation July 30, 2021 Assessment & Plan (1) Shock: (2) Metastatic colorectal cancer: (3) History of DVT (deep vein thrombosis): (4) Status post tracheostomy: 65-year-old female past medical history of stage IV colon cancer on chemotherapy, came to the hospital for trach placement as a same-day surgery patient but was found to be hypotensive in the PACU Transferred to the ICU for further care Chest x-ray 07/30/2021 personally reviewed: Portable film, good respiratory effort, trach in place, bilateral costophrenic angles are clean, elevated left hemidiaphragm, increased cardiac silhouette, no clear infiltrate appreciated --Shock Etiology is unclear Patient did have metastatic colon cancer Adrenal insufficiency could be one of the reason Patient also got chemotherapy recently and her absolute neutrophil count is 320 which does put her at risk for sepsis Give IV fluids Vasopressor support if need be to keep MAP greater than 65 --Bilateral vocal cord paralysis S/p tracheostomy 07/30/2021 Monitor H&H --History of metastatic colon cancer Currently on chemotherapy --Hypothyroidism Continue with Synthroid --History of hypertension Hold blood pressure medication for the time being --History of DVT Long time ago Was supposed to be on Lovenox prophylactic but she has not been taking it --Prophylaxis VTE: Lovenox GI: Protonix Lines peripheral, left-sided Port-A-Cath Diet: N.p.o. Plan: Give at least 2.5 L of LR, follow random cortisol Give 200 mg of hydrocortisone At the blood pressure is will still be on the lower side and will start v asopressors Patient is saturating 97% on room air. I doubt PE being one of the reason because the patient should be significantly hypoxic if PE because hypotensive episode Will order Doppler bilateral lower extremity Given the patient being neutropenic with absolute cell count only 320 I will give the patient vancomycin to be started 8 hours after clindamycin dose and meropenem for anaerobic and pseudomonal coverage Case discussed with Dr Enriquez I have personally spent 66 minutes of critical care time in the direct management of this patient. This is a life/limb threatening event. This includes time spent evaluating patient, direct bedside care, chart review, placing orders, interpretation of diagnostic studies, discussion with consultants, patient, and family members, as well as other required patient management activities. This time is exclusive of all separately billable procedures, and teaching time and separate from and in addition to any other critical care service time. Please note the above document was generated using voice recognition software. It may contain grammatical, syntax or spelling errors. History of Present Illness Attending Physician: Jessica Dobbs MD History of Present Illness 65-year-old female came to the hospital to have tracheostomy placed Past medical history: Stage IV colorectal cancer currently getting chemotherapy last chemo 07/13/2021, history of thyroid cancer 1996 s/p radiation and thyroidectomy, coronary artery disease, hypothyroidism In the PACU patient was found to be significantly hypotensive with SBP in the 70s. She got 5% albumin followed by 1 L of LR. ICU was consulted for the same At the time of examination patient's map was high 60s. Systolic blood pressure in the high 90s She was getting her second bag of LR. She denied any chest pain, no dizziness, no palpitation, no diaphoresis Denies any shortness of breath. No headache, no blurry vision. She denies taking any prolonged steroids. She was given dexamethasone on 07/13/21 10 mg x 1. Social history: Lifetime non-smoker Allergies Allergy/AdvReac Type Severity Reaction Status Date / Time Iodinated Contrast Media Allergy Intermediate Hives Verified 07/30/21 09:49 Penicillins Allergy Intermediate Hives Verified 07/30/21 09:49 Sulfa (Sulfonamide Allergy Intermediate Hives Verified 07/30/21 09:49 Antibiotics) Home Medications Medication Instructions Recorded Confirmed Type verapamil 240 mg tablet,extended 240 mg PO BID 05/24/18 07/30/21 History release topiramate 200 mg tablet (Topamax) 200 mg PO HS 01/17/19 07/30/21 History albuterol sulfate 90 mcg/actuation 1 inh INHALATION QID PRN 12/16/19 07/30/21 History aerosol inhaler VITAMIN B6 OTC 1 tab PO QAM 11/17/20 07/30/21 History gabapentin 300 mg capsule 600 mg PO TID cap 01/04/21 07/30/21 History lisinopril 10 mg tablet 20 mg PO BID tab 01/04/21 07/30/21 History cholecalciferol (vitamin D3) 50 2,000 unit PO QAM cap 02/04/21 07/30/21 History mcg (2,000 unit) capsule acetaminophen 500 mg tablet 1,000 mg PO BID PRN tab 02/26/21 07/27/21 History (Tylenol Extra Strength) enoxaparin 40 mg/0.4 mL 40 mg SUBCUT Q24H #30 syr 07/07/21 07/30/21 Rx subcutaneous syringe levothyroxine 112 mcg tablet 224 mcg PO QAM 07/22/21 07/30/21 History potassium chloride 20 mEq 20 meq PO QAM 07/22/21 07/30/21 History tablet,extended release oxycodone-acetaminophen 5 mg-325 1 tab PO Q4H PRN #20 tab 07/30/21 Rx mg tablet (Percocet) Patient History Medical History Anxiety Complete left bundle branch block (LBBB) Chronic per cardio note Deep vein thrombosis (DVT) left upper extremity of the internal jugular, subclavian and axillary vein diagnosed 02/2020-Lovenox 80 mg SubQ daily Depression Facial paresthesia chronic without change GERD (gastroesophageal reflux disease) controlled, stable per pt History of medullary carcinoma of thyroid Hx of papillary thyroid carcinoma Hyperlipidemia no meds Hypertension Hypothyroidism Post ablative Irritable bowel syndrome with constipation Myocardial Infarction 2003 Rectal cancer with liver metastasis, follows with CCP, receiving chemo Scars right side of neck d/t radiation Sleep apnea bipap-compliant Stroke "few old punctate lacunar infarcts seen within the left cerebellar hemisphere" MRI brain 2020 Thyroid cancer Follicular thyroid cancer 1982--s/p partial thyroidectomy, chemo, radiation Medullary thyroid cancer 1996-- s/p complete thyroidectomy, radical neck dissection, radiation/radioactive iodine Transient hypotension Vocal cord paralysis, bilateral complete severe---very difficulty for pt to talk Surgical History Difficult airway for intubation small airway -- has laryngeal implant - states use size 6.0 ETT with caution History of appendectomy History of bilateral tubal ligation History of cholecystectomy History of colonoscopy had last 12/24/[address] Abad--found rectal c.a. History of endoscopic sinus surgery History of esophagogastroduodenoscopy (EGD) History of hysterectomy with unilateral oophorectomy removed right d/t endometriosis History of radical dissection of right side of neck History of right inguinal hernia repair History of surgery part of vocal cord removed -- has laryngeal implant History of thyroidectomy, total History of tonsillectomy and adenoidectomy per patient surgery was done twice History of tooth extraction with permnant bridge History of vascular access device mediport in place--pt states is currently using for chemo Family History Mother Family history of diabetes mellitus Uncle Family history of diabetes mellitus Grandmother Breast cancer Hypertension Diabetes Grandfather Heart disease Other No family history of adverse response to anesthesia Social History Smoking Status: Never smoker Second Hand Exposure: Yes; Do You Dip or Chew Tobacco: No; Tobacco Cessation Education Requested by Patient: No Hx Alcohol Use: No Hx Substance Use: No Preferred Language: Nepalese Communication Ability: Effective Communication Ability Comment: very difficult for pt to talk Lamp Decorator Required: No Beliefs That Will Affect Care: None marital status: Current Living Situation: Alone current occupational status: retired How many Children do You have: 0 Other Information That Helps Us Care for You: No Feels Safe at Home: Yes Safety Concerns: Feels Safe At This Time Assistive Devices: BiPap and Glasses Review of Systems Review of Systems: All systems reviewed & are unremarkable except as noted in HPI & below Physical Exam Physical Exam: Constitutional: No acute distress HEENT: EOMI, PERRLA, right neck and shoulder scar tissue, positive trach, minimal bleeding on the trach site Respiratory system: Decreased air entry bilaterally, no wheeze, LAMA, positive crackles bilaterally CVS: S1-S2 positive, no murmurs or gallops, left-sided Port-A-Cath Abdomen: Soft, nontender, nondistended, positive bowel sounds x4 Extremities: +2 pulses bilaterally radialis/ dorsalis pedis, no cyanosis, no edema Neuro: Awake alert oriented x3 Psych: Normal mood and affect G/U: No Boyer Skin: no rashes, warm and dry Lymphatic: no cervical or axillary lymphadenopathy Results & Data Results & Data ([facility]) Vital Signs (Past 12 Hours) Vital Signs Temp Pulse Pulse Resp BP Pulse Ox 07/30/21 14:35 86 16 113/63 97 07/30/21 14:25 80 17 85/58 L 94 07/30/21 14:15 92 H 24 106/60 95 07/30/21 14:05 36.4 C L 85 21 88/53 L 95 07/30/21 13:55 82 20 89/52 L 96 07/30/21 13:45 80 16 81/53 L 97 07/30/21 13:35 82 18 80/43 L 94 07/30/21 13:25 77 16 80/44 L 99 07/30/21 13:15 75 14 68/39 L 98 07/30/21 13:05 71 12 72/44 L 93 07/30/21 12:55 73 22 81/48 L 98 07/30/21 12:45 75 16 100/48 L 99 07/30/21 12:35 74 12 106/65 97 07/30/21 12:27 36.5 C 71 16 61/38 L 96 07/30/21 09:54 36.7 C 86 143/78 H 98 Laboratory Results 07/30/21 09:49 07/30/21 14:02 Coding Level of Care Code Critical Care 1st 30-74 mins Diagnoses Shock R57.9 Metastatic colorectal cancer C19 History of DVT (deep vein thrombosis) Z86.718 Status post tracheostomy Z93.0 Time Spent (min) 66
[2021-07-30] MEDS ORDERED: ICU PROTOCOL FOR HYPERGLYCEMIA PRN (15:36)
[2021-07-30] MEDS ORDERED: ALBUTEROL HFA 8 GM INHALER INH PRN (15:36)
[2021-07-30] MEDS ORDERED: VANCOMYCIN CONSULT ACTIVE PRN ×2 (15:37→15:49)
[2021-07-30] MEDS ORDERED: MEROPENEM CONSULT ACTIVE PRN (15:50)
[2021-07-30] MEDS ORDERED: MEROPENEM 500 MG in SYRINGE 0 ML IV SCH (16:00)
--- NOTE | 2021-07-30 16:18 | Pharmacy Report ---
Pharmacy Vanc AUC Short Note - Date of Service July 30, 2021 - Assessment & Plan Assessment 65 year old F receiving vancomycin/meropenem empiric treatment/shock, patient with history of colon cancer on chemotherapy, current neutrophil count of 320. Day # 1 of antibiotic therapy Plan Vancomycin * AUC/LAURITA is the preferred PK/PD target for vancomycin * AUC guided dosing is effective and associated with decreased risk of nephrotoxicity compared to traditional trough targets * Loading dose of 1750 mg (24 mg/kg) * 1000 mg q12H is predicted to achieve target AUC/LAURITA of 400-600 mg/L.hr * Trough to be ordered if continued greater than 48 hours Pharmacy will continue to follow and will adjust dose/frequency as necessary. Thank you.
[2021-07-30] MEDS: NORMOSOL-R 1,000 ML IV SCH (16:20)
[2021-07-30] MEDS ORDERED: VANCOMYCIN HCL 1,750 MG in SODIUM CHLORIDE 0.9% 500 ML IV SCH (17:00)
[2021-07-30 17:23] LABS: Partial Thromboplastin Ratio 0.9; Partial Thromboplastin Time 23.4 Seconds (21.0-31.0); Prothrombin Time 11.1 Seconds (9.0-12.0)
[2021-07-30 17:49] LABS: Influenza A virus by PCR Negative (Neg); Influenza B virus by PCR Negative (Neg); RSV by PCR Negative (Neg); SARS CoV2 RNA(COVID-19) InHosp NEGATIVE (Negative)
[2021-07-30 18:24] LABS: Hematocrit (blood only) 27.8 % (37-47); Hemoglobin 8.8 g/dL (12.0-16.0)
[2021-07-30] MEDS: PANTOprazole 40 MG TAB PO SCH (18:30)
[2021-07-30] MEDS: HYDROCORTISONE SOD 50 MG in SYRINGE 0 ML IV SCH (22:23)
[2021-07-30] MEDS: TOPIRAMATE 100 MG TAB PO SCH (22:26)
[2021-07-30] MEDS: FAMOTIDINE 20 MG TAB PO SCH (22:26)
[2021-07-30 22:41] LABS: Hematocrit (blood only) 26.9 % (37-47); Hemoglobin 8.8 g/dL (12.0-16.0)
[2021-07-30] MEDS: MEROPENEM 500 MG in SYRINGE 0 ML IV SCH (22:54)
[2021-07-31 00:01] LABS: Appearance Urine Clear (Clear); Bilirubin Urine Negative (Negative); Blood Urine Negative (Negative); Color Urine Yellow; Glucose Urine UA Negative (Negative); Ketones Urine Negative (Negative); Leukocyte Esterase Urine Negative (Negative); Nitrite Urine Negative (Negative); Protein Urine Negative (Negative); Specific Gravity Urine 1.008 (1.000-1.030); Urobilinogen Urine Negative (Negative)
[2021-07-31] MEDS ORDERED: VANCOMYCIN HCL 1000MG/20ML VIAL IV SCH (03:00)
[2021-07-31] MEDS: NORMOSOL-R 1,000 ML IV SCH ×2 (05:29→08:20)
[2021-07-31 05:41] LABS: BUN Creatinine Ratio 20.4 (10-20); Calcium 8.1 mg/dl (8.5-10.1); Est GFR (African American) 113.2 ml/min; Est GFR (Non-African American) 97.6 ml/min; Magnesium 2.1 mg/dl (1.7-2.4); Phosphorus 4.4 mg/dl (2.5-4.9); Potassium 3.7 mmol/L (3.5-5.1)
[2021-07-31] MEDS: VANCOMYCIN HCL 1,000 MG in SODIUM CHLORIDE 0.9% 250 ML IV SCH ×2 (05:48→18:22)
[2021-07-31] MEDS: MEROPENEM 500 MG in SYRINGE 0 ML IV SCH ×3 (05:48→18:23)
[2021-07-31] MEDS: HYDROCORTISONE SOD 50 MG in SYRINGE 0 ML IV SCH (05:49)
[2021-07-31] MEDS: LEVOTHYROXINE SODIUM 112 MCG TABLET PO SCH (05:57)
[2021-07-31 06:00] LABS: Hematocrit (blood only) 26.8 % (37-47); Hemoglobin 8.6 g/dL (12.0-16.0); Mean Corpuscular Hemoglobin 32.7 pg (25-34); Mean Corpuscular Hgb Conc 32.1 g/dL (32-36); Mean Corpuscular Volume 101.9 fL (80-100); Mean Platelet Volume 9.7 fL (7.4-10.4); Platelet Count 189 K/uL (130-400); RDW Coefficient of Variation 19.8 % (11.5-14.5); RDW Standard Deviation 73.7 fL (36.4-46.3); Red Blood Count 2.63 M/uL (4.2-5.4); White Blood Count 1.02 K/uL (4.8-10.8)
[2021-07-31 06:10] LABS: Anisocytosis Present; Basophils # (auto) 0.01 K/uL (0-0.2); Hypochromasia Present; Lymphocytes # (auto) 0.28 K/uL (1.2-3.4); Lymphocytes % (auto) 27.5 %; Monocytes # (auto) 0.26 K/uL (0.11-0.59); Monocytes % (auto) 25.5 %; Neutrophils # (auto) 0.47 K/uL (1.4-6.5)
--- NOTE | 2021-07-31 08:48 | Ultrasound Report ---
US venous doppler LE BI CLINICAL HISTORY: Bilateral leg swelling and pain COMPARISON: None available at the time of this dictation. TECHNIQUE: Bilateral lower extremity real-time compression venous ultrasound with Color Doppler imagi ng. Utilizing real-time ultrasonic imaging multiple real time high-resolution ultrasonic images with comp ression and noncompression maneuvers of the deep venous system in addition to color doppler imaging w ere performed from the common femoral vein through the proximal calf veins. FINDINGS: Currently there is normal compressibility of the deep venous system from the common femoral vein thro ugh the proximal calf veins. No current evidence of acute thrombosis is identified. There is evidence for a popliteal cyst on the right measuring 5.5 x 1.4 x 2.9 cm. Impression: No evidence of deep venous thrombus. Evidence for a popliteal cyst on the right. ACT 112: Negative or not required by law. Electronically signed by: Mikel Valentine M.D. 07/31/2021 8:47 AM
--- NOTE | 2021-07-31 09:02 | XRay Report ---
XR chest 1V portable CLINICAL HISTORY: Follow up left pleural effusion and alveolar opacities. COMPARISON STUDY: 07/30/2021 TECHNIQUE: 1 view of the chest FINDINGS: Single frontal view of the chest demonstrates the heart to again be enlarged. Tracheostomy tube is ag ain seen. Is again evidence for left pleural effusion and alveolar opacities at the left lung base. F indings are again characteristic of atelectasis versus pneumonia. There is no evidence for right pleu ral effusion. The right hemithorax is clear. There is no evidence for vascular congestion. There is n o acute osseous pathology. IMPRESSION: 1. Persistent small left pleural effusion and left basilar alveolar opacities, again characteristic o f atelectasis versus early pneumonia. ACT 112: Negative or not required by law. Electronically signed by: Mikel Valentine M.D. 07/31/2021 9:00 AM
--- NOTE | 2021-07-31 09:38 | Ears,Nose,Throat Progress Note ---
Date of Service July 31, 2021 Assessment & Plan (1) Vocal cord paralysis, bilateral complete: Plan: Tracheostomy relieved her stridor, breathing well, able to talk, should be able to advance diet. I will do a trach change in 2 weeks. Further management per medical. (2) Post-surgical hypothyroidism: (3) Obstructive sleep apnea: Admission and Anticipated Discharge Date Admission Date: July 30, 2021 Subjective This 65-year-old lady with bilateral vocal cord paralysis is status post tracheostomy yesterday, doing well, able to talk well not eating yet. Physical Exam Constitutional: WD/WN, vitals as above Eyes: PERRL, conjunctivae normal, anicteric sclerae ENMT: external ear and nose normal, oropharynx normal Neck: Trach in good position Results & Data ([facility]) Vital Signs (Past 12 Hours) Vital Signs Temp Pulse Pulse Resp BP BP Pulse Ox 07/31/21 08:00 37.0 C 100 H 100 H 15 142/71 H 98 07/31/21 07:00 96 H 23 141/76 H 96 07/31/21 04:00 36.8 C 88 20 150/74 H 97 07/31/21 02:00 85 22 136/67 98 07/31/21 01:00 85 19 131/63 97 07/31/21 00:00 36.8 C 86 12 146/72 H 96 07/30/21 23:07 93 H 17 145/83 H 97 07/30/21 22:00 88 13 146/77 H 96
--- NOTE | 2021-07-31 10:27 | Critical Care Progress Note ---
Date of Service July 31, 2021 Assessment & Plan (1) Shock: (2) Metastatic colorectal cancer: (3) History of DVT (deep vein thrombosis): (4) Status post tracheostomy: Plan: 65-year-old female past medical history of stage IV colon cancer on chemotherapy, came to the hospital for trach placement as a same-day surgery patient but was found to be hypotensive in the PACU Transferred to the ICU for further care Chest x-ray 07/30/2021 personally reviewed: Portable film, good respiratory effort, trach in place, bilateral costophrenic angles are clean, elevated left hemidiaphragm, increased cardiac silhouette, no clear infiltrate appreciated --Transient shock Etiology is unclear Patient did have metastatic colon cancer Adrenal insufficiency could be one of the reason Patient also got chemotherapy recently and her absolute neutrophil count is 320 which does put her at risk for sepsis Random cortisol 7.16 Procalcitonin negative --Bilateral vocal cord paralysis S/p tracheostomy 07/30/2021 Monitor H&H --History of metastatic colon cancer Currently on chemotherapy --Hypothyroidism Continue with Synthroid --History of hypertension Hold blood pressure medication for the time being --History of DVT Long time ago Was supposed to be on Lovenox prophylactic but she has not been taking it Doppler bilateral lower extremity negative for DVT on this admission --Elevated left hemidiaphragm --Prophylaxis VTE: IPC GI: Protonix Lines peripheral, left-sided Port-A-Cath Diet: Regular Plan: In/out: +4 L, urine output 1 L Chest x-ray from today again shows elevation of the left hemidiaphragm with atelectasis Patient is doing well when it comes to her blood pressure Decrease hydrocortisone to 50 mg every 12, starting tomorrow it can be transitioned to p.o. and can be tapered off in the next 7 days Okay to discontinue antibiotics if there is no culture growth by the end of the day Patient hemodynamically stable to be downgraded to medical floor Case discussed with Dr Enriquez Please note the above document was generated using voice recognition software. It may contain grammatical, syntax or spelling errors. Admission and Anticipated Discharge Date Admission Date: July 30, 2021 Subjective Patient seen and examined at bedside. No acute distress, no adverse events overnight Denies any headache, no nausea, no vomiting Trach sites looks clean. Does complain of cough when she takes deep breath No abdominal pain Review of Systems Review of Systems: All systems reviewed & are unremarkable except as noted in Subjective Physical Exam Physical Exam: Constitutional: No acute distress HEENT: EOMI, PERRLA, right neck and shoulder scar tissue, positive trach Respiratory system: Decreased air entry bilaterally, more decreased on the left lower side, no wheeze, no rhonchi, positive crackles bilaterally CVS: S1-S2 positive, no murmurs or gallops, left-sided Port-A-Cath Abdomen: Soft, nontender, nondistended, positive bowel sounds x4 Extremities: +2 pulses bilaterally radialis/ dorsalis pedis, no cyanosis, no e gloria Neuro: Awake alert oriented x3 Psych: Normal mood and affect G/U: No Boyer Skin: no rashes, warm and dry Lymphatic: no cervical or axillary lymphadenopathy Results & Data Results & Data ([facility]) Vital Signs (Past 12 Hours) Vital Signs Temp Pulse Pulse Resp BP BP Pulse Ox 07/31/21 08:00 37.0 C 100 H 100 H 15 142/71 H 98 07/31/21 07:00 96 H 23 141/76 H 96 07/31/21 04:00 36.8 C 88 20 150/74 H 97 07/31/21 02:00 85 22 136/67 98 07/31/21 01:00 85 19 131/63 97 07/31/21 00:00 36.8 C 86 12 146/72 H 96 07/30/21 23:07 93 H 17 145/83 H 97 Laboratory Results 07/31/21 04:57 07/31/21 04:57 Coding Level of Care Code 65623 Subseq Hosp Care Lvl 3 Diagnoses Shock R57.9 Metastatic colorectal cancer C19 History of DVT (deep vein thrombosis) Z86.718 Status post tracheostomy Z93.0
--- NOTE | 2021-07-31 11:48 | Electrocardiogram Report ---
Test Reason : Blood Pressure : / mmHG Vent. Rate : 083 BPM Atrial Rate : 083 BPM P-R Int : 218 ms QRS Dur : 138 ms QT Int : 464 ms P-R-T Axes : 034 -10 118 degrees QTc Int : 545 ms Sinus rhythm with 1st degree A-V block Left bundle branch block Abnormal ECG When compared with ECG of 23-MAR-2020 12:53, [place] interval has increased Confirmed by Toribio Villarreal ([id number]) on 07/31/2021 11:47:43 AM Referred By: Jessica Dobbs Confirmed By:Zane Villarreal
--- NOTE | 2021-07-31 11:48 | Electrocardiogram Report ---
Test Reason : Blood Pressure : / mmHG Vent. Rate : 082 BPM Atrial Rate : 082 BPM P-R Int : 224 ms QRS Dur : 138 ms QT Int : 452 ms P-R-T Axes : 022 -08 116 degrees QTc Int : 528 ms Sinus rhythm with 1st degree A-V block Left bundle branch block Abnormal ECG When compared with ECG of 30-JUL-2021 17:41, (unconfirmed) No significant change was found Confirmed by Toribio Villarreal ([id number]) on 07/31/2021 11:47:47 AM Referred By: Jessica Dobbs Confirmed By:Zane Villarreal
[2021-07-31] MEDS: FAMOTIDINE 20 MG TAB PO SCH ×2 (13:30→20:02)
[2021-07-31] MEDS: PANTOprazole 40 MG TAB PO SCH (13:31)
[2021-07-31] MEDS: CHOLECALCIFEROL 1,000 UNITS 25 MCG TAB PO SCH (13:31)
[2021-07-31] MEDS: ENOXAPARIN INJ 40 MG/0.4 ML SYR SQ SCH (18:20)
--- NOTE | 2021-07-31 18:58 | Hospitalist Progress Note ---
Date of Service July 31, 2021 Assessment & Plan (1) Shock: Plan: Resolved. Post-operative hypotension. Suspect adrenal shock. Cortisol level post-op only 7. She rapidly improved with IV Hydrocortisone and copious IV fluids. Never had evidence of hemorrhagic, cardiogenic or obstructive shock. Septic shock possible but also unlikely - negative procalcitonin, blood cx's negative to date, etc. Remains on IV hydrocortisone - wean from 50mg TID to 50mg BID. Anticipate ~ 1 week course of PO hydrocortisone. IV fluids have been stopped. Cont IV antibiotics until tomorrow; can stop at 48 hours if cultures are negative. flu/RSV/COVID noted to be negative. She is now quite hypertensive - resume lisinopril 20mg PO BID. (2) Status post tracheostomy: Plan: POD #1 s/p trach by Dr Dobbs for b/l vocal cord paralysis and obstructed glottis with 2mm opening. Doing well from ENT standpoint. Stable o2 sats. speech therapy consult completed; fitted for passy sayda valve. passed bedside swallow -- liquid diet allowed. (3) History of DVT (deep vein thrombosis): Plan: LUE 2019. Took lovenox daily up until late 2020 when patient self-discontinued her lovenox. b/ LE dopplers negative for DVT. Pt recently saw Dr Perdomo in the anticoagulation clinic. She had advised lovenox 40mg once daily starting 24 hours post-op for prophylaxis. Will order the lovenox for this afternoon. (4) Vocal cord paralysis, bilateral complete: Plan: POD #1 - s/p tracheostomy by Dr Dobbs. left-sided paralysis - etiology? infiltration of recurrent laryngeal nerve by cancer in the chest? other? (5) Post-surgical hypothyroidism: Plan: review of TSH levels over the last year shows wild swings either very high or suppressed. TSH this am minimally elevated. cont levothyroxine 224mcg in meantime. will inquire with her about compliance with outpatient replacement therapy. (6) Hx of papillary thyroid carcinoma: Plan: 1982 s/p partial thyroidectomy (7) History of medullary carcinoma of thyroid: Plan: 1996 s/p complete thyroidectomy followed by radiation/radioactive iodine & radical neck dissection now with post-surgical hypothyroidism (8) Metastatic colorectal cancer: Plan: dx 12/[address] Abad. follows with CARINE Townsend - [facility]. last FOLFIRI chemo was 07/13/21. resulting chemo-induced leukopenia, neutropenia, and anemia. daily CBC. (9) CAD (coronary artery disease): Plan: no ischemic symptoms post-op. she is not on chronic aspirin therapy, beta torrey or statin. (10) Neutropenia: Plan: 2nd chemotherapy on 07/13. Neutropenic precautions. ANC slowly improving. Cont IV antibiotics while awaiting blood cx results. Daily CBC with diff. Fortunately no signs/symptoms of infection. (11) DVT prophylaxis: Plan: lovenox 40mg daily starting this afternoon Plan: patient had asked me to contact her friend to let her know about the plan of care contacted Ms Katia Wong at [phone] -- no answer, left message (07/30/21) can downgrade from ICU status to PCU Admission and Anticipated Discharge Date Admission Date: July 30, 2021 Subjective pt sitting in chair during the visit speech therapy had seen her - was allowed to take a liquid diet passy sayda valve already fitted to her trach and she is doing very well with phonation denies feeling ill no dizziness no headache no cough or congestion no dyspnea denies any anterior neck pain patient never required pressors Review of Systems Review of Systems: gen - no fevers, no chills; does have an appetite HENT - no dysphagia CV - no chest pain GI - no nausea/emesis/abd pain Physical Exam Physical Exam: gen - awake, alert, sitting in chair, looks very good today HENT - MMM neck - tracheostomy clean/dry/intact; passy sayda valve over stoma; right neck w/ scar tissue heart - RRR, s1 s2, no murmur lungs - CTA b/l, no wheezes or rales; mild decrease in BS LLL abd - soft NT ND BS+ ext - pulses 2+ b/l, no edema Results & Data Results & Data ([facility]) Vital Signs (Past 12 Hours) Vital Signs Temp Pulse Pulse Resp BP BP Pulse Ox 07/31/21 16:00 109 H 25 H 171/93 H 96 07/31/21 15:00 90 25 H 163/93 H 98 07/31/21 14:00 90 25 H 163/85 H 98 07/31/21 13:00 98 H 24 152/90 H 98 07/31/21 12:00 97 H 28 H 153/121 H 94 07/31/21 11:00 100 H 23 167/90 H 96 07/31/21 10:24 98 H 25 H 163/89 H 99 07/31/21 10:00 97 H 22 163/89 H 94 07/31/21 08:00 37.0 C 96 H 100 H 24 142/71 H 142/71 H 97 07/31/21 07:00 96 H 23 141/76 H 96 Laboratory Results Laboratory Results - last 24 hr 07/30/21 07/30/21 07/30/21 22:16 22:16 23:00 WBC RBC Hgb 8.8 L Hct 26.9 L MCV MCH MCHC RDW Std Deviation RDW Coeff of Michelle Plt Count MPV Immature Gran % (Auto) Neut % (Auto) Lymph % (Auto) [place] % (Auto) Eos % (Auto) Baso % (Auto) Neut # (Auto) Lymph # (Auto) [place] # (Auto) Eos # (Auto) Baso # (Auto) Immature Gran # (Auto) Hypochromasia Anisocytosis Sodium Potassium Chloride Carbon Dioxide Anion Gap BUN Creatinine Est Cr Clr Drug Dosing Est GFR ( Amer) Est GFR (Non-Af Amer) BUN/Creatinine Ratio Glucose POC Glucose Calcium Phosphorus Magnesium TSH Urine Color Yellow Urine Appearance Clear Urine pH 8.0 H Ur Specific [place] 1.008 Urine Protein Negative Urine Glucose (UA) Negative Urine Ketones Negative Urine Blood Negative Urine Nitrite Negative Urine Bilirubin Negative Urine Urobilinogen Negative Ur Leukocyte Esterase Negative Blood Type A Positive Antibody Screen NEGATIVE 07/30/21 07/31/21 07/31/21 23:08 04:57 04:57 WBC 1.02 L RBC 2.63 L Hgb 8.6 L Hct 26.8 L MCV 101.9 H MCH 32.7 MCHC 32.1 RDW Std Deviation 73.7 H RDW Coeff of Michelle 19.8 H Plt Count 189 MPV 9.7 Immature Gran % (Auto) 0.0 Neut % (Auto) 46.0 Lymph % (Auto) 27.5 [place] % (Auto) 25.5 Eos % (Auto) 0.0 Baso % (Auto) 1.0 Neut # (Auto) 0.47 L* Lymph # (Auto) 0.28 L [place] # (Auto) 0.26 Eos # (Auto) 0.00 Baso # (Auto) 0.01 Immature Gran # (Auto) 0.00 Hypochromasia Present Anisocytosis Present Sodium 136 Potassium 3.7 Chloride 105 Carbon Dioxide 22 Anion Gap 9 BUN 11 Creatinine 0.54 L Est Cr Clr Drug Dosing 92.0 Est GFR ( Amer) 113.2 Est GFR (Non-Af Amer) 97.6 BUN/Creatinine Ratio 20.4 H Glucose 115 H POC Glucose 127 H Calcium 8.1 L Phosphorus 4.4 Magnesium 2.1 TSH Urine Color Urine Appearance Urine pH Ur Specific [place] Urine Protein Urine Glucose (UA) Urine Ketones Urine Blood Urine Nitrite Urine Bilirubin Urine Urobilinogen Ur Leukocyte Esterase Blood Type Antibody Screen 07/31/21 04:57 WBC RBC Hgb Hct MCV MCH MCHC RDW Std Deviation RDW Coeff of Michelle Plt Count MPV Immature Gran % (Auto) Neut % (Auto) Lymph % (Auto) [place] % (Auto) Eos % (Auto) Baso % (Auto) Neut # (Auto) Lymph # (Auto) [place] # (Auto) Eos # (Auto) Baso # (Auto) Immature Gran # (Auto) Hypochromasia Anisocytosis Sodium Potassium Chloride Carbon Dioxide Anion Gap BUN Creatinine Est Cr Clr Drug Dosing Est GFR ( Amer) Est GFR (Non-Af Amer) BUN/Creatinine Ratio Glucose POC Glucose Calcium Phosphorus Magnesium TSH 6.545 H Urine Color Urine Appearance Urine pH Ur Specific [place] Urine Protein Urine Glucose (UA) Urine Ketones Urine Blood Urine Nitrite Urine Bilirubin Urine Urobilinogen Ur Leukocyte Esterase Blood Type Antibody Screen PG Care Time/CCT Total # of Minutes Spent Total Time Spent with Patient: Total time spent is greater than 50% in coordination of care (as documented) at patient's floor/unit and/or counseling patient: Coding Level of Care Code 22002 Subseq Hosp Care Lvl 2 Diagnoses Shock R57.9 Status post tracheostomy Z93.0 History of DVT (deep vein thrombosis) Z86.718 Vocal cord paralysis, bilateral complete J38.02 Post-surgical hypothyroidism E89.0 Hx of papillary thyroid carcinoma Z85.850 History of medullary carcinoma of thyroid Z85.850 Metastatic colorectal cancer C19 CAD (coronary artery disease) I25.10 Neutropenia D70.9 DVT prophylaxis Z29.9
[2021-07-31] MEDS: lisinopril 20 MG TAB PO SCH (20:01)
[2021-07-31] MEDS: TOPIRAMATE 100 MG TAB PO SCH (20:02)
[2021-07-31] MEDS ORDERED: HYDROCORTISONE SOD 50 MG in SYRINGE 0 ML IV SCH (21:00)
[2021-08-01 05:24] LABS: Hematocrit (blood only) 27.7 % (37-47); Hemoglobin 9.1 g/dL (12.0-16.0); Mean Corpuscular Hemoglobin 33.3 pg (25-34); Mean Corpuscular Hgb Conc 32.9 g/dL (32-36); Mean Corpuscular Volume 101.5 fL (80-100); Mean Platelet Volume 9.1 fL (7.4-10.4); Platelet Count 171 K/uL (130-400); RDW Coefficient of Variation 19.6 % (11.5-14.5); RDW Standard Deviation 74.1 fL (36.4-46.3); Red Blood Count 2.73 M/uL (4.2-5.4); White Blood Count 1.46 K/uL (4.8-10.8)
[2021-08-01 05:41] LABS: BUN Creatinine Ratio 22.6 (10-20); Calcium 8.1 mg/dl (8.5-10.1); Creatinine Clr Calc Pharmacy 94.6 ml/min; Est GFR (African American) 113.9 ml/min; Est GFR (Non-African American) 98.2 ml/min; Potassium 3.1 mmol/L (3.5-5.1)
[2021-08-01 05:54] LABS: Anisocytosis Present; Immature Granulocytes # (auto) 0.01 K/uL (0.00-0.02); Immature Granulocytes % (auto) 0.7 %; Lymphocytes % (auto) 27.4 %; Monocytes # (auto) 0.56 K/uL (0.11-0.59); Monocytes % (auto) 38.4 %; Neutrophils # (auto) 0.49 K/uL (1.4-6.5); Neutrophils % (auto) 33.5 %; Poikilocytosis Present
[2021-08-01] MEDS: LEVOTHYROXINE SODIUM 112 MCG TABLET PO SCH (06:34)
[2021-08-01] MEDS: VANCOMYCIN HCL 1,000 MG in SODIUM CHLORIDE 0.9% 250 ML IV SCH (06:35)
[2021-08-01] MEDS: MEROPENEM 500 MG in SYRINGE 0 ML IV SCH ×3 (06:35→14:12)
[2021-08-01] MEDS ORDERED: POTASSIUM CHLORIDE CRTAB 20 MEQ TABCR PO STA (08:12)
[2021-08-01] MEDS: ENOXAPARIN INJ 40 MG/0.4 ML SYR SQ SCH (09:16)
[2021-08-01] MEDS: lisinopril 20 MG TAB PO SCH ×2 (09:17→20:12)
[2021-08-01] MEDS: HYDROCORTISONE 10 MG TAB PO SCH ×2 (09:19→20:13)
[2021-08-01] MEDS: CHOLECALCIFEROL 1,000 UNITS 25 MCG TAB PO SCH (09:23)
[2021-08-01] MEDS: PANTOprazole 40 MG TAB PO SCH ×2 (09:23→20:13)
[2021-08-01] MEDS: FAMOTIDINE 20 MG TAB PO SCH ×2 (10:51→20:12)
--- NOTE | 2021-08-01 13:36 | Hospitalist Progress Note ---
Date of Service August 01, 2021 Assessment & Plan (1) Shock: Plan: Resolved. Post-operative hypotension. Suspect adrenal shock. Cortisol level post-op only 7. She rapidly improved with IV Hydrocortisone and copious IV fluids. Never had evidence of hemorrhagic, cardiogenic or obstructive shock. Negative procalcitonin, blood cx's negative - septic shock also ruled out. Remains on IV hydrocortisone - stop, change to PO hydrocortisone 25mg BID today. Wean over ~1 week. Stop IV vanco/meropenem given neg blood cx's x 48 hours. flu/RSV/COVID noted to be negative at time of admission. She is now quite hypertensive - resumed lisinopril 20mg PO BID. Resume verapamil as well. (2) Status post tracheostomy: Plan: POD #2 s/p trach by Dr Dobbs for b/l vocal cord paralysis and obstructed glottis with 2mm opening. Doing well from ENT standpoint. Stable o2 sats. speech therapy consult completed; fitted for passy sayda valve. passed bedside swallow -- diet advanced again today. Waiting for DME company/oxygen companies to open Monday to secure trach supplies, etc. for home use. (3) History of DVT (deep vein thrombosis): Plan: LUE 2019. Took lovenox daily up until late 2020 when patient self-discontinued her lovenox. b/l LE dopplers negative for DVT this admission. Pt recently saw Dr Perdomo in the anticoagulation clinic. She had advised lovenox 40mg once daily starting 24 hours post-op for prophylaxis. Cont lovenox 40mg daily. Will check with Dr Perdomo on Monday to see if she wants to cont lovenox injections at home; suspect yes. (4) Vocal cord paralysis, bilateral complete: Plan: POD #2 - s/p tracheostomy by Dr Dobbs. left-sided paralysis - etiology? infiltration of recurrent laryngeal nerve by cancer in the chest? other? (5) Post-surgical hypothyroidism: Plan: review of TSH levels over the last year shows wild swings either very high or suppressed. TSH this am minimally elevated. cont levothyroxine 224mcg in meantime. will inquire with her about compliance with outpatient replacement therapy. (6) Hx of papillary thyroid carcinoma: Plan: 1982 s/p partial thyroidectomy (7) History of medullary carcinoma of thyroid: Plan: 1996 s/p complete thyroidectomy followed by radiation/radioactive iodine & radical neck dissection now with post-surgical hypothyroidism (8) Metastatic colorectal cancer: Plan: dx 12/[address] Abad. follows with CARINE Townsend - [facility]. last FOLFIRI chemo was 07/13/21. resulting chemo-induced leukopenia, neutropenia, and anemia. daily CBC. (9) CAD (coronary artery disease): Plan: no ischemic symptoms post-op. she is not on chronic aspirin therapy, beta torrey or statin. (10) Neutropenia: Plan: 2nd chemotherapy on 07/13. Neutropenic precautions. ANC slowly improving. Daily CBC with diff. Fortunately no signs/symptoms of infection. Blood cx's negative; stopping IV abx therapy today. (11) DVT prophylaxis: Plan: lovenox 40mg daily (12) Epigastric pain: Plan: suspect gastritis in face of surgery, physical stress, chemo, etc increase PPI to BID dosing add carafate qid send stool for fecal occult (she reports stool looked dark). recheck h/h in am for stability poor candidate for EGD given all of the above Plan: contacted Ms Katia Wong at [phone] this evening - full update given hopefully home tomorrow Admission and Anticipated Discharge Date Admission Date: July 30, 2021 Subjective patient feeling very well today sitting in chair cleared by speech to take regular food albeit minced & moist she noted on her last bowel movement that it was "dark" she also stated that she had some mild upper epigastric pain with eating today no chest pain no dyspnea mild cough at times Review of Systems Review of Systems: gen - no fevers, no chills, good appetite cv - no chest pain pulm - no dyspnea or BARGER GI - no nausea or emesis; stool somewhat loose since admission Physical Exam Physical Exam: gen - awake, alert, sitting in chair, looks great; very pleasant HENT - MMM neck - tracheostomy clean/dry/intact; passy sayda valve over stoma; right neck w/ scar tissue heart - RRR, s1 s2, no murmur lungs - CTA b/l, no wheezes or rales; no increased work of breathing abd - soft ND BS+; scant tenderness high epigastric region with deep palpation ext - pulses 2+ b/l, no edema Results & Data Results & Data ([place]) Vital Signs (Past 12 Hours) Vital Signs Temp Pulse Pulse Pulse Resp BP BP 08/01/21 12:25 36.8 C 147/81 H 08/01/21 12:12 105 H 29 H 147/81 H 08/01/21 12:00 109 H 24 08/01/21 11:00 88 25 H 08/01/21 10:00 74 20 08/01/21 09:37 99 H 25 H 156/99 H 08/01/21 09:19 105 H 35 H 180/92 H 08/01/21 09:00 97 H 24 08/01/21 08:00 37.6 C H 98 H 99 H 15 156/99 H 08/01/21 07:00 84 20 08/01/21 04:04 90 18 08/01/21 03:15 36.5 C 81 16 141/87 H Pulse Ox 08/01/21 12:25 98 08/01/21 12:12 96 08/01/21 12:00 97 08/01/21 11:00 95 08/01/21 10:00 98 08/01/21 09:37 98 08/01/21 09:19 98 08/01/21 09:00 97 08/01/21 08:00 98 08/01/21 07:00 97 08/01/21 04:04 94 08/01/21 03:15 94 Laboratory Results Laboratory Results - last 24 hr 08/01/21 08/01/21 04:55 04:55 WBC 1.46 L RBC 2.73 L Hgb 9.1 L Hct 27.7 L MCV 101.5 H MCH 33.3 MCHC 32.9 RDW Std Deviation 74.1 H RDW Coeff of Michelle 19.6 H Plt Count 171 MPV 9.1 Immature Gran % (Auto) 0.7 Neut % (Auto) 33.5 Lymph % (Auto) 27.4 [place] % (Auto) 38.4 Eos % (Auto) 0.0 Baso % (Auto) 0.0 Neut # (Auto) 0.49 L* Lymph # (Auto) 0.40 L [place] # (Auto) 0.56 Eos # (Auto) 0.00 Baso # (Auto) 0.00 Immature Gran # (Auto) 0.01 Poikilocytosis Present Anisocytosis Present Sodium 137 Potassium 3.1 L Chloride 105 Carbon Dioxide 25 Anion Gap 7 BUN 12 Creatinine 0.53 L Est Cr Clr Drug Dosing 94.6 Est GFR ( Amer) 113.9 Est GFR (Non-Af Amer) 98.2 BUN/Creatinine Ratio 22.6 H Glucose 107 H Calcium 8.1 L Diagnostic Findings blood cultures negative since admission PG Care Time/CCT Total # of Minutes Spent Total Time Spent with Patient: Total time spent is greater than 50% in coordination of care (as documented) at patient's floor/unit and/or counseling patient: Coding Level of Care Code 08301 Subseq Hosp Care Lvl 3 Diagnoses Shock R57.9 Status post tracheostomy Z93.0 History of DVT (deep vein thrombosis) Z86.718 Vocal cord paralysis, bilateral complete J38.02 Post-surgical hypothyroidism E89.0 Hx of papillary thyroid carcinoma Z85.850 History of medullary carcinoma of thyroid Z85.850 Metastatic colorectal cancer C19 CAD (coronary artery disease) I25.10 Neutropenia D70.9 DVT prophylaxis Z29.9 Epigastric pain R10.13
[2021-08-01] MEDS: SUCRALFATE 1 GM/10 ML UDC PO SCH ×2 (14:19→20:32)
[2021-08-01] MEDS: TOPIRAMATE 100 MG TAB PO SCH (20:12)
[2021-08-01] MEDS ORDERED: VERAPAMIL HCL 180 MG TABCR PO ONE (22:10)
[2021-08-02] MEDS: LEVOTHYROXINE SODIUM 112 MCG TABLET PO SCH (06:29)
[2021-08-02 06:46] LABS: Hematocrit (blood only) 30.2 % (37-47); Hemoglobin 9.8 g/dL (12.0-16.0); Mean Corpuscular Hemoglobin 32.8 pg (25-34); Mean Corpuscular Hgb Conc 32.5 g/dL (32-36); Mean Platelet Volume 9.4 fL (7.4-10.4); Platelet Count 192 K/uL (130-400); RDW Coefficient of Variation 19.5 % (11.5-14.5); RDW Standard Deviation 72.1 fL (36.4-46.3); Red Blood Count 2.99 M/uL (4.2-5.4); White Blood Count 2.06 K/uL (4.8-10.8)
[2021-08-02 07:10] LABS: BUN Creatinine Ratio 14.8 (10-20); Calcium 8.1 mg/dl (8.5-10.1); Creatinine Clr Calc Pharmacy 91.9 ml/min; Est GFR (African American) 113.2 ml/min; Est GFR (Non-African American) 97.6 ml/min; Potassium 3.5 mmol/L (3.5-5.1)
[2021-08-02 07:28] LABS: Ferritin 61.4 ng/ml (8-388)
[2021-08-02] MEDS ORDERED: IRON SUCROSE 200 MG in 0.9 % SODIUM CHLORIDE 100 ML IV ONE (09:15)
[2021-08-02] MEDS: HYDROCORTISONE 10 MG TAB PO SCH ×2 (09:16→20:20)
[2021-08-02] MEDS: VERAPAMIL HCL 240 MG TABCR PO SCH ×2 (09:16→20:23)
[2021-08-02] MEDS: lisinopril 20 MG TAB PO SCH ×2 (09:17→20:21)
[2021-08-02] MEDS: FAMOTIDINE 20 MG TAB PO SCH ×2 (09:17→20:23)
[2021-08-02] MEDS: CHOLECALCIFEROL 1,000 UNITS 25 MCG TAB PO SCH (09:17)
[2021-08-02] MEDS: ENOXAPARIN INJ 40 MG/0.4 ML SYR SQ SCH (09:18)
[2021-08-02] MEDS: PANTOprazole 40 MG TAB PO SCH ×2 (09:19→20:21)
[2021-08-02] MEDS: SUCRALFATE 1 GM/10 ML UDC PO SCH ×4 (09:19→20:22)
--- NOTE | 2021-08-02 19:10 | Hospitalist Progress Note ---
Date of Service August 02, 2021 Assessment & Plan (1) Shock: Plan: Resolved. Post-operative hypotension - started in PACU following her tracheostomy placement by Dr Dobbs. Suspect adrenal shock. Cortisol level post-op only 7. She had not been on steroids in nearly a month. Thus, level accurate. She rapidly improved with IV Hydrocortisone and copious IV fluids. Never had evidence of hemorrhagic, cardiogenic or obstructive shock. Negative procalcitonin, blood cx's negative - septic shock also ruled out. Remains on hydrocortisone 25mg BID, day #2 of this dose. Would wean every 2-3 days to off. Stopped IV vanco/meropenem given neg blood cx's and no source of infection on exam/imaging. flu/RSV/COVID noted to be negative at time of admission. She is now quite hypertensive - resumed lisinopril 20mg PO BID. Resumed verapamil. (2) Status post tracheostomy: Plan: POD #3 s/p trach by Dr Dobbs for b/l vocal cord paralysis and obstructed glottis with 2mm opening. Doing well from ENT standpoint. Stable o2 sats. speech therapy consult completed; fitted for passy sayda valve. passed bedside swallow -- diet advanced to regular with minced & moist texture. Waiting for [employer] for [employer] supplies, etc. Ofelia from case management working on this. I did sign a script today for the trach supplies. Continue respiratory therapy teaching of trach care. (3) History of DVT (deep vein thrombosis): Plan: LUE 2019. Took lovenox daily up until late 2020 when patient self-discontinued her lovenox. b/l LE dopplers negative for DVT this admission. Pt recently saw Dr Perdomo in the anticoagulation clinic. She had advised lovenox 40mg once daily starting 24 hours post-op for prophylaxis. Cont lovenox 40mg daily. Patient is to CONTINUE the lovenox daily at home upon discharge. She confirmed with me she already has the lovenox at home and is comfortable with the injections since she has been on them in the past. (4) Vocal cord paralysis, bilateral complete: Plan: POD #3 - s/p tracheostomy by Dr Dobbs. left-sided paralysis - etiology? infiltration of recurrent laryngeal nerve by cancer in the chest? other? (5) Post-surgical hypothyroidism: Plan: review of TSH levels over the last year shows wild swings either very high or suppressed. TSH this admission minimally elevated. cont levothyroxine 224mcg in meantime. would leave dose as is for now. (6) Hx of papillary thyroid carcinoma: Plan: 1982 s/p partial thyroidectomy (7) History of medullary carcinoma of thyroid: Plan: 1996 s/p complete thyroidectomy followed by radiation/radioactive iodine & radical neck dissection now with post-surgical hypothyroidism (8) Metastatic colorectal cancer: Plan: dx 12/[address] Abad. follows with CARINE Townsend - [facility]. last FOLFIRI chemo was 07/13/21. resulting chemo-induced leukopenia, neutropenia, and anemia. ANC is slowly trending up. daily CBC. neutropenic precautions. (9) CAD (coronary artery disease): Plan: no ischemic symptoms post-op. she is not on chronic aspirin therapy, beta torrey or statin. (10) Neutropenia: Plan: 2nd chemotherapy on 07/13. Neutropenic precautions. ANC slowly improving. Daily CBC with diff. Fortunately no signs/symptoms of infection. Blood cx's negative. flu/RSV/COVID negative. (11) DVT prophylaxis: Plan: lovenox 40mg daily (12) Epigastric pain: Plan: suspect gastritis in face of surgery, physical stress, chemo, etc increased PPI to BID dosing added carafate qid send stool for fecal occult given her report of melena during last stool. recheck h/h in am for stability poor candidate for EGD given all of the above comorbidities. (13) Iron deficiency: Plan: Transferrin sat <20% ferritin is technically normal but would benefit from some Fe due to extensive blood draws this admission, ongoing anemia, etc. 200mg x 1 of Venofer today if tolerates, then 300mg tomorrow (14) Melena: Plan: see #12 send stool for fecal occult when able PPI + carafate heartburn/epigastric symptoms resolved with the increased PPI with carafate at discharge would send with PPI twice daily x 1 month, then once daily thereafter also would send with carafate 1gm QID x 1 week (15) LBBB (left bundle branch block): Plan: at baseline the alternating narrowing/widening of her QRS seen on telemetry has been asymptomatic this may be a rate-related conduction delay nothing to do monitor Plan: contacted Ms Montalvo Averyaditya at [phone] yesterday with update appreciate social work assistance for trach supplies unable to secure all supplies today; thus, anticipated d/c is on Monday with home health Admission and Anticipated Discharge Date Admission Date: July 30, 2021 Subjective pt sitting in chair no complaints reports that her heartburn/reflux symptoms resolved with addition of PPI + carafate (she had already been on pepcid BID prior) she has not had any stool in order to check for fecal occult blood (she had had melena type stool early Monday) respiratory team has been providing trach care instruction and she feels comfortable thus far with every thing she has learned she is hopeful we can arrange all trach supplies for home so that she can d/c home today she does report having home health already through [facility] she is eating well denies dyspnea mild cough with some sputum (coughing it up via mouth rather than her trach) no dizziness or lightheadedness tele - QRS duration is sometimes prolonged and sometimes wnl (QRS complex size has been alternating between narrow & wide) rate-related conduction delay?? Review of Systems Review of Systems: gen - no fevers or chills CV - no cp GI - no abd pain; heartburn resolved; no nausea or emesis pulm - no dyspnea or BARGER Physical Exam Physical Exam: gen - awake, alert, sitting in chair, looks great; very pleasant; occasional cough HENT - MMM; no thrush neck - tracheostomy clean/dry/intact; passy sayda valve over stoma; right neck w/ scar tissue heart - RRR, s1 s2, no murmur lungs - CTA b/l, no wheezes or rales; no increased work of breathing; mildly decreased BS L base abd - soft ND BS+ NT; no HSM ext - pulses 2+ b/l, no edema Results & Data Results & Data ([facility]) Vital Signs (Past 12 Hours) Vital Signs Temp Pulse Pulse Pulse Resp BP BP 08/02/21 16:34 95 H 27 H 167/88 H 08/02/21 16:00 37.1 C 88 89 29 H 167/88 H 08/02/21 15:44 36.9 C 80 27 H 139/72 08/02/21 15:37 80 27 H 139/72 08/02/21 15:00 84 25 H 08/02/21 14:00 93 H 29 H 08/02/21 13:09 100 H 27 H 08/02/21 13:00 36.9 C 99 H 22 108/64 08/02/21 12:56 100 H 21 108/64 08/02/21 12:00 103 H 19 08/02/21 11:00 90 19 08/02/21 10:00 80 26 H 08/02/21 09:39 80 17 135/77 08/02/21 09:00 78 135/77 08/02/21 08:00 37.2 C 97 H 84 24 179/101 H 08/02/21 07:58 93 H 21 179/101 H 08/02/21 07:42 86 27 H 186/98 H 08/02/21 07:40 96 H 25 H 175/101 H Pulse Ox 08/02/21 16:34 95 08/02/21 16:00 96 08/02/21 15:44 96 08/02/21 15:37 96 08/02/21 15:00 95 08/02/21 14:00 08/02/21 13:09 08/02/21 13:00 98 08/02/21 12:56 08/02/21 12:00 08/02/21 11:00 08/02/21 10:00 08/02/21 09:39 08/02/21 09:00 08/02/21 08:00 98 08/02/21 07:58 08/02/21 07:42 08/02/21 07:40 Laboratory Results Laboratory Results - last 24 hr 08/02/21 08/02/21 06:24 06:24 WBC 2.06 L RBC 2.99 L Hgb 9.8 L Hct 30.2 L MCV 101.0 H MCH 32.8 MCHC 32.5 RDW Std Deviation 72.1 H RDW Coeff of Michelle 19.5 H Plt Count 192 MPV 9.4 Sodium 138 Potassium 3.5 Chloride 108 H Carbon Dioxide 26 Anion Gap 4 BUN 8 Creatinine 0.54 L Est Cr Clr Drug Dosing 91.9 Est GFR ( Amer) 113.2 Est GFR (Non-Af Amer) 97.6 BUN/Creatinine Ratio 14.8 Glucose 99 Calcium 8.1 L Iron 31 L TIBC 288 Unsaturated IBC 257 Transferrin % Sat 11 L Ferritin 61.4 PG Care Time/CCT Total # of Minutes Spent Total Time Spent with Patient: Total time spent is greater than 50% in coordination of care (as documented) at patient's floor/unit and/or counseling patient: Coding Level of Care Code 59403 Subseq Hosp Care Lvl 3 Diagnoses Shock R57.9 Status post tracheostomy Z93.0 History of DVT (deep vein thrombosis) Z86.718 Vocal cord paralysis, bilateral complete J38.02 Post-surgical hypothyroidism E89.0 Hx of papillary thyroid carcinoma Z85.850 History of medullary carcinoma of thyroid Z85.850 Metastatic colorectal cancer C19 CAD (coronary artery disease) I25.10 Neutropenia D70.9 DVT prophylaxis Z29.9 Epigastric pain R10.13 Iron deficiency E61.1 Melena K92.1 LBBB (left bundle branch block) I44.7
[2021-08-02] MEDS: POTASSIUM CHLORIDE CRTAB 20 MEQ TABCR PO SCH (20:20)
[2021-08-02] MEDS: TOPIRAMATE 100 MG TAB PO SCH (20:22)
[2021-08-03] MEDS: ACETAMINOPHEN 500 MG TAB PO PRN (03:24)
[2021-08-03 05:53] LABS: Basophils # (auto) 0.03 K/uL (0-0.2); Basophils % (auto) 1.1 %; Eosinophils # (auto) 0.01 K/uL (0-0.5); Eosinophils % (auto) 0.4 %; Hemoglobin 9.5 g/dL (12.0-16.0); Immature Granulocytes # (auto) 0.09 K/uL (0.00-0.02); Immature Granulocytes % (auto) 3.4 %; Lymphocytes % (auto) 26.6 %; Mean Corpuscular Hemoglobin 33.2 pg (25-34); Mean Corpuscular Hgb Conc 32.8 g/dL (32-36); Mean Corpuscular Volume 101.4 fL (80-100); Mean Platelet Volume 9.7 fL (7.4-10.4); Monocytes # (auto) 0.67 K/uL (0.11-0.59); Monocytes % (auto) 25.5 %; Neutrophils # (auto) 1.13 K/uL (1.4-6.5); Platelet Count 189 K/uL (130-400); RDW Coefficient of Variation 19.2 % (11.5-14.5); Red Blood Count 2.86 M/uL (4.2-5.4); White Blood Count 2.63 K/uL (4.8-10.8)
[2021-08-03] MEDS: LEVOTHYROXINE SODIUM 112 MCG TABLET PO SCH (06:05)
[2021-08-03] MEDS: ENOXAPARIN INJ 40 MG/0.4 ML SYR SQ SCH (08:13)
[2021-08-03] MEDS: FAMOTIDINE 20 MG TAB PO SCH ×2 (08:13→20:31)
[2021-08-03] MEDS: CHOLECALCIFEROL 1,000 UNITS 25 MCG TAB PO SCH (08:13)
[2021-08-03] MEDS: HYDROCORTISONE 10 MG TAB PO SCH ×2 (08:14→20:32)
[2021-08-03] MEDS: SUCRALFATE 1 GM/10 ML UDC PO SCH ×4 (08:15→20:33)
[2021-08-03] MEDS: lisinopril 20 MG TAB PO SCH ×2 (08:15→20:32)
[2021-08-03] MEDS: VERAPAMIL HCL 240 MG TABCR PO SCH ×2 (08:15→20:33)
[2021-08-03] MEDS: PANTOprazole 40 MG TAB PO SCH ×2 (08:15→20:32)
[2021-08-03] MEDS: POTASSIUM CHLORIDE CRTAB 20 MEQ TABCR PO SCH (08:18)
[2021-08-03] MEDS ORDERED: IRON SUCROSE 300 MG in SODIUM CHLORIDE 0.9% 250 ML IV ONE (09:00)
[2021-08-03] MEDS: guaiFENesin/DEXTROM SYRUP 200MG/20MG 10ML UDC PO PRN (17:44)
--- NOTE | 2021-08-03 20:04 | Hospitalist Progress Note ---
Date of Service August 03, 2021 Assessment & Plan (1) Shock: Plan: Resolved. Post-operative hypotension - started in PACU following her tracheostomy placement by Dr Dobbs. Suspect adrenal shock. Cortisol level post-op only 7. She had not been on steroids in nearly a month. Thus, level accurate. She rapidly improved with IV Hydrocortisone and copious IV fluids. Never had evidence of hemorrhagic, cardiogenic or obstructive shock. Negative procalcitonin, blood cx's negative - septic shock also ruled out. Remains on hydrocortisone 25mg BID, day #3 of this dose. Would wean every 2-3 days to off. We will go down to 15 mg twice a day tomorrow Stopped IV vanco/meropenem given neg blood cx's and no source of infection on exam/imaging. flu/RSV/COVID noted to be negative at time of admission. She is now quite hypertensive - resumed lisinopril 20mg PO BID. Resumed verapamil. Given history of medullary thyroid cancer and now adrenal shock, would suggest referral to endocrinology as an outpatient and stress dose steroids in the fu ture with any other surgeries or acute illnesses (2) Status post tracheostomy: Plan: POD #4 s/p trach by Dr Dobbs for b/l vocal cord paralysis and obstructed glottis with 2mm opening. Doing well from ENT standpoint. Stable o2 sats. speech therapy consult completed; fitted for passy sayda valve. passed bedside swallow -- diet advanced to regular with minced & moist texture. Waiting for [employer] for trach supplies, etc. Ofelia from case management working on this and it may take some time as supplies coming from the [place] Continue respiratory therapy teaching of trach care. (3) History of DVT (deep vein thrombosis): Plan: LUE 2019. Took lovenox daily up until late 2020 when patient self-discontinued her lovenox. b/l LE dopplers negative for DVT this admission. Pt recently saw Dr Perdomo in the anticoagulation clinic. She had advised lovenox 40mg once daily starting 24 hours post-op for prophylaxis. Cont lovenox 40mg daily. Patient is to CONTINUE the lovenox daily at home upon discharge. She confirmed with me she already has the lovenox at home and is comfortable with the injections since she has been on them in the past. (4) Vocal cord paralysis, bilateral complete: Plan: POD #4 - s/p tracheostomy by Dr Dobbs. bilateral vocal cord paralysis secondary to previous thyroidectomy (5) Post-surgical hypothyroidism: Plan: review of TSH levels over the last year shows wild swings either very high or suppressed. TSH this admission minimally elevated. cont levothyroxine 224mcg in meantime. would leave dose as is for now. (6) Hx of papillary thyroid carcinoma: Plan: 1982 s/p partial thyroidectomy (7) History of medullary carcinoma of thyroid: Plan: 1996 s/p complete thyroidectomy followed by radiation/radioactive iodine & radical neck dissection now with post-surgical hypothyroidism (8) Metastatic colorectal cancer: Plan: dx 12/[address] Abad. follows with [facility]. last FOLFIRI chemo was 07/13/21. resulting chemo-induced leukopenia, neutropenia, and anemia. ANC is slowly trending up. daily CBC. neutropenic precautions. (9) CAD (coronary artery disease): Plan: no ischemic symptoms post-op. she is not on chronic aspirin therapy, beta torrey or statin. (10) Neutropenia: Plan: 2nd chemotherapy on 07/13. Neutropenic precautions. ANC slowly improving. Daily CBC with diff. Fortunately no signs/symptoms of infection. Blood cx's negative. flu/RSV/COVID negative. (11) DVT prophylaxis: Plan: lovenox 40mg daily (12) Epigastric pain: Plan: suspect gastritis in face of surgery, physical stress, chemo, etc increased PPI to BID dosing added carafate qid send stool for fecal occult given her report of melena during last stool. recheck h/h in am for stability-stable at 9.5 poor candidate for EGD given all of the above comorbidities. (13) Iron deficiency: Plan: Transferrin sat <20% ferritin is technically normal but would benefit from some Fe due to extensive blood draws this admission, ongoing anemia, etc. 200mg x 1 of Venofer given on 08/02 Venofer 300 Mg IV x1 given on 08/03 (14) Melena: Plan: see #12 send stool for fecal occult when able PPI + carafate heartburn/epigastric symptoms resolved with the increased PPI with carafate at discharge would send with PPI twice daily x 1 month, then once daily the reafter also would send with carafate 1gm QID x 1 week (15) LBBB (left bundle branch block): Plan: at baseline the alternating narrowing/widening of her QRS seen on telemetry has been asymptomatic this may be a rate-related conduction delay nothing to do monitor Plan: Disposition-awaiting trach supplies to be delivered to her house and then discharged to home with home health, otherwise is medically stable for discharge Admission and Anticipated Discharge Date Admission Date: July 30, 2021 Subjective Patient feeling well today. She is coughing a lot of phlegm up sometimes that did make her gag and vomit 1 time today. She denies any nausea. No abdominal pain. She is moving her bowels. No shortness of breath. She is in good spirits. Review of Systems Review of Systems: All systems reviewed & are unremarkable except as noted in HPI & below Physical Exam Constitutional: WD/WN, vitals as above Eyes: PERRL, conjunctivae normal, anicteric sclerae ENMT: external ear and nose normal, oropharynx normal Neck: + abnormal visual inspection (Tracheostomy tube in place) Respiratory: normal respiratory effort, lungs clear to auscultation Cardiovascular: RRR, no murmur, no edema Chest (Breasts): Chest: normal inspection of chest Gastrointestinal (Abdomen): normal bowel sounds, soft, nontender, no hepatosplenomegaly Musculoskeletal: Extremities: extremities normal to inspection; no cyanosis and no clubbing Skin: no rashes, warm and dry Neurologic: moves all extremities and awake; no focal motor deficits Psychiatric: A+Ox3, euthymic affect Lymphatic: no lymphedema Results & Data Results & Data ([facility]) Vital Signs (Past 12 Hours) Vital Signs Temp Pulse Pulse Resp BP Pulse Ox 08/03/21 19:29 37.1 C 92 H 18 156/85 H 95 08/03/21 15:30 36.8 C 101 H 20 138/75 98 08/03/21 12:00 84 22 96 08/03/21 08:00 36.7 C 88 18 163/92 H 99 Laboratory Results 08/03/21 Range/Units 05:04 WBC 2.63 L (4.8-10.8) K/uL RBC 2.86 L (4.2-5.4) M/uL Hgb 9.5 L (12.0-16.0) g/dL Hct 29.0 L (37-47) % MCV 101.4 H (80-100) fL MCH 33.2 (25-34) pg MCHC 32.8 (32-36) g/dL RDW Std Deviation 72.0 H (36.4-46.3) fL RDW Coeff of Michelle 19.2 H (11.5-14.5) % Plt Count 189 (130-400) K/uL MPV 9.7 (7.4-10.4) fL Immature Gran % (Auto) 3.4 % Neut % (Auto) 43.0 % Lymph % (Auto) 26.6 % [place] % (Auto) 25.5 % Eos % (Auto) 0.4 % Baso % (Auto) 1.1 % Neut # (Auto) 1.13 L (1.4-6.5) K/uL Lymph # (Auto) 0.70 L (1.2-3.4) K/uL [place] # (Auto) 0.67 H (0.11-0.59) K/uL Eos # (Auto) 0.01 (0-0.5) K/uL Baso # (Auto) 0.03 (0-0.2) K/uL Immature Gran # (Auto) 0.09 H (0.00-0.02) K/uL PG Care Time/CCT Total # of Minutes Spent Total Time Spent with Patient: Total time spent is greater than 50% in coordination of care (as documented) at patient's floor/unit and/or counseling patient: Coding Level of Care Code 89296 Subseq Hosp Care Lvl 2 Diagnoses Shock R57.9 Status post tracheostomy Z93.0 History of DVT (deep vein thrombosis) Z86.718 Vocal cord paralysis, bilateral complete J38.02 Post-surgical hypothyroidism E89.0 Hx of papillary thyroid carcinoma Z85.850 History of medullary carcinoma of thyroid Z85.850 Metastatic colorectal cancer C19 CAD (coronary artery disease) I25.10 Neutropenia D70.9 DVT prophylaxis Z29.9 Epigastric pain R10.13 Iron deficiency E61.1 Melena K92.1 LBBB (left bundle branch block) I44.7
[2021-08-03] MEDS: TOPIRAMATE 100 MG TAB PO SCH (20:33)
[2021-08-04] MEDS: guaiFENesin/DEXTROM SYRUP 200MG/20MG 10ML UDC PO PRN ×2 (00:38→20:39)
[2021-08-04] MEDS: LEVOTHYROXINE SODIUM 112 MCG TABLET PO SCH (05:51)
[2021-08-04 07:57] LABS: Basophils # (auto) 0.04 K/uL (0-0.2); Eosinophils # (auto) 0.05 K/uL (0-0.5); Eosinophils % (auto) 1.3 %; Hematocrit (blood only) 31.1 % (37-47); Immature Granulocytes % (auto) 2.6 %; Lymphocytes # (auto) 1.05 K/uL (1.2-3.4); Lymphocytes % (auto) 27.1 %; Mean Corpuscular Hemoglobin 32.7 pg (25-34); Mean Corpuscular Hgb Conc 32.2 g/dL (32-36); Mean Corpuscular Volume 101.6 fL (80-100); Mean Platelet Volume 9.5 fL (7.4-10.4); Monocytes # (auto) 0.99 K/uL (0.11-0.59); Monocytes % (auto) 25.6 %; Neutrophils # (auto) 1.64 K/uL (1.4-6.5); Neutrophils % (auto) 42.4 %; Platelet Count 220 K/uL (130-400); RDW Coefficient of Variation 19.2 % (11.5-14.5); RDW Standard Deviation 71.8 fL (36.4-46.3); Red Blood Count 3.06 M/uL (4.2-5.4); White Blood Count 3.87 K/uL (4.8-10.8)
[2021-08-04 08:20] LABS: BUN Creatinine Ratio 11.7 (10-20); Calcium 8.5 mg/dl (8.5-10.1); Creatinine Clr Calc Pharmacy 82.6 ml/min; Est GFR (African American) 109.3 ml/min; Est GFR (Non-African American) 94.3 ml/min; Magnesium 2.1 mg/dl (1.7-2.4); Potassium 3.1 mmol/L (3.5-5.1)
[2021-08-04] MEDS: CHOLECALCIFEROL 1,000 UNITS 25 MCG TAB PO SCH (08:41)
[2021-08-04] MEDS: HYDROCORTISONE 10 MG TAB PO SCH ×2 (08:42→20:36)
[2021-08-04] MEDS: FAMOTIDINE 20 MG TAB PO SCH ×2 (08:42→20:36)
[2021-08-04] MEDS: PANTOprazole 40 MG TAB PO SCH ×2 (08:44→20:38)
[2021-08-04] MEDS: lisinopril 20 MG TAB PO SCH ×2 (08:44→20:37)
[2021-08-04] MEDS: SUCRALFATE 1 GM/10 ML UDC PO SCH ×4 (08:45→20:38)
[2021-08-04] MEDS: VERAPAMIL HCL 240 MG TABCR PO SCH ×2 (08:45→20:38)
[2021-08-04] MEDS: POTASSIUM CHLORIDE CRTAB 20 MEQ TABCR PO SCH (08:45)
[2021-08-04] MEDS: ENOXAPARIN INJ 40 MG/0.4 ML SYR SQ SCH (08:45)
[2021-08-04] MEDS ORDERED: POTASSIUM CHLORIDE CRTAB 20 MEQ TABCR PO STA (09:19)
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
[2021-08-04] MEDS: TOPIRAMATE 100 MG TAB PO SCH (20:38)
[2021-08-05] MEDS: LEVOTHYROXINE SODIUM 112 MCG TABLET PO SCH (06:17)
[2021-08-05 07:48] LABS: Basophils # (auto) 0.04 K/uL (0-0.2); Basophils % (auto) 0.9 %; Eosinophils # (auto) 0.11 K/uL (0-0.5); Eosinophils % (auto) 2.4 %; Hematocrit (blood only) 32.3 % (37-47); Hemoglobin 10.6 g/dL (12.0-16.0); Immature Granulocytes # (auto) 0.05 K/uL (0.00-0.02); Immature Granulocytes % (auto) 1.1 %; Lymphocytes # (auto) 0.91 K/uL (1.2-3.4); Lymphocytes % (auto) 19.7 %; Mean Corpuscular Hemoglobin 33.1 pg (25-34); Mean Corpuscular Hgb Conc 32.8 g/dL (32-36); Mean Corpuscular Volume 100.9 fL (80-100); Mean Platelet Volume 8.9 fL (7.4-10.4); Monocytes # (auto) 0.95 K/uL (0.11-0.59); Monocytes % (auto) 20.5 %; Neutrophils # (auto) 2.57 K/uL (1.4-6.5); Neutrophils % (auto) 55.4 %; Platelet Count 187 K/uL (130-400); RDW Coefficient of Variation 18.9 % (11.5-14.5); RDW Standard Deviation 70.9 fL (36.4-46.3); White Blood Count 4.63 K/uL (4.8-10.8)
[2021-08-05] MEDS: VERAPAMIL HCL 240 MG TABCR PO SCH ×2 (08:34→20:10)
[2021-08-05] MEDS: CHOLECALCIFEROL 1,000 UNITS 25 MCG TAB PO SCH (08:34)
[2021-08-05 08:35] LABS: Albumin Globulin Ratio 1.6 (0.9-2); Albumin Level 3.5 gm/dl (3.4-5.0); Bilirubin,Total 0.5 mg/dl (0.2-1.0); Calcium 8.5 mg/dl (8.5-10.1); Creatinine Clr Calc Pharmacy 92.9 ml/min; Est GFR (African American) 113.2 ml/min; Est GFR (Non-African American) 97.6 ml/min; Globulin 2.2 gm/dl (2.5-4.0); Magnesium 2.1 mg/dl (1.7-2.4); Potassium 3.3 mmol/L (3.5-5.1); Total Protein 5.7 gm/dl (6.0-8.3)
[2021-08-05] MEDS: HYDROCORTISONE 10 MG TAB PO SCH ×2 (08:35→20:07)
[2021-08-05] MEDS: POTASSIUM CHLORIDE CRTAB 20 MEQ TABCR PO SCH (08:35)
[2021-08-05] MEDS: FAMOTIDINE 20 MG TAB PO SCH ×2 (08:35→20:10)
[2021-08-05] MEDS: lisinopril 20 MG TAB PO SCH ×2 (08:36→20:10)
[2021-08-05] MEDS: PANTOprazole 40 MG TAB PO SCH ×2 (08:37→20:10)
[2021-08-05] MEDS: ENOXAPARIN INJ 40 MG/0.4 ML SYR SQ SCH (08:37)
[2021-08-05] MEDS: SUCRALFATE 1 GM/10 ML UDC PO SCH ×4 (08:37→20:07)
[2021-08-05] MEDS ORDERED: POTASSIUM CHLORIDE CRTAB 20 MEQ TABCR PO STA (08:57)
[2021-08-05] MEDS: ACETAMINOPHEN 500 MG TAB PO PRN (12:20)
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
[2021-08-05] MEDS: DOCUSATE SODIUM 100 MG CAP PO SCH (20:07)
[2021-08-05] MEDS: TOPIRAMATE 100 MG TAB PO SCH (20:11)
[2021-08-05] MEDS: guaiFENesin/DEXTROM SYRUP 200MG/20MG 10ML UDC PO PRN (20:12)
[2021-08-06] MEDS: LEVOTHYROXINE SODIUM 112 MCG TABLET PO SCH (06:04)
[2021-08-06 07:27] LABS: BUN Creatinine Ratio 16.7 (10-20); Calcium 8.4 mg/dl (8.5-10.1); Creatinine Clr Calc Pharmacy 92.8 ml/min; Est GFR (African American) 113.2 ml/min; Est GFR (Non-African American) 97.6 ml/min; Magnesium 2.1 mg/dl (1.7-2.4); Potassium 3.3 mmol/L (3.5-5.1)
[2021-08-06] MEDS ORDERED: POTASSIUM CHLORIDE CRTAB 20 MEQ TABCR PO STA (08:28)
[2021-08-06] MEDS: CHOLECALCIFEROL 1,000 UNITS 25 MCG TAB PO SCH (08:48)
[2021-08-06] MEDS: guaiFENesin/DEXTROM SYRUP 200MG/20MG 10ML UDC PO PRN (08:48)
[2021-08-06] MEDS: DOCUSATE SODIUM 100 MG CAP PO SCH ×2 (08:48→20:01)
[2021-08-06] MEDS: FAMOTIDINE 20 MG TAB PO SCH ×2 (08:48→20:03)
[2021-08-06] MEDS: HYDROCORTISONE 10 MG TAB PO SCH ×2 (08:48→20:02)
[2021-08-06] MEDS: SUCRALFATE 1 GM/10 ML UDC PO SCH ×4 (08:48→20:05)
[2021-08-06] MEDS: PANTOprazole 40 MG TAB PO SCH ×2 (08:48→20:05)
[2021-08-06] MEDS: VERAPAMIL HCL 240 MG TABCR PO SCH ×2 (08:48→20:04)
[2021-08-06] MEDS: lisinopril 20 MG TAB PO SCH ×2 (08:48→20:04)
[2021-08-06] MEDS: ENOXAPARIN INJ 40 MG/0.4 ML SYR SQ SCH (08:49)
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
[2021-08-06] MEDS: SENNA 8.6 MG TAB PO PRN (12:27)
[2021-08-06] MEDS: TOPIRAMATE 100 MG TAB PO SCH (20:03)
[2021-08-07] MEDS: LEVOTHYROXINE SODIUM 112 MCG TABLET PO SCH (06:23)
[2021-08-07 07:00] LABS: BUN Creatinine Ratio 22.6 (10-20); Calcium 8.6 mg/dl (8.5-10.1); Creatinine Clr Calc Pharmacy 94.8 ml/min; Est GFR (African American) 113.9 ml/min; Est GFR (Non-African American) 98.2 ml/min; Potassium 3.6 mmol/L (3.5-5.1)
[2021-08-07] MEDS: ENOXAPARIN INJ 40 MG/0.4 ML SYR SQ SCH (08:25)
[2021-08-07] MEDS: guaiFENesin/DEXTROM SYRUP 200MG/20MG 10ML UDC PO PRN (08:25)
[2021-08-07] MEDS: CHOLECALCIFEROL 1,000 UNITS 25 MCG TAB PO SCH (08:29)
[2021-08-07] MEDS: FAMOTIDINE 20 MG TAB PO SCH ×2 (08:29→21:45)
[2021-08-07] MEDS: SENNA 8.6 MG TAB PO PRN (08:30)
[2021-08-07] MEDS: SUCRALFATE 1 GM/10 ML UDC PO SCH ×4 (08:30→20:46)
[2021-08-07] MEDS: DOCUSATE SODIUM 100 MG CAP PO SCH ×2 (08:30→23:12)
[2021-08-07] MEDS: PANTOprazole 40 MG TAB PO SCH ×2 (08:30→21:45)
[2021-08-07] MEDS: HYDROCORTISONE 10 MG TAB PO SCH ×2 (08:30→16:21)
[2021-08-07] MEDS: lisinopril 20 MG TAB PO SCH ×2 (08:30→21:45)
[2021-08-07] MEDS: VERAPAMIL HCL 240 MG TABCR PO SCH ×2 (08:30→23:12)
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
[2021-08-07] MEDS: TOPIRAMATE 100 MG TAB PO SCH (21:45)
[2021-08-08] MEDS: LEVOTHYROXINE SODIUM 112 MCG TABLET PO SCH (07:43)
[2021-08-08] MEDS: DOCUSATE SODIUM 100 MG CAP PO SCH ×2 (08:52→20:01)
[2021-08-08] MEDS: ENOXAPARIN INJ 40 MG/0.4 ML SYR SQ SCH (08:54)
[2021-08-08] MEDS: SUCRALFATE 1 GM/10 ML UDC PO SCH ×4 (08:54→20:01)
[2021-08-08] MEDS: CHOLECALCIFEROL 1,000 UNITS 25 MCG TAB PO SCH (08:54)
[2021-08-08] MEDS: HYDROCORTISONE 10 MG TAB PO SCH ×2 (08:55→15:38)
[2021-08-08] MEDS: FAMOTIDINE 20 MG TAB PO SCH ×2 (08:55→20:01)
[2021-08-08] MEDS: lisinopril 20 MG TAB PO SCH ×2 (08:56→20:01)
[2021-08-08] MEDS: VERAPAMIL HCL 240 MG TABCR PO SCH ×2 (08:56→20:01)
[2021-08-08] MEDS: PANTOprazole 40 MG TAB PO SCH ×2 (08:56→20:01)
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
[2021-08-08] MEDS: TOPIRAMATE 100 MG TAB PO SCH (20:01)
[2021-08-09] MEDS: LEVOTHYROXINE SODIUM 112 MCG TABLET PO SCH (06:11)
[2021-08-09 07:00] LABS: Hematocrit (blood only) 33.2 % (37-47); Mean Corpuscular Hemoglobin 34.2 pg (25-34); Mean Corpuscular Hgb Conc 33.1 g/dL (32-36); Mean Corpuscular Volume 103.1 fL (80-100); Mean Platelet Volume 9.9 fL (7.4-10.4); Platelet Count 252 K/uL (130-400); RDW Coefficient of Variation 18.8 % (11.5-14.5); RDW Standard Deviation 71.2 fL (36.4-46.3); Red Blood Count 3.22 M/uL (4.2-5.4); White Blood Count 6.91 K/uL (4.8-10.8)
[2021-08-09 07:19] LABS: Calcium 8.8 mg/dl (8.5-10.1); Creatinine Clr Calc Pharmacy 94.8 ml/min; Est GFR (African American) 113.9 ml/min; Est GFR (Non-African American) 98.2 ml/min; Potassium 3.2 mmol/L (3.5-5.1)
[2021-08-09 07:25] LABS: ALC (manual) 1.02 K/uL (1.2-3.4); ANC (manual) 4.68 K/uL (1.4-6.5); Basophils # (manual) 0.06 K/uL (0-0.2); Basophils % (manual) 0.9 %; Eosinophils # (manual) 0.66 K/uL (0-0.5); Eosinophils % (manual) 9.6 %; Lymphocytes # (manual) 1.02 K/uL (1.2-3.4); Lymphocytes % (manual) 14.8 %; Monocytes # (manual) 0.48 K/uL (0.11-0.59); Neutrophils # (manual) 4.68 K/uL (1.4-6.5); Neutrophils % (manual) 67.7 %
[2021-08-09] MEDS ORDERED: diphenhydrAMINE 50 MG/ML VIAL IV ONE (08:30)
[2021-08-09] MEDS: ENOXAPARIN INJ 40 MG/0.4 ML SYR SQ SCH (08:58)
[2021-08-09] MEDS: SUCRALFATE 1 GM/10 ML UDC PO SCH ×4 (08:58→20:49)
[2021-08-09] MEDS: HYDROCORTISONE 10 MG TAB PO SCH ×2 (08:59→15:53)
[2021-08-09] MEDS: DOCUSATE SODIUM 100 MG CAP PO SCH ×2 (08:59→20:49)
[2021-08-09] MEDS: CHOLECALCIFEROL 1,000 UNITS 25 MCG TAB PO SCH (08:59)
[2021-08-09] MEDS: lisinopril 20 MG TAB PO SCH ×2 (09:00→20:49)
[2021-08-09] MEDS: VERAPAMIL HCL 240 MG TABCR PO SCH ×2 (09:00→20:49)
[2021-08-09] MEDS: PANTOprazole 40 MG TAB PO SCH ×2 (09:00→20:49)
[2021-08-09] MEDS: FAMOTIDINE 20 MG TAB PO SCH ×2 (09:04→20:49)
[2021-08-09] MEDS: POTASSIUM CHLORIDE CRTAB 20 MEQ TABCR PO SCH ×2 (09:05→15:52)
[2021-08-09] MEDS ORDERED: OPTIRAY 320 125ml IV ONE (10:11)
--- NOTE | 2021-08-09 11:11 | CT Scan Report ---
CT ANGIOGRAPHY OF THE CHEST, PULMONARY EMBOLUS PROTOCOL CLINICAL HISTORY: Hemoptysis. Evaluate for pulmonary embolus. COMPARISON STUDY: Chest CT June 22, 2021. Chest radiograph July 31, 2021. TECHNIQUE: Following IV administration of 119 mL of Optiray, helical axial images of the chest were o btained utilizing the pulmonary embolus protocol. Maximal intensity projections and sagittal and cor onal reformats were viewed on an independent 3D workstation. IV contrast was administered without co mplication. Automated exposure control was utilized for the study. A dose lowering technique was ut ilized adhering to the principles of ALARA. CT DOSE: 455.51 mGycm FINDINGS: No pulmonary emboli are identified although this exam is mildly compromised by respiratory motion. A centrally calcified right upper lobe nodule is unchanged. This is benign. Cardiomegaly is noted. There is no pericardial effusion. There is moderate coronary artery calcification. No enlarged thoracic lymph nodes are present. Interval tracheostomy is noted. Subtle mediastinal stranding is un changed since prior exam. A small left pleural effusion has developed since prior CT. There is extens cindy left lower lobe airspace opacity with volume loss. Lingular opacity is also noted with mild volum e loss. There is no pneumothorax. Paramediastinal opacities may reflect postradiation change. Central airways are patent. Asymmetric left breast edema and skin thickening is partially imaged but this ordonez s progressed since CT of June 22, 2021. This remains nonspecific. A right lower thoracic paraspinal n odule measuring 2.2 x 1 cm is unchanged. Mild splenomegaly is unchanged. Multiple splenic lesions are better depicted on prior exams. Sclerosis within the sternum and medial clavicles is unchanged. Thes e may reflect bone infarcts. IMPRESSION: 1. No pulmonary emboli identified although exam mildly compromised by respiratory motion artifact. 2. Small left pleural effusion. Increase in left lower lobe and lingular opacity which favors atelect asis. An infectious process is considered less likely. 3. Moderate cardiomegaly and coronary calcification. 4. Increase in nonspecific left breast edema and skin thickening. 5. Interval tracheostomy. ACT 112: Negative or not required by law. Electronically signed by: Miles Bunch M.D. 08/09/2021 11:09 AM
--- NOTE | 2021-08-09 18:33 | Hospitalist Progress Note ---
Date of Service August 09, 2021 Assessment & Plan (1) Shock: Plan: Resolved. Post-operative hypotension - started in PACU following her tracheostomy placement by Dr Dobbs. Suspect adrenal shock. Cortisol level post-op only 7. She had not been on steroids associated with her chemotherapy in nearly a month and was not on long- term steroids previously. Thus, level accurate. She rapidly improved with IV Hydrocortisone and copious IV fluids. Never had evidence of hemorrhagic, cardiogenic or obstructive shock. Negative procalcitonin, blood cx's negative - septic shock also ruled out. Tapering down hydrocortisone -now on 10 mg bid-wean down q2 days-can go to 5mg bid on 08/07 evening dose Stopped IV vanco/meropenem given neg blood cx's and no source of infection on exam/imaging. flu/RSV/COVID noted to be negative at time of admission. After blood pressures became hypertensive, resumed lisinopril 20mg PO BID and her home verapamil 240 mg p.o. twice daily For future procedures, would recommend stress dose steroids Given history of medullary thyroid cancer and now adrenal shock, would suggest referral to endocrinology as an outpatient and stress dose steroids in the future with any other surgeries or acute illnesses (2) Hypokalemia: Plan: Additional supplementation today08/09 Continue KCl 20 mill equivalents p.o. once daily but may need to increase this Follow BMP and magnesium in the morning (3) Aspiration into airway: Plan: She has been having almost once daily episodes of coughing that resulted in posttussive emesis Respiratory therapy does note that they are finding small bits of food and what they are suctioning out of her trach Speech therapy has reassessed and encouraged patient wear the PMV when she is eating. In addition, nursing needs to help encourage this Continue suctioning as needed Respiratory and speech therapy have concerns with her ability to manage trach independently at home. Case management looking into rehab facilities to help assist with this CTA done 08/09 given hemoptysis, history of CA, postsurgical state, and history of PE in the past--> no PE or cardiopulmonary process. Chronic left-sided pleural effusion (4) Status post tracheostomy: Plan: POD #10 s/p trach by Dr Dobbs for b/l vocal cord paralysis and obstructed glottis with 2mm opening. Doing well from ENT standpoint. Stable O2 sats on room air currently, but on trach collar with O2 flow only to provide humidity, but not because she is hypoxic Continue suctioning as needed speech therapy consult completed; fitted for passy sayda valve. passed bedside swallow -- diet advanced to regular with minced & moist texture, however with aspiration noted as above-see above Spoke with Dr. ARRIAGA today (08/09). Patient has been downsized. Sutures remain in place. Need to keep in place for at least 14 days for trach to mature. Still waiting for [facility] company for trach supplies, suction, O2, etc. at home vs SNF for trach care Case management on board Continue respiratory therapy teaching of trach care also at home [facility] Follow-up with ENT for suture removal as scheduled (5) History of DVT (deep vein thrombosis): Plan: LUE 2019. Took lovenox daily up until late 2020 when patient self-discontinued her lovenox. b/l LE dopplers negative for DVT this admission. Pt recently saw Dr Perdomo in the anticoagulation clinic. She had advised lovenox 40mg once daily starting 24 hours post-op for prophylaxis. Cont lovenox 40mg daily. Patient is to CONTINUE the lovenox daily at home upon discharge. She confirmed with me she already has the lovenox at home and is comfortable with the injections since she has been on them in the past. (6) Vocal cord paralysis, bilateral complete: Plan: POD #10 - s/p tracheostomy by Dr Dobbs. bilateral vocal cord paralysis secondary to previous thyroidectomy Needs to follow-up with Dr. Dobbs in the office for suture removal and exchange of trach tube after discharge (7) Post-surgical hypothyroidism: Plan: review of TSH levels over the last year shows wild swings either very high or suppressed. TSH this admission minimally elevated. cont levothyroxine 224mcg in meantime. would leave dose as is for now. (8) Hx of papillary thyroid carcinoma: Plan: 1982 s/p partial thyroidectomy (9) History of medullary carcinoma of thyroid: Plan: 1996 s/p complete thyroidectomy followed by radiation/radioactive iodine & radical neck dissection now with post-surgical hypothyroidism (10) Metastatic colorectal cancer: Plan: dx 12/[address] Abad. With diffuse RP and pelvic lymphadenopathy follows with [facility] - [facility]. last FOLFIRI chemo was 07/13/21. resulting chemo-induced leukopenia, neutropenia, thrombocytopenia, and anemia all of which are improving Follow CBC. neutropenic precautions. Follow-up with oncology after discharge-I discussed her care with her oncology provider on 08/09 (11) CAD (coronary artery disease): Plan: no ischemic symptoms post-op. she is not on chronic aspirin therapy, beta torrey or statin. (12) Neutropenia: Plan: 2nd chemotherapy on 07/13. now resolved Fortunately no signs/symptoms of infection. Blood cx's negative. flu/RSV/COVID negative. (13) Epigastric pain: Plan: suspect gastritis in face of surgery, physical stress, chemo, etc-now resolved with increasing PPI to twice daily and adding Carafate Fecal occult is negative and her stool is brown in color Hemoglobin remained stable and increasing actually since receiving IV Venofer poor candidate for EGD given all of the above comorbidities. (14) Iron deficiency: Plan: Transferrin sat <20% ferritin is technically normal but would benefit from some Fe due to extensive blood draws this admission, ongoing anemia, etc. 200mg x 1 of Venofer given on 08/02 Venofer 300 Mg IV x1 given on 08/03 (15) Melena: Plan: Had black stools 1 day in the setting of epigastric pain Stool continues to be brown since then and hemoglobin improving as above heartburn/epigastric symptoms resolved with the increased PPI with carafate at discharge will continue PPI and Carafate (16) LBBB (left bundle branch block): Plan: at baseline the alternating narrowing/widening of her QRS seen on telemetry has been asymptomatic this may be a rate-related conduction delay nothing to do Have since transferred off of telemetry (17) Abnormal breast finding: Plan: with abnormal left breast on recent mammogram and breast US has upcoming appt with Dr. Petty to discuss breast biopsy Dr. Petty notified while in house to see if biopsy could be done while inpatient here but he prefers to wait until she is more stable-he will actually cancel her appt for 08/11 and push it back Her oncology provider is also aware of this (18) DVT prophylaxis: Plan: lovenox 40mg daily Plan: Disposition-have been awaiting trach supplies to be delivered to her house but now respiratory and speech have concerns that she is unable to safely manage trach and are recommending short-term rehab to help with this. Case management on board Admission and Anticipated Discharge Date Admission Date: July 30, 2021 Subjective Patient seen on daily rounds today. Vocalizes no significant complaints or concerns. Nursing reports patient sounding more rhonchorous today. In addition, she has had multiple mucous plugs that have been blood-tinged from the trach itself. Patient does not complain of shortness of breath but does have a very productive cough. She does report a history of PE in the past. Is currently on 6 L trach collar and saturating at 100%. She is having significant reluctance with managing her own trach at home. Respiratory and speech therapy report frequent reminding of what she needs to do for trach care. She is having food through the trach because she is eating without the PMV valve as she forgets. Otherwise, patient denies fevers, chills, chest pain, shortness of breath, abdominal pain, nausea or vomiting. Moving her bowel bladder without difficulty. Review of Systems Review of Systems: All systems reviewed and are unremarkable except as noted in HPI and below Denies fevers, chills, headache, nasal congestion, sore throat, chest pain, shortness of breath, palpitations, orthopnea, PND, abdominal pain, nausea, vomiting, diarrhea, constipation, dysuria, hematuria, frequency, back pain, joint pain or swelling, easy bruising or bleeding, skin lesions or rashes. Physical Exam Physical Exam: General: Resting comfortably in her hospital bed. Does not appear ill or toxic. NAD. HEENT: Head is AT/NC. Buccal mucosa is moist and pink Neck: Trach in place. Trach collar noted. Sutures in place. No drainage from around the trach. Cardiac: RRR without M/G/R Lungs: Significantly diminished breath sounds in the left base. Scattered rhonc hi that mobilizes with coughing. Good cough effort noted. Abdomen: Normoactive X4. Soft and nontender in all quadrants. Extremities: No peripheral clubbing cyanosis or edema Neuro: A&O X4. Cranial nerves II through XII are grossly intact. No focal neuro deficits Skin: No obvious skin lesions or rashes Psych: Appropriate affect. Pleasant and cooperative Results & Data Results & Data ([facility]) Vital Signs (Past 12 Hours) Vital Signs Temp Pulse Resp BP Pulse Ox 08/09/21 07:22 36.9 C 82 16 117/68 100 Laboratory Results 08/09/21 06:12 08/09/21 06:12 Diagnostic Findings CTA: IMPRESSION: 1. No pulmonary emboli identified although exam mildly compromised by respiratory motion artifact. 2. Small left pleural effusion. Increase in left lower lobe and lingular opacity which favors atelectasis. An infectious process is considered less likely. 3. Moderate cardiomegaly and coronary calcification. 4. Increase in nonspecific left breast edema and skin thickening. 5. Interval tracheostomy. PG Care Time/CCT Total # of Minutes Spent Total Time Spent with Patient: Total time spent is greater than 50% in coordination of care (as documented) at patient's floor/unit and/or counseling patient: Coding Level of Care Code 93503 Subseq Hosp Care Lvl 2 Diagnoses Shock R57.9 Hypokalemia E87.6 Aspiration into airway T17.908A Status post tracheostomy Z93.0 History of DVT (deep vein thrombosis) Z86.718 Vocal cord paralysis, bilateral complete J38.02 Post-surgical hypothyroidism E89.0 Hx of papillary thyroid carcinoma Z85.850 History of medullary carcinoma of thyroid Z85.850 Metastatic colorectal cancer C19 CAD (coronary artery disease) I25.10 Neutropenia D70.9 Epigastric pain R10.13 Iron deficiency E61.1 Melena K92.1 LBBB (left bundle branch block) I44.7 Abnormal breast finding N64.59 DVT prophylaxis Z29.9
[2021-08-09] MEDS: TOPIRAMATE 100 MG TAB PO SCH (20:49)
[2021-08-10] MEDS: LEVOTHYROXINE SODIUM 112 MCG TABLET PO SCH (06:04)
[2021-08-10 06:53] LABS: Hematocrit (blood only) 31.7 % (37-47); Hemoglobin 10.2 g/dL (12.0-16.0); Mean Corpuscular Hemoglobin 33.7 pg (25-34); Mean Corpuscular Hgb Conc 32.2 g/dL (32-36); Mean Corpuscular Volume 104.6 fL (80-100); Mean Platelet Volume 9.6 fL (7.4-10.4); Platelet Count 186 K/uL (130-400); RDW Coefficient of Variation 18.4 % (11.5-14.5); RDW Standard Deviation 70.8 fL (36.4-46.3); Red Blood Count 3.03 M/uL (4.2-5.4); White Blood Count 6.25 K/uL (4.8-10.8)
[2021-08-10 07:16] LABS: BUN Creatinine Ratio 13.2 (10-20); Calcium 8.6 mg/dl (8.5-10.1); Creatinine Clr Calc Pharmacy 94.8 ml/min; Est GFR (African American) 113.9 ml/min; Est GFR (Non-African American) 98.2 ml/min; Magnesium 2.1 mg/dl (1.7-2.4); Potassium 3.6 mmol/L (3.5-5.1)
[2021-08-10] MEDS: CHOLECALCIFEROL 1,000 UNITS 25 MCG TAB PO SCH (08:26)
[2021-08-10] MEDS: lisinopril 20 MG TAB PO SCH ×2 (08:27→21:00)
[2021-08-10] MEDS: VERAPAMIL HCL 240 MG TABCR PO SCH ×2 (08:27→20:56)
[2021-08-10] MEDS: PANTOprazole 40 MG TAB PO SCH ×2 (08:27→20:56)
[2021-08-10] MEDS: ENOXAPARIN INJ 40 MG/0.4 ML SYR SQ SCH (08:27)
[2021-08-10] MEDS: SUCRALFATE 1 GM/10 ML UDC PO SCH ×4 (08:27→20:56)
[2021-08-10] MEDS: HYDROCORTISONE 10 MG TAB PO SCH ×2 (08:27→15:00)
[2021-08-10] MEDS: DOCUSATE SODIUM 100 MG CAP PO SCH ×2 (08:30→21:04)
[2021-08-10] MEDS: FAMOTIDINE 20 MG TAB PO SCH ×2 (09:49→21:04)
[2021-08-10] MEDS: GABAPENTIN 600 MG TAB PO SCH ×2 (15:00→20:56)
--- NOTE | 2021-08-10 15:50 | Hospitalist Progress Note ---
Date of Service August 10, 2021 Assessment & Plan (1) Shock: Plan: Resolved. Post-operative hypotension - started in PACU following her tracheostomy placement by Dr Dobbs. Suspect adrenal shock. Cortisol level post-op only 7. She had not been on steroids associated with her chemotherapy in nearly a month and was not on long- term steroids previously. Thus, level accurate. She rapidly improved with IV Hydrocortisone and copious IV fluids. Never had evidence of hemorrhagic, cardiogenic or obstructive shock. Negative procalcitonin, blood cx's negative - septic shock also ruled out. Tapering down hydrocortisone -now on 10 mg bid-wean down q2 days-can go to 5mg bid on 08/07 evening dose Stopped IV vanco/meropenem given neg blood cx's and no source of infection on exam/imaging. flu/RSV/COVID noted to be negative at time of admission. After blood pressures became hypertensive, resumed lisinopril 20mg PO BID and her home verapamil 240 mg p.o. twice daily For future procedures, would recommend stress dose steroids Given history of medullary thyroid cancer and now adrenal shock, would suggest referral to endocrinology as an outpatient and stress dose steroids in the future with any other surgeries or acute illnesses (2) Hypokalemia: Plan: replaced/resolved Continue KCl 20 mEq daily (3) Aspiration into airway: Plan: She has been having almost once daily episodes of coughing that resulted in posttussive emesis Respiratory therapy does note that they are finding small bites of food and what they are suctioning out of her trach Speech therapy has reassessed and encouraged patient wear the PMV when she is eating. In addition, nursing needs to help encourage this Continue suctioning as needed Respiratory and speech therapy have concerns with her ability to manage trach independently at home. Case management looking into rehab facilities to help assist with this CTA done 08/09 given hemoptysis, history of CA, postsurgical state, and history of PE in the past--> no PE or cardiopulmonary process. Chronic left-sided pleural effusion (4) Status post tracheostomy: Plan: s/p trach by Dr Dobbs for b/l vocal cord paralysis and obstructed glottis with 2mm opening-- 07/30 Doing well from ENT standpoint. Stable O2 sats on room air currently, but on trach collar with O2 flow only to provide humidity, but not because she is hypoxic Continue suctioning as needed speech therapy consult completed; fitted for passy sayda valve. passed bedside swallow -- diet advanced to regular with minced & moist texture, however with aspiration noted as above-see above (needs to remember to use PMV) Spoke with Dr. Dobbs today (08/09). Patient has been downsized. Sutures remain in place. Need to keep in place for at least 14 days for trach to mature. Still waiting for [facility] company for trach supplies, suction, O2, etc. at home. Speech therapy recommending long term facility to help with trach care but patient declines this Case management on board Continue respiratory therapy teaching of trach care also at home [facility] Follow-up with ENT for suture removal as scheduled (5) History of DVT (deep vein thrombosis): Plan: LU2019. Took lovenox daily up until late 2020 when patient self-discontinued her lovenox. b/l LE dopplers negative for DVT this admission. Pt recently saw Dr Perdomo in the anticoagulation clinic. She had advised lovenox 40mg once daily starting 24 hours post-op for prophylaxis. Cont lovenox 40mg daily. Patient is to CONTINUE the lovenox daily at home upon discharge. She confirmed with me she already has the lovenox at home and is comfortable with the injections since she has been on them in the past. (6) Vocal cord paralysis, bilateral complete: Plan: s/p tracheostomy by Dr Dobbs done 07/30 bilateral vocal cord paralysis secondary to previous thyroidectomy Needs to follow-up with Dr. Dobbs in the office for suture removal and exchange of trach tube after discharge (7) Post-surgical hypothyroidism: Plan: review of TSH levels over the last year shows wild swings either very high or suppressed. TSH this admission minimally elevated. cont levothyroxine 224mcg in meantime. would leave dose as is for now. (8) Hx of papillary thyroid carcinoma: Plan: 1982 s/p partial thyroidectomy (9) History of medullary carcinoma of thyroid: Plan: 1996 s/p complete thyroidectomy followed by radiation/radioactive iodine & radical neck dissection now with post-surgical hypothyroidism (10) Metastatic colorectal cancer: Plan: dx 12/[address] Abad. With diffuse RP and pelvic lymphadenopathy follows with [facility] - [facility]. last FOLFIRI chemo was 07/13/21. resulting chemo-induced leukopenia, neutropenia, thrombocytopenia, and anemia all of which are improving Follow CBC. neutropenic precautions. Follow-up with oncology after discharge-I discussed her care with her oncology provider on 08/09. Has FU scheduled for Sunday 08/13 at 1020 (11) CAD (coronary artery disease): Plan: no ischemic symptoms post-op. she is not on chronic aspirin therapy, beta torrey or statin. (12) Neutropenia: Plan: 2nd chemotherapy on 07/13. now resolved Fortunately no signs/symptoms of infection. Blood cx's negative. flu/RSV/COVID negative. (13) Epigastric pain: Plan: suspect gastritis in face of surgery, physical stress, chemo, etc-now resolved with increasing PPI to twice daily and adding Carafate Fecal occult is negative and her stool is brown in color Hemoglobin remained stable and increasing actually since receiving IV Venofer poor candidate for EGD given all of the above comorbidities. (14) Iron deficiency: Plan: Transferrin sat <20% ferritin is technically normal but would benefit from some Fe due to extensive blood draws this admission, ongoing anemia, etc. 200mg x 1 of Venofer given on 08/02 Venofer 300 Mg IV x1 given on 08/03 (15) Melena: Plan: Had black stools 1 day in the setting of epigastric pain Stool continues to be brown since then and hemoglobin improving as above heartburn/epigastric symptoms resolved with the increased PPI with carafate at discharge will continue PPI and Carafate (16) LBBB (left bundle branch block): Plan: at baseline the alternating narrowing/widening of her QRS seen on telemetry has been asymptomatic this may be a rate-related conduction delay nothing to do Have since transferred off of telemetry (17) Abnormal breast finding: Plan: with abnormal left breast on recent mammogram and breast US has upcoming appt with Dr. Petty to discuss breast biopsy Dr. Petty notified while in house to see if biopsy could be done while inpatient here but he prefers to wait until she is more stable-he will actually cancel her appt for 08/11 and push it back Her oncology provider is also aware of this (18) DVT prophylaxis: Plan: lovenox 40mg daily Plan: Disposition-have been awaiting trach supplies to be delivered to her house. RT/ST has concerns that she is unable to safely manage trach and are recommending short-term rehab to help with this-- patient declines this Case management on board Admission and Anticipated Discharge Date Admission Date: July 30, 2021 Subjective Patient seen on daily rounds today. Vocalizes no complaints or concerns. Denies fevers, chills, chest pain, shortness of breath, abdominal pain, nausea or vomiting. Has been since reevaluated by speech therapy. Patient was having issues with aspiration as she was forgetting to place the PMV when eating. Speech therapy believes patient is not safe to return home alone and would benefit from SNF for trach support/management. Patient ultimately declines this. She remains in house awaiting supplies for home trach care. Furthermore, she believes that speech therapy was very abrasive with her today a nd request either a different speech pathologist or no additional speech therapy while in house. Review of Systems Review of Systems: All systems reviewed and are unremarkable except as noted in HPI and below Denies fevers, chills, headache, nasal congestion, sore throat, cough, chest pain, shortness of breath, palpitations, orthopnea, PND, abdominal pain, nausea, vomiting, diarrhea, constipation, dysuria, hematuria, frequency, back pain, joint pain or swelling, easy bruising or bleeding, skin lesions or rashes. Physical Exam Physical Exam: General: Resting comfortably in her hospital bed. Does not appear ill or toxic. NAD. HEENT: Head is AT/NC. Buccal mucosa is moist and pink Neck: Trach in place. Trach collar noted. Sutures in place. No drainage from around the trach. Cardiac: RRR without M/G/R Lungs: Significantly diminished breath sounds in the left base. Scattered rhonchi that mobilizes with coughing. Good cough effort noted. Abdomen: Normoactive X4. Soft and nontender in all quadrants. Extremities: No peripheral clubbing cyanosis or edema Neuro: A&O X4. Cranial nerves II through XII are grossly intact. No focal neuro deficits Skin: No obvious skin lesions or rashes Psych: Appropriate affect. Pleasant and cooperative Results & Data Results & Data ([facility]) Vital Signs (Past 12 Hours) Vital Signs Temp Pulse Resp BP Pulse Ox 08/10/21 07:47 36.6 C 83 16 143/69 H 96 Laboratory Results 08/10/21 05:27 08/10/21 05:27 PG Care Time/CCT Total # of Minutes Spent Total Time Spent with Patient: Total time spent is greater than 50% in coordination of care (as documented) at patient's floor/unit and/or counseling patient: Coding Level of Care Code 68485 Subseq Hosp Care Lvl 2 Diagnoses Shock R57.9 Hypokalemia E87.6 Aspiration into airway T17.908A Status post tracheostomy Z93.0 History of DVT (deep vein thrombosis) Z86.718 Vocal cord paralysis, bilateral complete J38.02 Post-surgical hypothyroidism E89.0 Hx of papillary thyroid carcinoma Z85.850 History of medullary carcinoma of thyroid Z85.850 Metastatic colorectal cancer C19 CAD (coronary artery disease) I25.10 Neutropenia D70.9 Epigastric pain R10.13 Iron deficiency E61.1 Melena K92.1 LBBB (left bundle branch block) I44.7 Abnormal breast finding N64.59 DVT prophylaxis Z29.9
[2021-08-10] MEDS: TOPIRAMATE 100 MG TAB PO SCH (20:56)
[2021-08-11] MEDS: LEVOTHYROXINE SODIUM 112 MCG TABLET PO SCH (06:11)
[2021-08-11] MEDS ORDERED: HEPARIN 100 UNIT/ML 5ML FLUSH FLUSH PRN (08:24)
[2021-08-11] MEDS: PANTOprazole 40 MG TAB PO SCH ×2 (09:06→21:52)
[2021-08-11] MEDS: VERAPAMIL HCL 240 MG TABCR PO SCH ×2 (09:06→22:06)
[2021-08-11] MEDS: lisinopril 20 MG TAB PO SCH ×2 (09:06→22:06)
[2021-08-11] MEDS: guaiFENesin/DEXTROM SYRUP 200MG/20MG 10ML UDC PO PRN ×2 (09:06→09:08)
[2021-08-11] MEDS: HYDROCORTISONE 10 MG TAB PO SCH ×2 (09:06→15:22)
[2021-08-11] MEDS: GABAPENTIN 600 MG TAB PO SCH ×3 (09:07→21:52)
[2021-08-11] MEDS: DOCUSATE SODIUM 100 MG CAP PO SCH ×2 (09:08→21:52)
[2021-08-11] MEDS: SUCRALFATE 1 GM/10 ML UDC PO SCH ×4 (09:09→21:52)
[2021-08-11] MEDS: ENOXAPARIN INJ 40 MG/0.4 ML SYR SQ SCH (09:49)
[2021-08-11] MEDS: FAMOTIDINE 20 MG TAB PO SCH ×2 (09:49→21:52)
[2021-08-11] MEDS: CHOLECALCIFEROL 1,000 UNITS 25 MCG TAB PO SCH (09:49)
[2021-08-11] MEDS ORDERED: guaiFENesin SUGAR FREE 100 MG/5 ML UDC PO PRN (11:37)
--- NOTE | 2021-08-11 11:43 | Hospitalist Progress Note ---
Date of Service August 11, 2021 Assessment & Plan (1) Status post tracheostomy: Plan: s/p trach by Dr Dobbs for b/l vocal cord paralysis and obstructed glottis with 2mm opening-- 07/30 Doing well from ENT standpoint. Stable O2 sats on room air currently, but on trach collar with O2 flow only to provide humidity, but not because she is hypoxic Continue suctioning as needed speech therapy consult completed; fitted for passy sayda valve. passed bedside swallow -- diet advanced to regular with minced & moist texture -- Did have episode of aspiration given her forgetting to transition her speaking valve to PMV. Speech therapy believes she is not safe for discharge to home however no issues since Spoke with Dr. Dobbs (08/09). Patient has been downsized. Sutures remain in place. Need to keep in place for at least 14 days for trach to mature. He will evaluate her on 08/12 for suture removal Finally got authorization for her home trach supplies (evening of 08/11); however, no respiratory therapist available until 08/12. Would discharge on 08/12 (2) Shock: Plan: Resolved. Post-operative hypotension - started in PACU following her tracheostomy placement by Dr Dobbs. Suspect adrenal shock. Cortisol level post-op only 7. She had not been on steroids associated with her chemotherapy in nearly a month and was not on long- term steroids previously. Thus, level accurate. She rapidly improved with IV Hydrocortisone and copious IV fluids. Never had evidence of hemorrhagic, cardiogenic or obstructive shock. Negative procalcitonin, blood cx's negative - septic shock also ruled out. Received IV hydrocortisone transition to oral prednisone and has since been tapered off Stopped IV vanco/meropenem given neg blood cx's and no source of infection on exam/imaging. flu/RSV/COVID noted to be negative at time of admission. After blood pressures became hypertensive, resumed lisinopril 20mg PO BID and her home verapamil 240 mg p.o. twice daily For future procedures, would recommend stress dose steroids Given history of medullary thyroid cancer and now adrenal shock, would suggest referral to endocrinology as an outpatient and stress dose steroids in the future with any other surgeries or acute illnesses (3) Hypokalemia: Plan: replaced/resolved Continue KCl 20 mEq daily (4) Aspiration into airway: Plan: She has been having almost once daily episodes of coughing that resulted in posttussive emesis Respiratory therapy does note that they are finding small bites of food and what they are suctioning out of her trach Speech therapy has reassessed and encouraged patient wear the PMV when she is eating. In addition, nursing needs to help encourage this Continue suctioning as needed Respiratory and speech therapy have concerns with her ability to manage trach independently at home. Speech believes patient is unsafe for discharge to home; however, she has been doing rather well. She declines placement CTA done 08/09 given hemoptysis, history of CA, postsurgical state, and history of PE in the past--> no PE or cardiopulmonary process. Chronic left-sided pleural effusion (5) History of DVT (deep vein thrombosis): Plan: 2019. Took lovenox daily up until late 2020 when patient self-discontinued her lovenox. b/l LE dopplers negative for DVT this admission. Pt recently saw Dr Perdomo in the anticoagulation clinic. She had advised lovenox 40mg once daily starting 24 hours post-op for prophylaxis. Cont lovenox 40mg daily. Patient is to CONTINUE the lovenox daily at home upon discharge. She confirmed with me she already has the lovenox at home and is comfortable with the injections since she has been on them in the past. (6) Vocal cord paralysis, bilateral complete: Plan: s/p tracheostomy by Dr Dobbs done 07/30 bilateral vocal cord paralysis secondary to previous thyroidectomy Follow-up visit made for Wednesday 08/16 for suture removal; however, Dr. Dobbs will see patient in house on 08/12 prior to discharge. If sutures removed, can cancel follow-up appointment (7) Post-surgical hypothyroidism: Plan: review of TSH levels over the last year shows wild swings either very high or suppressed. TSH this admission minimally elevated. cont levothyroxine 224mcg in meantime. would leave dose as is for now. (8) Hx of papillary thyroid carcinoma: Plan: 1982 s/p partial thyroidectomy (9) History of medullary carcinoma of thyroid: Plan: 1996 s/p complete thyroidectomy followed by radiation/radioactive iodine & radical neck dissection now with post-surgical hypothyroidism (10) Metastatic colorectal cancer: Plan: dx 12/[address] Abad. With diffuse RP and pelvic lymphadenopathy follows with CARINE Townsend - [facility]. last FOLFIRI chemo was 07/13/21. resulting chemo-induced leukopenia, neutropenia, thrombocytopenia, and anemia all of which are improving Follow CBC. neutropenic precautions. Follow-up with oncology after discharge-I discussed her care with her oncology provider on 08/09. Has FU scheduled for Sunday 08/13 at 1020 (11) CAD (coronary artery disease): Plan: no ischemic symptoms post-op. she is not on chronic aspirin therapy, beta torrey or statin. (12) Neutropenia: Plan: 2nd chemotherapy on 07/13. now resolved Fortunately no signs/symptoms of infection. Blood cx's negative. flu/RSV/COVID negative. (13) Epigastric pain: Plan: Patient with intermittent epigastric pain, melanotic stools, and vomitingsuspect all dyspepsia Not ideal candidate for EGD On empiric PPI/H2 blockade/Carafate--would continue these upon discharge Patient has recently cut out lactose and feels better on this Feels that gluten may be an issue. Requesting a gluten-free diet. Diet has since been changed. Lengthy discussion with her regarding the daunting task adhering to this diet and if unnecessary, huge burden. She would like to maintain a gluten-free diet for now Patient is mildly anemic. Iron level 31 for which Venofer given IV Would continue oral iron supplementation with follow-up labs to trend (14) Abnormal breast finding: Plan: with abnormal left breast on recent mammogram and breast US has upcoming appt with Dr. Petty to discuss breast biopsy Dr. Petty notified while in house to see if biopsy could be done while inpatient here but he prefers to wait until she is more stable-he will actually cancel her appt for 08/11 and push it back Her oncology provider is also aware of this (15) DVT prophylaxis: Plan: lovenox 40mg daily Plan: Disposition-have been awaiting trach supplies to be delivered to her house. RT/ST has concerns that she is unable to safely manage trach and are recommending short-term rehab to help with this-- patient declines this can likely D/C on 08/12 Case management on board Admission and Anticipated Discharge Date Admission Date: July 30, 2021 Subjective Patient seen on daily rounds today. Had a bout of emesis last night. Was not on account of coughing. Claims "drank apple juice and it just came right back up". She has been having GI issues ongoing for weeks to months. Has been diagnosed with IBS with mixed diarrhea and constipation ongoing for years. Increased GI issues over the past several weeks causing her to eliminate lactose from her diet. This has made an improvement. Starting to believe that she may have gluten intolerance and is requesting gluten be eliminated from her diet. Denies abdominal pain, melena or hematochezia. No nausea but intermittent emesis. Reports "things just come off". Recently started on max dose Protonix/Pepcid and Carafate for reflux. Review of Systems Review of Systems: All systems reviewed and are unremarkable except as noted in HPI and below Denies fevers, chills, headache, nasal congestion, sore throat, cough, chest pain, shortness of breath, palpitations, orthopnea, PND, abdominal pain,, dysuria, hematuria, frequency, back pain, joint pain or swelling, easy bruising or bleeding, skin lesions or rashes. Physical Exam Physical Exam: General: Resting comfortably in her hospital bed. Does not appear ill or toxic. NAD. HEENT: Head is AT/NC. Buccal mucosa is moist and pink Neck: Trach in place. Speaking valve in place today. Sutures in place. No drainage from around the trach. Cardiac: RRR without M/G/R Lungs: Significantly diminished breath sounds in the left base. Scattered rhonchi that mobilizes with coughing. Good cough effort noted. Abdomen: Normoactive X4. Soft and nontender in all quadrants. Extremities: No peripheral clubbing cyanosis or edema Neuro: A&O X4. Cranial nerves II through XII are grossly intact. No focal neuro deficits Skin: No obvious skin lesions or rashes Psych: Appropriate affect. Pleasant and cooperative Results & Data Results & Data ([facility]) Vital Signs (Past 12 Hours) Vital Signs Temp Pulse Resp BP Pulse Ox 08/11/21 07:25 36.7 C 78 16 122/72 97 Laboratory Results No lab data today PG Care Time/CCT Total # of Minutes Spent Total Time Spent with Patient: Total time spent is greater than 50% in coordination of care (as documented) at patient's floor/unit and/or counseling patient: Coding Level of Care Code 29107 Subseq Hosp Care Lvl 2 Diagnoses Shock R57.9 Hypokalemia E87.6 Aspiration into airway T17.908A Status post tracheostomy Z93.0 History of DVT (deep vein thrombosis) Z86.718 Vocal cord paralysis, bilateral complete J38.02 Post-surgical hypothyroidism E89.0 Hx of papillary thyroid carcinoma Z85.850 History of medullary carcinoma of thyroid Z85.850 Metastatic colorectal cancer C19 CAD (coronary artery disease) I25.10 Neutropenia D70.9 Epigastric pain R10.13 Abnormal breast finding N64.59 DVT prophylaxis Z29.9
--- NOTE | 2021-08-11 18:34 | Ears,Nose,Throat Progress Note ---
Date of Service August 11, 2021 Assessment & Plan (1) Status post tracheostomy: Plan: I remove the 4 corner stay sutures on the trach. The tracheal flap suture still in place at the inferior border which holds the cartilage flap to the skin. I will remove this when she comes back to the office. Continue trach care. Please do not hesitate to call me if any problems. Admission and Anticipated Discharge Date Admission Date: July 30, 2021 Subjective This 65-year-old lady is 2 weeks status post tracheostomy for bilateral vocal cord paralysis, breathing well, able to speak, able to walk without shortness of breath. Physical Exam Neck: trachea midline, no thyromegaly Trach sutures removed, in good position, Results & Data ([facility]) Vital Signs (Past 12 Hours) Vital Signs Temp Pulse Resp BP Pulse Ox 08/11/21 14:46 36.6 C 82 16 123/70 99 08/11/21 07:25 36.7 C 78 16 122/72 97
[2021-08-11] MEDS: TOPIRAMATE 100 MG TAB PO SCH (21:52)
[2021-08-12] MEDS: LEVOTHYROXINE SODIUM 112 MCG TABLET PO SCH (05:58)
[2021-08-12] MEDS ORDERED: HYDROCORTISONE 10 MG TAB PO ONE (07:11)
[2021-08-12] MEDS ORDERED: FERROUS SULFATE 325 MG TAB PO SCH (09:00)
[2021-08-12] MEDS: CHOLECALCIFEROL 1,000 UNITS 25 MCG TAB PO SCH (09:04)
[2021-08-12] MEDS: DOCUSATE SODIUM 100 MG CAP PO SCH (09:05)
[2021-08-12] MEDS: VERAPAMIL HCL 240 MG TABCR PO SCH (09:23)
[2021-08-12] MEDS: GABAPENTIN 600 MG TAB PO SCH (09:23)
[2021-08-12] MEDS: FAMOTIDINE 20 MG TAB PO SCH (09:25)
[2021-08-12] MEDS: SUCRALFATE 1 GM/10 ML UDC PO SCH (09:25)
[2021-08-12] MEDS: lisinopril 20 MG TAB PO SCH (09:25)
[2021-08-12] MEDS: ENOXAPARIN INJ 40 MG/0.4 ML SYR SQ SCH (09:25)
[2021-08-12] MEDS: PANTOprazole 40 MG TAB PO SCH (09:25)
--- NOTE | 2021-08-12 11:33 | Discharge Summary ---
Date of Service August 12, 2021 Admission HPI Per Admitting Provider 65yo female with stage 4 colorectal cancer currently on FOLFIRI chemo regimen managed at the [facility] (last chemo 07/13/21) and remote h/o thyroid cancer s/p thyroidectomy with resulting right-sided vocal cord paralysis who recently had developed hoarseness of voice. This led to a CT neck and then ultimately referral to Dr Dobbs in the ENT office. He performed laryngoscopy during a recent office visit which showed her chronic R-sided vocal cord paralysis but he also saw that the left vocal cord was paralyzed. Additionally she had a 2mm glotis. Preparations were made for tracheostomy which was per formed today by Dr Dobbs without apparent complication. Per anesthesia she received 1mg of versed and a small amount of precedex. Upon arrival in the PACU her SBP was 70. She was given a bolus of 5% albumin followed by 500cc of LR. Upon my arrival for evaluation her SBP was 75-80. I asked nursing to finish the current bag of LR to complete a full 1000cc bolus. SBP was high 80s by the end of my admission assessment. Notably the patient denies feeling ill prior to her procedure today except for some runny nose. Post-op she denied chest pain, dyspnea, abdominal pain, headache, fevers, chi lls. She thinks that she took her verapamil this am but not her lisinopril. She ate/drank normally yesterday and had no emesis or diarrhea. Of note - I spoke with CARINE Zavala, who follows [facility]. She confirmed that the patient had received dexamethasone 10mg IV x 1 on 07/13/21 but is NOT on chronic steroids. She also confirmed that her port does not allow blood draws but flushes fine and can be used for IV fluids, etc. Principal Diagnosis Vocal cord paralysis s/p tracheostomy Adrenal crisis Hypokalemia -- replaced/resolved Discharge Exam GENERAL: 65 yo well-developed, well-nourished WF. NAD. HENT: Moist mucous membranes. Trach in place. Valve in place. No drainage/bleeding around site. LUNGS: Clear to auscultation bilaterally. No W/R/R. CARDIOVASCULAR: Regular rate and rhythm. No M/G/R. No JVD. ABDOMEN: Soft, non-tender and non-distended. BS normoactive x 4 quad. EXTREMITIES: No edema. Non-tender. Peripheral pulses +2/4. NEUROLOGIC: A&O x3. No focal neurological deficits. PSYCHIATRIC: Cooperative. Appropriate mood and affect. SKIN: Warm, dry, intact. No rashes or lesions. Discharge Data Allergies Allergy/AdvReac Type Severity Reaction Status Date / Time Iodinated Contrast Media Allergy Intermediate Hives Verified 07/30/21 09:49 Penicillins Allergy Intermediate Hives Verified 07/30/21 09:49 Sulfa (Sulfonamide Allergy Intermediate Hives Verified 07/30/21 09:49 Antibiotics) Consultations 07/30/21 13:21 Consult Internal Medicine Routine 07/30/21 15:36 Consult Butter Wrapper Routine Procedures Performed Operation Date: 07/30/21 11:05 Actual Procedures p Tracheostomy(Not Applicable) - Jessica Dobbs MD Ordered Studies Chest X-Ray 07/30/21 14:20 XR chest 1V portable HISTORY: 65 years-old Female shock, trach placement status post placement of a tracheostomy cannula COMPARISON: CTA chest 06/22/2021, chest radiograph 03/23/2020 TECHNIQUE: Portable AP view of the chest FINDINGS: The cardiac silhouette is enlarged. Tracheostomy cannula overlies the midline. Surgical clips project over the left neck. Left IJ central venous catheter distal tip terminates in the expected location of the brachiocephalic SVC confluence. No pneumothorax. Mild blunting of the left costophrenic angle with mild left basilar opacities. There is mild left hemidiaphragmatic elevation. No overt pulmonary edema. Surgical clips of the right upper quadrant abdomen. The bones appear grossly intact. IMPRESSION: 1. Status post placement of a tracheostomy cannula. 2. Cardiomegaly without pulmonary edema. 3. Small left pleural effusion with left lung base opacities suggestive of atelectasis versus pneumonitis. ACT 112: Negative or not required by law. The above report was generated using voice recognition software. It may contain grammatical, syntax or spelling errors. Electronically signed by: Igor Gamino M.D. 07/30/2021 2:44 PM Venous Doppler Study 07/31/21 00:00 US venous doppler LE BI CLINICAL HISTORY: Bilateral leg swelling and pain COMPARISON: None available at the time of this dictation. TECHNIQUE: Bilateral lower extremity real-time compression venous ultrasound with Color Doppler imaging. Utilizing real-time ultrasonic imaging multiple real time high-resolution ultrasonic images with compression and noncompression maneuvers of the deep veno us system in addition to color doppler imaging were performed from the common femoral vein through the proximal calf veins. FINDINGS: Currently there is normal compressibility of the deep venous system from the common femoral vein through the proximal calf veins. No current evidence of acute thrombosis is identified. There is evidence for a popliteal cyst on the right measuring 5.5 x 1.4 x 2.9 cm. Impression: No evidence of deep venous thrombus. Evidence for a popliteal cyst on the right. ACT 112: Negative or not required by law. Electronically signed by: Mikel Valentine M.D. 07/31/2021 8:47 AM Chest X-Ray 07/31/21 08:20 XR chest 1V portable CLINICAL HISTORY: Follow up left pleural effusion and alveolar opacities. COMPARISON STUDY: 07/30/2021 TECHNIQUE: 1 view of the chest FINDINGS: Single frontal view of the chest demonstrates the heart to again be enlarged. Tracheostomy tube is again seen. Is again evidence for left pleural effusion and alveolar opacities at the left lung base. Findings are again characteristic of atelectasis versus pneumonia. There is no evidence for right pleural effusion. The right hemithorax is clear. There is no evidence for vascular congestion. There is no acute osseous pathology. IMPRESSION: 1. Persistent small left pleural effusion and left basilar alveolar opacities, again characteristic of atelectasis versus early pneumonia. ACT 112: Negative or not required by law. Electronically signed by: Mikel Valentine M.D. 07/31/2021 9:00 AM Chest CTA 08/09/21 08:25 CT ANGIOGRAPHY OF THE CHEST, PULMONARY EMBOLUS PROTOCOL CLINICAL HISTORY: Hemoptysis. Evaluate for pulmonary embolus. COMPARISON STUDY: Chest CT June 22, 2021. Chest radiograph July 31, 2021. TECHNIQUE: Following IV administration of 119 mL of Optiray, helical axial images of the chest were obtained utilizing the pulmonary embolus protocol. Maximal intensity projections and sagittal and coronal reformats were viewed on an independent 3D workstation. IV contrast was administered without complication. Automated exposure control was utilized for the study. A dose lowering technique was utilized adhering to the principles of ALARA. CT DOSE: 455.51 mGycm FINDINGS: No pulmonary emboli are identified although this exam is mildly compromised by respiratory motion. A centrally calcified right upper lobe nodule is unchanged. This is benign. Cardiomegaly is noted. There is no pericardial effusion. There is moderate coronary artery calcification. No enlarged thoracic lymph nodes are present. Interval tracheostomy is noted. Subtle mediastinal stranding is unchanged since prior exam. A small left pleural effusion has developed since prior CT. There is extensive left lower lobe airspace opacity with volume loss. Lingular opacity is also noted with mild volume loss. There is no pneumothorax. Paramediastinal opacities may reflect postradiation change. Central airways are patent. Asymmetric left breast edema and skin thickening is partially imaged but this has progressed since CT of June 22, 2021. This remains nonspecific. A right lower thoracic paraspinal nodule measuring 2.2 x 1 cm is unchanged. Mild splenomegaly is unchanged. Multiple splenic lesions are better depicted on prior exams. Sclerosis within the sternum and medial clavicles is unchanged. These may reflect bone infarcts. IMPRESSION: 1. No pulmonary emboli identified although exam mildly compromised by respiratory motion artifact. 2. Small left pleural effusion. Increase in left lower lobe and lingular opacity which favors atelectasis. An infectious process is considered less likely. 3. Moderate cardiomegaly and coronary calcification. 4. Increase in nonspecific left breast edema and skin thickening. 5. Interval tracheostomy. ACT 112: Negative or not required by law. Electronically signed by: Miles Bunch M.D. 08/09/2021 11:09 AM Hospital Course (1) Status post tracheostomy: s/p trach by Dr Dobbs for b/l vocal cord paralysis and obstructed glottis with 2mm opening-- 07/30 Doing well from ENT standpoint. Stable O2 sats on room air currently, but on trach collar with O2 flow only to provide humidity, but not because she is hypoxic Continue suctioning as needed speech therapy consult completed; fitted for passy sayda valve. passed bedside swallow -- diet advanced to regular with minced & moist texture -- Did have episode of aspiration given her forgetting to transition her speaking valve to PMV. Speech therapy believes she is not safe for discharge to home however no issues since Spoke with Dr. Dobbs (08/09). Patient has been downsized. Sutures remain in place. Need to keep in place for at least 14 days for trach to mature. He will evaluate her on 08/12 for suture removal Finally got authorization for her home trach supplies (evening of 08/11); however, no respiratory therapist available until 08/12. (2) Shock: Resolved. Post-operative hypotension - started in PACU following her tracheostomy placement by Dr Dobbs. Suspect adrenal shock. Cortisol level post-op only 7. She had not been on steroids associated with her chemotherapy in nearly a month and was not on long- term steroids previously. Thus, level accurate. She rapidly improved with IV Hydrocortisone and copious IV fluids. Never had evidence of hemorrhagic, cardiogenic or obstructive shock. Negative procalcitonin, blood cx's negative - septic shock also ruled out. Received IV hydrocortisone transition to oral prednisone and has since been tapered off Stopped IV vanco/meropenem given neg blood cx's and no source of infection on exam/imaging. flu/RSV/COVID noted to be negative at time of admission. After blood pressures became hypertensive, resumed lisinopril 20mg PO BID and her home verapamil 240 mg p.o. twice daily For future procedures, would recommend stress dose steroids Given history of medullary thyroid cancer and now adrenal shock, would consider referral to endocrinology as an outpatient and stress dose steroids in the future with any other surgeries or acute illnesses (3) Hypokalemia: replaced/resolved Continue KCl 20 mEq daily (4) Aspiration into airway: She has been having almost once daily episodes of coughing that resulted in posttussive emesis Respiratory therapy does note that they are finding small bites of food and what they are suctioning out of her trach Speech therapy has reassessed and encouraged patient wear the PMV when she is eating. In addition, nursing needs to help encourage this Continue suctioning as needed Respiratory and speech therapy have concerns with her ability to manage trach independently at home. Speech believes patient is unsafe for discharge to home; however, she has been doing rather well. She declines placement CTA done 08/09 given hemoptysis, history of CA, postsurgical state, and history of PE in the past--> no PE or cardiopulmonary process. Chronic left-sided pleural effusion (5) History of DVT (deep vein thrombosis): JORGE 2019. Took lovenox daily up until late 2020 when patient self-discontinued her lovenox. b/l LE dopplers negative for DVT this admission. Pt recently saw Dr Perdomo in the anticoagulation clinic. She had advised lovenox 40mg once daily starting 24 hours post-op for prophylaxis. Cont lovenox 40mg daily. Patient is to CONTINUE the lovenox daily at home upon discharge. She confirmed with me she already has the lovenox at home and is comfortable with the injections since she has been on them in the past. (6) Vocal cord paralysis, bilateral complete: s/p tracheostomy by Dr Dobbs done 07/30 bilateral vocal cord paralysis secondary to previous thyroidectomy Follow-up visit made for Wednesday 08/16 for suture removal; however, Dr. Dobbs will see patient in house on 08/12 prior to discharge. If sutures removed, can cancel follow-up appointment (7) Post-surgical hypothyroidism: review of TSH levels over the last year shows wild swings either very high or suppressed. TSH this admission minimally elevated. cont levothyroxine 224mcg in meantime. would leave dose as is for now. 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 With diffuse RP and pelvic lymphadenopathy follows with CARINE Townsend - CCP. last FOLFIRI chemo was 07/13/21. resulting chemo-induced leukopenia, neutropenia, thrombocytopenia, and anemia all of which are improving Follow CBC. neutropenic precautions. Follow-up with oncology after discharge-I discussed her care with her oncology provider on 08/09. Has FU scheduled for Sunday 08/13 at 1020 (11) CAD (coronary artery disease): no ischemic symptoms post-op. she is not on chronic aspirin therapy, beta torrey or statin. (12) Neutropenia: 2nd chemotherapy on 07/13. now resolved Fortunately no signs/symptoms of infection. Blood cx's negative. flu/RSV/COVID negative. (13) Epigastric pain: Patient with intermittent epigastric pain, melanotic stools, and vomitingsuspect all dyspepsia Not ideal candidate for EGD On empiric PPI/H2 blockade/Carafate--would continue these upon discharge Patient has recently cut out lactose and feels better on this Feels that gluten may be an issue. Requesting a gluten-free diet. Diet has since been changed. Lengthy discussion with her regarding the daunting task adhering to this diet and if unnecessary, huge burden. She would like to maintain a gluten-free diet for now Patient is mildly anemic. Iron level 31 for which Venofer given IV Would continue oral iron supplementation with follow-up labs to trend--will defer to PCP (14) Abnormal breast finding: with abnormal left breast on recent mammogram and breast US has upcoming appt with Dr. Petty to discuss breast biopsy Dr. Petty notified while in house to see if biopsy could be done while inpatient here but he prefers to wait until she is more stable-he will actually cancel her appt for 08/11 and push it back Her oncology provider is also aware of this (15) DVT prophylaxis: lovenox 40mg provided while in house and will be continued daily upon d/c as outlined above RT/ST has concerns that she is unable to safely manage trach and are recommending short-term rehab to help with this-- patient declines this. Patient was seen on rounds today, she is medically and hemodynamically stable for discharge home today. Above plan of care has been d/w Dr. Enrqiuez who has also seen and evaluated this patient prior to discharge. Total Time Total Time Spent Total Time Spent (In Minutes): >30 minutes Discharge Plan Discharge Items Patient Disposition: Home - Home Health Services Reason For Visit: Vocal Cord Paralysis, Bilateral Complete Discharge Diagnosis: vocal cord paralysis s/p tracheostomy Activity: Per Instructions section Bathing: No limitations Non-emergency contact: Primary Care Provider, Surgeon and Oncologist Call non-emergency contact if: you have any medication questions and you have a fever Follow-up/Referrals: Jessica Dobbs MD [Physician] - 08/16/21 4:15 pm Karen Cao PA-C [Primary Care Provider] - Diet: Regular Diet Texture: Easy to Chew Addtl Attending Provider Instructions: ACTIVITY: Most patients are able to return to a full-time work schedule in 1 week; however this may vary according to your job. It may take longer to return to heavy physical or other demanding work, or shorter if you are feeling well. Do NOT drive a car until you are able to turn the neck side to side, which may take 1-[address] you are taking pain medicines. DIET: You may have temporary throat discomfort or difficulty swallowing. This is due to the surgery around your larynx (voice box) and esophagus (swallowing tube). These symptoms will gradually improve over the course of several weeks. Drink and eat foods that can be swallowed easily, e.g. juice, soup, gelatin, applesauce, scrambled eggs or mashed potatoes. You may be able to return to your usual diet in a couple of days. INCISION CARE: You may shower 24 hours after surgery but please do not swim or soak in a tub for at least 2 weeks. After you are done showering, just pat your incision dry. If it is draining clear fluid, you can cover it with a dry dressing (such as gauze). Do NOT scrub with soap or washcloth for the first 10 days. Mild swelling at the incision site will go away in 4-6 weeks. The pink line will slowly fade to white during the next 6-12 months. Use a sunscreen (SPF#30 or higher) or wear a scarf for protection if in the sun for the first 6 months to a year as the sun can darken your scar. You may begin to use a hypoallergenic moisturizing cream (no vitamin E, Mederma, or other scar creams) along the incision after 2 weeks. COMMON PROBLEMS: Numbness of the skin under the chin or above the incision is normal and should go away in a few weeks. You may feel a lump or pressure in your throat sensation when swallowing for a few days. Your incision may feel itchy while it heals. Avoid rubbing or scratching if possible. You may feel neck stiffness, tightness or a pulling feeling. Some people prefer to sleep with an extra pillow for the first few days after the surgery, this helps keep swelling around your incision to a minimum. Your voice may be hoarse or weak. Pitch or tone may change. You may have difficulty singing. This usually goes back to normal over 6 weeks to 6 months. After surgery, you may notice a change in your mood, emotional ups and downs, depression, irritability or fatigue and weakness. These changes will get better as time passes. You do not need to be at bed rest, being active is normally well tolerated within reason. CALL YOUR DOCTOR IF: For any non-urgent questions, call Dr. Rutledge office or the nursing unit where you were a patient. Call Dr. Dobbs [phone] or go to the Emergency Room if you have fever (temperature greater than 100.5), chills, lightheadedness, shortness of breath, difficulty breathing, nausea, vomiting, numbness or tingling in your fingers, hands, or mouth, muscle spasms, or if you notice signs of wound infection (redness, tenderness, or drainage from the incision). Please also call or go to the Emergency Room if you have any other urgent concerns. FOLLOW UP VISIT: Follow-up visit with Dr. Dobbs on Monday a week for suture removal or next Monday if there is a drain. Please to schedule if not already scheduled. Pending Studies at Discharge: No Stand-Alone Forms: My [facility] Insticator, Smoking Cessation Medications and DC Order Prescriptions: New oxycodone-acetaminophen [Percocet] 5-325 mg tablet 1 tab PO Q4H PRN (Reason: pain) Qty: 20 RF: 0 famotidine 20 mg Tablet 20 mg PO BID Qty: 60 RF: 0 pantoprazole 40 mg Tablet,Delayed Release (Dr/Ec) 40 mg PO BID Qty: 60 RF: 0 ferrous sulfate 325 mg (65 mg iron) Tablet,Delayed Release (Dr/Ec) 325 mg PO QAM Qty: 30 RF: 0 sucralfate 100 mg/mL Suspension 10 ml PO QID Qty: 1200 RF: 0 Continued gabapentin 300 mg capsule 600 mg PO TID RF: 0 VITAMIN B6 OTC 1 tab PO QAM RF: 0 cholecalciferol (vitamin D3) 50 mcg (2,000 unit) capsule 2,000 unit PO QAM RF: 0 enoxaparin 40 mg/0.4 mL syringe 40 mg subcut Q24H Qty: 30 RF: 2 acetaminophen [Tylenol Extra Strength] 500 mg tablet 1,000 mg PO BID PRN (Reason: Pain) RF: 0 topiramate [Topamax] 200 mg tablet 200 mg PO HS RF: 0 verapamil 240 mg Tablet Extended Release 240 mg PO BID RF: 0 lisinopril 10 mg tablet 20 mg PO BID RF: 0 albuterol sulfate 90 mcg/actuation Hfa Aerosol Inhaler 1 inh INHALATION QID PRN (Reason: sob) RF: 0 levothyroxine 112 mcg tablet 224 mcg PO QAM RF: 0 potassium chloride 20 mEq Tablet Extended Release 20 meq PO QAM RF: 0 Discharge Orders: Discharge Order (Routine); Ordered 08/12/21 Ordered By: Rica Coy Admission Data Admit Date/Time: 07/30/21 15:47 Attending Provider: Obinna Enriquez Admit Provider: Obinna Enriquez Primary Care Provider: Karen Cao Other Providers: [facility],Home Healthcare ; Rafael Barclay ; Obinna Enriquez Coding Level of Care Code D/C DAY MANAGEMENT >30 MINS Diagnoses Status post tracheostomy Z93.0 Shock R57.9 Hypokalemia E87.6 Aspiration into airway T17.908A History of DVT (deep vein thrombosis) Z86.718 Vocal cord paralysis, bilateral complete J38.02 Post-surgical hypothyroidism E89.0 Hx of papillary thyroid carcinoma Z85.850 History of medullary carcinoma of thyroid Z85.850 Metastatic colorectal cancer C19 CAD (coronary artery disease) I25.10 Neutropenia D70.9 Epigastric pain R10.13 Abnormal breast finding N64.59 DVT prophylaxis Z29.9 Home Health Attestation I certify that this patient is under my care and that I, or a physicians event marketing assistant working with me, had a face to-face encounter that meets the home health [id number] encounter requirements with this patient. The encounter with the patient was in whole, or in part, for the following medical condition, which is the primary reason for home health care (list medical condition): I certify that, based on my findings, the following services are medically necessary home health services: My clinical findings support the need for the above services because: Further, I certify that my clinical findings support that this patient is homebo und (i.e. absences from home require considerable and taxing effort and are for medical reasons or taoism services or infrequently or of short duration when for other reasons) because: Certification for Home Health Services: Based on the above findings, I certify that this patient is confined to the home and needs intermittent mcfp care, physical therapy and/or speech therapy or continues to need occupational therapy. The patient is under my care, and I have initiated the establishment of the plan of care. This patient will b e followed by a physician who will periodically review the plan of care.
[2021-08-12 16:09] LABS: IgA Serum 163 mg/dL (70-320); Tis Trans IgA <1.0 U/mL
== END 2021-08-12 12:18 | disposition home health service (06) | DRG 11 ==
LOC: ASU 09:06 → 1E 15:47 → SUATTDRO 15:47 → 2S 08-03 15:25 → 3E 08-07 11:20
PROC: M.TRACH (2021-07-30 11:05)

== ENCOUNTER 2021-08-15 14:04 | Inpatient (IN) ==
--- NOTE | 2021-08-15 14:25 | Emergency Department Note ---
Impression & Plan Acute non-ST elevation myocardial infarction (NSTEMI), Abnormal EKG, Elevated troponin I level ED Provider Note NAME: NEDA DONIS AGE: 65 SEX: F : 1955 ARRIVES VIA: Walk-In INFORMANT: Patient, the patient's family member ED PROVIDER(S): Kris Dowling DO CHIEF COMPLAINT: Difficulty breathing HPI: The patient is a 65-year-old female who presented to the emergency department with family members for an evaluation of difficulty breathing. Apparently the patient had a recent discharge from our facility after having a tracheostomy with ear nose and throat. The patient states that over the last few days she is noticing increasing difficulty suctioning the trach. She also notices severe difficulty breathing and air hunger. She is been compliant with her outpatient medications. She does not notice any fever. She does complain of some chest discomfort as well as significant difficulty breathing. She states her symptoms worsen with any ambulation. She also has trouble lying flat. The patient had a tracheostomy because of scarring in her upper airway from radiation for a thyroid cancer. The patient states her symptoms are moderate to severe. ROS: See above HPI for pertinent positives & negatives. A total of 10 systems reviewed and were otherwise negative. PAST MEDICAL HISTORY: See Below PAST SURGICAL HISTORY: See Below FAMILY HISTORY: See Below SOCIAL HISTORY: See Below HOME MEDICATIONS: See Below ALLERGIES: See Below VITALS: See Below PHYSICAL EXAMINATION: GENERAL: The patient is awake and alert. She is very anxious appearing. EYES: The conjunctivae are clear. The pupils are round and reactive. EARS, NOSE, MOUTH AND THROAT: The nose is without any evidence of any deformity. NECK: Tracheostomy is noted in place. There is no subcutaneous air or drainage noted around it. RESPIRATORY: Diminished breath sounds are noted in the right lung field. There is significant tachypnea. CARDIOVASCULAR: Regular rate and rhythm noted there no murmurs rubs or gallops normal S1 normal S2. GASTROINTESTINAL: The abdomen is soft. Abdomen is nontender. MUSCULOSKELETAL/EXTREMITIES: There is no evidence of gross deformity full range of motion is noted in the hips and shoulders. SKIN: There is no obvious evidence of any rash. There are no petechiae, pallor or cyanosis noted. NEUROLOGIC: Patient is awake alert and oriented x3. MEDICAL DECISION MAKING: The patient is a 65-year-old female who presented to the emergency department for an evaluation of difficulty breathing and chest pain. The patient was found to have a very abnormal EKG. Troponin was also elevated. I discussed the patient's laboratory and radiographic studies with her. I also discussed her case with her primary ENT doctor. At this time the tracheostomy appears to be functioning well. I would wonder if the patient's discomfort and difficulty breathing could be more consistent with an ischemic process. I discussed her condition with the on-call [facility] hospitalist. I will defer heparinization to their judgment after evaluation. The patient at this time is resting much more comfortably. Her EKG shows changes from previous. She was treated with [facility] emergency department in case they decided they wanted to do CT angiography to rule out pulmonary venous thromboembolic disease. The patient does have a history of DVT in the left upper extremity. She is on Lovenox which she states she is been compliant with all of her usual outpatient medications. Triage Nursing notes reviewed. Prior medical records reviewed Vital Signs: reviewed and remarkable for tachycardia. Differential diagnosis: Reactive airway disease, pneumonia, pneumothorax, COPD, CHF, infections, cardiac ischemia, pulmonary embolism, musculoskeletal, gastrointestinal, as well as other pathologies. ER treatment provided: See below Diagnostics interpreted by me: ECG: EKG was obtained in the emergency department. My interpretation is sinus tachycardia 115 bpm. There was no ectopy. Anterior T wave inversions with nonspecific ST segment abnormalities were noted. This was compared to a tracing from July 30, 2021. The changes are new compared to the previous tracing. Cardiac Monitoring: An order was placed for continuous cardiac monitoring. The monitor shows a rate of with rhythm. Laboratory studies: As stated above and show below. Imaging studies: See below Consultation(s): I discussed this case with Dr. Dobbs is the patient's primary ENT doctor. I discussed this case with Dr. Chino who is on-call for the [facility] hospitalist group. Past Med/Surg History Medical History Anxiety Complete left bundle branch block (LBBB) Chronic per cardio note Deep vein thrombosis (DVT) left upper extremity of the internal jugular, subclavian and axillary vein diagnosed 02/2020-Lovenox 80 mg SubQ daily up until fall 2020 at which time patient stopped the lovenox. Depression Facial paresthesia chronic without change GERD (gastroesophageal reflux disease) controlled, stable per pt History of medullary carcinoma of thyroid Hx of papillary thyroid carcinoma Hyperlipidemia no meds Hypertension Hypothyroidism Post ablative Irritable bowel syndrome with constipation Myocardial Infarction 2003 Rectal cancer with liver metastasis, follows with CCP, receiving chemo Scars right side of neck d/t radiation Sleep apnea bipap-compliant Stroke "few old punctate lacunar infarcts seen within the left cerebellar elvi sphere" MRI brain 2020 Thyroid cancer Follicular thyroid cancer 1982--s/p partial thyroidectomy, chemo, radiation Medullary thyroid cancer 1996-- s/p complete thyroidectomy, radical neck dissection, radiation/radioactive iodine Transient hypotension Vocal cord paralysis, bilateral complete severe---very difficulty for pt to talk Surgical History Difficult airway for intubation small airway -- has laryngeal implant - states use size 6.0 ETT with caution History of appendectomy History of bilateral tubal ligation History of cholecystectomy History of colonoscopy had last 12/24/[address] Abad--found rectal c.a. History of endoscopic sinus surgery History of esophagogastroduodenoscopy (EGD) History of hysterectomy with unilateral oophorectomy removed right d/t endometriosis History of radical dissection of right side of neck History of right inguinal hernia repair History of surgery part of vocal cord removed -- has laryngeal implant History of thyroidectomy, total History of tonsillectomy and adenoidectomy per patient surgery was done twice History of tooth extraction with permnant bridge History of vascular access device mediport in place--pt states is currently using for chemo Family History Mother Family history of diabetes mellitus Uncle Family history of diabetes mellitus Grandmother Breast cancer Hypertension Diabetes Grandfather Heart disease Other No family history of adverse response to anesthesia Social History Smoking Status: Never smoker Second Hand Exposure: Yes; Hx Alcohol Use: No Hx Substance Use: No Preferred Language: Indonesian Communication Ability: Effective [place] Agent Required: No Beliefs That Will Affect Care: None marital status: Current Living Situation: Alone current occupational status: retired How many Children do You have: 0 Feels Safe at Home: Yes Assistive Devices: None Allergies Allergies Allergy/AdvReac Type Severity Reaction Status Date / Time Iodinated Contrast Media Allergy Intermediate Hives Verified 08/15/21 16:49 Penicillins Allergy Intermediate Hives Verified 08/15/21 16:49 Sulfa (Sulfonamide Allergy Intermediate Hives Verified 08/15/21 16:49 Antibiotics) Home Meds Home Medications Medication Instructions Recorded Confirmed verapamil 240 mg tablet,extended 240 mg PO BID 05/24/18 08/15/21 release topiramate 200 mg tablet (Topamax) 200 mg PO HS 01/17/19 08/15/21 albuterol sulfate 90 mcg/actuation 1 inh INHALATION QID PRN 12/16/19 08/15/21 aerosol inhaler VITAMIN B6 OTC 1 tab PO QAM 11/17/20 08/15/21 gabapentin 300 mg capsule 600 mg PO TID cap 01/04/21 08/15/21 lisinopril 10 mg tablet 20 mg PO BID tab 01/04/21 08/15/21 cholecalciferol (vitamin D3) 50 2,000 unit PO QAM cap 02/04/21 08/15/21 mcg (2,000 unit) capsule acetaminophen 500 mg tablet 1,000 mg PO BID PRN tab 02/26/21 08/15/21 (Tylenol Extra Strength) levothyroxine 112 mcg tablet 224 mcg PO QAM 07/22/21 08/15/21 potassium chloride 20 mEq 20 meq PO QAM 07/22/21 08/15/21 tablet,extended release Previous Rx's Medication Instructions Recorded enoxaparin 40 mg/0.4 mL 40 mg SUBCUT Q24H #30 syr 07/07/21 subcutaneous syringe famotidine 20 mg tablet 20 mg PO BID #60 tab 08/12/21 ferrous sulfate 325 mg (65 mg 325 mg PO QAM #30 tab 08/12/21 iron) tablet,delayed release pantoprazole 40 mg tablet,delayed 40 mg PO BID #60 tab 08/12/21 release sucralfate 100 mg/mL oral 10 ml PO QID #1200 ml 08/12/21 suspension Results & Data (ED) Vital Signs Vital Signs - 24 hr 08/15/21 14:10 08/15/21 14:21 08/15/21 15:30 Pulse Rate 128 H 129 H 113 H Pulse Rate [Apical] 129 H Pulse Rate from SpO2 Sensor 150 H Pulse Rhythm Regular Pulse Rhythm [Apical] Regular Pulse Strength [Apical] Normal Respiratory Rate 42 H 22 23 Respiratory Effort / Characteristics Labored Respiratory Depth Normal Blood Pressure 157/96 H Blood Pressure Mean 116 Blood Pressure Position Sitting Pulse Oximetry 95 96 95 Oxygen Delivery Method Room Air Room Air Room Air Sepsis Recent Fever Within 48 Hours No Sepsis New/Unexplained Change in Mental Status No Sepsis Action Taken by Nursing No Action Required 08/15/21 16:01 Pulse Rate 118 H Pulse Rate [Apical] Pulse Rate from SpO2 Sensor 125 H Pulse Rhythm Pulse Rhythm [Apical] Pulse Strength [Apical] Respiratory Rate 24 Respiratory Effort / Characteristics Respiratory Depth Blood Pressure 121/94 Blood Pressure Mean 103 Blood Pressure Position Pulse Oximetry 97 Oxygen Delivery Method Sepsis Recent Fever Within 48 Hours Sepsis New/Unexplained Change in Mental Status Sepsis Action Taken by [facility] Medications Current Medication List: was personally reviewed by me Laboratory Data Attestation: I reviewed the patient's lab results. Result diagrams: 08/15/21 14:35 08/15/21 14:35 Lab Results 08/15/21 08/15/21 08/15/21 Range/Units 14:35 14:35 14:35 WBC 11.28 H (4.8-10.8) K/uL RBC 3.52 L (4.2-5.4) M/uL Hgb 11.8 L (12.0-16.0) g/dL Hct 35.4 L (37-47) % MCV 100.6 H (80-100) fL MCH 33.5 (25-34) pg MCHC 33.3 (32-36) g/dL RDW Std Deviation 60.2 H (36.4-46.3) fL RDW Coeff of Michelle 16.2 H (11.5-14.5) % Plt Count 221 (130-400) K/uL MPV 9.9 (7.4-10.4) fL Immature Gran % (Auto) 0.2 % Neut % (Auto) 86.1 % Lymph % (Auto) 10.5 % Grimes % (Auto) 2.7 % Eos % (Auto) 0.1 % Baso % (Auto) 0.4 % Neut # (Auto) 9.71 H (1.4-6.5) K/uL Lymph # (Auto) 1.18 L (1.2-3.4) K/uL Grimes # (Auto) 0.31 (0.11-0.59) K/uL Eos # (Auto) 0.01 (0-0.5) K/uL Baso # (Auto) 0.05 (0-0.2) K/uL Immature Gran # (Auto) 0.02 (0.00-0.02) K/uL PT 10.9 (9.0-12.0) Seconds INR 1.0 (0.9-1.1) APTT 25.6 (21.0-31.0) Seconds PTT Ratio 0.9 Sodium (136-145) mmol/L Potassium (3.5-5.1) mmol/L Chloride (98-107) mmol/L Carbon Dioxide (21-32) mmol/L Anion Gap (3-11) BUN (6-23) mg/dl Creatinine (0.6-1.2) mg/dl Est Cr Clr Drug Dosing Est GFR ( Amer) ml/min Est GFR (Non-Af Amer) ml/min BUN/Creatinine Ratio (10-20) Glucose (70-99(Fasting)) mg/dl Calcium (8.5-10.1) mg/dl Magnesium (1.7-2.4) mg/dl Total Bilirubin (0.2-1.0) mg/dl AST (13-39) U/L ALT (7-52) U/L Alkaline Phosphatase (34-104) U/L Troponin I High Sens 43.7 H D (0-14) pg/ml Total Protein (6.0-8.3) gm/dl Albumin (3.4-5.0) gm/dl Globulin (2.5-4.0) gm/dl Albumin/Globulin Ratio (0.9-2) 08/15/21 Range/Units 14:35 WBC (4.8-10.8) K/uL RBC (4.2-5.4) M/uL Hgb (12.0-16.0) g/dL Hct (37-47) % MCV (80-100) fL MCH (25-34) pg MCHC (32-36) g/dL RDW Std Deviation (36.4-46.3) fL RDW Coeff of Michelle (11.5-14.5) % Plt Count (130-400) K/uL MPV (7.4-10.4) fL Immature Gran % (Auto) % Neut % (Auto) % Lymph % (Auto) % Grimes % (Auto) % Eos % (Auto) % Baso % (Auto) % Neut # (Auto) (1.4-6.5) K/uL Lymph # (Auto) (1.2-3.4) K/uL Grimes # (Auto) (0.11-0.59) K/uL Eos # (Auto) (0-0.5) K/uL Baso # (Auto) (0-0.2) K/uL Immature Gran # (Auto) (0.00-0.02) K/uL PT (9.0-12.0) Seconds INR (0.9-1.1) APTT (21.0-31.0) Seconds PTT Ratio Sodium 137 (136-145) mmol/L Potassium 3.4 L (3.5-5.1) mmol/L Chloride 103 (98-107) mmol/L Carbon Dioxide 22 (21-32) mmol/L Anion Gap 12 H (3-11) BUN 13 (6-23) mg/dl Creatinine 0.51 L (0.6-1.2) mg/dl Est Cr Clr Drug Dosing Not Reportable Est GFR ( Amer) 115.3 ml/min Est GFR (Non-Af Amer) 99.5 ml/min BUN/Creatinine Ratio 25.5 H (10-20) Glucose 114 H (70-99(Fasting)) mg/dl Calcium 9.2 (8.5-10.1) mg/dl Magnesium 1.9 (1.7-2.4) mg/dl Total Bilirubin 0.7 (0.2-1.0) mg/dl AST 16 (13-39) U/L ALT 16 (7-52) U/L Alkaline Phosphatase 204 H (34-104) U/L Troponin I High Sens (0-14) pg/ml Total Protein 6.9 (6.0-8.3) gm/dl Albumin 4.0 (3.4-5.0) gm/dl Globulin 2.9 (2.5-4.0) gm/dl Albumin/Globulin Ratio 1.4 (0.9-2) Imaging Data Radiologist's Impression: Chest X-Ray 08/15/21 14:21 SINGLE VIEW CHEST CLINICAL HISTORY: Dyspnea. FINDINGS: An AP, portable, upright chest radiograph is compared to study dated 07/31/2021 and correlated with chest CT dated 08/09/2021. A tracheostomy in the left-sided central venous infusion port are unchanged in position. The heart is enlarged noting atherosclerotic calcification of the thoracic aorta. The pulmonary vasculature is noncongested. Emphysema and chronic interstitial thickening are similar to previous. There is elevation of the left hemidiaphragm with left basilar scarring/atelectasis. No airspace consolidation or large pl eural effusion is identified. No pneumothorax is seen. The skeletal structures are osteopenic. The bony thorax is grossly intact. Cholecystectomy clips are noted in the right upper quadrant. IMPRESSION: Cardiomegaly and emphysema with no acute cardiopulmonary abnormality identified. Left basilar consolidation has significantly cleared as compared to recent prior studies. ACT 112: Negative or not required by law. Electronically signed by: Sherif Shelby M.D. 08/15/2021 3:49 PM Discharge Plan Visit Data Chief Complaint: Shortness of Breath/Dyspnea Stated Complaint: DIFFICULTY BREATHING,TRACH PT ED Provider: Kris Dowling Discharge Problem: Acute non-ST elevation myocardial infarction (NSTEMI), Abnormal EKG, Elevated troponin I level Patient Disposition: Being Evaluated by Hospitalist Forms Stand Alone Forms: My [employer] Prescriptions Prescriptions: No Action gabapentin 300 mg capsule 600 mg PO TID RF: 0 VITAMIN B6 OTC 1 tab PO QAM RF: 0 cholecalciferol (vitamin D3) 50 mcg (2,000 unit) capsule 2,000 unit PO QAM RF: 0 enoxaparin 40 mg/0.4 mL syringe 40 mg subcut Q24H Qty: 30 RF: 2 acetaminophen [Tylenol Extra Strength] 500 mg tablet 1,000 mg PO BID PRN (Reason: Pain) RF: 0 topiramate [Topamax] 200 mg tablet 200 mg PO HS RF: 0 verapamil 240 mg Tablet Extended Release 240 mg PO BID RF: 0 lisinopril 10 mg tablet 20 mg PO BID RF: 0 albuterol sulfate 90 mcg/actuation Hfa Aerosol Inhaler 1 inh INHALATION QID PRN (Reason: sob) RF: 0 levothyroxine 112 mcg tablet 224 mcg PO QAM RF: 0 potassium chloride 20 mEq Tablet Extended Release 20 meq PO QAM RF: 0 famotidine 20 mg Tablet 20 mg PO BID Qty: 60 RF: 0 pantoprazole 40 mg Tablet,Delayed Release (Dr/Ec) 40 mg PO BID Qty: 60 RF: 0 ferrous sulfate 325 mg (65 mg iron) Tablet,Delayed Release (Dr/Ec) 325 mg PO QAM Qty: 30 RF: 0 sucralfate 100 mg/mL Suspension 10 ml PO QID Qty: 1200 RF: 0 Referrals Referrals: Karen Cao PA-C [Primary Care Provider] -
[2021-08-15 14:45] LABS: Basophils # (auto) 0.05 K/uL (0-0.2); Basophils % (auto) 0.4 %; Eosinophils # (auto) 0.01 K/uL (0-0.5); Eosinophils % (auto) 0.1 %; Hematocrit (blood only) 35.4 % (37-47); Hemoglobin 11.8 g/dL (12.0-16.0); Immature Granulocytes # (auto) 0.02 K/uL (0.00-0.02); Immature Granulocytes % (auto) 0.2 %; Lymphocytes # (auto) 1.18 K/uL (1.2-3.4); Lymphocytes % (auto) 10.5 %; Mean Corpuscular Hemoglobin 33.5 pg (25-34); Mean Corpuscular Hgb Conc 33.3 g/dL (32-36); Mean Corpuscular Volume 100.6 fL (80-100); Mean Platelet Volume 9.9 fL (7.4-10.4); Monocytes # (auto) 0.31 K/uL (0.11-0.59); Monocytes % (auto) 2.7 %; Neutrophils # (auto) 9.71 K/uL (1.4-6.5); Neutrophils % (auto) 86.1 %; Platelet Count 221 K/uL (130-400); RDW Coefficient of Variation 16.2 % (11.5-14.5); RDW Standard Deviation 60.2 fL (36.4-46.3); Red Blood Count 3.52 M/uL (4.2-5.4); White Blood Count 11.28 K/uL (4.8-10.8)
[2021-08-15 15:01] LABS: Partial Thromboplastin Ratio 0.9; Partial Thromboplastin Time 25.6 Seconds (21.0-31.0); Prothrombin Time 10.9 Seconds (9.0-12.0)
[2021-08-15 15:18] LABS: Alanine Aminotransferase 16 U/L (7-52); Albumin Globulin Ratio 1.4 (0.9-2); Alkaline Phosphatase 204 U/L (34-104); Anion Gap 12 (3-11); Aspartate Aminotransferase 16 U/L (13-39); BUN Creatinine Ratio 25.5 (10-20); Bilirubin,Total 0.7 mg/dl (0.2-1.0); Blood Urea Nitrogen 13 mg/dl (6-23); Calcium 9.2 mg/dl (8.5-10.1); Carbon Dioxide 22 mmol/L (21-32); Chloride 103 mmol/L (98-107); Est GFR (African American) 115.3 ml/min; Est GFR (Non-African American) 99.5 ml/min; Globulin 2.9 gm/dl (2.5-4.0); Glucose 114 mg/dl (70-99(Fasting)); Magnesium 1.9 mg/dl (1.7-2.4); Potassium 3.4 mmol/L (3.5-5.1); Sodium 137 mmol/L (136-145); Total Protein 6.9 gm/dl (6.0-8.3)
--- NOTE | 2021-08-15 15:50 | XRay Report ---
SINGLE VIEW CHEST CLINICAL HISTORY: Dyspnea. FINDINGS: An AP, portable, upright chest radiograph is compared to study dated 07/31/2021 and correlat ed with chest CT dated 08/09/2021. A tracheostomy in the left-sided central venous infusion port are u nchanged in position. The heart is enlarged noting atherosclerotic calcification of the thoracic aort a. The pulmonary vasculature is noncongested. Emphysema and chronic interstitial thickening are simil ar to previous. There is elevation of the left hemidiaphragm with left basilar scarring/atelectasis. No airspace consolidation or large pleural effusion is identified. No pneumothorax is seen. The skele ktaerina structures are osteopenic. The bony thorax is grossly intact. Cholecystectomy clips are noted in the right upper quadrant. IMPRESSION: Cardiomegaly and emphysema with no acute cardiopulmonary abnormality identified. Left bas ilar consolidation has significantly cleared as compared to recent prior studies. ACT 112: Negative or not required by law. Electronically signed by: Sherif Shelby M.D. 08/15/2021 3:49 PM
[2021-08-15] MEDS ORDERED: diphenhydrAMINE 50 MG/ML VIAL IV STA (16:53)
--- NOTE | 2021-08-15 18:19 | History & Physical Report ---
Date of Service August 15, 2021 Assessment & Plan (1) Acute non-ST elevation myocardial infarction (NSTEMI): Plan: Patient presented for shortness of breath and concern for her trach, but was found to have TWIs in V2-V3 and elevated troponin. In discussion with the patien t, she has been having symptoms of increasing angina with left chest "twinging," shortness of breath, lightheadedness, and palpitations with exertion. - Case discussed with Dr. Robles; will treat as ACS * ASA, statin, beta-torrey, and heparin gtt * Trend troponins and EKGs * NPO @ midnight for likely LHC tomorrow (2) Status post tracheostomy: Plan: Trach done on 07/30/[address] Dobbs for vocal cord paralysis. She actually came to the ER because of shortness of breath and trouble with her trach which was resolved with a thinner suction catheter. I spoke with Dr. Dobbs who felt ASA and anticoagulation were safe for the patient as she was >2 weeks out from her trach. He did not feel inpatient consult was warranted at this time, but was happy to field calls or be consulted if something changed. - Monitor (3) CAD (coronary artery disease): Plan: Per patient, she has had a prior [place], but I do not see that in the prior cardiology note from 01/04/2021 with Mr. Del Rio. - Plan as above (4) Metastatic colorectal cancer: Plan: Follows most recently with Dottie Hearn at [facility]. - No inpatient needs (5) HTN (hypertension): Plan: BP was 120/95 in the ER. - Hold home lisinopril in case she needs contrast tomorrow. - Hold home diltiazem in favor of beta-torrey for ACS (6) Obstructive sleep apnea: Plan: Presently with trach with good O2 sat. - Monitor (7) Post-surgical hypothyroidism: Plan: TSH checked last admission. - Continue home levothyroxine 224 mcg PO daily (8) History of DVT (deep vein thrombosis): Plan: In LUE. - On heparin gtt at this time. Was discharged on Lovenox 40 mg SQ daily from prior admission. History of Present Illness Primary Care Provider: Karen Cao PA-C 65yo F w/ hx of colon cancer who presents with trach issues and EKG changes. The patient reports that she was discharged just on 08/12 after having a tracheostomy placed for vocal cord paralysis with Dr. Dobbs. She presented because she felt she was having trouble breathing. RT worked with her, and she had a trach suction that was too large. With RT working to suction her trach, she was able to breath much more easily. However, in the routine set of labs she got, it was noted that her troponin was mildly elevated. As concerningly, her EKG showed deep TWIs in V2 & V3. Allergies Allergy/AdvReac Type Severity Reaction Status Date / Time Iodinated Contrast Media Allergy Intermediate Hives Verified 08/15/21 16:49 Penicillins Allergy Intermediate Hives Verified 08/15/21 16:49 Sulfa (Sulfonamide Allergy Intermediate Hives Verified 08/15/21 16:49 Antibiotics) Home Medications Medication Instructions Recorded Confirmed Type verapamil 240 mg tablet,extended 240 mg PO BID 05/24/18 08/15/21 History release topiramate 200 mg tablet (Topamax) 200 mg PO HS 01/17/19 08/15/21 History albuterol sulfate 90 mcg/actuation 1 inh INHALATION QID PRN 12/16/19 08/15/21 H istory aerosol inhaler VITAMIN B6 OTC 1 tab PO QAM 11/17/20 08/15/21 History gabapentin 300 mg capsule 600 mg PO TID cap 01/04/21 08/15/21 History lisinopril 10 mg tablet 20 mg PO BID tab 01/04/21 08/15/21 History cholecalciferol (vitamin D3) 50 2,000 unit PO QAM cap 02/04/21 08/15/21 History mcg (2,000 unit) capsule acetaminophen 500 mg tablet 1,000 mg PO BID PRN tab 02/26/21 08/15/21 History (Tylenol Extra Strength) enoxaparin 40 mg/0.4 mL 40 mg SUBCUT Q24H #30 syr 07/07/21 08/15/21 Rx subcutaneous syringe levothyroxine 112 mcg tablet 224 mcg PO QAM 07/22/21 08/15/21 History potassium chloride 20 mEq 20 meq PO QAM 07/22/21 08/15/21 History tablet,extended release famotidine 20 mg tablet 20 mg PO BID #60 tab 08/12/21 08/15/21 Rx ferrous sulfate 325 mg (65 mg 325 mg PO QAM #30 tab 08/12/21 08/15/21 Rx iron) tablet,delayed release pantoprazole 40 mg tablet,delayed 40 mg PO BID #60 tab 08/12/21 08/15/21 Rx release sucralfate 100 mg/mL oral 10 ml PO QID #1200 ml 08/12/21 08/15/21 Rx suspension Past Med/Surg History Medical History Anxiety Complete left bundle branch block (LBBB) Chronic per cardio note Deep vein thrombosis (DVT) left upper extremity of the internal jugular, subclavian and axillary vein diagnosed 02/2020-Lovenox 80 mg SubQ daily up until fall 2020 at which time patient stopped the lovenox. Depression Facial paresthesia chronic without change GERD (gastroesophageal reflux disease) controlled, stable per pt History of medullary carcinoma of thyroid Hx of papillary thyroid carcinoma Hyperlipidemia no meds Hypertension Hypothyroidism Post ablative Irritable bowel syndrome with constipation Myocardial Infarction 2003 Rectal cancer with liver metastasis, follows with CCP, receiving chemo Scars right side of neck d/t radiation Sleep apnea bipap-compliant Stroke "few old punctate lacunar infarcts seen within the left cerebellar hemisphere" MRI brain 2020 Thyroid cancer Follicular thyroid cancer 1982--s/p partial thyroidectomy, chemo, radiation Medullary thyroid cancer 1996-- s/p complete thyroidectomy, radical neck dissection, radiation/radioactive iodine Transient hypotension Vocal cord paralysis, bilateral complete severe---very difficulty for pt to talk Surgical History Difficult airway for intubation small airway -- has laryngeal implant - states use size 6.0 ETT with caution History of appendectomy History of bilateral tubal ligation History of cholecystectomy History of colonoscopy had last 12/24/[address] Abad--found rectal c.a. History of endoscopic sinus surgery History of esophagogastroduodenoscopy (EGD) History of hysterectomy with unilateral oophorectomy removed right d/t endometriosis History of radical dissection of right side of neck History of right inguinal hernia repair History of surgery part of vocal cord removed -- has laryngeal implant History of thyroidectomy, total History of tonsillectomy and adenoidectomy per patient surgery was done twice History of tooth extraction with permnant bridge History of vascular access device mediport in place--pt states is currently using for chemo Family History Mother Family history of diabetes mellitus Uncle Family history of diabetes mellitus Grandmother Breast cancer Hypertension Diabetes Grandfather Heart disease Other No family history of adverse response to anesthesia Social History Smoking Status: Never smoker Second Hand Exposure: Yes; Hx Alcohol Use: No Hx Substance Use: No Preferred Language: Faroese Communication Ability: Effective 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 Beliefs That Will Affect Care: None marital status: Current Living Situation: Alone current occupational status: retired How many Children do You have: 0 Feels Safe at Home: Yes Assistive Devices: None Review of Systems Review of Systems: All systems reviewed & are unremarkable except as noted in HPI & below Physical Exam Constitutional: WD/WN, vitals as above Eyes: EOM intact bilaterally; no conjunctival abnormality ENMT: external ear and nose normal, oropharynx normal Neck: trachea midline, no thyromegaly trachea midline and + tracheostomy present Respiratory: normal respiratory effort, lungs clear to auscultation no respiratory distress Cardiovascular: Rate/Rhythm: regular rhythm and + tachycardic Gastrointestinal (Abdomen): Inspection/Auscultation: abdomen normal to inspection; abdomen not distended Musculoskeletal: no cyanosis or clubbing, extremities motor strength 5/5 Skin: no rashes, warm and dry Neurologic: moves all extremities and awake Psychiatric: Orientation: alert, oriented to person and cooperative Results & Data Results & Data ([facility]) Vital Signs (Past 12 Hours) Vital Signs Pulse Pulse Resp BP Pulse Ox 08/15/21 16:01 118 H 24 121/94 97 08/15/21 15:30 113 H 23 95 08/15/21 14:21 129 H 129 H 22 96 08/15/21 14:10 128 H 42 H 157/96 H 95 Code Status & VTE Plan VTE Prophylaxis Plan VTE Prophylaxis will be ordered: Yes PG Care Time/CCT Total # of Minutes Spent Total Time Spent with Patient: Total time spent is greater than 50% in coordination of care (as documented) at patient's floor/unit and/or counseling patient: Coding Level of Care Code 63918 Initial Inpt Care Lvl 3 Diagnoses Acute non-ST elevation myocardial infarction (NSTEMI) I21.4 CAD (coronary artery disease) I25.10 Metastatic colorectal cancer C19 HTN (hypertension) I10 Obstructive sleep apnea G47.33 Status post tracheostomy Z93.0 History of DVT (deep vein thrombosis) Z86.718 Post-surgical hypothyroidism E89.0
[2021-08-15] MEDS ORDERED: Heparin IV Adult Wt-Based Standard *NO* Bolus Protocol IV SCH (18:24)
[2021-08-15] MEDS ORDERED: ASPIRIN 81 MG CHEW PO STA (18:24)
[2021-08-15] MEDS ORDERED: HEPARIN SODIUM/DEXTROSE 25,000 UNITS/500 ML BAG IV SCH (18:45)
[2021-08-15] MEDS ORDERED: ONDANSETRON INJ 2 MG/ML 2 ML VIAL IV PRN (22:48)
[2021-08-15] MEDS ORDERED: ACETAMINOPHEN 325 MG TAB PO PRN (22:48)
[2021-08-15] MEDS ORDERED: ALBUTEROL HFA 8 GM INHALER INH PRN (22:48)
[2021-08-15] MEDS ORDERED: lisinopril 20 MG TAB PO SCH (22:48)
[2021-08-15] MEDS ORDERED: VERAPAMIL HCL 240 MG TABCR PO SCH (22:48)
[2021-08-15] MEDS ORDERED: ENOXAPARIN INJ 40 MG/0.4 ML SYR SQ SCH (22:48)
[2021-08-15] MEDS: METOPROLOL TARTRATE 25 MG TAB PO SCH (23:57)
[2021-08-15] MEDS: GABAPENTIN 600 MG TAB PO SCH (23:57)
[2021-08-15] MEDS: lisinopril 20 MG TAB PO SCH (23:57)
[2021-08-15] MEDS: SUCRALFATE 1 GM/10 ML UDC PO SCH (23:58)
[2021-08-15] MEDS: PANTOprazole 40 MG TAB PO SCH (23:58)
[2021-08-15] MEDS: TOPIRAMATE 100 MG TAB PO SCH (23:59)
[2021-08-16] MEDS: FAMOTIDINE 20 MG TAB PO SCH ×3 (00:03→21:54)
[2021-08-16 03:09] LABS: Hematocrit (blood only) 29.2 % (37-47); Hemoglobin 9.6 g/dL (12.0-16.0); Mean Corpuscular Hemoglobin 33.1 pg (25-34); Mean Corpuscular Hgb Conc 32.9 g/dL (32-36); Mean Corpuscular Volume 100.7 fL (80-100); Mean Platelet Volume 8.9 fL (7.4-10.4); Platelet Count 170 K/uL (130-400); RDW Standard Deviation 58.9 fL (36.4-46.3); White Blood Count 6.55 K/uL (4.8-10.8)
[2021-08-16 03:46] LABS: BUN Creatinine Ratio 29.2 (10-20); Calcium 8.4 mg/dl (8.5-10.1); Creatinine Clr Calc Pharmacy 102.3 ml/min; Est GFR (African American) 117.6 ml/min; Est GFR (Non-African American) 101.5 ml/min; Magnesium 1.8 mg/dl (1.7-2.4); Potassium 3.1 mmol/L (3.5-5.1)
[2021-08-16 03:47] LABS: Partial Thromboplastin Ratio 1.3; Partial Thromboplastin Time 35.8 Seconds (21.0-31.0)
[2021-08-16] MEDS ORDERED: HEPARIN SOD (PORCINE) 1000 UNIT/ML IV ONE (04:38)
[2021-08-16] MEDS ORDERED: HEPARIN IV BOLUS 2,000 UNITS in SYRINGE 0 ML IV ONE (05:00)
[2021-08-16] MEDS ORDERED: POTASSIUM CHLORIDE CRTAB 20 MEQ TABCR PO STA (08:16)
[2021-08-16] MEDS: lisinopril 20 MG TAB PO SCH ×2 (08:33→21:54)
[2021-08-16] MEDS: SUCRALFATE 1 GM/10 ML UDC PO SCH ×4 (08:33→21:54)
[2021-08-16] MEDS: POTASSIUM CHLORIDE CRTAB 20 MEQ TABCR PO SCH (08:34)
[2021-08-16] MEDS: VERAPAMIL HCL 240 MG TABCR PO SCH ×2 (08:34)
[2021-08-16] MEDS: METOPROLOL TARTRATE 25 MG TAB PO SCH ×2 (08:35→21:55)
[2021-08-16] MEDS: PANTOprazole 40 MG TAB PO SCH ×2 (08:35→21:55)
[2021-08-16] MEDS: GABAPENTIN 600 MG TAB PO SCH ×3 (08:37→21:54)
[2021-08-16] MEDS: LEVOTHYROXINE SODIUM 112 MCG TABLET PO SCH (08:38)
[2021-08-16] MEDS: ASPIRIN 81 MG CHEW PO SCH (08:38)
[2021-08-16] MEDS ORDERED: ENOXAPARIN INJ 40 MG/0.4 ML SYR SQ SCH (09:00)
--- NOTE | 2021-08-16 09:36 | Cardiology Consultation ---
Date of Consultation August 16, 2021 Assessment & Plan (1) Acute non-ST elevation myocardial infarction (NSTEMI): Ms. Vance is a 65-year-old female with a history of Hypertension, Dyslipidemia, Follicular Thyroid Cancer s/p Partial Thyroidectomy 1982, Medullary Thyroid Cancer s/p Complete Thyroidectomy, Radical Neck Dissection, and XRT in 1996, Post-Ablative Hypothyroidism, Bilateral Vocal Cord Paralysis s/p Tracheostomy complicated by post-op shock, PTSD, Depression, SUZANNE on BiPAP, Chronic LBBB, Chronic SOB due to Upper Airway Obstruction, LUE DVT, and Metastatic Colon Cancer -- who was admitted on 08/15/21 with an NSTEMI -- uncertain if this was an acute coronary event vs type II GA (related to tachycardia/transient hypoxia/anemia). Patient was admitted to [facility] on 07/30/21 for a tracheostomy, she was noted to be hypotensive in the PACU. She was diagnosed with Shock of uncertain etiology, but cortisol level was relatively low despite the stress of surgery. She was treated with IVF's and stress dose steroids. She was discharged from that hospitalization on 08/12/21. After being discharged patient was having difficulty suctioning her tracheostomy and it was getting obstructed/partially obstructed with secretions and bloody discharge. She subsequently presented to [facility] ER on 08/15/21 complaining of difficulties with her tracheostomy, SOB, BARGER, and air hunger -- without associated symptoms. She denies any associated nausea, vomiting, or diaphoresis. She did not have any chest pain or discomfort at any time, but she did have palpitations described as "a tennis ball bouncing in my chest" intermittently on 08/13/21 and 08/14/21. She did not have these palpitations on the day of admission. In the ER the patient was noted to have an abnormal EKG showing sinus tachycardia, ST and T wave abnormalities, consider inferior ischemia, consider anterolateral ischemia. High sensitivity Troponin I levels are elevated as well -- Initial high sensitivity Trop I was 43.7 pg/mL, peaked at 53.0 pg/mL, and trended down to 39.0 pg/mL. beauty counselor shows a normal sinus rhythm to sinus tachycardia ranging from 70's to low 100's. Echocardiogram was done earlier but has not been read yet. We discussed her presentation, cardiac enzymes, and EKG changes. Recent CTA Chest showed moderate coronary artery calcifications as well. We discussed the management of a heart attack, CAD. Recommend the following: -- Cardiac Catheterization/Coronary Angiography. Discussed risks, benefits, and potential outcomes of this procedure. She agrees to proceed. -- Continue Heparin drip for the time being. -- Continue Aspirin 81 mg daily. -- Continue Lopressor 25 mg b.i.d. - convert to long acting Metoprolol Succinate ER at the time of discharge. (2) Abnormal EKG: -- Manage as outlined above. -- She has an intermittent LBBB. -- Recommend replacing her potassium, K = 3.1 mmol/L. (3) Elevated troponin I level: -- Manage as outlined above. (4) LBBB (left bundle branch block): (5) HTN (hypertension): She has been normotensive to hypertensive throughout this hospitalization. -- Continue current regimen. (6) Status post tracheostomy: (7) Obstructive sleep apnea: History of Present Illness Reason for Consultation: -- NSTEMI. -- s/p Tracheostomy 07/30/21 complicated by post-op shock. Requesting Physician: Obinna Jorge MD Attending Physician: Toribio Jarrett MD History of Present Illness Ms. Vance is a 65-year-old female with a history of Hypertension, Dyslipidemia, Follicular Thyroid Cancer s/p Partial Thyroidectomy 1982, Medullary Thyroid Cancer s/p Complete Thyroidectomy, Radical Neck Dissection, and XRT in 1996, Post-Ablative Hypothyroidism, Bilateral Vocal Cord Paralysis s/p Tracheostomy complicated by post-op shock, PTSD, Depression, SUZANNE on BiPAP, Chronic LBBB, Chronic SOB due to Upper Airway Obstruction, LUE DVT, and Metastatic Colon Cancer -- who was admitted to [facility] on 07/30/21 for a tracheostomy, she was noted to be hypotensive in the PACU. Diagnosed with Shock of uncertain etiology, but cortisol level was relatively low despite the stress of surgery. She was treated with IVF's and stress dose steroids. She was discharged from that hospitalization on 08/12/21. After being discharged patient was having difficulty suctioning her tracheostomy and it was getting obstructed/partially obstructed with secretions and bloody discharge. She subsequently presented to [facility] ER on 08/15/21 complaining of difficulties with her tracheostomy, SOB, BARGER, and air hunger. She did not have any chest pain or discomfort at any time, but she did have palpitations described as "a tennis ball bouncing in my chest" intermittently on 08/13/21 and 08/14/21. She did not have these palpitations on the day of admission. In the ER the patient was noted to have an abnormal EKG showing sinus tachycardia, ST and T wave abnormalities, consider inferior ischemia, consider anterolateral ischemia. High sensitivity Troponin I levels are elevated as well -- Initial HS Trop I was 43.7 pg/mL, peaked at 53.0 pg/mL, and trended down to 39.0 pg/mL. beauty counselor shows a normal sinus rhythm to sinus tachycardia ranging from 70's to low 100's. Patient offers no complaints at the present time. She has a new, smaller suction catheter for her tracheostomy and that is working much better. She denies any chest pain, heaviness, tightness, pressure, or discomfort. She denies any neck, back, jaw, arm, or shoulder discomfort. She denies any edema. She denies any syncope or near syncope. Patient remains compliant with her medications and has not had any adverse side effects. HISTORICAL BACKGROUND: Patient was diagnosed with hypertension approximately 23 years ago. In 2007, she was hospitalized in [facility] for Left Sided Chest Pain (this was not a "heart attack") and an Abnormal EKG (details of abnormality unknown, could have been her LBBB). Her cardiac workup included a nuclear pharmacologic stress test which was reportedly normal according to the patient. She did not have an Echocardiogram at that time, nor did she have a cardiac catheterization. Patient has experienced Chronic SOB and BARGER since at least 1996 -- following her complete thyroidectomy and radical neck dissection resulting in vocal cord paralysis. After I initially met this patient and because of her Chronic SOB and BARGER -- patient underwent the following studies: ECHOCARDIOGRAM 05/16/2018: -- Normal LV size and systolic function. -- LVEF 55% to 60% -- septal wall motion consistent with LBBB. -- Mild concentric LVH. -- Grade I LV diastolic dysfunction. -- No significant valvular abnormalities. PRE and POST PFT's 05/16/2018: -- Flow loop suggestive of upper airway obstruction. -- Measurements improved following bronchodilator. Patient presented acutely on 08/06/20 for evaluation of symptoms that occurred during a visit to [facility] on 08[facility]. Patient was there for her 5th cycle of XELOX and Mvasi -- but it was not given due to neutropenia. Nonetheless, she was hypokalemic with a serum potassium level of 3.1 mmol/L. She was given IV potassium through her MediPort and during that infusion the patient developed numbness of her lower jaw, numbness in her right arm, and dimming "bello" vision which came on relatively suddenly. She rang her villagran, and the nurses came in to attend to her. The IV potassium infusion was stopped, she was given some orange juice, and she was positioned in a semi recumbent position. She recovered very quickly after being placed in a semi recumbent position. It is not clear whether or not a blood sugar was checked, and I did not see any blood pressure recordings that were taken when she was feeling these symptoms. An EKG was done which showed a normal sinus rhythm with a first- degree AV block and a left bundle branch block pattern. The first-degree AV block was not present on her prior EKG 03/23/2020. Patient was having problems with her MediPort at that time. In March 2020 she developed fluid around the left chest wall MediPort site. She was evaluated by both General Surgery and Vascular Surgery. MediPort study completed 04/28/2020 showed majority of contrast passed into the SVC however retrograde extension of the contrast along the distal aspect of the catheter with pulling contrast adjacent to the catheter consistent with a fibrin sheath. A stripping procedure of the central venous catheter was attempted by Dr. Dubon but this was not successful. Allergies Allergy/AdvReac Type Severity Reaction Status Date / Time Iodinated Contrast Media Allergy Intermediate Hives Verified 08/15/21 16:49 Penicillins Allergy Intermediate Hives Verified 08/15/21 16:49 Sulfa (Sulfonamide Allergy Intermediate Hives Verified 08/15/21 16:49 Antibiotics) Home Medications Medication Instructions Recorded Confirmed Type verapamil 240 mg tablet,extended 240 mg PO BID 05/24/18 08/15/21 History release topiramate 200 mg tablet (Topamax) 200 mg PO HS 01/17/19 08/15/21 History albuterol sulfate 90 mcg/actuation 1 inh INHALATION QID PRN 12/16/19 08/15/21 History aerosol inhaler VITAMIN B6 OTC 1 tab PO QAM 11/17/20 08/15/21 History gabapentin 300 mg capsule 600 mg PO TID cap 01/04/21 08/15/21 History lisinopril 10 mg tablet 20 mg PO BID tab 01/04/21 08/15/21 History cholecalciferol (vitamin D3) 50 2,000 unit PO QAM cap 02/04/21 08/15/21 History mcg (2,000 unit) capsule acetaminophen 500 mg tablet 1,000 mg PO BID PRN tab 02/26/21 08/15/21 History (Tylenol Extra Strength) enoxaparin 40 mg/0.4 mL 40 mg SUBCUT Q24H #30 syr 07/07/21 08/15/21 Rx subcutaneous syringe levothyroxine 112 mcg tablet 224 mcg PO QAM 07/22/21 08/15/21 History potassium chloride 20 mEq 20 meq PO QAM 07/22/21 08/15/21 History tablet,extended release famotidine 20 mg tablet 20 mg PO BID #60 tab 08/12/21 08/15/21 Rx ferrous sulfate 325 mg (65 mg 325 mg PO QAM #30 tab 08/12/21 08/15/21 Rx iron) tablet,delayed release pantoprazole 40 mg tablet,delayed 40 mg PO BID #60 tab 08/12/21 08/15/21 Rx release sucralfate 100 mg/mL oral 10 ml PO QID #1200 ml 08/12/21 08/15/21 Rx suspension Patient History Medical History Anxiety Complete left bundle branch block (LBBB) Chronic per cardio note Deep vein thrombosis (DVT) left upper extremity of the internal jugular, subclavian and axillary vein diagnosed 02/2020-Lovenox 80 mg SubQ daily up until fall 2020 at which time patient stopped the lovenox. Depression Facial paresthesia chronic without change GERD (gastroesophageal reflux disease) controlled, stable per pt History of medullary carcinoma of thyroid Hx of papillary thyroid carcinoma Hyperlipidemia no meds Hypertension Hypothyroidism Post ablative Irritable bowel syndrome with constipation Myocardial Infarction 2003 Rectal cancer with liver metastasis, follows with CCP, receiving chemo Scars right side of neck d/t radiation Sleep apnea bipap-compliant Stroke "few old punctate lacunar infarcts seen within the left cerebellar hemisphere" MRI brain 2020 Thyroid cancer Follicular thyroid cancer 1982--s/p partial thyroidectomy, chemo, radiation Medullary thyroid cancer 1996-- s/p complete thyroidectomy, radical neck dissection, radiation/radioactive iodine Transient hypotension Vocal cord paralysis, bilateral complete severe---very difficulty for pt to talk Surgical History Difficult airway for intubation small airway -- has laryngeal implant - states use size 6.0 ETT with caution History of appendectomy History of bilateral tubal ligation History of cholecystectomy History of colonoscopy had last 12/24/[address] Abad--found rectal c.a. History of endoscopic sinus surgery History of esophagogastroduodenoscopy (EGD) History of hysterectomy with unilateral oophorectomy removed right d/t endometriosis History of radical dissection of right side of neck History of right inguinal hernia repair History of surgery part of vocal cord removed -- has laryngeal implant History of thyroidectomy, total History of tonsillectomy and adenoidectomy per patient surgery was done twice History of tooth extraction with permnant bridge History of vascular access device mediport in place--pt states is currently using for chemo Family History Mother Family history of diabetes mellitus Uncle Family history of diabetes mellitus Grandmother Breast cancer Hypertension Diabetes Grandfather Heart disease Other No family history of adverse response to anesthesia Social History Smoking Status: Never smoker Second Hand Exposure: Yes; Hx Alcohol Use: No Hx Substance Use: No Preferred Language: Samoan Communication Ability: Effective Lighting Adviser Required: No Beliefs That Will Affect Care: None marital status: Current Living Situation: Alone current occupational status: retired How many Children do You have: 0 Feels Safe at Home: Yes Assistive Devices: Cane and Glasses Review of Systems Review of Systems: Patient has had weight loss since being diagnosed and getting treatment for her metastatic colon cancer. Follow[facility]. +Anemia +Neutropenia 10 point ROS was completed and is negative with the exception of what is mentioned here and in the HPI. Physical Exam Physical Exam: General: Patient in no acute distress. HEENT: Head is atraumatic, normocephalic. EOMs intact. Sclerae anicteric. Facies symmetric. No perioral cyanosis. Neck: S/p right radical neck dissection, extensive scar tissue, skin grafts over the right neck and right shoulder. No JVD. Carotid upstrokes +2 bilaterally without obvious bruits. JVP does not appear to be elevated. Tracheostomy is present. Chest and Lungs: Clear to auscultation throughout all lung smart, no wheezes, rales, or rhonchi. CVS: S1 and S2 are regular, distant without obvious murmurs, gallops, or rubs. PMI is nonpalpable. No lifts, heaves, or thrills. No abdominal aortic or renal bruits. Abdominal Exam: Bowel sounds present. No masses, organomegaly, or tenderness. Extremities: No clubbing, cyanosis, or edema. Intact posterior tibial and radial pulses bilaterally. Neurologic Exam: Patient is awake, alert, and oriented. Pleasant and cooperative. Answers questions appropriately. Speech is clear. Normal movement in all 4 extremities. Results & Data ([facility]) Vital Signs (Past 12 Hours) Vital Signs Temp Pulse Resp BP Pulse Ox 08/16/21 03:59 36.8 C 75 18 111/67 98 08/15/21 23:52 37.2 C 103 H 18 149/82 H 98 08/15/21 22:48 37.2 C 115 H 24 152/91 H 97 08/15/21 22:20 37.2 C 115 H 24 152/91 H 97 Laboratory Results Laboratory Results - last 24 hr 08/15/21 08/15/21 08/15/21 14:35 14:35 14:35 WBC 11.28 H RBC 3.52 L Hgb 11.8 L Hct 35.4 L MCV 100.6 H MCH 33.5 MCHC 33.3 RDW Std Deviation 60.2 H RDW Coeff of Michelle 16.2 H Plt Count 221 MPV 9.9 Immature Gran % (Auto) 0.2 Neut % (Auto) 86.1 Lymph % (Auto) 10.5 [place] % (Auto) 2.7 Eos % (Auto) 0.1 Baso % (Auto) 0.4 Neut # (Auto) 9.71 H Lymph # (Auto) 1.18 L [place] # (Auto) 0.31 Eos # (Auto) 0.01 Baso # (Auto) 0.05 Immature Gran # (Auto) 0.02 PT 10.9 INR 1.0 APTT 25.6 PTT Ratio 0.9 Sodium Potassium Chloride Carbon Dioxide Anion Gap BUN Creatinine Est Cr Clr Drug Dosing Est GFR ( Amer) Est GFR (Non-Af Amer) BUN/Creatinine Ratio Glucose Calcium Magnesium Total Bilirubin AST ALT Alkaline Phosphatase Troponin I High Sens 43.7 H D Total Protein Albumin Globulin Albumin/Globulin Ratio SARS-CoV-2, RNA, NAAT 08/15/21 08/15/21 08/15/21 14:35 17:09 17:18 WBC RBC Hgb Hct MCV MCH MCHC RDW Std Deviation RDW Coeff of Michelle Plt Count MPV Immature Gran % (Auto) Neut % (Auto) Lymph % (Auto) [place] % (Auto) Eos % (Auto) Baso % (Auto) Neut # (Auto) Lymph # (Auto) [place] # (Auto) Eos # (Auto) Baso # (Auto) Immature Gran # (Auto) PT INR APTT PTT Ratio Sodium 137 Potassium 3.4 L Chloride 103 Carbon Dioxide 22 Anion Gap 12 H BUN 13 Creatinine 0.51 L Est Cr Clr Drug Dosing Not Reportable Est GFR ( Amer) 115.3 Est GFR (Non-Af Amer) 99.5 BUN/Creatinine Ratio 25.5 H Glucose 114 H Calcium 9.2 Magnesium 1.9 Total Bilirubin 0.7 AST 16 ALT 16 Alkaline Phosphatase 204 H Troponin I High Sens 53.0 H* Total Protein 6.9 Albumin 4.0 Globulin 2.9 Albumin/Globulin Ratio 1.4 SARS-CoV-2, RNA, NAAT NEGATIVE 08/16/21 08/16/21 08/16/21 00:25 02:59 02:59 WBC 6.55 RBC 2.90 L Hgb 9.6 L Hct 29.2 L MCV 100.7 H MCH 33.1 MCHC 32.9 RDW Std Deviation 58.9 H RDW Coeff of Michelle 16.0 H Plt Count 170 MPV 8.9 Immature Gran % (Auto) Neut % (Auto) Lymph % (Auto) [place] % (Auto) Eos % (Auto) Baso % (Auto) Neut # (Auto) Lymph # (Auto) [place] # (Auto) Eos # (Auto) Baso # (Auto) Immature Gran # (Auto) PT INR APTT PTT Ratio Sodium 135 L Potassium 3.1 L Chloride 103 Carbon Dioxide 24 Anion Gap 8 BUN 14 Creatinine 0.48 L Est Cr Clr Drug Dosing 102.3 Est GFR ( Amer) 117.6 Est GFR (Non-Af Amer) 101.5 BUN/Creatinine Ratio 29.2 H Glucose 73 Calcium 8.4 L Magnesium 1.8 Total Bilirubin AST ALT Alkaline Phosphatase Troponin I High Sens 39.0 H D Total Protein Albumin Globulin Albumin/Globulin Ratio SARS-CoV-2, RNA, NAAT 08/16/21 02:59 WBC RBC Hgb Hct MCV MCH MCHC RDW Std Deviation RDW Coeff of Michelle Plt Count MPV Immature Gran % (Auto) Neut % (Auto) Lymph % (Auto) [place] % (Auto) Eos % (Auto) Baso % (Auto) Neut # (Auto) Lymph # (Auto) [place] # (Auto) Eos # (Auto) Baso # (Auto) Immature Gran # (Auto) PT INR APTT 35.8 H PTT Ratio 1.3 Sodium Potassium Chloride Carbon Dioxide Anion Gap BUN Creatinine Est Cr Clr Drug Dosing Est GFR ( Amer) Est GFR (Non-Af Amer) BUN/Creatinine Ratio Glucose Calcium Magnesium Total Bilirubin AST ALT Alkaline Phosphatase Troponin I High Sens Total Protein Albumin Globulin Albumin/Globulin Ratio SARS-CoV-2, RNA, NAAT Diagnostic Findings CTA CHEST 08/09/21: IMPRESSION: 1. No pulmonary emboli identified although exam mildly compromised by respiratory motion artifact. 2. Small left pleural effusion. Increase in left lower lobe and lingular opacity which favors atelectasis. An infectious process is considered less likely. 3. Moderate cardiomegaly and coronary calcification. 4. Increase in nonspecific left breast edema and skin thickening. 5. Interval tracheostomy. CXR 08/15/21: -- Cardiomegaly and emphysema with no acute cardiopulmonary abnormality identified. -- Left basilar consolidation has significantly cleared as compared to recent prior studies. Medications Administered Medications verapamil 240 mg tablet,extended release 240 mg PO BID 05/24/18 [History Con firmed 08/15/21] topiramate 200 mg tablet (Topamax) 200 mg PO HS 01/17/19 [History Confirmed 08/15/21] albuterol sulfate 90 mcg/actuation aerosol inhaler 1 inh INHALATION QID PRN 12/16/19 [History Confirmed 08/15/21] VITAMIN B6 OTC 1 tab PO QAM 11/17/20 [History Confirmed 08/15/21] gabapentin 300 mg capsule 600 mg PO TID cap 01/04/21 [History Confirmed 08/15/21] lisinopril 10 mg tablet 20 mg PO BID tab 01/04/21 [History Confirmed 08/15/21] cholecalciferol (vitamin D3) 50 mcg (2,000 unit) capsule 2,000 unit PO QAM cap 02/04/21 [History Confirmed 08/15/21] acetaminophen 500 mg tablet (Tylenol Extra Strength) 1,000 mg PO BID PRN tab 02/26/21 [History Confirmed 08/15/21] enoxaparin 40 mg/0.4 mL subcutaneous syringe 40 mg SUBCUT Q24H #30 syr 07/07/21 [Rx Confirmed 08/15/21] levothyroxine 112 mcg tablet 224 mcg PO QAM 07/22/21 [History Confirmed 08/15/21] potassium chloride 20 mEq tablet,extended release 20 meq PO QAM 07/22/21 [History Confirmed 08/15/21] famotidine 20 mg tablet 20 mg PO BID #60 tab 08/12/21 [Rx Confirmed 08/15/21] ferrous sulfate 325 mg (65 mg iron) tablet,delayed release 325 mg PO QAM #30 tab 08/12/21 [Rx Confirmed 08/15/21] pantoprazole 40 mg tablet,delayed release 40 mg PO BID #60 tab 08/12/21 [Rx Confirmed 08/15/21] sucralfate 100 mg/mL oral suspension 10 ml PO QID #1200 ml 08/12/21 [Rx Confirmed 08/15/21] Home Medications Acetaminophen (Acetaminophen 325 Mg Tab) 650 mg PO Q4H PRN PRN Reason: Pain Stop: 09/14/21 22:47 Albuterol (Albuterol Hfa 8 Gm Inhaler) 1 puffs INH QID PRN PRN Reason: Shortness Of Breath Or Wheezin Stop: 09/14/21 22:47 Aspirin (Aspirin 81 Mg Chew) 81 mg PO QAM KASSY Stop: 09/15/21 08:59 Last Admin: 08/16/21 08:38 Dose: 81 mg Documented by: Famotidine (Famotidine 20 Mg Tab) 20 mg PO BID KASSY Stop: 09/14/21 22:47 Last Admin: 08/16/21 08:34 Dose: 20 mg Documented by: Gabapentin (Gabapentin 600 Mg Tab) 600 mg PO TID [facility] Stop: 09/14/21 22:47 Last Admin: 08/16/21 08:37 Dose: 600 mg Documented by: Heparin Sodium/Dextrose (Heparin Sodium/Dextrose) 25,000 units in 500 mls @ 22 mls/hr IV .[id number] [facility]; Protocol Stop: 09/14/21 18:44 Last Titration: 08/16/21 04:31 Dose: 1,100 units/hr, 22 mls/hr Documented by: Levothyroxine Sodium (Levothyroxine Sodium 112 Mcg Tablet) 224 mcg PO QAM [facility] Stop: 09/15/21 08:59 Last Admin: 08/16/21 08:38 Dose: 224 mcg Documented by: Lisinopril (Lisinopril 20 Mg Tab) 20 mg PO BID [facility] Stop: 09/14/21 22:47 Last Admin: 08/16/21 08:33 Dose: 20 mg Documented by: Metoprolol Tartrate (Metoprolol Tartrate 25 Mg Tab) 25 mg PO BID [facility] Stop: 09/14/21 22:47 Last Admin: 08/16/21 08:35 Dose: 25 mg Documented by: Ondansetron HCl (Ondansetron Inj 2 Mg/Ml 2 Ml Vial) 4 mg IV Q4H PRN PRN Reason: Nausea Stop: 09/14/21 22:47 Pantoprazole Sodium (Pantoprazole 40 Mg Tab) 40 mg PO BID [facility] Stop: 09/14/21 22:47 Last Admin: 08/16/21 08:35 Dose: 40 mg Documented by: Potassium Chloride (Potassium Chloride Crtab 20 Meq Tabcr) 20 meq PO QAM [facility] Stop: 09/15/21 08:59 Last Admin: 08/16/21 08:34 Dose: 20 meq Documented by: Sucralfate (Sucralfate 1 Gm/10 Ml Udc) 1 gm PO QID [facility] Stop: 09/14/21 22:47 Last Admin: 08/16/21 08:33 Dose: 1 gm Documented by: Topiramate (Topiramate 100 Mg Tab) 200 mg PO HS [facility] Stop: 09/14/21 22:47 Last Admin: 08/15/21 23:59 Dose: 200 mg Documented by: Verapamil HCl (Verapamil Hcl 240 Mg Tabcr) 240 mg PO BID [facility] Stop: 09/14/21 22:47 Last Admin: 08/16/21 08:34 Dose: 240 mg Documented by: PG Care Time/CCT Total # of Minutes Spent Total Time Spent with Patient: Total time spent is greater than 50% in coordination of care (as documented) at patient's floor/unit and/or counseling patient:44 Coding Level of Care Code 19559 Initial Inpt Care Lvl 3 Diagnoses Acute non-ST elevation myocardial infarction (NSTEMI) I21.4 Abnormal EKG R94.31 Elevated troponin I level R77.8 LBBB (left bundle branch block) I44.7 HTN (hypertension) I10 Status post tracheostomy Z93.0 Obstructive sleep apnea G47.33 Time Spent (min) 65
--- NOTE | 2021-08-16 11:02 | XCELERA ---
[id number]
[2021-08-16 11:12] LABS: Partial Thromboplastin Ratio 1.7
[2021-08-16 11:13] LABS: Partial Thromboplastin Time 46.7 Seconds (21.0-31.0)
--- NOTE | 2021-08-16 12:07 | Hospitalist Progress Note ---
Date of Service August 16, 2021 Assessment & Plan (1) Acute non-ST elevation myocardial infarction (NSTEMI): Plan: Patient presented for shortness of breath and concern for her trach, but was found to have TWIs in V2-V3 and elevated troponin. In discussion with the patien t, she has been having symptoms of increasing angina with left chest "twinging," shortness of breath, lightheadedness, and palpitations with exertion. - Case discussed with Dr. Robles; treated for as ACS as follows: * ASA, statin, beta-torrey, and heparin gtt * Trended troponins: 43.7-->53-->39 * NPO since [place] in preparation for [facility] today * Cardiology following, appreciate assistance - Echo updated: LVEF is normal. Moderate concentric LVH. Grade I diastolic dysfunction, abnormal relaxation pattern. RVSP is elevated at 30-40mmHg. Small pericardial effusion. (2) Status post tracheostomy: Plan: Trach done on 07/30/[address] Dobbs for vocal cord paralysis. She actually came to the ER because of shortness of breath and trouble with her trach which was resolved with a thinner suction catheter. - D/W Dr. Dobbs who felt ASA and anticoagulation were safe for the patient as she was >2 weeks out from her trach. He did not feel inpatient consult was warranted at this time, but was happy to field calls or be consulted if something changed. - Monitor - Humidification collar in place, will d/w CM to determine if we can arrange thi s for her upon d/c (3) CAD (coronary artery disease): Plan: Per patient, she has had a prior [place], but I do not see that in the prior cardiology note from 01/04/2021 with Mr. Del Rio. - Plan as above (4) Metastatic colorectal cancer: Plan: Follows most recently with Dottie Hearn PA-C at [facility]. - Updated provider, will delay chemo start by 1 week and office will f/u with her next week (5) HTN (hypertension): Plan: BP was 120/95 in the ER. - Hold home lisinopril in case she needs contrast tomorrow. - Hold home diltiazem in favor of beta-torrey for ACS, hold for SBP<95 or HR<60 (6) Obstructive sleep apnea: Plan: Presently with trach with good O2 sat. - Monitor (7) Post-surgical hypothyroidism: Plan: TSH checked last admission. - Continue home levothyroxine 224 mcg PO daily (8) History of DVT (deep vein thrombosis): Plan: In LUE. - On heparin gtt at this time. Was discharged on Lovenox 40 mg SQ daily from prior admission. - Updated Dr. Perdomo in the AC clinic as she has an appt w/ her tomorrow Plan: As above. For LHC. Replace potassium for level fo 3.1. Will call and update family, pt requested her niece Ludivina be updated after her procedure. Plan to be d/w Dr. Jorge. Admission and Anticipated Discharge Date Admission Date: August 15, 2021 Subjective Patient seen on daily rounds this morning. She is resting comfortably in bed and offers no new complaints. She denies cp, dyspnea, n/v/d, f/c, headache, or gu symptoms. She reported feeling that she needs to have the humidification for her trach when she returns home as she reportedly had blood and secretions that clogged up her trach and was having trouble suctioning it at home. She has been kept NPO since [place] last night in preparation for heart cath today d/t NSTEMI. Review of Systems Review of Systems: All systems reviewed and are unremarkable except as noted in HPI and below. Denies fever, chills, fatigue, headache, nasal congestion, sore throat, cough, chest pain, shortness of breath, palpitations, orthopnea, PND, abdominal pain, n/v/d, constipation, dysuria, hematuria, frequency, back pain, joint pain or swelling, easy bruising or bleeding, skin lesions or rashes. Physical Exam Physical Exam: GENERAL: 65 yo well-developed, well-nourished WF. NAD. NECK: Trach present, no active bleeding/drainage. LUNGS: Clear to auscultation bilaterally. No accessory muscle use. No W/R/R. CARDIOVASCULAR: Regular rate and rhythm w/o M/G/R ABDOMEN: Soft, non-tender and non-distended. BS normoactive x 4 quad. EXTREMITIES: No edema. Non-tender. Peripheral pulses +2/4. NEUROLOGIC: A&O x3. PSYCHIATRIC: Cooperative. Appropriate mood and affect. SKIN: Warm, dry, intact. No rashes or lesions. Results & Data Results & Data ([facility]) Vital Signs (Past 12 Hours) Vital Signs Temp Pulse Pulse Resp BP Pulse Ox 08/16/21 11:54 36.5 C 78 18 90/61 L 97 08/16/21 11:31 80 08/16/21 08:00 107 H 08/16/21 03:59 36.8 C 75 18 111/67 98 Laboratory Results 08/16/21 02:59 08/16/21 02:59 ECG Additional Comments: TELE: NSR 80s PG Care Time/CCT Total # of Minutes Spent Total Time Spent with Patient: Total time spent is greater than 50% in coordination of care (as documented) at patient's floor/unit and/or counseling patient: Coding Level of Care Code 06255 Subseq Hosp Care Lvl 2 Diagnoses Acute non-ST elevation myocardial infarction (NSTEMI) I21.4 Status post tracheostomy Z93.0 CAD (coronary artery disease) I25.10 Metastatic colorectal cancer C19 HTN (hypertension) I10 Obstructive sleep apnea G47.33 Post-surgical hypothyroidism E89.0 History of DVT (deep vein thrombosis) Z86.718
[2021-08-16] MEDS ORDERED: FAMOTIDINE 20 MG in SYRINGE 3 ML IV STA (15:05)
[2021-08-16] MEDS ORDERED: MIDAZOLAM HCL 1 MG/ML 2ML VIAL ONE (15:19)
[2021-08-16] MEDS ORDERED: niCARdipine HCL INJ 2.5 MG/ML 10 ML AMP ONE (15:19)
[2021-08-16] MEDS ORDERED: HEPARIN (PORCINE) 1000 UNIT/ML 10 ML (CATH LAB USE ONLY) ONE (15:19)
[2021-08-16] MEDS ORDERED: fentaNYL citrate 100 MCG/2 ML VIAL ONE (15:19)
[2021-08-16] MEDS ORDERED: NITROGLYCERIN/D5W 100MCG/ML 20ML SYR ONE (15:20)
[2021-08-16] MEDS ORDERED: diphenhydrAMINE 50 MG/ML VIAL ONE (15:20)
[2021-08-16] MEDS ORDERED: methylPREDNISolone 125 MG/2 ML VIAL ONE (15:20)
--- NOTE | 2021-08-16 15:20 | Pre Anesthesia Assessment ---
Date of Service August 16, 2021 Pre Sedation Assessment Vital Signs Temp Pulse Pulse Resp BP BP Pulse Ox 08/16/21 15:01 79 08/16/21 14:50 78 20 100/61 95 08/16/21 11:54 97.7 F 78 18 90/61 L 97 08/16/21 11:31 80 08/16/21 08:00 107 H 08/16/21 03:59 98.2 F 75 18 111/67 98 08/15/21 23:52 99.0 F 103 H 18 149/82 H 98 08/15/21 22:48 99.0 F 115 H 24 152/91 H 97 08/15/21 22:20 99.0 F 115 H 24 152/91 H 97 08/15/21 16:01 118 H 24 121/94 97 08/15/21 15:30 113 H 23 95 Cardiovascular RRR, no murmur, no edema Respiratory normal respiratory effort, lungs clear to auscultation Pre-Sedation Airway Assessment Smoking Status: Never smoker Hx Sleep Apnea: No Hx Difficult Intubation: No Short, Thick Neck: No Thyromental Distance: > or= 3.5 Finger Breadths Oral Cavity: + WNL Mallampati Class: Other ASA: ASA3 NPO Status Date of Last Intake of Fluids: 08/16/21 Time of Last Intake of Fluids: 08:00 Date of Last Intake of Solid Food: 08/15/21 Time of Last Intake of Solid Foods: 21:00 Procedure Planning Contraindications for Sedation: none Current Medications Reviewed: Yes Notes The planned sedation has been discussed with the patient. Informed Consent was obtained. I have identified the patient, determined the appropriateness of sedation and have assessed the patient immediately prior to the procedure. All medicine(s) and interventions are by my order.
--- NOTE | 2021-08-16 16:01 | Post Anesthesia Assessment ---
Date of Service August 16, 2021 Post Sedation Assessment Vital Signs Temp Pulse Pulse Resp BP BP Pulse Ox 08/16/21 15:01 79 08/16/21 14:50 78 20 100/61 95 08/16/21 11:54 97.7 F 78 18 90/61 L 97 08/16/21 11:31 80 08/16/21 08:00 107 H 08/16/21 03:59 98.2 F 75 18 111/67 98 08/15/21 23:52 99.0 F 103 H 18 149/82 H 98 08/15/21 22:48 99.0 F 115 H 24 152/91 H 97 08/15/21 22:20 99.0 F 115 H 24 152/91 H 97 08/15/21 16:01 118 H 24 121/94 97 Recovery Score Activity: Moves 4 extremities Respiration: Deep Breath/Cough Circulation: +/-20% PreAnes Value Consciousness: Fully Awake Oxygen Saturation: O2 needed for >90% Discharge Sedation Level of Care: Fast Track Phase II Post Sedation Plan On clinical assessment, the patient appears to have tolerated the sedation without complications. Patient is recovering as anticipated. Patient will continue to be monitored by nursing and may be discharged when sedation discharge criteria are met per below protocol. Upon Completions of procedure up to 15 minutes continue every 5 minute vital signs and the P.A.R. score; then discharge to a Phase I or Fast Track to Phase II per the following guidelines: * Discharge Patient to appropriate Phase II area if PAR is 8 or greater or return to pre- procedure baseline. The post - procedure orders will be as directed. * If PAR score is less than 8 or not return to pre-procedure baseline then patient will follow Phase I monitoring till PAR is reached for Phase II. The Phase I may be done in procedure room or may call to secure a Phase I area. * If naloxone or flumazenil are used for reversal, hold in Phase I for continued monitoring from when last reversal dose was given for a minimum of 60 minutes or longer pending the nurse and/or physician discretion of patient condition before discharge to Phase II. Please call the Sedation Physician to re-evaluate and complete post-note for discharge to Phase II area. Do NOT discharge from procedure sedation or Phase 1 until post- sedation evaluation note is complete by procedure /sedation MD Sedation Discharge Instructions to be given to the patient at discharge to home.
[2021-08-16] MEDS ORDERED: SODIUM CHLORIDE 0.9% 1000ML 1,000 ML IV SCH (16:15)
--- NOTE | 2021-08-16 16:15 | Cardiac Catheterization ---
[facility] Data: [place] Cardiac Status Clinical evaluation leading to the procedure CAD Presenation: Non STEMI Diagnostic Physicians Name: Toribio Jarrett MD Closure Device Recommendations: Medical Therapy and/or Counseling Cardiac Cath Procedure Full Procedure Date August 16, 2021 Pre-Procedure Diagnosis Pre-Procedure Diagnosis: Non STEMI AUC Score AUC Score: 8 Post-Procedure Diagnosis Post-Procedure Diagnosis: Severe CAD and Normal Intracardiac Pressures Procedure(s) Performed Procedure(s) Performed: Coronary Angiography and Left Heart Cath It Consulting Director Toribio Jarrett MD Street Superintendent(s) [place] Estimated Blood Loss Estimated Blood Loss: 10 Medication(s) Medication(s): Fentanyl, Heparin, Lidocaine 1%, Nicardipine, Nitroglycerin and Versed Summary of Findings Indication: NSTEMI Access: 6 Fr right radial artery Catheters: [place] Findings: LM -normal caliber, no significant disease LAD -medium caliber, extends around apex without significant disease. Medium D1 with 70% ostial stenosis. Circumflex -small, no significant disease. High OM1 without disease. Small OM 2 with 40% stenosis. RCA -dominant, large caliber vessel without significant disease and supplies lateral wall of heart with large PLB's. Moderate RPDA with 40% ostial. PLB's without significant disease. LVEDP -8 Arterial Closure: TR band Summary: 1. No significant coronary artery disease in major epicardial coronary arteries 2. Severe branch vessel disease -70% ostial medium D1 40% proximal small OM2 40% ostial RPDA 3. Normal intracardiac filling pressure Recommendations: Suspect mild troponin elevation secondary to demand ischemia versus less likely acute disease in first diagonal. Brisk flow in diagonal and recommend medical management. Can discontinue heparin infusion. Continue ASCVD risk factor modification Hemodynamics Rest Ao:: 78/44/76 Final Ao: 73/41/53 LV: 75/8 Recommendations Recommendations: Medical Therapy and/or Counseling Specimens Specimens: None Radiation Exposure (mGy) 317 Contrast (mls) 30 Anesthesia Moderate [id number] Procedural Complication(s) None Disposition PCU I attest to the content of the Intraoperative Record and any orders documented therein. Any exceptions are noted below. [facility] Card Cath Procedure Codes Cardiac Catheterization Procedure 1: Cardiovascular Cath Procedures: 76905 Coronaries and LHC (+/-LV) Moderate Sedation Procedure 1: Sedation/Anesthesia: 07111 Mod Sedation by the same physician;Init15 Min Child Age 5 & Up PG Care Time/CCT Total # of Minutes Spent Total Time Spent with Patient: Total time spent is greater than 50% in coordination of care (as documented) at patient's floor/unit and/or counseling patient:
[2021-08-16] MEDS: TOPIRAMATE 100 MG TAB PO SCH (21:56)
[2021-08-17] MEDS: LEVOTHYROXINE SODIUM 112 MCG TABLET PO SCH (06:33)
[2021-08-17] MEDS: ASPIRIN 81 MG CHEW PO SCH (07:27)
[2021-08-17] MEDS: POTASSIUM CHLORIDE CRTAB 20 MEQ TABCR PO SCH (07:28)
[2021-08-17] MEDS: PANTOprazole 40 MG TAB PO SCH (07:28)
[2021-08-17] MEDS: lisinopril 20 MG TAB PO SCH (07:28)
[2021-08-17] MEDS: FAMOTIDINE 20 MG TAB PO SCH (07:28)
[2021-08-17] MEDS: SUCRALFATE 1 GM/10 ML UDC PO SCH ×2 (07:28→13:01)
[2021-08-17] MEDS: GABAPENTIN 600 MG TAB PO SCH ×2 (07:28→13:01)
[2021-08-17] MEDS: METOPROLOL TARTRATE 25 MG TAB PO SCH (07:58)
--- NOTE | 2021-08-17 09:19 | Cardiology Progress Note ---
Date of Service August 17, 2021 Assessment & Plan (1) Acute non-ST elevation myocardial infarction (NSTEMI): Plan: Ms. Vance is a 65-year-old female with a history of Hypertension, Dyslipidemia, Follicular Thyroid Cancer s/p Partial Thyroidectomy 1982, Medullary Thyroid Cancer s/p Complete Thyroidectomy, Radical Neck Dissection, and XRT in 1996, Post-Ablative Hypothyroidism, Bilateral Vocal Cord Paralysis s/p Tracheostomy complicated by post-op shock, PTSD, Depression, SUZANNE on BiPAP, Chronic LBBB, Chronic SOB due to Upper Airway Obstruction, LUE DVT, and Metastatic Colon Cancer -- who was admitted on 08/15/[address] II [address] (related to tachycardia/transient hypoxia/anemia/moderate concentric LVH) and Non- Obstructive CAD (70% ostial D1 stenosis, 40% proximal OM2 stenosis, 40% ostial R PDA stenosis on Cardiac Cath 08/16/21). Patient presented to [facility] ER on 08/15/21 complaining of difficulties with her tracheostomy, SOB, BARGER, and air hunger -- without associated symptoms. She did not have any associated nausea, vomiting, or diaphoresis. She did not have any chest pain or discomfort at any time, but she did have palpitations described as "a tennis ball bouncing in my chest" intermittently on 08/13/21 and 08/14/21. She did not have these palpitations on the day of admission. In the ER the patient was noted to have an abnormal EKG showing sinus tachycardia, ST and T wave abnormalities, consider inferior ischemia, consider anterolateral ischemia. High sensitivity Troponin I levels were elevated as well -- Initial high sensitivity Trop I was 43.7 pg/mL, peaked at 53.0 pg/mL, and trended down to 39.0 pg/mL. offline editor shows a normal sinus rhythm to sinus tachycardia ranging from 70's to low 100's. Echocardiogram 08/16/21 shows normal LV systolic function, moderate concentric LVH, LVEF 55% to 60%, elevated RVSP at 30 to 40 mmHg. We discussed her echocardiogram and cardiac catheterization findings in detail. We discussed what a Type II Non-ACS CT is, and we discussed the management of Non-Obstructive CAD and the goals of management: modify risk factors, reduce LDL leading to regression of disease. Recommend the following: -- Continue Aspirin 81 mg daily. -- Convert to long acting Metoprolol Succinate ER 50 mg daily. -- Atorvastatin 40 mg daily. -- Continue Lisinopril 20 mg b.i.d.. -- Continue Verapamil 240 mg b.i.d.. -- Low sodium diet. -- Follow-up visit with Raul Del Rio PA-C on 08/23/21 at 10:00 a.m. (2) Abnormal EKG: Plan: -- Manage as outlined above. -- She has an intermittent LBBB and she has LVH. -- Patient was hypokalemic yesterday (K = 3.1 mmol/L) and was given an extra 40 mEq of KCl. (3) Elevated troponin I level: Plan: -- Management as outlined above. (4) LBBB (left bundle branch block): (5) HTN (hypertension): Plan: She has been normotensive to hypertensive throughout this hospitalization. -- Continue current regimen. -- Low sodium diet. -- Monitor BP at home, goal average BP is < 130/80. All of the patient's questions were answered to her satisfaction. She is to call if any problems, questions, recurrent symptoms, or change in clinical status. Patient is stable for discharge to home from a cardiac standpoint. (6) Status post tracheostomy: (7) Obstructive sleep apnea: Admission and Anticipated Discharge Date Admission Date: August 15, 2021 Subjective Ms. Vance is a 65-year-old female with a history of Hypertension, Dyslipidemia, Follicular Thyroid Cancer s/p Partial Thyroidectomy 1982, Medullary Thyroid Cancer s/p Complete Thyroidectomy, Radical Neck Dissection, and XRT in 1996, Post-Ablative Hypothyroidism, Bilateral Vocal Cord Paralysis s/p Tracheostomy complicated by post-op shock, PTSD, Depression, SUZANNE on BiPAP, Chronic LBBB, Chronic SOB due to Upper Airway Obstruction, LUE DVT, and Metastatic Colon Cancer -- who was admitted on 08/15/[address] II [address] (related to tachycardia/transient hypoxia/anemia/moderate concentric LVH) and Non-Obstructive CAD (70% ostial D1 stenosis, 40% proximal OM2 stenosis, 40% ostial R PDA stenosis on Cardiac Cath 08/16/21). Patient's breathing has returned to baseline and the management of her tracheostomy has gotten much easier for her. The new smaller suction catheter works much better than when she was using at home. Patient has not had any chest pain, heaviness, tightness, pressure or discomfort. She denies any neck, jaw, back, or arm pain. She has not had any orthopnea or PND. She has not noticed any further palpitations. She denies any syncope or near syncope. She is not having any significant discomfort of her right radial arterial access site. Patient will be discharged to home today. Arrangements are being made through the [place] for home health, and to get a humidifier for her supplemental oxygen. ECHOCARDIOGRAM 08/16/21: -- Normal LV size, wall motion, and systolic function. -- LVEF 55% to 60%. -- Moderate concentric LVH. -- Grade I LV diastolic dysfunction. -- Trace TR. -- Elevated RVSP at 30 to 40 mmHg. CARDIAC CATHETERIZATION 08/16/21: -- LMCA -- Normal caliber, no significant disease -- LAD -- Medium caliber, extends around apex without significant disease. Medium D1 with 70% ostial stenosis. -- LCx -- Small, no significant disease. High OM1 without disease. Small OM 2 with 40% stenosis. -- RCA -- Dominant, large caliber vessel without significant disease and supplie s lateral wall of heart with large PLB's. Moderate R PDA with 40% ostial. PLB's without significant disease. -- LVEDP -- 8 mmHg Summary: 1. No significant coronary artery disease in major epicardial coronary arteries. 2. Branch vessel disease. -- 70% ostial medium D1 stenosis. -- 40% proximal small OM2 stenosis. -- 40% ostial R PDA stenosis. Recommendations: -- Suspect mild troponin elevation secondary to demand ischemia vs less likely acute disease in first diagonal. -- Brisk flow in D1 and recommend medical management. -- Continue ASCVD risk factor modification. Review of Systems Review of Systems: Patient has had weight loss since being diagnosed and getting treatment for her metastatic colon cancer. Followed by [facility]. +Anemia +Neutropenia 10 point ROS was completed and is negative with the exception of what is mentioned here and in the HPI. Physical Exam Physical Exam: General: Patient in no acute distress. HEENT: Head is atraumatic, normocephalic. EOMs intact. Sclerae anicteric. Facies symmetric. No perioral cyanosis. Neck: S/p right radical neck dissection, extensive scar tissue, skin grafts over the right neck and right shoulder. No JVD. Carotid upstrokes +2 bilaterally without obvious bruits. JVP does not appear to be elevated. Tracheostomy is present. Chest and Lungs: Clear to auscultation throughout all lung smart, no wheezes, rales, or rhonchi. CVS: S1 and S2 are regular, distant without obvious murmurs, gallops, or rubs. PMI is nonpalpable. No lifts, heaves, or thrills. No abdominal aortic or renal bruits. Abdominal Exam: Bowel sounds present. No masses, organomegaly, or tenderness. Extremities: No clubbing, cyanosis, or edema. Intact posterior tibial and radial pulses bilaterally. Pressure dressing is present over right radial arterial acc ess site, no hematoma. Neurologic Exam: Patient is awake, alert, and oriented. Pleasant and cooperative. Answers questions appropriately. Speech is clear. Normal movement in all 4 extremities. 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 Results & Data ([facility]) Vital Signs (Past 12 Hours) Vital Signs Temp Pulse Pulse Resp BP Pulse Ox 08/17/21 08:00 36.6 C 80 92 H 16 155/73 H 100 08/17/21 03:41 36.7 C 61 14 123/72 98 08/16/21 23:12 36.4 C 68 20 126/68 97 08/16/21 22:25 71 08/16/21 22:01 68 111/64 98 08/16/21 21:53 68 111/64 Laboratory Results Laboratory Results - last 24 hr 08/16/21 10:29 APTT 46.7 H* PTT Ratio 1.7 Diagnostic Findings Echocardiogram and Cardiac Catheterization results as described above. Medications Administered Medications verapamil 240 mg tablet,extended release 240 mg PO BID 05/24/18 [History Confir med 08/15/21] topiramate 200 mg tablet (Topamax) 200 mg PO HS 01/17/19 [History Confirmed 08/15/21] albuterol sulfate 90 mcg/actuation aerosol inhaler 1 inh INHALATION QID PRN 12/16/19 [History Confirmed 08/15/21] VITAMIN B6 OTC 1 tab PO QAM 11/17/20 [History Confirmed 08/15/21] gabapentin 300 mg capsule 600 mg PO TID cap 01/04/21 [History Confirmed 08/15/21] lisinopril 10 mg tablet 20 mg PO BID tab 01/04/21 [History Confirmed 08/15/21] cholecalciferol (vitamin D3) 50 mcg (2,000 unit) capsule 2,000 unit PO QAM cap 02/04/21 [History Confirmed 08/15/21] acetaminophen 500 mg tablet (Tylenol Extra Strength) 1,000 mg PO BID PRN tab 02/26/21 [History Confirmed 08/15/21] enoxaparin 40 mg/0.4 mL subcutaneous syringe 40 mg SUBCUT Q24H #30 syr 07/07/21 [Rx Confirmed 08/15/21] levothyroxine 112 mcg tablet 224 mcg PO QAM 07/22/21 [History Confirmed 08/15/21] potassium chloride 20 mEq tablet,extended release 20 meq PO QAM 07/22/21 [History Confirmed 08/15/21] famotidine 20 mg tablet 20 mg PO BID #60 tab 08/12/21 [Rx Confirmed 08/15/21] ferrous sulfate 325 mg (65 mg iron) tablet,delayed release 325 mg PO QAM #30 tab 08/12/21 [Rx Confirmed 08/15/21] pantoprazole 40 mg tablet,delayed release 40 mg PO BID #60 tab 08/12/21 [Rx Confirmed 08/15/21] sucralfate 100 mg/mL oral suspension 10 ml PO QID #1200 ml 08/12/21 [Rx Confirmed 08/15/21] Home Medications Acetaminophen (Acetaminophen 325 Mg Tab) 650 mg PO Q4H PRN PRN Reason: Pain Stop: 09/14/21 22:47 Albuterol (Albuterol Hfa 8 Gm Inhaler) 1 puffs INH QID PRN PRN Reason: Shortness Of Breath Or Wheezin Stop: 09/14/21 22:47 Aspirin (Aspirin 81 Mg Chew) 81 mg PO QAM KASSY Stop: 09/15/21 08:59 Last Admin: 08/17/21 07:27 Dose: 81 mg Documented by: Famotidine (Famotidine 20 Mg Tab) 20 mg PO BID [facility] Stop: 09/14/21 22:47 Last Admin: 08/17/21 07:28 Dose: 20 mg Documented by: Gabapentin (Gabapentin 600 Mg Tab) 600 mg PO TID [facility] Stop: 09/14/21 22:47 Last Admin: 08/17/21 07:28 Dose: 600 mg Documented by: Levothyroxine Sodium (Levothyroxine Sodium 112 Mcg Tablet) 224 mcg PO QAM KASSY Stop: 09/15/21 08:59 Last Admin: 08/17/21 06:33 Dose: 224 mcg Documented by: Lisinopril (Lisinopril 20 Mg Tab) 20 mg PO BID KASSY Stop: 09/14/21 22:47 Last Admin: 08/17/21 07:28 Dose: 20 mg Documented by: Metoprolol Tartrate (Metoprolol Tartrate 25 Mg Tab) 25 mg PO BID KASSY Stop: 09/14/21 22:47 Last Admin: 08/17/21 07:58 Dose: 25 mg Documented by: Ondansetron HCl (Ondansetron Inj 2 Mg/Ml 2 Ml Vial) 4 mg IV Q4H PRN PRN Reason: Nausea Stop: 09/14/21 22:47 Pantoprazole Sodium (Pantoprazole 40 Mg Tab) 40 mg PO BID KASSY Stop: 09/14/21 22:47 Last Admin: 08/17/21 07:28 Dose: 40 mg Documented by: Potassium Chloride (Potassium Chloride Crtab 20 Meq Tabcr) 20 meq PO QAM KASSY Stop: 09/15/21 08:59 Last Admin: 08/17/21 07:28 Dose: 20 meq Documented by: Sucralfate (Sucralfate 1 Gm/10 Ml Udc) 1 gm PO QID KASSY Stop: 09/14/21 22:47 Last Admin: 08/17/21 07:28 Dose: 1 gm Documented by: Topiramate (Topiramate 100 Mg Tab) 200 mg PO HS [facility] Stop: 09/14/21 22:47 Last Admin: 08/16/21 21:56 Dose: 200 mg Documented by: PG Care Time/CCT Total # of Minutes Spent Total Time Spent with Patient: Total time spent is greater than 50% in coordination of care (as documented) at patient's floor/unit and/or counseling patient:35 Coding Level of Care Code 71643 Subseq Hosp Care Lvl 3 Diagnoses Acute non-ST elevation myocardial infarction (NSTEMI) I21.4 Abnormal EKG R94.31 Elevated troponin I level R77.8 LBBB (left bundle branch block) I44.7 HTN (hypertension) I10 Status post tracheostomy Z93.0 Obstructive sleep apnea G47.33 Time Spent (min) 54
[2021-08-17] MEDS ORDERED: ATORVASTATIN 40 MG TAB PO SCH (10:30)
--- NOTE | 2021-08-17 13:07 | Discharge Summary ---
Date of Service August 17, 2021 Admission HPI Per Admitting Provider 65yo F w/ hx of colon cancer who presents with trach issues and EKG changes. The patient reports that she was discharged just on 08/12 after having a tracheostomy placed for vocal cord paralysis with Dr. Dobbs. She presented because she felt she was having trouble breathing. RT worked with her, and she had a trach suction that was too large. With RT working to suction her trach, she was able to breath much more easily. However, in the routine set of labs she got, it was noted that her troponin was mildly elevated. As concerningly, her EKG showed deep TWIs in V2 & V3. Principal Diagnosis Type II WV d/t supply-demand mismatch in setting of transient hypoxia Discharge Exam GENERAL: 65 yo well-developed, well-nourished WF. NAD. NECK: Trach present, no active bleeding/drainage. LUNGS: Clear to auscultation bilaterally. No accessory muscle use. No W/R/R. CARDIOVASCULAR: Regular rate and rhythm w/o M/G/R ABDOMEN: Soft, non-tender and non-distended. BS normoactive x 4 quad. EXTREMITIES: No edema. Non-tender. Peripheral pulses +2/4. NEUROLOGIC: A&O x3. PSYCHIATRIC: Cooperative. Appropriate mood and affect. SKIN: Warm, dry, intact. No rashes or lesions. Discharge Data Allergies Allergy/AdvReac Type Severity Reaction Status Date / Time Iodinated Contrast Media Allergy Intermediate Hives Verified 08/15/21 16:49 Penicillins Allergy Intermediate Hives Verified 08/15/21 16:49 Sulfa (Sulfonamide Allergy Intermediate Hives Verified 08/15/21 16:49 Antibiotics) Consultations 08/15/21 17:10 ED Decision to Admit Stat 08/15/21 22:48 Consult Cardiology Routine Procedures Performed Operation Date: 08/16/21 12:30 Actual Procedures p Cath, Left with Cors and Vent - Pritesh Jarrett MD s Cineradiography w/Routine Exam - Pritesh Jarrett MD Ordered Studies Chest X-Ray 08/15/21 14:21 SINGLE VIEW CHEST CLINICAL HISTORY: Dyspnea. FINDINGS: An AP, portable, upright chest radiograph is compared to study dated 07/31/2021 and correlated with chest CT dated 08/09/2021. A tracheostomy in the left-sided central venous infusion port are unchanged in position. The heart is enlarged noting atherosclerotic calcification of the thoracic aorta. The pulmonary vasculature is noncongested. Emphysema and chronic interstitial thickening are similar to previous. There is elevation of the left hemidiaphragm with left basilar scarring/atelectasis. No airspace consolidation or large pleural effusion is identified. No pneumothorax is seen. The skeletal structures are osteopenic. The bony thorax is grossly intact. Cholecystectomy clips are noted in the right upper quadrant. IMPRESSION: Cardiomegaly and emphysema with no acute cardiopulmonary abnormality identified. Left basilar consolidation has significantly cleared as compared to recent prior studies. ACT 112: Negative or not required by law. Electronically signed by: Sherif Shelby M.D. 08/15/2021 3:49 PM Hospital Course (1) Acute non-ST elevation myocardial infarction (NSTEMI): Patient presented for shortness of breath and concern for her trach, but was found to have TWIs in V2-V3 and elevated troponin. In discussion with the patient, she has been having symptoms of increasing angina with left chest "twinging," shortness of breath, lightheadedness, and palpitations with exertion. - Case discussed with Dr. Robles; treated for as ACS as follows: * ASA, statin, beta-torrey, and heparin gtt * Trended troponins: 43.7-->53-->39 * Cardiology consulted, plan for LHC on 08/16 to eval coronary arteries * Underwent LHC on 08/16--60-70% ostial diagonal stenosis, recommended medical management - Echo updated: LVEF is normal. Moderate concentric LVH. Grade I diastolic dysfunction, abnormal relaxation pattern. RVSP is elevated at 30-40mmHg. Small pericardial effusion. (2) Status post tracheostomy: Trach done on 07/30/[address] Dobbs for vocal cord paralysis. She actually came to the ER because of shortness of breath and trouble with her trach which was resolved with a thinner suction catheter. - D/W Dr. Dobbs who felt ASA and anticoagulation were safe for the patient as she was >2 weeks out from her trach. He did not feel inpatient consult was warranted at this time, but was happy to field calls or be consulted if something changed. - Humidification collar in place, prescription for humidification given to CM who will set up to be delivered to pt upon d/c - F/U with Dr. Dobbs as scheduled (3) CAD (coronary artery disease): Per patient, she has had a prior WV, but I do not see that in the prior cardiology note from 01/04/2021 with Mr. Del Rio. - Plan as above (4) Metastatic colorectal cancer: Follows most recently with Dottie Hearn PA-C at [facility]. - Updated provider, will delay chemo start by 1 week and office will f/u with her next week (5) HTN (hypertension): BP was 120/95 in the ER. - Remains on Lisinopril - CCB changed to BB d/t ACS which she is tolerating (6) Obstructive sleep apnea: Presently with trach with good O2 sat. - Monitor (7) Post-surgical hypothyroidism: TSH checked last admission. - Continue home levothyroxine 224 mcg PO daily (8) History of DVT (deep vein thrombosis): In LUE. - On heparin gtt at this time. Was discharged on Lovenox 40 mg SQ daily from prior admission. - Updated Dr. Perdomo in the AC clinic as she has an appt w/ her tomorrow Patient is doing well s/p LHC. Seen this AM by cardiology, she is currently tolerating new meds: ASA, Lipitor, and changed from Verapamil to Metoprolol Tartrate. She has a f/u appointment with cardiology NANCY on 08/23. She is going to f/u with [facility] next week for chemo. Reschedule her appt with Leanne d/t hospitalization. She is otherwise medically stable for discharge. Recommend f/u with PCP within 1 week. Above plan of care has been d/w Dr. Atul Chino who has also seen and evaluated this patient prior to discharge. Total Time Total Time Spent Total Time Spent (In Minutes): >30 minutes Discharge Plan Discharge Items Patient Disposition: Home - Home Health Services Reason For Visit: CHEST PAIN R/O Discharge Diagnosis: Heart attack secondary to decreased oxygen levels and fast heart rate Activity: Resume your previous activity Non-emergency contact: Primary Care Provider and Animal Keeper Head Call non-emergency contact if: you have any medication questions and your symptoms worsen Follow-up/Referrals: Karen Cao PA-C [Primary Care Provider] - Diet: Heart Healthy Diet Comment: minced and moist, easy to chew Addtl Attending Provider Instructions: You were hospitalized due to palpitations and low oxygen which was related to mucous plugging up your trachea and causing an inability to get oxygen into your lungs. For that reason, your heart rate became elevated and caused you to have a heart attack which can occur when your heart enzymes rise due to a mismatch between oxygen supply and demand. You underwent a heart catheterization which showed you have some blockage in one of your arteries but not enough that required placement of a stent. Medical therapy (in the form of Aspirin, Lipitor, and Metoprolol) is recommended. * Would recommend a once a day chewable aspirin which has been prescribed and sent to your pharmacy. * Would recommend daily Lipitor 40mg daily which helps control your cholesterol and in turn reduce development of plaque in the arteries. This medication has been sent to your pharmacy. * We have STOPPED your Verapamil and changed you to Metoprolol Tartrate 25mg to be taken twice every day. This new med has also been sent to your pharmacy. You are being set up for home humidification to use over your tracheostomy site. You have also been provided with a smaller suction catheter to use as needed to suction out the airway. Home health is scheduled to follow up with you tomorrow 08/18/21. We would advise you to call Dr. Perdomo's office to reschedule your appointment that you missed due to your hospitalization. Also, [facility] will be in contact with you to reschedule your appointment for chemotherapy. We would advise that you follow up with your primary care physician within 1 week. Follow up with your established cardiology provider (Raul Del Rio PA-C) as scheduled on 08/23/21. In the event of any questions, please contact the nonemergency number listed on your discharge paperwork. In the event of a medical emergency, call 911. Pending Studies at Discharge: No Stand-Alone Forms: My [facility] [employer], Smoking Cessation Medications and DC Order Prescriptions: New atorvastatin 40 mg Tablet 40 mg PO QAM Qty: 30 RF: 0 aspirin [Children's Aspirin] 81 mg Tablet,Chewable 81 mg PO QAM Qty: 30 RF: 0 metoprolol tartrate 25 mg Tablet 25 mg PO BID Qty: 60 RF: 0 Continued gabapentin 300 mg capsule 600 mg PO TID RF: 0 VITAMIN B6 OTC 1 tab PO QAM RF: 0 cholecalciferol (vitamin D3) 50 mcg (2,000 unit) capsule 2,000 unit PO QAM RF: 0 enoxaparin 40 mg/0.4 mL syringe 40 mg subcut Q24H Qty: 30 RF: 2 acetaminophen [Tylenol Extra Strength] 500 mg tablet 1,000 mg PO BID PRN (Reason: Pain) RF: 0 topiramate [Topamax] 200 mg tablet 200 mg PO HS RF: 0 lisinopril 10 mg tablet 20 mg PO BID RF: 0 albuterol sulfate 90 mcg/actuation Hfa Aerosol Inhaler 1 inh INHALATION QID PRN (Reason: sob) RF: 0 levothyroxine 112 mcg tablet 224 mcg PO QAM RF: 0 potassium chloride 20 mEq Tablet Extended Release 20 meq PO QAM RF: 0 famotidine 20 mg Tablet 20 mg PO BID Qty: 60 RF: 0 pantoprazole 40 mg Tablet,Delayed Release (Dr/Ec) 40 mg PO BID Qty: 60 RF: 0 ferrous sulfate 325 mg (65 mg iron) Tablet,Delayed Release (Dr/Ec) 325 mg PO QAM Qty: 30 RF: 0 sucralfate 100 mg/mL Suspension 10 ml PO QID Qty: 1200 RF: 0 Discontinued verapamil 240 mg Tablet Extended Release 240 mg PO BID RF: 0 Discharge Orders: Discharge Order (Routine); Ordered 08/17/21 Ordered By: Rica Coy Admission Data Admit Date/Time: 08/15/21 18:06 Attending Provider: Atul Chino Admit Provider: Atul Chino Primary Care Provider: Karen Cao Other Providers: Atul Chino ; Jairon Robles ; [facility] Other Interventions: Discharge Summary Assessment (RN) Last Done: 08/17/21 13:26 Supervising Physician Co-Signing Physician Notes I supervised Rica Coy PA-C on this admission. I interviewed and examined the patient independently of her. The plan is as written in the her note except for any following changes/exceptions: None Now doing well after her admission. Breathing is good and trach has been well- situated. Home humidifier has been ordered. No cardiac concerns today. Coding Level of Care Code D/C DAY MANAGEMENT >30 MINS Diagnoses Acute non-ST elevation myocardial infarction (NSTEMI) I21.4 Status post tracheostomy Z93.0 CAD (coronary artery disease) I25.10 Metastatic colorectal cancer C19 HTN (hypertension) I10 Obstructive sleep apnea G47.33 Post-surgical hypothyroidism E89.0 History of DVT (deep vein thrombosis) Z86.718 Home Health Attestation I certify that this patient is under my care and that I, or a physicians assistant grocery working with me, had a face to-face encounter that meets the home health [id number] encounter requirements with this patient. The encounter with the patient was in whole, or in part, for the following medical condition, which is the primary reason for home health care (list medical condition): I certify that, based on my findings, the following services are medically necessary home health services: My clinical findings support the need for the above services because: Further, I certify that my clinical findings support that this patient is homebound (i.e. absences from home require considerable and taxing effort and are for medical reasons or bahai services or infrequently or of short duration when for other reasons) because: Certification for Home Health Services: Based on the above findings, I certify that this patient is confined to the home and needs intermittent longterm care, physical therapy and/or speech therapy or continues to need occupational therapy. The patient is under my care, and I have initiated the establishment of the plan of care. This patient will be followed by a physician who will periodically review the plan of care.
[2021-08-17 14:07] LABS: BUN Creatinine Ratio 21.9 (10-20); Calcium 8.7 mg/dl (8.5-10.1); Est GFR (African American) 98.8 ml/min; Est GFR (Non-African American) 85.2 ml/min; Potassium 3.7 mmol/L (3.5-5.1)
--- NOTE | 2021-08-18 09:04 | Electrocardiogram Report ---
Test Reason : Blood Pressure : / mmHG Vent. Rate : 113 BPM Atrial Rate : 113 BPM P-R Int : 124 ms QRS Dur : 096 ms QT Int : 398 ms P-R-T Axes : 040 013 163 degrees QTc Int : 545 ms Sinus tachycardia Prolonged QT Abnormal ECG When compared with ECG of 15-AUG-2021 16:33, (unconfirmed) Left bundle branch block is no longer Present Confirmed by Jairon Robles ([id number]) on 08/18/2021 9:03:31 AM Referred By: REFERRED SELF Confirmed By:Jairon Robles
--- NOTE | 2021-08-18 13:41 | Electrocardiogram Report ---
Test Reason : Blood Pressure : / mmHG Vent. Rate : 083 BPM Atrial Rate : 083 BPM P-R Int : 186 ms QRS Dur : 100 ms QT Int : 486 ms P-R-T Axes : 049 057 126 degrees QTc Int : 571 ms Normal sinus rhythm Anterior infarct , age undetermined Prolonged QT Abnormal ECG When compared with ECG of 15-AUG-2021 16:33, (unconfirmed) Nonspecific T wave abnormality no longer evident in Inferior leads Nonspecific T wave abnormality has replaced inverted T waves in Lateral leads Confirmed by Jairon Robles ([id number]) on 08/18/2021 1:41:19 PM Referred By: REFERRED SELF Confirmed By:Jairon Robles
== END 2021-08-17 15:11 | disposition home health service (06) | DRG 205 ==
LOC: ED 14:04 → SUATTDRO 18:06 → 2E 18:06

== ENCOUNTER 2021-08-28 16:42 | Inpatient (IN) ==
--- NOTE | 2021-08-28 19:04 | XRay Report ---
XR chest 1V portable CLINICAL HISTORY: coughing, trach plugging, mucous TECHNIQUE: Single frontal radiograph of the chest was obtained. Comparison: Comparison is made to chest radiograph 08/25/2021 FINDINGS: Stable tracheostomy tube and port catheter. Cardiomegaly is noted. There is elevation of left hemidia phragm with associated atelectasis. No evidence of pleural effusion or pneumothorax. IMPRESSION: No acute chest disease in particular no evidence of pneumonia. Cardiomegaly is noted. ACT 112: Negative or not required by law. Electronically signed by: Shay Scruggs M.D. 08/28/2021 7:03 PM
--- NOTE | 2021-08-28 19:16 | Emergency Department Note ---
Impression & Plan Cough productive of yellow sputum, Tracheostomy obstruction ED Provider Note INFORMANT: Patient ED PROVIDER(S): Joshua Sanon MD CHIEF COMPLAINT: Cough PLAN: Disposition: Admitted Condition: Good Outpatient prescription management: None Referral: None MEDICAL DECISION MAKING: Patient presented because of cough and obstruction of her and her tracheostomy cannula. She notes her tracheostomy was changed 2 weeks ago. The tracheostomy outer cannula was slightly dislodged but still within the lumen. I did cleanness and properly placed the tracheostomy. Respiratory was consulted for tracheostomy care and suctioning. Chest x-ray was performed did not reveal any significant abnormalities although there does seem to be some congestion in the left lower base when compared to prior. The patient is producing quite a bit of yellow sputum and this seemed to be the etiology of the plug of her inner cannula. This is a new problem for her. Patient does not feel comfortable dion g home as she has no ability to safely remove her inner cannula due to her neuropathy. Home health does not come in the weekends and only sporadically throughout the week. She does not have any family members close. I discussed this with case management. They recommended bring her into the hospital. After discussion with the patient she is in agreement. Consultation was made with Dr. Marco A Ellis of the [facility] service. Patient was evaluated in the ER for further management. He did asked for the patient to receive antibiotics. We discussed Rocephin and Zithromax. After he evaluated the patient he did change the Rocephin to cefepime. Patient was admitted for fur ther management. Triage Nursing notes reviewed and agree them. Vital Signs: reviewed and remarkable for mild tachycardia Differential diagnosis: Tracheostomy obstruction, tracheostomy malposition, airway bleeding, reactive airway disease, pneumonia, pneumothorax, COPD, CHF, infections, cardiac ischemia, pulmonary embolism, as well as other pathologies. Diagnostics interpreted by me: ECG: none Cardiac Monitoring: none Imaging studies: Chest x-ray. Findings: A chest x-ray was performed and revealed no pneumothorax, effusion, infiltrate, pulmonary edema, free air under the diaphragm, or wide mediastinum. Mild congestion noted at the left base. HPI: The patient is a 65year old female who presents to the Emergency Room with complaints of cough. This started yesterday and is worsening. Patient obs tructed her inner cannula of her tracheostomy tube and an attempt to get it out did partially dislodged her outer cannula. The patient also notes the following associated symptoms, cough with thick yellowish-green sputum. Occasional blood- tinged sputum. The patient has tried her humidified oxygen for relieving factors. Current pain is rated as 0/10. Patient had her tracheostomy placed 4 weeks ago and it was changed 2 weeks ago. She follows with . Pt denies LOC, headache, fevers, chills, diaphoresis, visual changes, neck pain, chest pain, nausea, vomiting, abdominal pain, weakness, lymphadenopathy, rash, or other complaints. ROS: See above HPI for pertinent positives & negatives. A total of 8 systems reviewed and were otherwise negative. PAST MEDICAL HISTORY:See Below , CAD PAST SURGICAL HISTORY:See Below, tracheostomy, radical neck dissection FAMILY HISTORY:See Below SOCIAL HISTORY:See Below, non-smoker HOME MEDICATIONS:See Below ALLERGIES:See Below VITALS:See Below PHYSICAL EXAMINATION: GENERAL: Awake, alert, uncomfortable-appearing, in no distress HENT: Normocephalic, atraumatic. Oropharynx unremarkable. EYES: Normal conjunctiva. Sclera non-icteric. NECK: Healed surgical scarring noted. Tracheostomy in place with the outer cannula only. Moderate thick yellowish-green mucus present. Examination of the inner cannula reveals mucous plugging. Non-tender. Supple. No nuchal rigidity. FROM. RESPIRATORY: Clear to auscultation. No wheezes. No rales. Mild increased respiratory effort. CARDIAC: Tachycardic rate. Normal rhythm. No murmurs. No rubs. Extremities warm and well perfused. Pulses equal. No JVD. GI: Soft, non-distended. No tenderness to palpation. No rebound or guarding. No masses. MUSCULOSKELETAL: Atraumatic. Chest examination reveals no tenderness. LOWER EXTREMITIES: Calves are equal size bilaterally and non-tender. No edema. No discoloration. NEURO: Normal sensorium. Unable to speak secondary to the tracheostomy. No sensory or motor deficits noted. SKIN: No rash or jaundice noted. Joshua Sanon MD Past Med/Surg History Medical History Anxiety Complete left bundle branch block (LBBB) Chronic per cardio note Deep vein thrombosis (DVT) left upper extremity of the internal jugular, subclavian and axillary vein diagnosed 02/2020-Lovenox 80 mg SubQ daily up until fall 2020 at which time patient stopped the lovenox. Depression Facial paresthesia chronic without change GERD (gastroesophageal reflux disease) controlled, stable per pt History of medullary carcinoma of thyroid Hx of papillary thyroid carcinoma Hyperlipidemia no meds Hypertension Hypothyroidism Post ablative Irritable bowel syndrome with constipation Myocardial Infarction 2003 Rectal cancer with liver metastasis, follows with CCP, receiving chemo Scars right side of neck d/t radiation Sleep apnea bipap-compliant Stroke "few old punctate lacunar infarcts seen within the left cerebellar hemisphere" MRI brain 2020 Thyroid cancer Follicular thyroid cancer 1982--s/p partial thyroidectomy, chemo, radiation Medullary thyroid cancer 1996-- s/p complete thyroidectomy, radical neck dissection, radiation/radioactive iodine Transient hypotension Vocal cord paralysis, bilateral complete severe---very difficulty for pt to talk Surgical History Difficult airway for intubation small airway -- has laryngeal implant - states use size 6.0 ETT with caution History of appendectomy History of bilateral tubal ligation History of cholecystectomy History of colonoscopy had last 12/24/[address] Abad--found rectal c.a. History of endoscopic sinus surgery History of esophagogastroduodenoscopy (EGD) History of hysterectomy with unilateral oophorectomy removed right d/t endometriosis History of radical dissection of right side of neck History of right inguinal hernia repair History of surgery part of vocal cord removed -- has laryngeal implant History of thyroidectomy, total History of tonsillectomy and adenoidectomy per patient surgery was done twice History of tooth extraction with permnant bridge History of vascular access device mediport in place--pt states is currently using for chemo Family History Mother Family history of diabetes mellitus Uncle Family history of diabetes mellitus Grandmother Breast cancer Hypertension Diabetes Grandfather Heart disease Other No family history of adverse response to anesthesia Social History Smoking Status: Never smoker Second Hand Exposure: Yes; Do You Dip or Chew Tobacco: No; Hx Alcohol Use: No Hx Substance Use: No Preferred Language: Citizen Of [place] Communication Ability: Effective 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 Beliefs That Will Affect Care: None marital status: Current Living Situation: Alone Current Living Situation Comment: lives home alone has home nursing and friends that help her current occupational status: retired How many Children do You have: 0 Other Information That Helps Us Care for You: No Feels Safe at Home: Yes Safety Concerns: Feels Safe At This Time Assistive Devices: None Allergies Allergies Allergy/AdvReac Type Severity Reaction Status Date / Time Iodinated Contrast Media Allergy Intermediate Hives Verified 08/28/21 17:43 Penicillins Allergy Intermediate Hives Verified 08/28/21 17:43 Sulfa (Sulfonamide Allergy Intermediate Hives Verified 08/28/21 17:43 Antibiotics) Home Meds Home Medications Medication Instructions Recorded Confirmed topiramate 200 mg tablet (Topamax) 200 mg PO HS 01/17/19 08/28/21 albuterol sulfate 90 mcg/actuation 1 inh INHALATION QID PRN 12/16/19 08/28/21 aerosol inhaler gabapentin 300 mg capsule 600 mg PO TID cap 01/04/21 08/28/21 lisinopril 10 mg tablet 20 mg PO BID tab 01/04/21 08/28/21 cholecalciferol (vitamin D3) 50 2,000 unit PO QAM cap 02/04/21 08/28/21 mcg (2,000 unit) capsule acetaminophen 500 mg tablet 1,000 mg PO BID PRN tab 02/26/21 08/28/21 (Tylenol Extra Strength) levothyroxine 112 mcg tablet 224 mcg PO QAM 07/22/21 08/28/21 potassium chloride 20 mEq 20 meq PO QAM 07/22/21 08/28/21 tablet,extended release enoxaparin 40 mg/0.4 mL 40 mg SUBCUT Q24H syr 08/23/21 08/28/21 subcutaneous syringe pyridoxine (vitamin B6) 100 mg 0 mg PO QAM 08/28/21 08/28/21 tablet (Vitamin B-6) Previous Rx's Medication Instructions Recorded famotidine 20 mg tablet 20 mg PO BID #60 tab 08/12/21 ferrous sulfate 325 mg (65 mg 325 mg PO QAM #30 tab 08/12/21 iron) tablet,delayed release pantoprazole 40 mg tablet,delayed 40 mg PO BID #60 tab 08/12/21 release sucralfate 100 mg/mL oral 10 ml PO QID #1200 ml 08/12/21 suspension aspirin 81 mg chewable tablet 81 mg PO QAM #30 tab 08/17/21 (Children's Aspirin) atorvastatin 40 mg tablet 40 mg PO HS #14 tab 08/21/21 metoprolol tartrate 25 mg tablet 25 mg PO BID #28 tab 08/21/21 miscellaneous medical supply #48 ea 08/27/21 miscellaneous medical supply #48 ea 08/27/21 Results & Data (ED) Vital Signs Vital Signs - 24 hr 08/28/21 16:49 08/28/21 16:52 08/28/21 21:02 Temperature 37.2 C Temperature Source Temporal Artery Scan Oral Pulse Rate 111 H Respiratory Rate 22 20 Respiratory Effort / Characteristics Non-Labored Respiratory Depth Normal Respiratory Pattern Regular Blood Pressure 103/64 Blood Pressure Mean 77 Pulse Oximetry 95 95 Oxygen Delivery Method Room Air Room Air Sepsis New/Unexplained Change in Mental Status No Sepsis Action Taken by Nursing No Action Required Laboratory Data Result diagrams: 08/28/21 20:55 08/28/21 21:00 Lab Results 08/28/21 08/28/21 08/28/21 Range/Units 20:55 21:00 21:09 WBC 27.77 H (4.8-10.8) K/uL RBC 3.41 L (4.2-5.4) M/uL Hgb 11.5 L (12.0-16.0) g/dL Hct 34.3 L (37-47) % MCV 100.6 H (80-100) fL MCH 33.7 (25-34) pg MCHC 33.5 (32-36) g/dL RDW Std Deviation 54.0 H (36.4-46.3) fL RDW Coeff of Michelle 14.6 H (11.5-14.5) % Plt Count 131 (130-400) K/uL MPV 8.9 (7.4-10.4) fL Dohle Bodies 1+ Platelet Estimate Normal (Normal) Sodium 134 L (136-145) mmol/L Potassium 3.5 (3.5-5.1) mmol/L Chloride 101 (98-107) mmol/L Carbon Dioxide 23 (21-32) mmol/L Anion Gap 10 (3-11) BUN 8 (6-23) mg/dl Creatinine 0.49 L (0.6-1.2) mg/dl Est Cr Clr Drug Dosing Not Reportable Est GFR ( Amer) 116.8 ml/min Est GFR (Non-Af Amer) 100.8 ml/min BUN/Creatinine Ratio 16.3 (10-20) Glucose 106 H (70-99(Fasting)) mg/dl Calcium 9.0 (8.5-10.1) mg/dl Total Bilirubin 0.9 (0.2-1.0) mg/dl AST 20 (13-39) U/L ALT 20 (7-52) U/L Alkaline Phosphatase 223 H (34-104) U/L Total Protein 6.6 (6.0-8.3) gm/dl Albumin 3.7 (3.4-5.0) gm/dl Globulin 2.9 (2.5-4.0) gm/dl Albumin/Globulin Ratio 1.3 (0.9-2) SARS-CoV-2, RNA, NAAT NEGATIVE (NEGATIVE) Administered Medications Cefepime HCl 2,000 mg/ Syringe 20 mls @ 5 mls/min IV Q8H [facility]; Protocol Stop: 09/05/21 00:59 Last Admin: 08/29/21 01:55 Dose: 5 mls/min Documented by: [id number] Nystatin (Nystatin Powder 15gm Btl) 1 appln EXT Q6 PRN PRN Reason: Affected Skin Folds Stop: 09/28/21 01:14 Last Admin: 08/29/21 01:56 Dose: 1 appln Documented by: [id number] Discontinued Medications Azithromycin (Azithromycin 250 Mg Tab) 500 mg PO NOW ONE Stop: 08/28/21 22:14 Last Admin: 08/29/21 01:47 Dose: Not Given Documented by: [id number] Doxycycline Hyclate (Doxycycline Home Pack 100 Mg/Cap) 1 homepack PO ONE ONE Stop: 08/28/21 20:08 Last Admin: 08/28/21 20:53 Dose: Not Given Documented by: [id number] Ceftriaxone Sodium (Rocephin) 2,000 mg in 70 mls @ 140 mls/hr IV NOW STA Stop: 08/28/21 22:42 Last Admin: 08/29/21 02:11 Dose: Not Given Documented by: [id number] Lorazepam (Lorazepam 2 Mg/1 Ml Vial) 0.5 mg IV NOW ONE Stop: 08/29/21 01:42 Last Admin: 08/29/21 01:56 Dose: 0.5 mg Documented by: [id number] Methylprednisolone (Methylprednisolone 125 Mg/2 Ml Vial) 125 mg IV NOW STA Stop: 08/28/21 22:14 Last Admin: 08/29/21 01:55 Dose: 125 mg Documented by: [id number] Imaging Data Radiologist's Impression: Chest X-Ray 08/28/21 18:28 XR chest 1V portable CLINICAL HISTORY: coughing, trach plugging, mucous TECHNIQUE: Single frontal radiograph of the chest was obtained. Comparison: Comparison is made to chest radiograph 08/25/2021 FINDINGS: Stable tracheostomy tube and port catheter. Cardiomegaly is noted. There is elevation of left hemidiaphragm with associated atelectasis. No evidence of pleural effusion or pneumothorax. IMPRESSION: No acute chest disease in particular no evidence of pneumonia. Cardiomegaly is noted. ACT 112: Negative or not required by law. Electronically signed by: Shay Scruggs M.D. 08/28/2021 7:03 PM Discharge Plan Visit Data Chief Complaint: Throat Injury Stated Complaint: TRACH COMING OUT ED Provider: Joshua Sanon Discharge Problem: Cough productive of yellow sputum, Tracheostomy obstruction Patient Disposition: Admitted As Inpatient Discharge Instructions Interventions: ED Discharge Assessment Last Done: 08/29/21 00:24
[2021-08-28] MEDS ORDERED: DOXYCYCLINE HOME PACK 100 MG/CAP PO ONE (20:07)
[2021-08-28 21:34] LABS: Alanine Aminotransferase 20 U/L (7-52); Albumin Globulin Ratio 1.3 (0.9-2); Albumin Level 3.7 gm/dl (3.4-5.0); Alkaline Phosphatase 223 U/L (34-104); Anion Gap 10 (3-11); Aspartate Aminotransferase 20 U/L (13-39); BUN Creatinine Ratio 16.3 (10-20); Bilirubin,Total 0.9 mg/dl (0.2-1.0); Blood Urea Nitrogen 8 mg/dl (6-23); Carbon Dioxide 23 mmol/L (21-32); Chloride 101 mmol/L (98-107); Est GFR (African American) 116.8 ml/min; Est GFR (Non-African American) 100.8 ml/min; Globulin 2.9 gm/dl (2.5-4.0); Glucose 106 mg/dl (70-99(Fasting)); Potassium 3.5 mmol/L (3.5-5.1); Sodium 134 mmol/L (136-145); Total Protein 6.6 gm/dl (6.0-8.3)
[2021-08-28 21:58] LABS: Dohle Bodies 1+; Hematocrit (blood only) 34.3 % (37-47); Hemoglobin 11.5 g/dL (12.0-16.0); Mean Corpuscular Hemoglobin 33.7 pg (25-34); Mean Corpuscular Hgb Conc 33.5 g/dL (32-36); Mean Corpuscular Volume 100.6 fL (80-100); Mean Platelet Volume 8.9 fL (7.4-10.4); Platelet Count 131 K/uL (130-400); Platelet Estimate Normal (Normal); RDW Coefficient of Variation 14.6 % (11.5-14.5); Red Blood Count 3.41 M/uL (4.2-5.4); White Blood Count 27.77 K/uL (4.8-10.8)
[2021-08-28] MEDS ORDERED: AZITHROMYCIN 250 MG TAB PO ONE (22:13)
[2021-08-28] MEDS ORDERED: methylPREDNISolone 125 MG/2 ML VIAL IV STA (22:13)
[2021-08-28] MEDS ORDERED: cefTRIAXone SODIUM 2,000 MG/70 ML BAG IV STA (22:13)
[2021-08-28] MEDS ORDERED: CEFEPIME 20 ML IV STA (22:31)
--- NOTE | 2021-08-28 22:48 | History & Physical Report ---
Date of Service August 28, 2021 Assessment & Plan (1) Acute tracheostomy management: Plan: Acute tracheostomy management for now function, obstruction/cough productive of large volume of thick yellow sputum- Continue tracheostomy care Cefepime 2 g IV every 12 hours Given 1 dose of azithromycin 5 mg p.o. in the ED MRSA swab, add Vanco if positive Continue albuterol HFA DuoNebs every 2 hours as needed (2) Tracheostomy malfunction: (3) Cough productive of yellow sputum: (4) Tracheostomy obstruction: (5) CAD (coronary artery disease): Plan: CAD/hypertension- Continue aspirin, lisinopril, metoprolol tartrate and potassium chloride (6) History of DVT (deep vein thrombosis): Plan: Continue enoxaparin 40 mg subcu every 24 hours (7) GERD (gastroesophageal reflux disease): Plan: Continue pantoprazole, famotidine and Carafate (8) HTN (hypertension): Plan: See above (9) Hyperlipidemia: Plan: Continue atorvastatin 40 mg at bedtime (10) Obstructive sleep apnea: Plan: Trach collar (11) Hypothyroidism, postablative: Plan: Continue levothyroxine 224 mcg daily (12) Metastatic colorectal cancer: Plan: Next chemotherapy due in 3 days (13) History of medullary carcinoma of thyroid: (14) Hx of papillary thyroid carcinoma: History of Present Illness Chief Complaint: The patient presents to the emergency department due to obstruction of her tracheostomy cannula due to production of large volumes of thick yellow sputum Primary Care Provider: Karen Cao PA-C The patient is a 65-year-old female with a past medical history including NSTEMI, aspiration into airway, iron deficiency, neutropenia, CAD, metastatic colorectal cancer, DVT, status post tracheostomy, papillary thyroid cancer, medullary thyroid cancer, postsurgical hypothyroidism, complete bilateral vocal cord paralysis, acute GI bleeding, dyslipidemia and left bundle branch block. Patient presents to the emergency department due to obstruction of tracheostomy cannula, associated with large volumes of thick yellow sputum. She reports her next chemotherapy is due in 3 days. Allergies Allergy/AdvReac Type Severity Reaction Status Date / Time Iodinated Contrast Media Allergy Intermediate Hives Verified 08/28/21 17:43 Penicillins Allergy Intermediate Hives Verified 08/28/21 17:43 Sulfa (Sulfonamide Allergy Intermediate Hives Verified 08/28/21 17:43 Antibiotics) Home Medications Medication Instructions Recorded Confirmed Type topiramate 200 mg tablet (Topamax) 200 mg PO HS 01/17/19 08/28/21 History albuterol sulfate 90 mcg/actuation 1 inh INHALATION QID PRN 12/16/19 08/28/21 History aerosol inhaler gabapentin 300 mg capsule 600 mg PO TID cap 01/04/21 08/28/21 History lisinopril 10 mg tablet 20 mg PO BID tab 01/04/21 08/28/21 History cholecalciferol (vitamin D3) 50 2,000 unit PO QAM cap 02/04/21 08/28/21 History mcg (2,000 unit) capsule acetaminophen 500 mg tablet 1,000 mg PO BID PRN tab 02/26/21 08/28/21 History (Tylenol Extra Strength) levothyroxine 112 mcg tablet 224 mcg PO QAM 07/22/21 08/28/21 History potassium chloride 20 mEq 20 meq PO QAM 07/22/21 08/28/21 History tablet,extended release famotidine 20 mg tablet 20 mg PO BID #60 tab 08/12/21 08/28/21 Rx ferrous sulfate 325 mg (65 mg 325 mg PO QAM #30 tab 08/12/21 08/28/21 Rx iron) tablet,delayed release pantoprazole 40 mg tablet,delayed 40 mg PO BID #60 tab 08/12/21 08/28/21 Rx release sucralfate 100 mg/mL oral 10 ml PO QID #1200 ml 08/12/21 08/28/21 Rx suspension aspirin 81 mg chewable tablet 81 mg PO QAM #30 tab 08/17/21 08/28/21 Rx (Children's Aspirin) atorvastatin 40 mg tablet 40 mg PO HS #14 tab 08/21/21 08/28/21 Rx metoprolol tartrate 25 mg tablet 25 mg PO BID #28 tab 08/21/21 08/28/21 Rx enoxaparin 40 mg/0.4 mL 40 mg SUBCUT Q24H syr 08/23/21 08/28/21 History subcutaneous syringe miscellaneous medical supply #48 ea 08/27/21 Rx miscellaneous medical supply #48 ea 08/27/21 Rx pyridoxine (vitamin B6) 100 mg 0 mg PO QAM 08/28/21 08/28/21 History tablet (Vitamin B-6) Past Med/Surg History Medical History (Updated 08/29/21 @ 02:49 by Marco A Ellis MD) Anxiety Complete left bundle branch block (LBBB) Chronic per cardio note Deep vein thrombosis (DVT) left upper extremity of the internal jugular, subclavian and axillary vein diagnosed 02/2020-Lovenox 80 mg SubQ daily up until fall 2020 at which time patient stopped the lovenox. Depression Facial paresthesia chronic without change GERD (gastroesophageal reflux disease) controlled, stable per pt History of medullary carcinoma of thyroid Hx of papillary thyroid carcinoma Hyperlipidemia no meds Hypertension Hypothyroidism Post ablative Irritable bowel syndrome with constipation Myocardial Infarction 2003 Rectal cancer with liver metastasis, follows with CCP, receiving chemo Scars right side of neck d/t radiation Sleep apnea bipap-compliant Stroke "few old punctate lacunar infarcts seen within the left cerebellar hemisphere" MRI brain 2020 Thyroid cancer Follicular thyroid cancer 1982--s/p partial thyroidectomy, chemo, radiation Medullary thyroid cancer 1996-- s/p complete thyroidectomy, radical neck dissection, radiation/radioactive iodine Transient hypotension Vocal cord paralysis, bilateral complete severe---very difficulty for pt to talk Surgical History Difficult airway for intubation small airway -- has laryngeal implant - states use size 6.0 ETT with caution History of appendectomy History of bilateral tubal ligation History of cholecystectomy History of colonoscopy had last 12/24/[address] Abad--found rectal c.a. History of endoscopic sinus surgery History of esophagogastroduodenoscopy (EGD) History of hysterectomy with unilateral oophorectomy removed right d/t endometriosis History of radical dissection of right side of neck History of right inguinal hernia repair History of surgery part of vocal cord removed -- has laryngeal implant History of thyroidectomy, total History of tonsillectomy and adenoidectomy per patient surgery was done twice History of tooth extraction with permnant bridge History of vascular access device mediport in place--pt states is currently using for chemo Family History Mother Family history of diabetes mellitus Uncle Family history of diabetes mellitus Grandmother Breast cancer Hypertension Diabetes Grandfather Heart disease Other No family history of adverse response to anesthesia Social History Smoking Status: Never smoker Second Hand Exposure: Yes; Do You Dip or Chew Tobacco: No; Hx Alcohol Use: No Hx Substance Use: No Preferred Language: Romanian Communication Ability: Effective Vp Platforms Required: No Beliefs That Will Affect Care: None marital status: Current Living Situation: Alone Current Living Situation Comment: lives home alone has home nursing and friends that help her current occupational status: retired How many Children do You have: 0 Other Information That Helps Us Care for You: No Feels Safe at Home: Yes Safety Concerns: Feels Safe At This Time Assistive Devices: None Review of Systems Review of Systems: The patient denies chest pain, palpitations, lower extremity swelling, fevers, chills, sweats, nausea, vomiting, diarrhea , constipation, abdominal pain, pelvic pain, blood in urine or stool, dysuria, urinary frequency or urgency, lightheadedness, dizziness, headache, memory loss, loss of consciousness, rash, abnormal bruising or bleeding, imbalance, focal or generalized weakness, numbness or tingling in arms or legs, generalized arthralgias or myalgias, back or neck pain, or night sweats. The review of systems is otherwise negative other than for that already noted above, and at least 10 systems have been reviewed. Physical Exam Physical Exam: The patient is awake, alert and oriented 3, well developed and well nourished, normocephalic and atraumatic, lying in bed and in no acute distress. HEENT--PERRL, EOMI, mucous membranes and oropharynx dry. Neck--No JVD. No bruits. Trach in place with thick yellow sputum Heart--normal S1 and S2. No murmurs, rubs or gallops. Lungs--clear bilaterally, no respiratory distress, no accessory muscle use. Abdomen--normal bowel sounds and soft. Nontender. Nondistended, no hernias or masses, no organomegaly. Extremities--no cyanosis or clubbing. No edema. Dermatologic--normal skin turgor, normal color, no abnormal lymph nodes, no rash. Neurologic--cranial nerves II through XII grossly intact. Rheumatologic--normal range of motion. Psychiatric--normal affect. Results & Data Results & Data ([facility]) Vital Signs (Past 12 Hours) Vital Signs Temp Pulse Resp BP Pulse Ox 08/28/21 21:02 20 95 08/28/21 16:49 37.2 C 111 H 22 103/64 95 Laboratory Results Laboratory Results WBC 27.77 K/uL (4.8-10.8) H 08/28/21 20:55 RBC 3.41 M/uL (4.2-5.4) L 08/28/21 20:55 Hgb 11.5 g/dL (12.0-16.0) L 08/28/21 20:55 Hct 34.3 % (37-47) L 08/28/21 20:55 MCV 100.6 fL (80-100) H 08/28/21 20:55 MCH 33.7 pg (25-34) 08/28/21 20: MCHC 33.5 g/dL (32-36) 08/28/21 20:55 RDW Std Deviation 54.0 fL (36.4-46.3) H 08/28/21 20:55 RDW Coeff of Michelle 14.6 % (11.5-14.5) H 08/28/21 20:55 Plt Count 131 K/uL (130-400) 08/28/21 20:55 MPV 8.9 fL (7.4-10.4) 08/28/21 20:55 Dohle Bodies 1+ 08/28/21 20:55 Platelet Estimate Normal (Normal) 08/28/21 20:55 Sodium 134 mmol/L (136-145) L 08/28/21 21:00 Potassium 3.5 mmol/L (3.5-5.1) 08/28/21 21:00 Chloride 101 mmol/L (98-107) 08/28/21 21:00 Carbon Dioxide 23 mmol/L (21-32) 08/28/21 21:00 Anion Gap 10 (3-11) 08/28/21 21:00 BUN 8 mg/dl (6-23) 08/28/21 21:00 Creatinine 0.49 mg/dl (0.6-1.2) L 08/28/21 21:00 Est Cr Clr Drug Dosing Not Reportable 08/28/21 21:00 Est GFR ( Amer) 116.8 ml/min 08/28/21 21:00 Est GFR (Non-Af Amer) 100.8 ml/min 08/28/21 21:00 BUN/Creatinine Ratio 16.3 (10-20) 08/28/21 21:00 Glucose 106 mg/dl (70-99(Fasting)) H 08/28/21 21:00 Calcium 9.0 mg/dl (8.5-10.1) 08/28/21 21:00 Total Bilirubin 0.9 mg/dl (0.2-1.0) 08/28/21 21:00 AST 20 U/L (13-39) 08/28/21 21:00 ALT 20 U/L (7-52) 08/28/21 21:00 Alkaline Phosphatase 223 U/L (34-104) H 08/28/21 21:00 Total Protein 6.6 gm/dl (6.0-8.3) 08/28/21 21:00 Albumin 3.7 gm/dl (3.4-5.0) 08/28/21 21:00 Globulin 2.9 gm/dl (2.5-4.0) 08/28/21 21:00 Albumin/Globulin Ratio 1.3 (0.9-2) 08/28/21 21:00 SARS-CoV-2, RNA, NAAT NEGATIVE (NEGATIVE) 08/28/21 21:09 Impressions Chest X-Ray 08/28/21 18:28 XR chest 1V portable CLINICAL HISTORY: coughing, trach plugging, mucous TECHNIQUE: Single frontal radiograph of the chest was obtained. Comparison: Comparison is made to chest radiograph 08/25/2021 FINDINGS: Stable tracheostomy tube and port catheter. Cardiomegaly is noted. There is elevation of left hemidiaphragm with associated atelectasis. No evidence of pleural effusion or pneumothorax. IMPRESSION: No acute chest disease in particular no evidence of pneumonia. Cardiomegaly is noted. ACT 112: Negative or not required by law. Electronically signed by: Shay Scruggs M.D. 08/28/2021 7:03 PM Code Status & VTE Plan Code Status Full code VTE Prophylaxis Plan VTE Prophylaxis will be ordered: Yes PG Care Time/CCT Total # of Minutes Spent Total Time Spent with Patient: Total time spent is greater than 50% in coordination of care (as documented) at patient's floor/unit and/or counseling patient: Coding Level of Care Code 96373 Initial Inpt Care Lvl 3 Diagnoses Acute tracheostomy management Z43.0 Tracheostomy malfunction J95.03 Cough productive of yellow sputum R05.8 Tracheostomy obstruction J95.09 CAD (coronary artery disease) I25.10 Metastatic colorectal cancer C19 History of DVT (deep vein thrombosis) Z86.718 HTN (hypertension) I10 Hyperlipidemia E78.5 Obstructive sleep apnea G47.33 Hypothyroidism, postablative E89.0 History of medullary carcinoma of thyroid Z85.850 Hx of papillary thyroid carcinoma Z85.850 GERD (gastroesophageal reflux disease) K21.9
[2021-08-29] MEDS ORDERED: ALBUTEROL HFA 8 GM INHALER INH PRN (00:33)
[2021-08-29] MEDS ORDERED: ACETAMINOPHEN 500 MG TAB PO PRN (00:33)
[2021-08-29] MEDS ORDERED: ONDANSETRON INJ 2 MG/ML 2 ML VIAL IV PRN (00:33)
[2021-08-29] MEDS ORDERED: LORazepam 2 MG/1 ML VIAL IV ONE (01:41)
[2021-08-29] MEDS: CEFEPIME 2,000 MG in SYRINGE 0 ML IV SCH ×3 (01:55→17:03)
[2021-08-29] MEDS: NYSTATIN POWDER 15GM BTL EXT PRN ×2 (01:56→13:49)
[2021-08-29] MEDS: LEVOTHYROXINE SODIUM 112 MCG TABLET PO SCH (06:00)
[2021-08-29 07:18] LABS: Albumin Level 3.6 gm/dl (3.4-5.0); BUN Creatinine Ratio 20.4 (10-20); Creatinine Clr Calc Pharmacy 97.7 ml/min; Est GFR (African American) 116.8 ml/min; Est GFR (Non-African American) 100.8 ml/min; Phosphorus 2.9 mg/dl (2.5-4.9); Potassium 3.5 mmol/L (3.5-5.1)
[2021-08-29 07:25] LABS: ALC (manual) 0.26 K/uL (1.2-3.4); ANC (manual) 28.04 K/uL (1.4-6.5); Dohle Bodies 1+; Hematocrit (blood only) 34.4 % (37-47); Hemoglobin 11.5 g/dL (12.0-16.0); Lymphocytes # (manual) 0.26 K/uL (1.2-3.4); Lymphocytes % (manual) 0.9 %; Mean Corpuscular Hemoglobin 33.5 pg (25-34); Mean Corpuscular Hgb Conc 33.4 g/dL (32-36); Mean Corpuscular Volume 100.3 fL (80-100); Mean Platelet Volume 10.2 fL (7.4-10.4); Monocytes # (manual) 0.26 K/uL (0.11-0.59); Monocytes % (manual) 0.9 %; Neutrophils # (manual) 28.04 K/uL (1.4-6.5); Neutrophils % (manual) 98.2 %; Platelet Count 144 K/uL (130-400); Platelet Estimate Decreased (Normal); RDW Coefficient of Variation 14.6 % (11.5-14.5); RDW Standard Deviation 54.1 fL (36.4-46.3); Red Blood Count 3.43 M/uL (4.2-5.4); White Blood Count 28.55 K/uL (4.8-10.8)
[2021-08-29] MEDS: SUCRALFATE 1 GM/10 ML UDC PO SCH ×4 (08:42→20:07)
[2021-08-29] MEDS: FAMOTIDINE 20 MG TAB PO SCH ×2 (08:44→20:07)
[2021-08-29] MEDS: lisinopril 20 MG TAB PO SCH ×2 (08:44→20:06)
[2021-08-29] MEDS: CHOLECALCIFEROL 1,000 UNITS 25 MCG TAB PO SCH (08:44)
[2021-08-29] MEDS: methylPREDNISolone 40 MG in SYRINGE 0 ML IV SCH ×2 (08:44→15:57)
[2021-08-29] MEDS: FERROUS SULFATE 325 MG TAB PO SCH (08:44)
[2021-08-29] MEDS: GABAPENTIN 300 MG CAP PO SCH ×3 (08:44→20:07)
[2021-08-29] MEDS: ASPIRIN 81 MG ECTAB PO SCH (08:44)
[2021-08-29] MEDS: PYRIDOXINE HCL 50 MG TAB PO SCH (08:45)
[2021-08-29] MEDS: PANTOprazole 40 MG TAB PO SCH ×2 (08:45→20:08)
[2021-08-29] MEDS: METOPROLOL TARTRATE 25 MG TAB PO SCH ×2 (08:45→20:06)
[2021-08-29] MEDS: POTASSIUM CHLORIDE CRTAB 20 MEQ TABCR PO SCH (08:45)
[2021-08-29] MEDS: ENOXAPARIN INJ 40 MG/0.4 ML SYR SQ SCH (08:46)
[2021-08-29] MEDS ORDERED: METOPROLOL TARTRATE 25 MG TAB PO STA (12:03)
--- NOTE | 2021-08-29 12:11 | Hospitalist Progress Note ---
Date of Service August 29, 2021 Assessment & Plan (1) Acute tracheostomy management: Plan: Tracheostomy occlusion Patient presented with acute mucous plugging of inner tracheostomy cannula. 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 Does not have help daily, and family in the area. Patient is concerned that she is not able to care for this adequately on her own at home without daily help, [facility] and would like to know if additional or daily services are available to her. Patient with marked leukocytosis on admission, however did receive Neulasta 2 days ago per patient Continue empiric cefepime pending sputum culture results and follow clinically MRSA nare negative Continue albuterol as needed, DuoNebs as needed Trach management per respiratory CAD, per patient history of prior ME without stents Continue aspirin, lisinopril, metoprolol tartrate Electrolytes daily, goal potassium 4.0 mag 2.0 Cardiac cath 08/16/2021: 70% ostial medium D1, 40% proximal small OM 2, 40% ostial RPDA No stents placed at that time, medical management pursued Echo: Normal LVEF, moderate concentric LVH, grade 1 diastolic dysfunction with small pericardial effusion Continue atorvastatin 40 mg nightly -EKG recheck with some flipped T waves no ST segment changes. Does report that she had chest pain with her prior hospitalization which she thought was cord pain, has not had any chest pain/discomfort but does feel that she is persistently breathing hard and is concerned if she could have another heart attack. Given flipped T waves new from prior will trend troponins, at this time patient without clinical signs of ACS/chest pain. OHS Trach, adequate sats Hypertension Continue beta-torrey, lisinopril Patient was switched from calcium channel torrey to beta-torrey at prior admission due to concern for ACS Hypothyroidism Continue Synthroid to 24 mcg p.o. daily TSH normal History of DVT Was seen by anticoagulation clinic 08/23/2021. Recommended to continue Lovenox 40 mg subcu every 24 hour Continue Lovenox as noted (2) Tracheostomy malfunction: (3) Cough productive of yellow sputum: (4) Tracheostomy obstruction: (5) CAD (coronary artery disease): (6) History of DVT (deep vein thrombosis): (7) GERD (gastroesophageal reflux disease): Plan: Continue pantoprazole, famotidine and Carafate (8) HTN (hypertension): Plan: See above (9) Hyperlipidemia: (10) Obstructive sleep apnea: (11) Hypothyroidism, postablative: (12) Metastatic colorectal cancer: Plan: - Next chemotherapy due in 3 days -If concern for clinical stability/infection reach out to oncology to discuss whether this should be continued or delayed At time of admission leukocytosis can be explained by any stimulating factor administration, but given presentation and thick sputum we will follow closely for signs of infection/cultures (13) History of medullary carcinoma of thyroid: (14) Hx of papillary thyroid carcinoma: Admission and Anticipated Discharge Date Admission Date: August 28, 2021 Subjective Seen at bedside. She reports she feels much more comfortable and is breathing much better now that her trach tube has been cleaned and replaced. Reports she had thick yellow sputum which had occluded this. She reports that with her chemotherapy and progressive neuropathy she has difficulty manipulating the tube cannula on her own, and home health is not every day to help her. She is worried about returning home without daily help to help maintain this. Note she does not have family in the area to help her either. Denies fever, chills, sweats, chest pain at assessment. Reports she does have some persistent fast breathing. Did have a cardiac cath recently with concern for heart attack, reports she had left-sided pain with this which she had thought was due to her port. She does not report chest pain or palpitations at bedside assessment. Discussed her white blood cell count. Patient reports she did receive Neulasta 2 days ago which would explain her rapid increase continue to cover empirically for infection pending sputum cultures but discussed that leukocytosis could be in the setting of infection or explained by the Neulasta alone Review of Systems Review of Systems: All systems reviewed & are unremarkable except as noted in Subjective Physical Exam Physical Exam: General: A&Ox3. Appears frail. No acute distress. Breathing comfortably through trach. No sputum appreciated in trach at time of assessment. HEENT: Atraumatic, normocephalic. Vision and hearing grossly intact. Pulm: Moderate to good air movement, lungs clear without wheezes/rales/rhonchi. Symmetrical chest rise. No increase in work of breathing. No respiratory distress. Cardiac: Regular, tachycardic at bedside assessment without murmurs. Radial pulses intact and symmetrical. Abdominal: Nontender, nondistended, soft. BS present. Results & Data Results & Data ([facility]) Vital Signs (Past 12 Hours) Vital Signs Temp Pulse Pulse Resp BP BP Pulse Ox 08/29/21 11:35 37.1 C 97 H 20 172/99 H 94 08/29/21 07:50 36.8 C 110 H 18 165/78 H 95 08/29/21 07:48 115 H 08/29/21 00:56 37.2 C 122 H 20 172/89 H 96 08/29/21 00:45 119 H PG Care Time/CCT Total # of Minutes Spent Total Time Spent with Patient: Total time spent is greater than 50% in coordination of care (as documented) at patient's floor/unit and/or counseling patient: Coding Level of Care Code 38108 Subseq Hosp Care Lvl 2 Diagnoses Acute tracheostomy management Z43.0 Tracheostomy malfunction J95.03 Cough productive of yellow sputum R05.8 Tracheostomy obstruction J95.09 CAD (coronary artery disease) I25.10 History of DVT (deep vein thrombosis) Z86.718 GERD (gastroesophageal reflux disease) K21.9 HTN (hypertension) I10 Hyperlipidemia E78.5 Obstructive sleep apnea G47.33 Hypothyroidism, postablative E89.0 Metastatic colorectal cancer C19 History of medullary carcinoma of thyroid Z85.850 Hx of papillary thyroid carcinoma Z85.850
[2021-08-29] MEDS: ATORVASTATIN 40 MG TAB PO SCH (20:05)
[2021-08-29] MEDS: TOPIRAMATE 100 MG TAB PO SCH (20:06)
[2021-08-30] MEDS: CEFEPIME 2,000 MG in SYRINGE 0 ML IV SCH ×2 (01:55→09:29)
[2021-08-30 02:23] LABS: ALC (manual) 1.79 K/uL (1.2-3.4); ANC (manual) 31.72 K/uL (1.4-6.5); Hematocrit (blood only) 29.5 % (37-47); Hemoglobin 9.9 g/dL (12.0-16.0); Lymphocytes # (manual) 1.79 K/uL (1.2-3.4); Lymphocytes % (manual) 5.1 %; Mean Corpuscular Hemoglobin 33.4 pg (25-34); Mean Corpuscular Hgb Conc 33.6 g/dL (32-36); Mean Corpuscular Volume 99.7 fL (80-100); Mean Platelet Volume 9.7 fL (7.4-10.4); Monocytes # (manual) 1.51 K/uL (0.11-0.59); Monocytes % (manual) 4.3 %; Neutrophils # (manual) 31.72 K/uL (1.4-6.5); Neutrophils % (manual) 90.6 %; Platelet Count 154 K/uL (130-400); Platelet Estimate Normal (Normal); RDW Coefficient of Variation 14.5 % (11.5-14.5); RDW Standard Deviation 53.1 fL (36.4-46.3); Red Blood Count 2.96 M/uL (4.2-5.4); Tear Drop Cells 1+; White Blood Count 35.01 K/uL (4.8-10.8)
[2021-08-30 02:42] LABS: Albumin Level 3.2 gm/dl (3.4-5.0); BUN Creatinine Ratio 28.1 (10-20); Calcium 8.4 mg/dl (8.5-10.1); Est GFR (African American) 111.2 ml/min; Est GFR (Non-African American) 95.9 ml/min; Phosphorus 2.5 mg/dl (2.5-4.9); Potassium 3.5 mmol/L (3.5-5.1)
[2021-08-30] MEDS: methylPREDNISolone 40 MG in SYRINGE 0 ML IV SCH ×2 (03:20→16:55)
[2021-08-30] MEDS: LEVOTHYROXINE SODIUM 112 MCG TABLET PO SCH (05:31)
[2021-08-30] MEDS: ALBUT/IPRATROP 3MG/0.5MG NEB 3 ML VIAL NEB PRN (08:22)
[2021-08-30] MEDS: GABAPENTIN 300 MG CAP PO SCH ×3 (09:29→20:01)
[2021-08-30] MEDS: SUCRALFATE 1 GM/10 ML UDC PO SCH ×4 (09:29→20:03)
[2021-08-30] MEDS: FAMOTIDINE 20 MG TAB PO SCH ×2 (09:29→20:02)
[2021-08-30] MEDS: CHOLECALCIFEROL 1,000 UNITS 25 MCG TAB PO SCH (09:30)
[2021-08-30] MEDS: PYRIDOXINE HCL 50 MG TAB PO SCH (09:30)
[2021-08-30] MEDS: ASPIRIN 81 MG ECTAB PO SCH (09:30)
[2021-08-30] MEDS: ENOXAPARIN INJ 40 MG/0.4 ML SYR SQ SCH (09:30)
[2021-08-30] MEDS: lisinopril 20 MG TAB PO SCH ×2 (09:30→20:02)
[2021-08-30] MEDS: FERROUS SULFATE 325 MG TAB PO SCH (09:30)
[2021-08-30] MEDS: POTASSIUM CHLORIDE CRTAB 20 MEQ TABCR PO SCH (09:30)
[2021-08-30] MEDS: METOPROLOL TARTRATE 25 MG TAB PO SCH ×2 (09:30→20:02)
[2021-08-30] MEDS: PANTOprazole 40 MG TAB PO SCH ×2 (09:31→20:03)
[2021-08-30] MEDS: cefTRIAXone SODIUM 1,000 MG in DEXTROSE 5% 50 ML IV SCH (10:02)
--- NOTE | 2021-08-30 11:11 | Electrocardiogram Report ---
Test Reason : Blood Pressure : / mmHG Vent. Rate : 087 BPM Atrial Rate : 087 BPM P-R Int : 154 ms QRS Dur : 100 ms QT Int : 442 ms P-R-T Axes : 015 000 103 degrees QTc Int : 531 ms Normal sinus rhythm ST and T wave abnormality cocerning for ischemia Prolonged QT Abnormal ECG When compared with ECG of 16-AUG-2021 06:10, T wave inversion less evident in Anterior leads Confirmed by Toribio Villarreal ([id number]) on 08/30/2021 11:11:16 AM Referred By: REFERRED SELF Confirmed By:Zane Villarreal
--- NOTE | 2021-08-30 13:37 | Hospitalist Progress Note ---
Date of Service August 30, 2021 Assessment & Plan (1) Acute tracheostomy management: Plan: Tracheostomy occlusion,? Bronchitis Patient presented with acute mucous plugging of inner tracheostomy cannula. 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 Does not have help daily, and family in the area. Patient is concerned that she is not able to care for this adequately on her own at home without daily help, [facility] and would like to know if additional or daily services are available to her. Patient with marked leukocytosis on admission, however did receive Neulasta 2 days ago per patient MRSA nare negative Continue albuterol as needed, DuoNebs as needed Trach management per respiratory Patient has continued to have increased thickness and yellow color sputum production much different from her normal, tracheal sputum culture positive for MSSA. ABX narrowed to Rocephin, final cultures MSSA. Converted to Azithromycin, will complete x5 days. Continue nebulized treatments as needed Patient is unable to adequately manipulate her own trach collar at home due to chemotherapy and neuropathy. Did discuss with case management 08/30, are looking into placement and additional care options. Patient continues to require hospitalization for IV antibiotics while pending culture results, clinically improving but not yet at baseline and still with concern for need for trach care and sputum clearance. Utilize chest physiotherapy. CAD, per patient history of prior [place] without stents Continue aspirin, lisinopril, metoprolol tartrate Electrolytes daily, goal potassium 4.0 mag 2.0 Cardiac cath 08/16/2021: 70% ostial medium D1, 40% proximal small OM 2, 40% ostial RPDA No stents placed at that time, medical management pursued Echo: Normal LVEF, moderate concentric LVH, grade 1 diastolic dysfunction with small pericardial effusion Continue atorvastatin 40 mg nightly -EKG recheck with some flipped T waves no ST segment changes. Does report that she had chest pain with her prior hospitalization which she thought was cord pain, has not had any chest pain/discomfort but does feel that she is persistently breathing hard and is concerned if she could have another heart attack. Troponin was obtained, elevated to 23.1 with downtrend to 19.3. Clinically inconsistent with ACS OHS Trach, adequate sats Hypertension Continue beta-torrey, lisinopril Patient was switched from calcium channel torrey to beta-torrey at prior admission due to concern for ACS Hypothyroidism Continue Synthroid to 24 mcg p.o. daily TSH normal History of DVT Was seen by anticoagulation clinic 08/23/2021. Recommended to continue Lovenox 40 mg subcu every 24 hour Continue Lovenox as noted (2) Tracheostomy malfunction: (3) Cough productive of yellow sputum: (4) Tracheostomy obstruction: (5) CAD (coronary artery disease): (6) History of DVT (deep vein thrombosis): (7) GERD (gastroesophageal reflux disease): Plan: Continue pantoprazole, famotidine and Carafate (8) HTN (hypertension): Plan: See above (9) Hyperlipidemia: (10) Obstructive sleep apnea: (11) Hypothyroidism, postablative: (12) Metastatic colorectal cancer: Plan: - Next chemotherapy due in 3 days -If concern for clinical stability/infection reach out to oncology to discuss whether this should be continued or delayed At time of admission leukocytosis can be explained by any stimulating factor administration, but given presentation and thick sputum we will follow closely for signs of infection/cultures (13) History of medullary carcinoma of thyroid: (14) Hx of papillary thyroid carcinoma: Admission and Anticipated Discharge Date Admission Date: August 28, 2021 Subjective DC seen at the bedside. She continues to have thick yellow sputum production increased from prior. She reports that she has had some exacerbations of him with difficulty clearing in the past, but this feels different is thicker and is more yellow in color. She has not had fevers or chills overnight. Does remain slightly short of breath, but improved from admission. Denies chest pain, chest pressure, palpitations. Continues to have neuropathy in her fingers with poor coordination, discussed with case management of which patient is appreciative of. No acute questions or concerns at bedside otherwise Review of Systems Review of Systems: All systems reviewed & are unremarkable except as noted in Subjective Physical Exam Physical Exam: General: A&Ox3. Appears frail. No acute distress. Breathing comfortably through trach. Scant yellow sputum sputum appreciated trach at time of assessment, multiple tissues filled with thick yellow sputum in garbage next to bedside HEENT: Atraumatic, normocephalic. Vision and hearing grossly intact. Pulm: Moderate to good air movement, lungs clear without wheezes/rales/rhonchi. Symmetrical chest rise. No increase in work of breathing. No respiratory distress. Cardiac: Regular, tachycardic at bedside assessment without murmurs. Radial pulses intact and symmetrical. Abdominal: Nontender, nondistended, soft. BS present. Results & Data Results & Data ([facility]) Vital Signs (Past 12 Hours) Vital Signs Temp Pulse Pulse Resp BP Pulse Ox 08/30/21 10:39 84 08/30/21 08:23 82 20 96 08/30/21 07:57 36.8 C 108 H 16 164/80 H 91 08/30/21 03:00 36.8 C 87 18 124/72 91 PG Care Time/CCT Total # of Minutes Spent Total Time Spent with Patient: Total time spent is greater than 50% in coordination of care (as documented) at patient's floor/unit and/or counseling patient: Coding Level of Care Code 05212 Subseq Hosp Care Lvl 2 Diagnoses Acute tracheostomy management Z43.0 Tracheostomy malfunction J95.03 Cough productive of yellow sputum R05.8 Tracheostomy obstruction J95.09 CAD (coronary artery disease) I25.10 History of DVT (deep vein thrombosis) Z86.718 GERD (gastroesophageal reflux disease) K21.9 HTN (hypertension) I10 Hyperlipidemia E78.5 Obstructive sleep apnea G47.33 Hypothyroidism, postablative E89.0 Metastatic colorectal cancer C19 History of medullary carcinoma of thyroid Z85.850 Hx of papillary thyroid carcinoma Z85.850
[2021-08-30] MEDS ORDERED: AZITHROMYCIN 500 MG in DEXTROSE 5% 250 ML IV ONE (14:15)
[2021-08-30] MEDS: ATORVASTATIN 40 MG TAB PO SCH (20:01)
[2021-08-30] MEDS: TOPIRAMATE 100 MG TAB PO SCH (20:02)
[2021-08-31] MEDS: LEVOTHYROXINE SODIUM 112 MCG TABLET PO SCH (06:10)
[2021-08-31] MEDS: GABAPENTIN 300 MG CAP PO SCH ×3 (08:12→20:04)
[2021-08-31] MEDS: PANTOprazole 40 MG TAB PO SCH ×2 (08:12→20:05)
[2021-08-31] MEDS: POTASSIUM CHLORIDE CRTAB 20 MEQ TABCR PO SCH (08:13)
[2021-08-31] MEDS: FERROUS SULFATE 325 MG TAB PO SCH (08:13)
[2021-08-31] MEDS: lisinopril 20 MG TAB PO SCH ×2 (08:13→20:04)
[2021-08-31] MEDS: FAMOTIDINE 20 MG TAB PO SCH ×2 (08:13→20:04)
[2021-08-31] MEDS: CHOLECALCIFEROL 1,000 UNITS 25 MCG TAB PO SCH (08:13)
[2021-08-31] MEDS: PYRIDOXINE HCL 50 MG TAB PO SCH (08:13)
[2021-08-31] MEDS: SUCRALFATE 1 GM/10 ML UDC PO SCH ×4 (08:14→20:05)
[2021-08-31] MEDS: ASPIRIN 81 MG ECTAB PO SCH (08:14)
[2021-08-31] MEDS: ENOXAPARIN INJ 40 MG/0.4 ML SYR SQ SCH (08:14)
[2021-08-31] MEDS: METOPROLOL TARTRATE 25 MG TAB PO SCH ×2 (08:14→20:05)
[2021-08-31] MEDS: methylPREDNISolone 40 MG in SYRINGE 0 ML IV SCH (08:14)
[2021-08-31] MEDS ORDERED: AZITHROMYCIN 250 MG in DEXTROSE 5% 250 ML IV SCH (09:00)
[2021-08-31 09:01] LABS: Mean Corpuscular Hemoglobin 32.2 pg (25-34); Mean Corpuscular Hgb Conc 32.4 g/dL (32-36); Mean Corpuscular Volume 99.4 fL (80-100); Mean Platelet Volume 10.5 fL (7.4-10.4); Platelet Count 148 K/uL (130-400); RDW Coefficient of Variation 15.1 % (11.5-14.5); RDW Standard Deviation 54.8 fL (36.4-46.3); Red Blood Count 3.42 M/uL (4.2-5.4); White Blood Count 17.92 K/uL (4.8-10.8)
[2021-08-31 09:18] LABS: Albumin Level 3.5 gm/dl (3.4-5.0); BUN Creatinine Ratio 27.3 (10-20); Calcium 8.8 mg/dl (8.5-10.1); Creatinine Clr Calc Pharmacy 72.5 ml/min; Est GFR (African American) 105.9 ml/min; Est GFR (Non-African American) 91.4 ml/min; Phosphorus 2.4 mg/dl (2.5-4.9); Potassium 3.3 mmol/L (3.5-5.1)
[2021-08-31] MEDS: cefTRIAXone SODIUM 1,000 MG in DEXTROSE 5% 50 ML IV SCH (09:36)
[2021-08-31 09:43] LABS: Basophils # (auto) 0.02 K/uL (0-0.2); Basophils % (auto) 0.1 %; Dohle Bodies 1+; Eosinophils # (auto) 0.23 K/uL (0-0.5); Eosinophils % (auto) 1.3 %; Immature Granulocytes # (auto) 0.43 K/uL (0.00-0.02); Immature Granulocytes % (auto) 2.4 %; Lymphocytes # (auto) 1.42 K/uL (1.2-3.4); Lymphocytes % (auto) 7.9 %; Monocytes # (auto) 0.94 K/uL (0.11-0.59); Monocytes % (auto) 5.2 %; Neutrophils # (auto) 14.88 K/uL (1.4-6.5); Neutrophils % (auto) 83.1 %; Toxic Granulation 1+
[2021-08-31] MEDS ORDERED: POTASSIUM CHLORIDE CRTAB 20 MEQ TABCR PO STA (10:22)
--- NOTE | 2021-08-31 12:17 | Hospitalist Progress Note ---
Date of Service August 31, 2021 Assessment & Plan (1) Acute tracheostomy management: Plan: Tracheostomy occlusioon, bronchitis Patient presented with acute mucous plugging of inner tracheostomy cannula. 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 Does not have help daily, and family in the area. Patient is concerned that she is not able to care for this adequately on her own at home without daily help, notes that [facility] and would like to know if additional or daily services are available to her. Patient with marked leukocytosis on admission, however did receive Neulasta 2 days ago per patient MRSA nare negative Continue albuterol as needed, DuoNebs as needed Trach management per respiratory Patient has continued to have increased thickness and yellow color sputum production much different from her normal, tracheal sputum culture positive for MSSA. ABX narrowed to Rocephin, final cultures MSSA. Converted to Azithromycin, will complete x5 days. Continue nebulized treatments as needed Patient is unable to adequately manipulate her own trach collar at home due to chemotherapy and neuropathy. discussed with case management 08/31, are looking into placement and additional care options. Patient would prefer 24-hour care but this may be logistically difficult would like to avoid placement. Looking into additional home services through [facility] coverage, and other means to potentially help patient. She has a reportedly medical alert which has not been yet set up. CM following. Leukocytosis downtrending. Final cultures negative blood cultures, MSSA on sputum. Continuing Rocephin, tolerating well. Will defer narrowing to first generation due to history of hives with penicillin. Defer sulfa due to hives allergy. Will complete course with ceftriaxone, reasonable conversion to cefdinir for 5-day course complete 09/02/2021. Fin ishing steroid taper, wean to daily steroids 08/31 and taper over 5 additional days. CAD, per patient history of prior [place] without stents Continue aspirin, lisinopril, metoprolol tartrate Electrolytes daily, goal potassium 4.0 mag 2.0 Cardiac cath 08/16/2021: 70% ostial medium D1, 40% proximal small OM 2, 40% ostial RPDA No stents placed at that time, medical management pursued Echo: Normal LVEF, moderate concentric LVH, grade 1 diastolic dysfunction with small pericardial effusion Continue atorvastatin 40 mg nightly -EKG recheck with some flipped T waves no ST segment changes. Does report that she had chest pain with her prior hospitalization which she thought was cord pain, has not had any chest pain/discomfort but does feel that she is persistently breathing hard and is concerned if she could have another heart attack. Troponin was obtained, elevated to 23.1 with downtrend to 19.3. Clinically inconsistent with ACS OHS Trach, adequate sats Hypertension Continue beta-torrey, lisinopril Patient was switched from calcium channel torrey to beta-torrey at prior admission due to concern for ACS Hypothyroidism Continue Synthroid to 24 mcg p.o. daily TSH normal History of DVT Was seen by anticoagulation clinic 08/23/2021. Recommended to continue Lovenox 40 mg subcu every 24 hour Continue Lovenox as noted (2) Tracheostomy malfunction: (3) Cough productive of yellow sputum: (4) Tracheostomy obstruction: (5) CAD (coronary artery disease): (6) History of DVT (deep vein thrombosis): (7) GERD (gastroesophageal reflux disease): Plan: Continue pantoprazole, famotidine and Carafate (8) HTN (hypertension): Plan: See above (9) Hyperlipidemia: (10) Obstructive sleep apnea: (11) Hypothyroidism, postablative: (12) Metastatic colorectal cancer: Plan: - Next chemotherapy due in 3 days -If concern for clinical stability/infection reach out to oncology to discuss whether this should be continued or delayed At time of admission leukocytosis can be explained by any stimulating factor administration, but given presentation and thick sputum we will follow closely for signs of infection/cultures (13) History of medullary carcinoma of thyroid: (14) Hx of papillary thyroid carcinoma: Admission and Anticipated Discharge Date Admission Date: August 28, 2021 Subjective Chrissy is seen at the bedside. She reports that she is starting to feel better, and her tracheal secretions are starting to thin. Breathing is much easier this morning, and feels she is starting to progress towards her normal baseline. No rash. No fevers/chills/sweats. Did cough up a small "kidney null colored "piece of material this morning. No nausea/vomiting. No palpitations or chest pain. Is still concerned about returning home, discussed with case management who is looking into options. Patient would prefer 24/7 in-house care although this may be logistically difficult. Patient would like to avoid placement, does have help in a couple of times a week at present and has reportedly a medical alert not yet set up which she might be able to use. CM following. Review of Systems Review of Systems: All systems reviewed & are unremarkable except as noted in Subjective Physical Exam Physical Exam: General: A&Ox3. Appears frail. No acute distress. Breathing comfortably through trach. 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 Vision and hearing grossly intact. Pulm: good air movement, lungs clear without wheezes/rales/rhonchi. Symmetrical chest rise. No increase in work of breathing. No respiratory distress. Trach in place. Cardiac: Regular, tachycardic at bedside assessment without murmurs. Radial pulses intact and symmetrical. Abdominal: Nontender, nondistended, soft. BS present. Results & Data Results & Data ([facility]) Vital Signs (Past 12 Hours) Vital Signs Temp Pulse Resp BP Pulse Ox 08/31/21 11:14 36.8 C 78 20 111/67 98 08/31/21 07:47 36.4 C L 77 18 114/69 95 08/31/21 04:00 36.9 C 82 18 107/67 96 PG Care Time/CCT Total # of Minutes Spent Total Time Spent with Patient: Total time spent is greater than 50% in coordination of care (as documented) at patient's floor/unit and/or counseling patient: Coding Level of Care Code 05846 Subseq Hosp Care Lvl 2 Diagnoses Acute tracheostomy management Z43.0 Tracheostomy malfunction J95.03 Cough productive of yellow sputum R05.8 Tracheostomy obstruction J95.09 CAD (coronary artery disease) I25.10 History of DVT (deep vein thrombosis) Z86.718 GERD (gastroesophageal reflux disease) K21.9 HTN (hypertension) I10 Hyperlipidemia E78.5 Obstructive sleep apnea G47.33 Hypothyroidism, postablative E89.0 Metastatic colorectal cancer C19 History of medullary carcinoma of thyroid Z85.850 Hx of papillary thyroid carcinoma Z85.850
[2021-08-31] MEDS: ATORVASTATIN 40 MG TAB PO SCH (20:04)
[2021-08-31] MEDS: TOPIRAMATE 100 MG TAB PO SCH (20:05)
[2021-09-01] MEDS: LEVOTHYROXINE SODIUM 112 MCG TABLET PO SCH (05:40)
[2021-09-01] MEDS: methylPREDNISolone 40 MG in SYRINGE 0 ML IV SCH (07:16)
[2021-09-01] MEDS: GABAPENTIN 300 MG CAP PO SCH ×3 (07:16→20:26)
[2021-09-01] MEDS: FAMOTIDINE 20 MG TAB PO SCH ×2 (07:16→20:26)
[2021-09-01] MEDS: METOPROLOL TARTRATE 25 MG TAB PO SCH ×2 (07:18→20:27)
[2021-09-01] MEDS: lisinopril 20 MG TAB PO SCH ×2 (07:18→20:27)
[2021-09-01] MEDS: CHOLECALCIFEROL 1,000 UNITS 25 MCG TAB PO SCH (07:19)
[2021-09-01] MEDS: PYRIDOXINE HCL 50 MG TAB PO SCH (07:19)
[2021-09-01] MEDS: POTASSIUM CHLORIDE CRTAB 20 MEQ TABCR PO SCH (07:19)
[2021-09-01] MEDS: PANTOprazole 40 MG TAB PO SCH ×2 (07:19→20:27)
[2021-09-01] MEDS: ASPIRIN 81 MG ECTAB PO SCH (07:19)
[2021-09-01] MEDS: ENOXAPARIN INJ 40 MG/0.4 ML SYR SQ SCH (07:21)
[2021-09-01] MEDS: FERROUS SULFATE 325 MG TAB PO SCH (07:21)
[2021-09-01] MEDS: SUCRALFATE 1 GM/10 ML UDC PO SCH ×4 (07:22→20:28)
[2021-09-01 07:52] LABS: Hematocrit (blood only) 31.1 % (37-47); Mean Corpuscular Hemoglobin 32.7 pg (25-34); Mean Corpuscular Hgb Conc 32.2 g/dL (32-36); Mean Corpuscular Volume 101.6 fL (80-100); Mean Platelet Volume 10.3 fL (7.4-10.4); Platelet Count 128 K/uL (130-400); RDW Coefficient of Variation 14.8 % (11.5-14.5); RDW Standard Deviation 54.9 fL (36.4-46.3); Red Blood Count 3.06 M/uL (4.2-5.4); White Blood Count 16.67 K/uL (4.8-10.8)
[2021-09-01 08:14] LABS: Basophils # (auto) 0.02 K/uL (0-0.2); Basophils % (auto) 0.1 %; Eosinophils # (auto) 0.47 K/uL (0-0.5); Eosinophils % (auto) 2.8 %; Immature Granulocytes # (auto) 0.93 K/uL (0.00-0.02); Immature Granulocytes % (auto) 5.6 %; Lymphocytes # (auto) 1.15 K/uL (1.2-3.4); Lymphocytes % (auto) 6.9 %; Monocytes # (auto) 0.94 K/uL (0.11-0.59); Monocytes % (auto) 5.6 %; Neutrophils # (auto) 13.16 K/uL (1.4-6.5); Toxic Granulation 2+
[2021-09-01] MEDS: ALBUT/IPRATROP 3MG/0.5MG NEB 3 ML VIAL NEB PRN (08:14)
--- NOTE | 2021-09-01 08:16 | Hospitalist Progress Note ---
Date of Service September 01, 2021 Assessment & Plan (1) Acute tracheostomy management: Plan: Tracheostomy occlusion, bronchitis Patient presented with acute mucous plugging of inner tracheostomy cannula. 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 -change of trache brand with twist lock, with better success of self care . Patient with marked leukocytosis on admission, however did receive Neulasta 2 days ago per patient Patient has improved quality and reduced sputum production sice admission, , tracheal sputum culture positive for MSSA. ABX narrowed to Rocephin, final cultures MSSA. Since pt has better luck manipulating trache now with new brand, she is still looking at going home searching for home services through [facility] coverage, and other means to potentially help patient. She has a reportedly medical alert which has not been yet set up. CM following. Leukocytosis downtrending. Final cultures negative blood cultures, MSSA on sputum. Continuing Rocephin, tolerating well. Will defer narrowing to first generation due to history of hives with penicillin. Defer sulfa due to hives allergy. Will complete course with ceftriaxone, reasonable conversion to cefdinir for 5-day course complete 09/02/2021. Finishing steroid taper, wean to daily steroids 08/31 and taper over 5 additional days. CAD, per patient history of prior [place] without stents Continue aspirin, lisinopril, metoprolol tartrate Cardiac cath 08/16/2021: 70% ostial medium D1, 40% proximal small OM 2, 40% ostial RPDA No stents placed at that time, medical management pursued Echo: Normal LVEF, moderate concentric LVH, grade 1 diastolic dysfunction with small pericardial effusion Continue atorvastatin 40 mg nightly -EKG recheck with some flipped T waves no ST segment changes. Does report that she had chest pain with her prior hospitalization which she thought was cord pain, has not had any chest pain/discomfort but does feel that she is persistently breathing hard and is concerned if she could have another heart attack. Troponin was obtained, elevated to 23.1 with downtrend to 19.3. Clinically inconsistent with ACS OHS Trach, adequate sats Hypertension Continue beta-torrey, lisinopril Patient was switched from calcium channel torrey to beta-torrey at prior admission due to concern for ACS Hypothyroidism Continue Synthroid to 24 mcg p.o. daily TSH normal History of DVT Was seen by anticoagulation clinic 08/23/2021. Recommended to continue Lovenox 40 mg subcu every 24 hour Continue Lovenox as noted (2) Tracheostomy malfunction: (3) Cough productive of yellow sputum: (4) Tracheostomy obstruction: (5) CAD (coronary artery disease): (6) History of DVT (deep vein thrombosis): (7) GERD (gastroesophageal reflux disease): Plan: Continue pantoprazole, famotidine and Carafate (8) HTN (hypertension): Plan: See above (9) Hyperlipidemia: (10) Obstructive sleep apnea: (11) Hypothyroidism, postablative: (12) Metastatic colorectal cancer: Plan: - Next chemotherapy due in 3 days -If concern for clinical stability/infection reach out to oncology to discuss whether this should be continued or delayed At time of admission leukocytosis can be explained by any stimulating factor administration, but given presentation and thick sputum we will follow closely for signs of infection/cultures (13) History of medullary carcinoma of thyroid: (14) Hx of papillary thyroid carcinoma: Admission and Anticipated Discharge Date Admission Date: August 28, 2021 Subjective Pt is much better, mucus is thinning with hydration and change of trache, with different style of trache, easier to manipulate with her hand/tactile neuropathy Review of Systems Review of Systems: Mild distress and fatigue no headache, no visual changes no swallowing issues, can plug trache and speak no chest pain, pressure or palpitations no shortness of breath, does have loose cough or wheezes no abdominal pain, nausea or vomiting, diarrhea or constipation no dysuria, hematuria or frequency no focal joint pain or swelling no back pain, CVA tenderness or radicular pain no bruising, bleeding or rashes no focal signs of weakness or numbness or altered sensation no complaints of anxiety or depression.. Physical Exam Physical Exam: The patient appeared well nourished and normally developed. Vital signs as documented. Head exam is normocephalic atraumatic Neck is with tracheostomy in place, no mucus but just suctioned, no JVD, thyromegaly, or carotid bruits. Lungs are coarse but clear, no focal loss of breath sounds Cardiac exam, Rhythm is regular.. No murmurs, rubs or gallops. Abdominal exam reveals normal bowel sounds, soft non tender, no masses Extremities are nonedematous and both pedal pulses are present Neurologic exam is alert and oriented, no focal loss of strength or sensation Skin is without bruises or rashes Psychologically is without concerns for anxiety or depression.. Results & Data Results & Data ([facility]) Vital Signs (Past 12 Hours) Vital Signs Temp Pulse Pulse Resp BP Pulse Ox 09/01/21 07:03 98.4 F 85 18 124/63 97 09/01/21 02:32 98.6 F 88 18 120/71 94 08/31/21 23:58 85 08/31/21 22:46 98.4 F 91 H 18 148/81 H 95 PG Care Time/CCT Total # of Minutes Spent Total Time Spent with Patient: Total time spent is greater than 50% in coordination of care (as documented) at patient's floor/unit and/or counseling patient: Coding Level of Care Code 45889 Subseq Hosp Care Lvl 2 Diagnoses Acute tracheostomy management Z43.0 Tracheostomy malfunction J95.03 Cough productive of yellow sputum R05.8 Tracheostomy obstruction J95.09 CAD (coronary artery disease) I25.10 History of DVT (deep vein thrombosis) Z86.718 GERD (gastroesophageal reflux disease) K21.9 HTN (hypertension) I10 Hyperlipidemia E78.5 Obstructive sleep apnea G47.33 Hypothyroidism, postablative E89.0 Metastatic colorectal cancer C19 History of medullary carcinoma of thyroid Z85.850 Hx of papillary thyroid carcinoma Z85.850
[2021-09-01 08:18] LABS: BUN Creatinine Ratio 19.4 (10-20); Calcium 8.6 mg/dl (8.5-10.1); Creatinine Clr Calc Pharmacy 67.5 ml/min; Est GFR (African American) 100.4 ml/min; Est GFR (Non-African American) 86.7 ml/min; Potassium 3.6 mmol/L (3.5-5.1)
[2021-09-01] MEDS: cefTRIAXone SODIUM 1,000 MG in DEXTROSE 5% 50 ML IV SCH (09:41)
[2021-09-01] MEDS: ATORVASTATIN 40 MG TAB PO SCH (20:26)
[2021-09-01] MEDS: TOPIRAMATE 100 MG TAB PO SCH (20:27)
[2021-09-01] MEDS: guaiFENesin 600 MG TABCR PO SCH (20:27)
[2021-09-02] MEDS: LEVOTHYROXINE SODIUM 112 MCG TABLET PO SCH (06:00)
[2021-09-02] MEDS: predniSONE 20 MG TAB PO SCH (08:49)
[2021-09-02] MEDS: CHOLECALCIFEROL 1,000 UNITS 25 MCG TAB PO SCH (08:49)
[2021-09-02] MEDS: POTASSIUM CHLORIDE CRTAB 20 MEQ TABCR PO SCH (08:49)
[2021-09-02] MEDS: FERROUS SULFATE 325 MG TAB PO SCH (08:49)
[2021-09-02] MEDS: SUCRALFATE 1 GM/10 ML UDC PO SCH ×4 (08:49→21:29)
[2021-09-02] MEDS: ASPIRIN 81 MG ECTAB PO SCH (08:50)
[2021-09-02] MEDS: PYRIDOXINE HCL 50 MG TAB PO SCH (08:50)
[2021-09-02] MEDS: GABAPENTIN 300 MG CAP PO SCH ×3 (08:50→21:27)
[2021-09-02] MEDS: FAMOTIDINE 20 MG TAB PO SCH ×2 (08:50→21:28)
[2021-09-02] MEDS: ENOXAPARIN INJ 40 MG/0.4 ML SYR SQ SCH (08:51)
[2021-09-02] MEDS: guaiFENesin 600 MG TABCR PO SCH ×2 (08:51→21:27)
[2021-09-02] MEDS: PANTOprazole 40 MG TAB PO SCH ×2 (08:52→21:29)
[2021-09-02] MEDS: METOPROLOL TARTRATE 25 MG TAB PO SCH ×2 (08:52→21:25)
[2021-09-02] MEDS: lisinopril 20 MG TAB PO SCH ×2 (08:52→21:27)
[2021-09-02] MEDS: cefTRIAXone SODIUM 1,000 MG in DEXTROSE 5% 50 ML IV SCH (09:03)
--- NOTE | 2021-09-02 18:24 | Hospitalist Progress Note ---
Date of Service September 02, 2021 Assessment & Plan (1) Acute tracheostomy management: Plan: Tracheostomy occlusion, bronchitis much improving Patient presented with acute mucous plugging of inner tracheostomy cannula. 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 -change of trachea brand with twist lock, with better success of self care . Patient with marked leukocytosis on admission, however did receive Neulasta 2 days prior to admission Patient has improved quality and reduced sputum production since admission, , tracheal sputum culture positive for MSSA. ABX narrowed to Rocephin, final cultures MSSA. Since pt has better luck manipulating trache now with new brand, she is still looking at going home searching for home services through [facility] coverage, and other means to potentially help patient. She has a reportedly medical alert which has not been yet set up. CM following. Leukocytosis downtrending. Final cultures negative blood cultures, MSSA on sputum. Continuing Rocephin, tolerating well. Will defer narrowing to first generation due to history of hives with penicillin. Defer sulfa due to hives allergy. Will complete course with ceftriaxone, reasonable conversion to cefdinir for 5-day course completed 09/02/2021. Finishing steroid taper, wean to daily steroids 08/31 and taper CAD, per patient history of prior CA without stents Continue aspirin, lisinopril, metoprolol tartrate Cardiac cath 08/16/2021: 70% ostial medium D1, 40% proximal small OM 2, 40% ostial RPDA No stents placed at that time, medical management pursued Echo: Normal LVEF, moderate concentric LVH, grade 1 diastolic dysfunction with small pericardial effusion Continue atorvastatin 40 mg nightly -EKG recheck with some flipped T waves no ST segment changes. Does report that she had chest pain with her prior hospitalization which she thought was cord pain, has not had any chest pain/discomfort but does feel that she is persistently breathing hard and is concerned if she could have another heart attack. Troponin was obtained, elevated to 23.1 with downtrend to 19.3. Clinically inconsistent with ACS OHS Trach, adequate sats Hypertension Continue beta-torrey, lisinopril Patient was switched from calcium channel torrey to beta-torrey at prior admission due to concern for ACS Hypothyroidism Continue Synthroid to 24 mcg p.o. daily TSH normal History of DVT Was seen by anticoagulation clinic 08/23/2021. Recommended to continue Lovenox 40 mg subcu every 24 hour Continue Lovenox as noted (2) Tracheostomy malfunction: (3) Cough productive of yellow sputum: (4) Tracheostomy obstruction: (5) CAD (coronary artery disease): (6) History of DVT (deep vein thrombosis): (7) GERD (gastroesophageal reflux disease): Plan: Continue pantoprazole, famotidine and Carafate (8) HTN (hypertension): Plan: See above (9) Hyperlipidemia: (10) Obstructive sleep apnea: (11) Hypothyroidism, postablative: (12) Metastatic colorectal cancer: Plan: - Next chemotherapy due in 3 days -If concern for clinical stability/infection reach out to oncology to discuss whether this should be continued or delayed At time of admission leukocytosis can be explained by any stimulating factor administration, but given presentation and thick sputum we will follow closely for signs of infection/cultures (13) History of medullary carcinoma of thyroid: (14) Hx of papillary thyroid carcinoma: Admission and Anticipated Discharge Date Admission Date: August 28, 2021 Subjective Pt is much better, mucus lessening, with different style of trache, easier to manipulate with her hand/tactile neuropathy, pt able to change and clean trache Review of Systems Review of Systems: Mild distress and fatigue no headache, no visual changes no swallowing issues, can plug trache and speak no chest pain, pressure or palpitations no shortness of breath, does have loose cough or wheezes no abdominal pain, nausea or vomiting, diarrhea or constipation no dysuria, hematuria or frequency no focal joint pain or swelling no back pain, CVA tenderness or radicular pain no bruising, bleeding or rashes no focal signs of weakness or numbness or altered sensation no complaints of anxiety or depression.. Physical Exam Physical Exam: The patient appeared well nourished and normally developed. Vital signs as documented. Head exam is normocephalic atraumatic Neck is with tracheostomy in place, no mucus but just suctioned, no JVD, thyromegaly, or carotid bruits. Lungs are coarse but clear, no focal loss of breath sounds Cardiac exam, Rhythm is regular.. No murmurs, rubs or gallops. Abdominal exam reveals normal bowel sounds, soft non tender, no masses Extremities are nonedematous and both pedal pulses are present Neurologic exam is alert and oriented, no focal loss of strength or sensation Skin is without bruises or rashes Psychologically is without concerns for anxiety or depression.. Results & Data Results & Data ([facility]) Vital Signs (Past 12 Hours) Vital Signs Temp Pulse Pulse Resp BP Pulse Ox 09/02/21 14:54 98.2 F 89 20 161/77 H 97 09/02/21 14:26 83 09/02/21 07:46 98.1 F 85 20 136/76 97 PG Care Time/CCT Total # of Minutes Spent Total Time Spent with Patient: Total time spent is greater than 50% in coordination of care (as documented) at patient's floor/unit and/or counseling patient: Coding Level of Care Code 69511 Subseq Hosp Care Lvl 2 Diagnoses Acute tracheostomy management Z43.0 Tracheostomy malfunction J95.03 Cough productive of yellow sputum R05.8 Tracheostomy obstruction J95.09 CAD (coronary artery disease) I25.10 History of DVT (deep vein thrombosis) Z86.718 GERD (gastroesophageal reflux disease) K21.9 HTN (hypertension) I10 Hyperlipidemia E78.5 Obstructive sleep apnea G47.33 Hypothyroidism, postablative E89.0 Metastatic colorectal cancer C19 History of medullary carcinoma of thyroid Z85.850 Hx of papillary thyroid carcinoma Z85.850
[2021-09-02] MEDS: ATORVASTATIN 40 MG TAB PO SCH (21:28)
[2021-09-02] MEDS: TOPIRAMATE 100 MG TAB PO SCH (21:28)
[2021-09-03] MEDS: LEVOTHYROXINE SODIUM 112 MCG TABLET PO SCH (06:05)
[2021-09-03] MEDS: cefTRIAXone SODIUM 1,000 MG in DEXTROSE 5% 50 ML IV SCH (08:10)
[2021-09-03] MEDS: GABAPENTIN 300 MG CAP PO SCH (08:14)
[2021-09-03] MEDS: POTASSIUM CHLORIDE CRTAB 20 MEQ TABCR PO SCH (08:14)
[2021-09-03] MEDS: PANTOprazole 40 MG TAB PO SCH (08:14)
[2021-09-03] MEDS: lisinopril 20 MG TAB PO SCH (08:14)
[2021-09-03] MEDS: predniSONE 20 MG TAB PO SCH (08:14)
[2021-09-03] MEDS: FAMOTIDINE 20 MG TAB PO SCH (08:14)
[2021-09-03] MEDS: SUCRALFATE 1 GM/10 ML UDC PO SCH ×2 (08:15→14:11)
[2021-09-03] MEDS: CHOLECALCIFEROL 1,000 UNITS 25 MCG TAB PO SCH (08:15)
[2021-09-03] MEDS: FERROUS SULFATE 325 MG TAB PO SCH (08:15)
[2021-09-03] MEDS: ASPIRIN 81 MG ECTAB PO SCH (08:15)
[2021-09-03] MEDS: PYRIDOXINE HCL 50 MG TAB PO SCH (08:15)
[2021-09-03] MEDS: METOPROLOL TARTRATE 25 MG TAB PO SCH (08:15)
[2021-09-03] MEDS: ENOXAPARIN INJ 40 MG/0.4 ML SYR SQ SCH (08:15)
[2021-09-03] MEDS: guaiFENesin 600 MG TABCR PO SCH (08:15)
--- NOTE | 2021-09-03 08:31 | Discharge Summary ---
Date of Service September 03, 2021 Admission HPI Per Admitting Provider The patient is a 65-year-old female with a past medical history including NSTEMI, aspiration into airway, iron deficiency, neutropenia, CAD, metastatic colorectal cancer, DVT, status post tracheostomy, papillary thyroid cancer, medullary thyroid cancer, postsurgical hypothyroidism, complete bilateral vocal cord paralysis, acute GI bleeding, dyslipidemia and left bundle branch block. Patient presents to the emergency department due to obstruction of tracheostomy cannula, associated with large volumes of thick yellow sputum. She reports her next chemotherapy is due in 3 days. Principal Diagnosis respiratory distress due to tracheostomy malfunction bronchitis Discharge Exam The patient appeared well Vital signs as documented. tracheostomy intact and has been easy to remove and clean Lungs are clear to auscultation and appear unlabored Cardiac exam, Rhythm is regular.. No murmurs, rubs or gallops. Abdominal exam reveals normal bowel sounds, soft non tender, no masses Extremities are nonedematous and both pedal pulses are normal. Neurologic exam is alert and oriented, no focal loss of strength or sensation Skin is without bruises or rashes Psychologically is without concerns for anxiety or depression. Discharge Data Allergies Allergy/AdvReac Type Severity Reaction Status Date / Time Iodinated Contrast Media Allergy Intermediate Hives Verified 08/28/21 17:43 Penicillins Allergy Intermediate Hives Verified 08/28/21 17:43 Sulfa (Sulfonamide Allergy Intermediate Hives Verified 08/28/21 17:43 Antibiotics) Consultations 08/28/21 22:14 ED Decision to Admit Stat Hospital Course (1) Acute tracheostomy management: Tracheostomy occlusion, with thick secretions from bronchitis, improved/resolved Patient presented with acute mucous plugging of inner tracheostomy cannula and acute respiratory distress due to this. 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 -change of trachea brand with twist lock, with better success of self care . tracheal sputum culture positive for MSSA. ABX narrowed to Rocephin, final cultures MSSA, initial leukocytosis from neulasta. Since pt has better luck manipulating trache, she is still looking at going home searching for home services through [facility] coverage CAD, per patient history of prior MS without stents Continue aspirin, lisinopril, metoprolol tartrate Cardiac cath 08/16/2021: 70% ostial medium D1, 40% proximal small OM 2, 40% ostial RPDA No stents placed at that time, medical management pursued Echo: Normal LVEF, moderate concentric LVH, grade 1 diastolic dysfunction with small pericardial effusion Continue atorvastatin 40 mg nightly OHS Trach, adequate sats Hypertension Continue beta-torrey, lisinopril Hypothyroidism Continue Synthroid to 24 mcg p.o. daily TSH normal History of DVT Was seen by anticoagulation clinic 08/23/2021. Recommended to continue Lovenox 40 mg subcu every 24 hour Continue Lovenox as noted (2) Tracheostomy malfunction: (3) Cough productive of yellow sputum: (4) Tracheostomy obstruction: (5) CAD (coronary artery disease): (6) History of DVT (deep vein thrombosis): (7) GERD (gastroesophageal reflux disease): Continue pantoprazole, famotidine and Carafate (8) HTN (hypertension): See above (9) Hyperlipidemia: (10) Obstructive sleep apnea: (11) Hypothyroidism, postablative: (12) Metastatic colorectal cancer: - Next chemotherapy due in 3 days -If concern for clinical stability/infection reach out to oncology to discuss whether this should be continued or delayed At time of admission leukocytosis can be explained by any stimulating factor administration, but given presentation and thick sputum we will follow closely for signs of infection/cultures (13) History of medullary carcinoma of thyroid: (14) Hx of papillary thyroid carcinoma: Total Time Total Time Spent Total Time Spent (In Minutes): It required greater than 30 minutes to prepare this patient for discharge Discharge Plan Discharge Items Patient Disposition: Home - Home Health Services Reason For Visit: PNUEMONIA, TACH MANEGMENT Discharge Diagnosis: tracheostomy malfunction bronchitis with tenacious mucus Activity: Resume your previous activity Non-emergency contact: Primary Care Provider and First Assistant Manager Call non-emergency contact if: your symptoms worsen and you have a fever Follow-up/Referrals: Karen Cao PA-C [Primary Care Provider] - Diet: Regular Addtl Attending Provider Instructions: please continue to do the good work in keeping your trache clean and use humidified trache collar follow up with your affiliate marketing specialist if you notice your mucus thickening, but not changing color or amount consider using over the counter mucinex, if it is more in amount or changes color contact your Primary care as this may signify infection. complete your prednisone tapering schedule Pending Studies at Discharge: No Stand-Alone Forms: My [facility], Smoking Cessation Medications and DC Order Prescriptions: New prednisone 10 mg tablet 10 mg PO UD Qty: 40 RF: 0 Continued enoxaparin 40 mg/0.4 mL syringe 40 mg subcut Q24H RF: 0 gabapentin 300 mg capsule 600 mg PO TID RF: 0 cholecalciferol (vitamin D3) 50 mcg (2,000 unit) capsule 2,000 unit PO QAM RF: 0 atorvastatin 40 mg tablet 40 mg PO HS Qty: 14 RF: 0 metoprolol tartrate 25 mg tablet 25 mg PO BID Qty: 28 RF: 0 (DME) miscellaneous medical supply Misc See Rx Instructions .Route Qty: 48 RF: 1 (DME) miscellaneous medical supply Misc See Rx Instructions .Route Qty: 48 RF: 1 acetaminophen [Tylenol Extra Strength] 500 mg tablet 1,000 mg PO BID PRN (Reason: Pain) RF: 0 topiramate [Topamax] 200 mg tablet 200 mg PO HS RF: 0 lisinopril 10 mg tablet 20 mg PO BID RF: 0 albuterol sulfate 90 mcg/actuation Hfa Aerosol Inhaler 1 inh INHALATION QID PRN (Reason: sob) RF: 0 levothyroxine 112 mcg tablet 224 mcg PO QAM RF: 0 potassium chloride 20 mEq Tablet Extended Release 20 meq PO QAM RF: 0 famotidine 20 mg Tablet 20 mg PO BID Qty: 60 RF: 0 pantoprazole 40 mg Tablet,Delayed Release (Dr/Ec) 40 mg PO BID Qty: 60 RF: 0 ferrous sulfate 325 mg (65 mg iron) Tablet,Delayed Release (Dr/Ec) 325 mg PO QAM Qty: 30 RF: 0 sucralfate 100 mg/mL Suspension 10 ml PO QID Qty: 1200 RF: 0 aspirin [Children's Aspirin] 81 mg Tablet,Chewable 81 mg PO QAM Qty: 30 RF: 0 pyridoxine (vitamin B6) [Vitamin B-6] 100 mg Tablet 0 mg PO QAM RF: 0 Discharge Orders: Discharge Order (Routine); Ordered 09/03/21 Ordered By: Daryl Billings Admission Data Admit Date/Time: 08/28/21 22:46 Attending Provider: Daryl Billings Admit Provider: Marco A Ellis Primary Care Provider: Karen Cao Other Providers: Marco A Ellis ; [facility] ; [facility] Coding Level of Care Code D/C DAY MANAGEMENT >30 MINS Diagnoses Acute tracheostomy management Z43.0 Tracheostomy malfunction J95.03 Cough productive of yellow sputum R05.8 Tracheostomy obstruction J95.09 CAD (coronary artery disease) I25.10 History of DVT (deep vein thrombosis) Z86.718 GERD (gastroesophageal reflux disease) K21.9 HTN (hypertension) I10 Hyperlipidemia E78.5 Obstructive sleep apnea G47.33 Hypothyroidism, postablative E89.0 Metastatic colorectal cancer C19 History of medullary carcinoma of thyroid Z85.850 Hx of papillary thyroid carcinoma Z85.850
== END 2021-09-03 15:24 | disposition home health service (06) | DRG 206 ==
LOC: ED 16:42 → 2W 22:46 → SUATTDRO 22:46 → 2W 08-29 00:24